=== PATIENT | female | born 1955 | race Caucasian/White ===

== ENCOUNTER 2020-03-10 13:11 | Outpatient (CLI) | payer MEDICARE, MEDICAID, SELFPAY ==
--- NOTE | ~2020-03-10 | XR_ITS ---
EXAMINATION: XR lg joint inject/asp w image DATE: 03/10/2020 14:10 INDICATION: Left hip arthritis with pain TECHNIQUE: A time-out was performed to verify the patient's name, date of , and procedure to b e performed. The procedure including the risks, benefits, and alternatives was discussed with the pat ient. Risks discussed included bleeding and infection. The patient understood the risks and agreed to proceed. The skin overlying the left hip joint was prepped and draped in usual sterile fashion. An esthetic was administered with 1% lidocaine subcutaneously. A 22 G needle was advanced under fluoros copic guidance into the joint. Injection of 0.8 mL of Omnipaque 240 confirmed intra-articular positi on of the needle. Subsequently, injectate consisting of 3 mm of a 2:1 mixture of 0.5% bupivacaine: 8 0 mg/mL Depo-Medrol for a total dose of 80 mg Depo-Medrol was instilled. Washout of contrast was seen confirming intra-articular administration. The needle was removed and the entry site was cleaned and dressed. There were no immediate complications. Fluoroscopy exposure time was 0.1 minutes. The tota l number of images was 2. FINDINGS: Real-time fluoroscopy demonstrates the needle in the left hip joint. Patient's pain prior t o procedure:05/10. Patient's pain following the procedure: 08/10. IMPRESSION: 1. Left hip joint injection of local anesthetic and steroid with decrease in the patient's presenting pain. Reviewed, dictated and finalized at location A. IMPRESSION: 1. Left hip joint injection of local anesthetic and steroid with decrease in th e patient's presenting pain.
== END 2020-03-10 13:12 | disposition home or self-care (01) ==
LOC: ANHIMG 13:20
PROVIDERS: PCP Physician Assistant; Visit Provider Orthopaedic Surgery
DX: M16.12 Unilateral primary osteoarthritis, left hip (principal)
CPT/HCPCS: 20610; 77002; J1040; Q9966

== ENCOUNTER 2020-12-02 20:31 | Emergency (ER) | payer MEDICARE, MEDICAID, SELFPAY ==
--- NOTE | ~2020-12-02 | XR_ITS ---
EXAMINATION: XR chest 1V portable DATE: 12/02/2020 21:17 INDICATION: Pneumonia. TECHNIQUE: A single frontal view of the chest was obtained. COMPARISON: None. FINDINGS: There are airspace opacities in left lower lung zone. No pleural effusion or pneumothorax. The heart size is normal. There is a large hiatal hernia. There is internal fixation of left humerus. IMPRESSION: 1. Airspace opacities in left lower lung zone, consistent with atelectasis versus pneumonia. 2. Large hiatal hernia. Reviewed, dictated and finalized at location A. IMPRESSION: 1. Airspace opacities in left lower lung zone, consistent with atelectasis vers us pneumonia. 2. Large hiatal hernia.
[2020-12-02 20:34] VITALS: BP 146/76; PULSE 78; RESP 18; TEMP 35.8; O2SAT 95
--- NOTE | 2020-12-02 20:53 | PC.NURSE ---
patients daughter reports that patient fell and hit her head bout a week ago and then had an accidental overdose on her rx medications. was admitted to [facility] and treated on both the medical floor and the geropsych graves. patient was discharged this am. daughter reports being unhappy with the care patient recieved at [facility] and therefore brought her here for a second opinion . daughter is vague about what her actual medical concerns are at this time. daughter keeps repeating how the nurses at [facility] refused to give patient applesauce when it was requested and the fact that she(daughter) was not provided with enough details as to test results etc. patient offers no complaints
--- NOTE | 2020-12-02 21:40 | ED.GENADULT ---
HPI - General Adult General Chief complaint: Unspecified Stated complaint: wants 2nd opinion Time Seen by Provider: 12/02/20 21:18 History of Present Illness HPI narrative: Patient is a 65-year-old female who presents the emergency department with chief complaint of wants second opinion. Patient was just discharged from [facility] [place] after she had had a accidental overdose on methamphetamine and [place]. The patient was admitted initially to the medical floor and then to their psychiatric unit and then back to the medical floor for a observation overnight. The patient was discharged today with a diagnosis of pneumonia is currently on a Levaquin dosing of 750 mg every 48 hours. The patient's daughter states that she is still somewhat confused but has been that way since she overdosed. She uses a walker at home. The patient's daughter wished to have a second opinion of the pneumonia and brought the patient to the emergency department for evaluation. Currently the patient has no complaints Related Data Home Medications Medication Instructions Recorded Confirmed baclofen 20 mg tablet 20 mg PO DAILY 02/28/20 05/23/20 acetaminophen 500 mg tablet 500 mg PO Q6H PRN 05/23/20 albuterol sulfate 90 mcg/actuation 1 inh INHALATION Q4H 05/23/20 aerosol inhaler amlodipine 10 mg tablet 10 mg PO DAILY 05/23/20 ammonium lactate 12 % topical cream 1 applic TOPICAL DAILY 05/23/20 apixaban 5 mg tablet 5 mg PO BID 05/23/20 aripiprazole 30 mg tablet 30 mg PO DAILY 05/23/20 aspirin 81 mg tablet,delayed 81 mg PO DAILY 05/23/20 release budesonide-formoterol HFA 160 2 puff INHALATION Q12H 05/23/20 mcg-4.5 mcg/actuation aerosol inhaler bupropion HCl 200 mg tablet,12 hr 200 mg PO BID 05/23/20 sustained-release carvedilol 6.25 mg tablet 6.25 mg PO Q12H 05/23/20 cholestyramine-aspartame 4 gram PO 05/23/20 oral powder for susp in a packet cyclobenzaprine 10 mg tablet 10 mg PO TID PRN 05/23/20 dicyclomine 10 mg capsule 10 mg PO QID 05/23/20 duloxetine 30 mg capsule,delayed 30 mg PO DAILY 05/23/20 release famotidine 40 mg tablet 40 mg PO DAILY 10/23/20 fenofibrate micronized 134 mg 134 mg PO DAILY 05/23/20 capsule ferrous sulfate 325 mg (65 mg 325 mg PO DAILY 05/23/20 iron) tablet,delayed release gabapentin 600 mg tablet 600 mg PO TID 05/23/20 hydrocodone 5 mg-acetaminophen 325 1 tablet PO Q6H PRN 05/23/20 mg tablet metformin 500 mg tablet 500 mg PO BID 05/23/20 metronidazole 500 mg tablet 500 mg PO Q8H 05/23/20 nicotine 21 mg/24 hr daily 1 patch TRANSDERMAL DAILY 05/23/20 transdermal patch pantoprazole 40 mg tablet,delayed 40 mg PO QAM 05/23/20 release prednisone 20 mg tablet 20 mg PO BID 05/23/20 sertraline 100 mg tablet 150 mg PO DAILY tablet 05/23/20 sitagliptin 100 mg tablet 100 mg PO DAILY 05/23/20 Allergies Allergy/AdvReac Type Severity Reaction Status Date / Time morphine Allergy Unknown Hives Verified 05/23/20 10:03 Review of Systems Review of Systems: Narrative: A 10 system review of systems was completed on the patient and is negative except for what is stated in the HPI. Nursing and ancillary documentation was reviewed. [facility] Past Medical History Medical History Afib [place] Anxiety COPD (chronic obstructive pulmonary disease) Depression Diabetes Diarrhea Dizziness Emphysema of lung Headache History of pneumonia HTN (hypertension) Hx of drug dependence Osteoporosis Pneumonia Seizures Shortness of breath Vision abnormalities Weight gain Family History Family History Father Depression Sibling Depression Hypertension Family history of elevated blood lipids Other Arthritis Diabetes mellitus Heart disease Malignant neoplasm Social History Social History Smoking status
[2020-12-02 21:55] VITALS: BP 140/70; PULSE 78; RESP 18; O2SAT 99
== END 2020-12-02 21:56 | disposition home or self-care (01) ==
PROVIDERS: Emergency Provider Emergency Medicine; PCP Physician Assistant
DX: J18.9 Pneumonia, unspecified organism (principal); F17.210 Nicotine dependence, cigarettes, uncomplicated; I48.91 Unspecified atrial fibrillation; D64.9 Anemia, unspecified; F41.9 Anxiety disorder, unspecified; J44.9 Chronic obstructive pulmonary disease, unspecified; F32.9 Major depressive disorder, single episode, unspecified; E11.9 Type 2 diabetes mellitus without complications; I10 Essential (primary) hypertension; G40.909 Epilepsy, unspecified, not intractable, without status epilepticus; Z79.84 Long term (current) use of oral hypoglycemic drugs
CPT/HCPCS: 71045; 99283

== ENCOUNTER 2020-12-08 16:11 | Emergency (ER) | payer MEDICARE, MEDICAID, SELFPAY ==
[2020-12-08] VITALS (10 sets, daily range): BP systolic 149–170; BP diastolic 82–106; PULSE 95–111; RESP 15–25; TEMP 35.9; O2SAT 93–97
--- NOTE | ~2020-12-08 | XR_ITS ---
EXAMINATION: XR chest 2V EXAM DATE: 12/08/2020 18:15 INDICATION: Weakness, history COPD and hypertension. TECHNIQUE: Frontal and lateral projections of the chest obtained and reviewed. Comparison is made to prior examination from 12/02/2020. FINDINGS: There is moderate sliding gastroesophageal hiatal hernia. The lungs are clear. There are n o pleural effusions. The cardiomediastinal silhouette is within normal limits. There is no pneumoth orax suspected. Hardware within the left humerus. Cholecystectomy clips. IMPRESSION: 1. No acute cardiopulmonary findings. 2. Moderate hiatal hernia. Reviewed, dictated and finalized at location A.
--- NOTE | 2020-12-08 16:37 | ECG_ITS ---
Measurements Intervals [place] Rate: 105 P: 85 NC: 201 QRS: 45 QRSD: 84 T: 64 QT: 324 QTc: 428 Interpretive Statements SINUS TACHYCARDIA ATRIAL AND VENTRICULAR PREMATURE COMPLEXES BASELINE ARTIFACT- I, II, III, AVR, AVL, AVF, V1-V6 ABNORMAL ECG Electronically Signed On 12-08-2020 18:24:51 CDT by Jase Bailey D.O.
[2020-12-08 16:50] LABS: Basophils Percent Auto 0.4 % (0.2-1.2); Eosinophils Absolute Auto 0.2 K/mm3 (0-0.3); Eosinophils Percent Auto 1.7 % (0-4.4); Hematocrit 41.5 % (37.0-47.0); Hemoglobin 13.2 g/dL (12.0-15.0); Immature Granulocyte Absolute 0.04 K/mm3 (0.00-0.031); Immature Granulocyte Percent A 0.4 % (0-0.5); Lymphocytes Absolute Auto 1.98 K/mm3 (0.9-3.2); Lymphocytes Percent Auto 21.9 % (18.3-44.2); Mean Corpuscular HGB Conc 31.8 g/dl (32-36); Mean Corpuscular Hemoglobin 30.9 pg (26-34); Mean Corpuscular Volume 97.2 fl (80-100); Mean Platelet Volume 10.8 fl (7.4-10.4); Monocytes Absolute Auto 0.6 K/mm3 (0.1-0.6); Monocytes Percent Auto 6.3 % (2.6-8.5); Neutrophils Absolute Auto 6.3 K/mm3 (1.3-6.7); Neutrophils Percent Auto 69.3 % (45.5-73.1); Platelet Count Result 353 k/mm3 (150-375); Red Blood Count 4.27 M/mm3 (4.2-5.4); Red Cell Distribution Width 13.8 % (11.5-14.5); White Blood Count 9.1 K/mm3 (4.5-10.0)
[2020-12-08 16:58] LABS: Alanine Aminotransferase 15 U/L (4-35); Albumin Level 3.9 g/dL (3.5-5.1); Alkaline Phosphatase 60 U/L (38-126); Anion Gap 7 mmol/L (8-16); Aspartate Amino Transferase 25 U/L (14-36); Bilirubin,Total 0.2 mg/dL (0.2-1.3); Blood Urea Nitrogen 13 mg/dL (7-17); Calcium 9.6 mg/dL (8.4-10.2); Carbon Dioxide 28 mmol/L (22-30); Chloride 107 mmol/L (98-107); Estimated CRCL calculation 46 ml/min; Estimated Glomerular Filt Rate 38; Glucose 137 mg/dL (65-105); Potassium 3.7 mmol/L (3.4-5.0); Sodium 142 mmol/L (137-145)
[2020-12-08 17:59] LABS: Glucose Point of Care 141 (65-105)
--- NOTE | 2020-12-08 19:57 | PC.NURSE ---
pt reports she lives at [facility] and overdosed on fentanyl 2 weeks ago. states I thought it was meth . she reports she lives there d/t mental illness. c/o nausea and Seeing spots x 2 days. denies vomiting/diarrhea.
[2020-12-08 21:55] LABS: Add Urine Microscopic? YES; Appearance Urine Cloudy (Clear); Bacteria Urine Trace /hpf; Bilirubin Urine Negative (Negative); Blood Urine 1+ (Negative); Color Urine Yellow (Yellow); Glucose Urine UA Negative (Negative); Ketones Urine Negative (Negative); Leukocyte Esterase Ur Negative LEU/UL (Negative); Mucus Urine Rare /lpf; Nitrate Urine Negative (Negative); Protein Urine 1+ mg/dL (Negative); RBC Urine 0-2 /hpf (0-2); Specific Grav Ur 1.019 (1.001-1.035); Squamous Epithelial Cell Urine Occasional /hpf (Few); Urobilinogen Urine Negative mg/dL (<2.0); WBC Urine 0-3 /hpf
--- NOTE | 2020-12-08 22:03 | ED.GENADULT ---
HPI - General Adult General Chief complaint: Recheck/Abnormal Lab/Rx Stated complaint: nausea, shakiness Time Seen by Provider: 12/08/20 20:06 Source: patient Mode of arrival: ambulatory Limitations: no limitations History of Present Illness HPI narrative: 65-year-old with a history of hypertension diabetes here with complaints of nausea, feeling weak associated with jitteriness on and off for past 1 day. Patient states that her blood sugar could be elevated. She states that her glucometer is not working so she thinks her blood sugars are elevated. She also states that she overdosed on fentanyl 2 weeks ago. She presently denies any shortness of breath, cough or fever or chills. No history of vomiting or diarrhea. Onset (ago): day(s) (1) Exacerbating factors: none Associated symptoms: denies other symptoms Related Data Home Medications Medication Instructions Recorded Confirmed baclofen 20 mg tablet 20 mg PO DAILY 02/28/20 05/23/20 acetaminophen 500 mg tablet 500 mg PO Q6H PRN 05/23/20 albuterol sulfate 90 mcg/actuation 1 inh INHALATION Q4H 05/23/20 aerosol inhaler amlodipine 10 mg tablet 10 mg PO DAILY 05/23/20 ammonium lactate 12 % topical cream 1 applic TOPICAL DAILY 05/23/20 apixaban 5 mg tablet 5 mg PO BID 05/23/20 aripiprazole 30 mg tablet 30 mg PO DAILY 05/23/20 aspirin 81 mg tablet,delayed 81 mg PO DAILY 05/23/20 release budesonide-formoterol HFA 160 2 puff INHALATION Q12H 05/23/20 mcg-4.5 mcg/actuation aerosol inhaler bupropion HCl 200 mg tablet,12 hr 200 mg PO BID 05/23/20 sustained-release carvedilol 6.25 mg tablet 6.25 mg PO Q12H 05/23/20 cholestyramine-aspartame 4 gram PO 05/23/20 oral powder for susp in a packet cyclobenzaprine 10 mg tablet 10 mg PO TID PRN 05/23/20 dicyclomine 10 mg capsule 10 mg PO QID 05/23/20 duloxetine 30 mg capsule,delayed 30 mg PO DAILY 05/23/20 release famotidine 40 mg tablet 40 mg PO DAILY 05/23/20 fenofibrate micronized 134 mg 134 mg PO DAILY 05/23/20 capsule ferrous sulfate 325 mg (65 mg 325 mg PO DAILY 05/23/20 iron) tablet,delayed release gabapentin 600 mg tablet 600 mg PO TID 05/23/20 hydrocodone 5 mg-acetaminophen 325 1 tablet PO Q6H PRN 05/23/20 mg tablet metformin 500 mg tablet 500 mg PO BID 05/23/20 metronidazole 500 mg tablet 500 mg PO Q8H 05/23/20 nicotine 21 mg/24 hr daily 1 patch TRANSDERMAL DAILY 05/23/20 transdermal patch pantoprazole 40 mg tablet,delayed 40 mg PO QAM 05/23/20 release prednisone 20 mg tablet 20 mg PO BID 05/23/20 sertraline 100 mg tablet 150 mg PO DAILY tablet 05/23/20 sitagliptin 100 mg tablet 100 mg PO DAILY 05/23/20 Allergies Allergy/AdvReac Type Severity Reaction Status Date / Time morphine Allergy Unknown Hives Verified 05/23/20 10:03 Review of Systems Review of Systems: All systems reviewed & are unremarkable except as noted in HPI and below Constitutional: Constitutional: Reports no additional constitutional complaints Eyes: Eyes: Reports no additional eye complaints ENT: Reports system reviewed and no additional complaints, except as documented Cardiovascular: Cardiovascular: Reports no additional cardiovascular complaints Respiratory: Respiratory: Reports no additional respiratory complaints Gastrointestinal: Gastrointestinal: Reports as per HPI Musculoskeletal: Musculoskeletal: Reports no additional musculoskeletal complaints PMFSH Past Medical History Medical History Afib [place] Anxiety COPD (chronic obstructive pulmonary disease) Depression Diabetes Diarrhea Dizziness Emphysema of lung Headache History of pneumonia HTN (hypertension) Hx of drug dependence Osteoporosis Pneumonia Seizures Shortness of breath Vision abnormalities Weight gain Family History Family History Father Depression Sibling Depression Hypertension Family history of sandra
[2020-12-08 22:08] LABS: Amphetamine Screen Urine Positive (Negative); Barbiturate Screen Urine Negative (Negative); Benzodiazepines Screen Urine Positive (Negative); Cannabinoid Screen Urine Negative (Negative); Cocaine Screen Urine Negative (Negative); Methadone Screen Urine Negative (Negative); Opiate Screen Urine Negative (Negative); Phencyclidine Screen Urine Negative (Negative)
== END 2020-12-08 22:33 | disposition home or self-care (01) ==
PROVIDERS: Emergency Provider Family Medicine; PCP Physician Assistant
DX: R11.0 Nausea (principal); F41.9 Anxiety disorder, unspecified; I10 Essential (primary) hypertension; E11.9 Type 2 diabetes mellitus without complications; I48.91 Unspecified atrial fibrillation; J43.9 Emphysema, unspecified; F32.9 Major depressive disorder, single episode, unspecified; Z87.01 Personal history of pneumonia (recurrent); M81.0 Age-related osteoporosis without current pathological fracture; F17.210 Nicotine dependence, cigarettes, uncomplicated; Z79.01 Long term (current) use of anticoagulants; R00.0 Tachycardia, unspecified; I49.3 Ventricular premature depolarization; I49.1 Atrial premature depolarization; K44.9 Diaphragmatic hernia without obstruction or gangrene; Z79.84 Long term (current) use of oral hypoglycemic drugs; Z79.899 Other long term (current) drug therapy
CPT/HCPCS: 36415; 71046; 80053; 80307; 81001; 82948; 85025; 93005; 99283

== ENCOUNTER 2021-07-20 22:50 | Inpatient (IN) | payer MEDICARE, MEDICAID, SELFPAY ==
--- NOTE | ~2021-07-20 | XR_ITS ---
EXAMINATION: XR chest 1V portable DATE: 07/27/2021 09:01 INDICATION: Acute respiratory failure. COVID-19 pneumonia. TECHNIQUE: A single frontal view of the chest was obtained on 2 radiographs. COMPARISON: Chest single view 07/26/2021 FINDINGS: The lung bases are excluded. There are airspace opacities in all lung zones bilaterally. No pleural effusion or pneumothorax. The heart size is normal. The endotracheal tube tip is 5.3 cm abov e the doretha. The nasogastric tube tip is beyond the inferior margin of the radiograph, but at least to the stomach. A right internal jugular central venous catheter is seen with tip in the superior ene a cava. IMPRESSION: 1. Diffuse lung disease with worsening in the lower lung zones, consistent with COVID-19 pneumonia. Reviewed, dictated and finalized at location A. RNAL GRINDER TENDER
--- NOTE | ~2021-07-20 | XR_ITS ---
XR chest 1V portable DATE: 07/26/2021 10:37 INDICATION: Acute respiratory failure. Covid pneumonia. TECHNIQUE: Portable AP chest on 07/26/2021 at 0949 hours COMPARISON: 07/25/2021 portable AP chest at 1259 hours FINDINGS: ET tube 5.5 cm above doretha. NG tube noted passing toward the stomach. Right internal jugul ar central venous catheter tip in superior vena cava near superior cavoatrial junction. There are persistent extensive patchy bilateral pulmonary infiltrates, mildly increased since 021 IMPRESSION: Extensive patchy bilateral pulmonary infiltrates, mildly increased since 07/25/2021 Reviewed, dictated and finalized at location A. HOME NANNY
--- NOTE | ~2021-07-20 | XR_ITS ---
EXAMINATION: XR chest 1V portable DATE: 08/04/2021 14:48 INDICATION: Decreased oxygenation. TECHNIQUE: A single frontal view of the chest was obtained on 2 radiographs. COMPARISON: Chest single view at 9:27 AM FINDINGS: The patient is rotated to her left. There are airspace opacities in all lung zones bilatera lly. There is a small right pleural effusion. No pneumothorax. The heart size is obscured. The endotr acheal tube tip is 7.4 cm as above the doretha. The nasogastric tube tip is beyond the inferior margin of the radiograph, but at least to the stomach. A right internal jugular central venous catheter is seen with tip in the superior vena cava. There is internal fixation of left humerus. IMPRESSION: 1. Worsened diffuse lung disease, consistent with pneumonia without or with superimposed pulmonary ed lucinda. 2. Small right pleural effusion. Reviewed, dictated and finalized at location A. GRINDER SET UP OPERATOR GEAR IMPRESSION: 1. Worsened diffuse lung disease, consistent with pneumonia without or with sup erimposed pulmonary edema. 2. Small right pleural effusion.
--- NOTE | ~2021-07-20 | XR_ITS ---
EXAMINATION: XR chest 1V portable EXAM DATE: 07/28/2021 08:45 INDICATION: Acute respiratory failure, COVID pneumonia. TECHNIQUE: Portable AP frontal chest x-ray was obtained. Comparison is made to prior examination from 07/27/2021. FINDINGS: Endotracheal tube tip is 6 centimeters above the doretha. There is a nasogastric tube seen with tip collimated off the study, but below the left hemidiaphragm. There is a right IJ venous line. Diffuse airspace disease consistent with COVID pneumonia unchanged. There are no sizable pleural eff usions. There is no pneumothorax suspected. Cardiomegaly. The bones and soft tissues are unremar kable. There is no significant interval change compared to prior exam. IMPRESSION: 1. Line and tube(s) in position. 2. Diffuse COVID pneumonia. Reviewed, dictated and finalized at location A. ETIC COMPUTATOR
--- NOTE | ~2021-07-20 | XR_ITS ---
EXAMINATION: XR chest 1V portable DATE: 07/31/2021 07:55 INDICATION: Acute respiratory failure. COVID-19 pneumonia. TECHNIQUE: A single frontal view of the chest was obtained. COMPARISON: Chest single view 07/30/2021 FINDINGS: There are airspace opacities in all lung zones bilaterally. No pleural effusion or pneumoth orax. There is elevation of right hemidiaphragm. The heart size is normal. The endotracheal tube tip is 5.1 cm above the doretha. A right internal jugular central venous catheter is seen with tip at the superior cavoatrial junction. The nasogastric tube tip is beyond the inferior margin of the radiograp h, but at least to the stomach. IMPRESSION: 1. Worsened diffuse lung disease, consistent with COVID-19 pneumonia. Reviewed, dictated and finalized at location A. E PAINTER
--- NOTE | ~2021-07-20 | XR_ITS ---
EXAMINATION: XR chest 1V portable EXAM DATE: 08/12/2021 12:02 INDICATION: Respiratory failure. TECHNIQUE: Portable AP frontal chest x-ray was obtained. Comparison is made to prior examination from 08/11/2021. FINDINGS: There is a right-sided chest tube in position. Trace right-sided pneumothorax. There is a right IJ venous line. Endotracheal tube tip is 4 centimeters above the doretha. There is a nasogastri c tube seen with tip collimated off the study, but below the left hemidiaphragm. Moderate to large amount of right-sided, moderate amount of left-sided, airspace disease, with some i nterval improvement. Possible small right pleural effusion. Some right axillary gas Cardiomediast inal silhouette is normal. The bones and soft tissues are unremarkable. IMPRESSION: 1. Line and tube(s) in position. 2. Bilateral airspace disease with mild interval improvement. 3. Trace right pneumothorax. Reviewed, dictated and finalized at location A. BONDING AGENT
--- NOTE | ~2021-07-20 | XR_ITS ---
EXAMINATION: XR chest 1V portable EXAM DATE: 07/30/2021 07:57 INDICATION: Acute respiratory failure, COVID pneumonia. TECHNIQUE: Portable AP frontal chest x-ray was obtained. Comparison is made to prior examination from 07/29/2021. FINDINGS: Endotracheal tube tip is 6-7 centimeters above the doretha, could be safely advanced 2 cm. Feeding tube tip projects below the diaphragm, but the side port is above. This could be safely advan nikky 5-10 cm. There is a right IJ venous line in position. Diffuse airspace disease consistent with COVID pneumonia unchanged. There are no sizable pleural eff usions. There is no pneumothorax suspected. Cardiomegaly. The bones and soft tissues are unremar kable. Compared to prior study, both of the tubes appear to have retracted. Airspace disease not appreciably changed. IMPRESSION: 1. Tubes could be safely advanced as above. 2. Diffuse COVID pneumonia. I discussed tube recommendations with ICU nurse at 07/30/2021 08:04 STAGE BUILDER. Reviewed, dictated and finalized at location A. E BUILDER
--- NOTE | ~2021-07-20 | XR_ITS ---
EXAMINATION: XR chest 1V portable DATE: 08/05/2021 10:16 INDICATION: Respiratory failure. COVID pneumonia. TECHNIQUE: frontal view of the chest was obtained. COMPARISON: Chest radiograph dated 08/04/2021 FINDINGS: Endotracheal tube tip 1.8 cm above the doretha. Nasogastric tube with proximal side-port in the body o f the stomach and distal tip collimated off the study. Right internal jugular central venous catheter with distal tip at the caudal superior vena cava. Again seen are patchy airspace opacities in the bilateral mid and lower lung zones. More dense opacit y at the right lower lung zone with blunting at costophrenic angle suggesting superimposed small to m oderate right pleural effusion. Heart size is normal. IMPRESSION: 1. Unchanged diffuse bilateral lung disease consistent with pneumonia. 2. No significant change in a small to moderate right pleural effusion. Reviewed, dictated and finalized at location B. ANESTHETIST
--- NOTE | ~2021-07-20 | XR_ITS ---
EXAMINATION: XR chest 1V portable INDICATION: Respiratory failure TECHNIQUE: Portable AP chest at 1203 hours COMPARISON: 08/06/2021 FINDINGS: The endotracheal tube ends approximately 4.2 cm above the doretha. The nasogastric tube is f ollowed as far as the stomach. Its tip is beyond the inferior margin of the radiograph. A right inter nal jugular central venous catheter ends with its tip in the distal superior vena cava. The cardiomed iastinal silhouette is normal. Diffuse opacities persist in all lung zones with interval improvement in the mid and upper lung zones. No definite pleural effusion or pneumothorax is identified. IMPRESSION: 1. Diffuse lung disease with interval improvement in the mid and upper lung zones, consistent with pn eumonia and/or pulmonary edema. Reviewed, dictated and finalized at location A. INE BUNCH MAKER IMPRESSION: 1. Diffuse lung disease with interval improvement in the mid and upper lung zon es, consistent with pneumonia and/or pulmonary edema.
--- NOTE | ~2021-07-20 | XR_ITS ---
EXAMINATION: XR chest 1V portable DATE: 08/11/2021 05:43 INDICATION: Respiratory failure TECHNIQUE: frontal view of the chest was obtained. COMPARISON: Chest radiograph dated 08/09/2021 and 08/10/2021 FINDINGS: Endotracheal tube tip 5.4 cm above the doretha. Nasogastric tube extends below the left hemidiaphragm with distal tip collimated off the study. Right internal jugular central venous catheter with distal tip at the caudal superior vena cava. Unchanged position of a right-sided chest tube with significan t increase in the amount of subcutaneous gas along the right chest wall now extending into the right neck and axilla. Residual small right pneumothorax. Persistent airspace opacities relatively dense throughout the righ t lung. There is persistent relative sparing of the left upper lung zone. No left-sided pneumothorax. Cardiac silhouette is obscured. Continuous internal fixation lionel at the visualized proximal right hu merus. Bilateral old rib fractures. IMPRESSION: 1. Unchanged right chest tube with residual small right pneumothorax but significant increase in subc utaneous gas at the right chest wall, neck and axilla. 2. Persistent airspace opacities in the left mid and lower lung zone and more densely throughout the right lung which could represent pneumonia, pulmonary edema, atelectasis or some combination thereof. Superimposed pleural effusions could also not be excluded. Reviewed, dictated and finalized at location A. EOPTIC PROJECTION TOPOGRAPHER IMPRESSION: 1. Unchanged right chest tube with residual small right pneumothorax but signif icant increase in subcutaneous gas at the right chest wall, neck and axilla. 2. Persistent airspace opacities in the left mid and lower lung zone and more d ensely throughout the right lung which could represent pneumonia, pulmonary paz ma, atelectasis or some combination thereof. Superimposed pleural effusions cou ld also not be excluded.
--- NOTE | ~2021-07-20 | XR_ITS ---
XR chest port-a-cath/central 07/22/2021 08:30 Indication: Central line placement Procedure: AP portable chest Comparison: Comparison to multiple prior studies sequentially, with oldest reviewed study dated 12/08. Findings: Endotracheal tube tip 3 cm above the doretha. NG tube in the stomach. Persistent patchy bila teral airspace disease, consistent with pneumonia. No effusion or pneumothorax. Central line tip near the caval atrial junction. Impression: 1: Persistent patchy bilateral airspace disease, consistent with pneumonia. Reviewed, dictated and finalized at location A. AL WORK MANAGER Impression: 1: Persistent patchy bilateral airspace disease, consistent with pneumonia.
--- NOTE | ~2021-07-20 | XR_ITS ---
EXAMINATION: XR chest 1V portable DATE: 08/10/2021 09:50 INDICATION: Respiratory failure. TECHNIQUE: A single frontal view of the chest was obtained. COMPARISON: Chest single view 08/09/2021 FINDINGS: There are airspace opacities in all right lung zones and left mid and lower lung zones. No pneumothorax. Right-sided chest tube is unchanged. The heart size is normal. A right internal jugular central venous catheter is seen with tip in the superior vena cava. The nasogastric tube tip is beyo nd the inferior margin of the radiograph, but at least to the stomach. The endotracheal tube tip is 6 .9 cm above the doretha. There is internal fixation of left humerus. Again seen are fracture deformiti es of bilateral ribs. IMPRESSION: 1. Worsened diffuse right lung disease, consistent with pulmonary edema and/or atelectasis and/or pne umonia and some component of pleural effusion. Right-sided chest tube unchanged. 2. Worsened airspace opacities in left mid and lower lung zones, consistent with pneumonia. Reviewed, dictated and finalized at location B. L ARCHITECT IMPRESSION: 1. Worsened diffuse right lung disease, consistent with pulmonary edema and/or atelectasis and/or pneumonia and some component of pleural effusion. Right-side d chest tube unchanged. 2. Worsened airspace opacities in left mid and lower lung zones, consistent wit h pneumonia.
--- NOTE | ~2021-07-20 | XR_ITS ---
EXAMINATION: XR chest 1V portable DATE: 08/14/2021 10:02 INDICATION: Respiratory failure. TECHNIQUE: A single frontal view of the chest was obtained. COMPARISON: Chest single view 08/13/2021 FINDINGS: There are airspace opacities in the mid and lower lung zones, worst at right lung base. The re is a small right hydropneumothorax. A right-sided chest tube is noted. The heart size is normal. T he endotracheal tube tip is 2.2 cm above the doretha. The nasogastric tube tip is beyond the inferior margin of the radiograph, but at least to the stomach. A right internal jugular central venous cathet er is seen with tip in the superior vena cava. There is internal fixation of left humerus. IMPRESSION: 1. Airspace opacities in the mid and lower lung zones, worst at right lung base with bilateral interv al worsening, consistent with pneumonia. 2. Stable small right hydropneumothorax. Right-sided chest tube again noted. Reviewed, dictated and finalized at location B. NT CARE CONSULTANT IMPRESSION: 1. Airspace opacities in the mid and lower lung zones, worst at right lung base with bilateral interval worsening, consistent with pneumonia. 2. Stable small right hydropneumothorax. Right-sided chest tube again noted.
--- NOTE | ~2021-07-20 | XR_ITS ---
EXAMINATION: XR chest-chest tube insert/pos INDICATION: Chest tube insertion TECHNIQUE: Portable AP chest at 1626 hours COMPARISON: 1512 hours FINDINGS: A right-sided chest tube has been inserted. The right-sided pneumothorax is nearly complete ly resolved. There are focal airspace opacities of the right lung base. Diffuse patchy airspace opaci ties are seen throughout all lung zones. No definite pleural effusion is identified. The endotracheal tube ends approximately 2.5 cm above the doretha. The nasogastric tube is followed as far as the stom ach. Its tip is beyond the inferior margin of the radiograph. A right internal jugular catheter ends with its tip in the superior vena cava. IMPRESSION: 1. Right chest tube insertion with near complete resolution of the previously described right pneumot horax. 2. Diffuse lung disease, consistent with pneumonia/or pulmonary edema. Reviewed, dictated and finalized at location F. H SOCIAL WORKER IMPRESSION: 1. Right chest tube insertion with near complete resolution of the previously d escribed right pneumothorax. 2. Diffuse lung disease, consistent with pneumonia/or pulmonary edema.
--- NOTE | ~2021-07-20 | XR_ITS ---
EXAMINATION: XR chest 1V portable EXAM DATE: 07/29/2021 07:41 INDICATION: Acute respiratory failure, COVID pneumonia. TECHNIQUE: Portable AP frontal chest x-ray was obtained. Comparison is made to prior examination from 07/28/2021. FINDINGS: Endotracheal tube tip is 6 centimeters above the doretha. There is a nasogastric tube seen with tip collimated off the study, but below the left hemidiaphragm. There is a right IJ venous line . Diffuse airspace disease consistent with COVID pneumonia unchanged. There are no sizable pleural eff usions. There is no pneumothorax suspected. Cardiomegaly. The bones and soft tissues are unremar kable. There is no significant interval change compared to prior exam. IMPRESSION: 1. Line and tube(s) in position. 2. Diffuse COVID pneumonia. Reviewed, dictated and finalized at location A. ERS ADVISER
--- NOTE | ~2021-07-20 | XR_ITS ---
EXAMINATION: XR chest ET placement DATE: 08/02/2021 20:29 INDICATION: Endotracheal tube exchange. TECHNIQUE: A single frontal view of the chest was obtained. COMPARISON: Chest single view at 4:52 AM FINDINGS: There are airspace opacities in right mid and lower lung zones and all left lung zones. No pleural effusion or pneumothorax. The heart size is normal. The nasogastric tube tip is beyond the in ferior margin of the radiograph, but at least to the stomach. The endotracheal tube tip is 4.6 cm abo ve the doretha. A right internal jugular central venous catheter is seen with tip at the superior cavo atrial junction. There is a large hiatal hernia. There is internal fixation of left humerus. IMPRESSION: 1. Diffuse lung disease with some areas of worsening and some areas of improvement, consistent with p neumonia. 2. Large hiatal hernia. Reviewed, dictated and finalized at location A. K REPAIRER HELPER IMPRESSION: 1. Diffuse lung disease with some areas of worsening and some areas of improvem ent, consistent with pneumonia. 2. Large hiatal hernia.
--- NOTE | ~2021-07-20 | XR_ITS ---
EXAMINATION: XR chest ET placement DATE: 07/22/2021 06:46 INDICATION: Intubation. TECHNIQUE: A single frontal view of the chest was obtained. COMPARISON: Chest single view 07/21/2021 FINDINGS: The patient is rotated to her left. There are airspace and interstitial opacities throughou t the lungs bilaterally. No pleural effusion or pneumothorax. The heart size is normal. There is a mo derate-sized hiatal hernia. The endotracheal tube tip is 11 mm above the doretha. IMPRESSION: 1. Worsened diffuse lung disease, consistent with COVID-19 pneumonia. 2. Moderate-sized hiatal hernia. Reviewed, dictated and finalized at location A. COMPLIANCE MANAGER
--- NOTE | ~2021-07-20 | XR_ITS ---
XR chest 1V portable DATE: 07/24/2021 06:33 INDICATION: Acute respiratory failure. Covid pneumonia. TECHNIQUE: Portable AP chest on 07/24/2021 at 0507 hours COMPARISON: 07/23/2021 portable AP chest FINDINGS: The patient is very rotated, limiting the examination. ET tube is 4.8 cm above doretha, in satisfactory position. A nasogastric tube is noted in the stomach. Right internal jugular central venous catheter tip overlies the superior vena cava near the right atr ium. No pneumothorax is evident. Patchy bilateral pulmonary infiltrates persist. No pleural effusion or pneumothorax is evident. IMPRESSION: No significant change since 07/23/2021 Reviewed, dictated and finalized at location A. SUCKER
--- NOTE | ~2021-07-20 | US_ITS ---
EXAMINATION: US renal BI DATE: 07/22/2021 10:37 INDICATION: Acute kidney injury. TECHNIQUE: Multiple ultrasound grayscale images of the kidneys were obtained. COMPARISON: None. FINDINGS: Sensitivity and specificity are decreased by obesity. The right kidney measures 11.0 x 3.9 x 4.8 cm. The left kidney measures 9.9 x 5.5 x 6.0 cm. The kidneys demonstrate normal parenchymal echogenicity. There is a 3.9 cm mass in left kidney. There is no hydronephrosis. The bladder is not visualized. IMPRESSION: 1. Normal kidney sizes. No hydronephrosis. 2. 3.9 cm left kidney mass suspicious for renal cell carcinoma. Abdomen CT without and with contrast is recommended after improvement in kidney function. Reviewed, dictated and finalized at location A. RMAN & CEO IMPRESSION: 1. Normal kidney sizes. No hydronephrosis. 2. 3.9 cm left kidney mass suspicious for renal cell carcinoma. Abdomen CT with out and with contrast is recommended after improvement in kidney function.
--- NOTE | ~2021-07-20 | XR_ITS ---
EXAMINATION: XR chest 1V portable DATE: 07/25/2021 13:05 INDICATION: Acute respiratory failure. COVID pneumonia. TECHNIQUE: frontal view of the chest was obtained. COMPARISON: Chest radiograph dated 07/24/2021, 07/23/2021 and 07/22/2021 FINDINGS: Endotracheal tube tip 5.4 cm above the doretha. Nasogastric tube extends below the left hemidiaphragm with distal tip collimated off the study. Right internal jugular central venous catheter with distal tip at the caudal superior vena cava. Persistent opacities throughout both lungs consistent with pneumonia and/or pulmonary edema. No pneum othorax or definitive pleural effusion. Moderate-sized hiatal hernia. Are size is normal. IMPRESSION: 1. No significant change in diffuse bilateral lung disease consistent with COVID pneumonia with diffe rential including pulmonary edema. 2. Moderate-sized hiatal hernia. Reviewed, dictated and finalized at [facility]. GER EMPLOYEE RELATIONS IMPRESSION: 1. No significant change in diffuse bilateral lung disease consistent with COVI D pneumonia with differential including pulmonary edema. 2. Moderate-sized hiatal hernia.
--- NOTE | ~2021-07-20 | XR_ITS ---
EXAMINATION: XR chest 1V portable DATE: 08/04/2021 09:43 INDICATION: Respiratory failure. COVID-19 pneumonia. TECHNIQUE: A single frontal view of the chest was obtained. COMPARISON: Chest single view 08/03/2021 FINDINGS: There are airspace opacities in all lung zones bilaterally with a peripheral predominance p redominantly involving the mid and lower lung zones. There is a small right pleural effusion. No pneu mothorax. The heart size is normal. The endotracheal tube tip is 5.5 cm above the doretha. A right int ernal jugular central venous catheter is seen with tip at the superior cavoatrial junction. The nasog astric tube tip is beyond the inferior margin of the radiograph, but at least to the stomach. IMPRESSION: 1. Diffuse lung disease with interval improvement, consistent with pneumonia. 2. Small right pleural effusion. Reviewed, dictated and finalized at location A. RUCTOR KNITTING
--- NOTE | ~2021-07-20 | XR_ITS ---
EXAMINATION: XR chest 1V portable EXAM DATE: 08/02/2021 06:15 INDICATION: Respiratory failure, COVID pneumonia, mechanical ventilation. TECHNIQUE: Portable AP frontal chest x-ray was obtained. Comparison is made to prior examination from 07/31/2021. FINDINGS: Endotracheal tube tip is 4-5 centimeters above the doretha. There is a right IJ venous line in position. There is a nasogastric tube seen with tip collimated off the study, but below the left hemidiaphragm. Diffuse bilateral COVID pneumonia unchanged. There are no sizable pleural effusions. There is no p neumothorax suspected. The cardiomediastinal silhouette is prominent but magnified on this AP techn ique. The bones and soft tissues are unremarkable. IMPRESSION: 1. Line and tube(s) in position. 2. Stable airspace disease. Reviewed, dictated and finalized at location A. RAL LIMOUSINE DRIVER
--- NOTE | ~2021-07-20 | XR_ITS ---
EXAMINATION: XR chest 1V portable DATE: 08/13/2021 12:36 INDICATION: Respiratory failure. TECHNIQUE: A single frontal view of the chest was obtained. COMPARISON: Chest single view 08/12/2021 FINDINGS: There are airspace opacities in the mid and lower lung zones, worse at right lung base. The re is a small right hydropneumothorax. A right-sided chest tube is noted. The heart size is normal. T he endotracheal tube tip is 3.1 cm above the doretha. A right internal jugular central venous catheter is seen with tip in the superior vena cava. There is internal fixation of left humerus. There are fr acture deformities of multiple left-sided ribs. IMPRESSION: 1. Airspace opacities in the mid and lower lung zones, worst at right lung base with bilateral interv al improvement, consistent with pneumonia. 2. Small right hydropneumothorax. Right-sided chest tube unchanged. Reviewed, dictated and finalized at location B. ICAL RESEARCH ADMINISTRATOR IMPRESSION: 1. Airspace opacities in the mid and lower lung zones, worst at right lung base with bilateral interval improvement, consistent with pneumonia. 2. Small right hydropneumothorax. Right-sided chest tube unchanged.
--- NOTE | ~2021-07-20 | XR_ITS ---
EXAMINATION: XR chest 1V portable DATE: 07/21/2021 00:09 INDICATION: Shortness of breath. COVID-19 pneumonia. TECHNIQUE: A single frontal view of the chest was obtained. COMPARISON: Chest 2 views 12/08/2020 FINDINGS: There are airspace opacities in the mid and lower lung zones. No pleural effusion or pneumo thorax. The heart size is normal. There is a large hiatal hernia. There is internal fixation of left humerus. IMPRESSION: 1. Airspace opacities in the mid and lower lung zones, consistent with COVID-19 pneumonia. 2. Large hiatal hernia. Reviewed, dictated and finalized at location A. RVISOR AUDIT CLERKS
--- NOTE | ~2021-07-20 | XR_ITS ---
EXAMINATION: XR chest port-a-cath/central DATE: 07/21/2021 03:08 INDICATION: Central line placement. TECHNIQUE: A single frontal view of the chest was obtained. COMPARISON: Chest single view at 12 00 a.m. FINDINGS: There are airspace opacities in all lung zones bilaterally with a peripheral predominance w ith relative sparing of left lung apex. No pleural effusion or pneumothorax. The heart size is normal . There is a large hiatal hernia. A right internal jugular central venous catheter is seen with tip i n the superior vena cava. There is internal fixation of left humerus. IMPRESSION: 1. Central line tip in superior vena cava. 2. Diffuse lung disease, consistent with COVID-19 pneumonia. 3. Large hiatal hernia. Reviewed, dictated and finalized at location A. T PROFESSIONAL SPORTS
--- NOTE | ~2021-07-20 | XR_ITS ---
XR chest 1V portable 08/16/2021 11:29 Indication: Respiratory failure Procedure: AP portable chest Comparison: Comparison to multiple prior studies sequentially, with oldest reviewed study dated 08/12. Findings: Endotracheal tube tip 6.4 cm above the doretha. NG tube in the stomach. Right IJ central toyin e tip in the SVC. There is a right-sided chest tube. There is diffuse bilateral airspace disease. Sma ll pleural effusions. No pneumothorax. Cardiomegaly. Impression: 1: Diffuse bilateral airspace disease which may represent edema or pneumonia. 2: Small pleural effusions. Reviewed, dictated and finalized at location A. ENTRY ANALYST Impression: 1: Diffuse bilateral airspace disease which may represent edema or pneumonia. 2: Small pleural effusions.
--- NOTE | ~2021-07-20 | XR_ITS ---
EXAMINATION: XR chest 1V portable DATE: 08/03/2021 09:10 INDICATION: Respiratory failure. COVID pneumonia. TECHNIQUE: frontal view of the chest was obtained. COMPARISON: Chest radiograph dated 08/02/2021 FINDINGS: Endotracheal tube tip 6.0 cm above the doretha. Nasogastric tube extends below the left hemidiaphragm with distal tip collimated off the study. Patchy airspace opacities throughout both lungs relatively sparing the left upper lung zone. Increasi ng superimposed bilateral hazy airspace opacities and more dense opacity tracking along the lateral m argin of the right lung consistent with likely small to moderate-sized right pleural effusion and pos sible small left pleural effusion. No pneumothorax. The cardiomediastinal silhouette is now largely o bscured. IMPRESSION: 1. Worsening bilateral lung disease consistent with pneumonia and likely new or increasing small to m oderate-sized right pleural effusion and possible small left pleural effusion. 2. Endotracheal tube tip 6 cm above the doretha. Could consider advancement by 3-4 cm . Reviewed, dictated and finalized at location B. DEVELOPER IMPRESSION: 1. Worsening bilateral lung disease consistent with pneumonia and likely new or increasing small to moderate-sized right pleural effusion and possible small l eft pleural effusion. 2. Endotracheal tube tip 6 cm above the doretha. Could consider advancement by 3 -4 cm .
--- NOTE | ~2021-07-20 | XR_ITS ---
EXAMINATION: XR chest 1V portable EXAM DATE: 08/15/2021 14:20 INDICATION: Respiratory failure TECHNIQUE: Portable AP frontal chest x-ray was obtained. Comparison is made to prior examination from 08/14/2021. FINDINGS: Patient is rotated to the left. There is a right-sided chest tube, and endotracheal tube, nasogastric tube and right IJ venous line. Probably moderate amount of right pleural fluid. No defini te pleural gas identified. Diffuse pneumonia and/or edema. The cardiac silhouette is enlarged. There are no osseous abnormalities identified. There is no significant interval change. IMPRESSION: 1. Line and tube(s) in position. 2. Diffuse pneumonia and/or edema. 3. Right pleural effusion. Reviewed, dictated and finalized at location G. TOP SPECIALIST
--- NOTE | ~2021-07-20 | XR_ITS ---
XR chest 1V portable DATE: 08/06/2021 09:32 INDICATION: Respiratory failure, Covid pneumonia TECHNIQUE: Portable AP chest on 08/06/2021 at 0906 hours COMPARISON: 08/05/2021 portable AP chest at 0958 hours FINDINGS: ET tube in satisfactory position 4.9 cm above doretha. NG tube in stomach. Right internal ju gular central venous catheter in superior vena cava. There is severe patchy consolidating infiltrates bilaterally, relatively sparing only the left apex. Infiltrates are increased since 08/05/2021. No pneumothorax. IMPRESSION: Severe patchy consolidating bilateral pulmonary infiltrates, substantially increased sinc e 08/05/2021 Reviewed, dictated and finalized at location A. E CLINICAL IMPRESSION: Severe patchy consolidating bilateral pulmonary infiltrates, substa ntially increased since 08/05/2021
--- NOTE | ~2021-07-20 | XR_ITS ---
XR chest 1V portable 08/09/2021 10:54 Indication: Respiratory failure Procedure: AP portable chest Comparison: Comparison to multiple prior studies sequentially, with oldest reviewed study dated 11/2021. Findings: Borderline heart size. Diffuse bilateral airspace disease. Moderate right pleural effusion. No pneumothorax. Endotracheal tube tip approximately 4.4 cm above the doretha. NG tube in the stomach . Central line tip in the SVC. No pneumothorax. Impression: 1: Diffuse bilateral airspace disease which may represent pneumonia or edema. 2: Moderate right pleural effusion. Reviewed, dictated and finalized at location A. CHECKER Impression: 1: Diffuse bilateral airspace disease which may represent pneumonia or edema. 2: Moderate right pleural effusion.
--- NOTE | ~2021-07-20 | XR_ITS ---
XR chest 1V portable 07/23/2021 10:06 Indication: Acute respiratory failure. Covid pneumonia. Procedure: AP portable chest Comparison: Comparison to multiple prior studies sequentially, with oldest reviewed study dated 07/02. Findings: Progression of diffuse bilateral airspace disease compared with prior examination. Right IJ central line tip in the SVC. Endotracheal tube tip 4.2 cm above the doretha. NG tube in the stomach. No significant effusion or pneumothorax. No acute osseous abnormality. Impression: 1: Interval progression of diffuse bilateral airspace disease, compatible with pneumonia. Reviewed, dictated and finalized at location A. ON CANDY MAKER Impression: 1: Interval progression of diffuse bilateral airspace disease, compatible with pneumonia.
--- NOTE | ~2021-07-20 | XR_ITS ---
EXAMINATION: XR chest ET placement INDICATION: Endotracheal tube placement TECHNIQUE: Portable AP chest at 1512 hours COMPARISON: 1047 hours FINDINGS: The endotracheal tube ends approximately 2.5 cm above the doretha. The nasogastric tube is f ollowed as far as the stomach. Its tip is beyond the inferior margin of the radiograph. A right inter nal jugular catheter ends with its tip at the distal superior vena cava. There are diffuse opacities throughout all lung zones. A lzgsv-az-broumnbo size right pneumothorax has developed. There is no ple ural effusion. The cardiomediastinal silhouette is stable. IMPRESSION: 1. Ikiaa-ca-cyikcwbn size right pneumothorax. These findings and recommendations were discussed with Dr. Johnson at 1535 hours on 08/09/2021. 2. Stable diffuse lung disease, consistent with pneumonia and/or pulmonary edema. Reviewed, dictated and finalized at location F. EAR LOGGING ENGINEER IMPRESSION: 1. Jcpow-dt-hugrwinb size right pneumothorax. These findings and recommendation s were discussed with Dr. Johnson at 1535 hours on 08/09/2021. 2. Stable diffuse lung disease, consistent with pneumonia and/or pulmonary chelsea julián
--- NOTE | ~2021-07-20 | XR_ITS ---
EXAMINATION: XR chest 1V portable DATE: 08/08/2021 05:38 INDICATION: Respiratory failure. COVID-19 pneumonia. TECHNIQUE: A single frontal view of the chest was obtained. COMPARISON: Chest single view 08/07/2021 FINDINGS: There are airspace opacities in all lung zones, worst in the mid and lower lung zones. Ther e is a small right pleural effusion. No pneumothorax. The heart size is obscured. The endotracheal tu be tip is 2.5 cm above the doretha. The nasogastric tube tip is beyond the inferior margin of the radi ograph, but at least to the stomach. A right internal jugular central venous catheter is seen with ti p at the superior cavoatrial junction. IMPRESSION: 1. Worsened diffuse lung disease, consistent with pneumonia. 2. Stable small right pleural effusion. Reviewed, dictated and finalized at location A. R SORTER
[2021-07-20 22:54] VITALS: BP 85/46; PULSE 89; RESP 20; O2SAT 97
[2021-07-20 23:00] VITALS: PULSE 95; RESP 27; O2SAT 93
--- NOTE | 2021-07-20 23:13 | ED.GENADULT ---
HPI - General Adult General Chief complaint: Shortness of Breath/Dyspnea <Violet Figueroa MD - Last Filed: 07/21/21 16:30> Stated complaint: sob, covid + 1 week ago ( on cpap by ems) <Violet Figueroa MD - Last Filed: 07/21/21 16:30> Time Seen by Provider: 07/20/21 22:57 <Violet Figueroa MD - Last Filed: 07/21/21 16:30> Source: patient and RN notes reviewed <Violet Figueroa MD - Last Filed: 07/21/21 16:30> History of Present Illness HPI narrative: Patient is a 66 y/o female complaining of severe SOB since yesterday. There is no alleviating or exacerbating factor. She also has some chest pain and cough. She has no fever. She states that she tested positive for COVID 4 days ago. She has history of COPD. She is not on O2 at baseline. EMS reports pulse in 80s on RA. She was placed on CPAP. <Violet Figueroa MD - Last Filed: 07/21/21 16:30> Related Data Home medications: Home Medications Medication Instructions Recorded Confirmed acetaminophen 500 mg tablet 500 mg PO Q6H PRN 05/23/20 07/21/21 albuterol sulfate 90 mcg/actuation 1 inh INHALATION BID 05/23/20 07/21/21 aerosol inhaler amlodipine 10 mg tablet 10 mg PO DAILY 05/23/20 07/21/21 ammonium lactate 12 % topical cream 1 applic TOPICAL DAILY 05/23/20 apixaban 5 mg tablet 5 mg PO BID 05/23/20 07/21/21 aripiprazole 30 mg tablet 30 mg PO DAILY 05/23/20 07/21/21 aspirin 81 mg tablet,delayed 81 mg PO DAILY 05/23/20 release budesonide-formoterol HFA 160 2 puff INHALATION Q12H 05/23/20 07/21/21 mcg-4.5 mcg/actuation aerosol inhaler bupropion HCl 200 mg tablet,12 hr 200 mg PO BID 05/23/20 07/21/21 sustained-release carvedilol 6.25 mg tablet 6.25 mg PO Q12H 05/23/20 07/21/21 cholestyramine-aspartame 4 gram PO 05/23/20 oral powder for susp in a packet cyclobenzaprine 10 mg tablet 10 mg PO HS PRN 05/23/20 07/21/21 dicyclomine 10 mg capsule 10 mg PO QID 05/23/20 07/21/21 duloxetine 30 mg capsule,delayed 60 mg PO DAILY 05/23/20 07/21/21 release famotidine 40 mg tablet 40 mg PO DAILY 05/23/20 07/21/21 fenofibrate micronized 134 mg 134 mg PO DAILY 05/23/20 07/21/21 capsule ferrous sulfate 325 mg (65 mg 325 mg PO DAILY 05/23/20 07/21/21 iron) tablet,delayed release gabapentin 600 mg tablet 600 mg PO BID 05/23/20 07/21/21 metformin 500 mg tablet 1,000 mg PO BID 05/23/20 07/21/21 pantoprazole 40 mg tablet,delayed 40 mg PO QAM 05/23/20 07/21/21 release sertraline 100 mg tablet 100 mg PO DAILY tablet 05/23/20 07/21/21 sitagliptin 100 mg tablet 100 mg PO DAILY 05/23/20 07/21/21 dapagliflozin [Farxiga] 10 mg PO DAILY 07/21/21 07/21/21 pravastatin 40 mg PO HS 07/21/21 07/21/21 trazodone 25 mg PO HS 07/21/21 07/21/21 <Violet Figueroa MD - Last Filed: 07/21/21 16:30> Allergies/adverse reactions: Allergies Allergy/AdvReac Type Severity Reaction Status Date / Time morphine Allergy Unknown Hives Verified 07/21/21 12:26 <Violet Figueroa MD - Last Filed: 07/21/21 16:30> Review of Systems Constitutional: Constitutional: Denies chills, Denies fever(s), Denies headache(s) and Denies weakness <Violet Figueroa MD - Last Filed: 07/21/21 16:30> Eyes: Eyes: Denies blurry vision <Violet Figueroa MD - Last Filed: 07/21/21 16:30> ENT: Denies headache(s) and Denies neck pain <Violet Figueroa MD - Last Filed: 07/21/21 16:30> Cardiovascular: Cardiovascular: Reports chest pain and Reports dyspnea <Violet Figueroa MD - Last Filed: 07/21/21 16:30> Respiratory: Respiratory: Reports cough and Reports dyspnea <Violet Figueroa MD - Last Filed: 07/21/21 16:30> Gastrointestinal: Gastrointestinal: Denies abdominal pain, Denies diarrhea, Denies nausea and Denies vomiting <Violet Figueroa MD - Last Filed: 07/21/21 16:30> Genitourinary: Genitourinary: Denies hematuria and Denies dysuria <Violet Figueroa MD - Last Filed: 07/21/21 16:30> Musculoskeletal: Musculoskeletal: Denies back pain and Denies neck pain <Violet Figueroa MD - Last Filed: 07/21/21 16:3
[2021-07-20 23:47] LABS: Alveolar/Arterial O2 Gradient 378.9 mmHg; Base Excess ABG -5.1 mEq/l (+/-2.0); Carboxyhemoglobin 0.3 % THb (0-2.0); Fractional Inspired Oxygen 70 %; HCO3 ABG 19.8 mEq/l (22.0-26.0); Methemoglobin ABG 0.3 %THb (0-1.5); Oxygen Saturation ABG 95.7 % (95.0-100.0); Oxyhemoglobin 93.5 % THb (90.0-100.0); PCO2 ABG 36.1 mmHg (35.0-45.0); PO2 ABG 81.4 mmHg (80.0-100.0); PO2 FiO2 Ratio Arterial Blood 1.16 %; Reduced Hemoglobin 5.9 %THb (0-5.0); Total Hemoglobin 12.1 g/dL (12.0-18.0); pH ABG 7.356 (7.350-7.450)
[2021-07-20 23:49] LABS: Device NON-INVASIVE VENT; Modified Allen's Test Pass; Site Drawn RIGHT RADIAL
[2021-07-20 23:50] LABS: Non-Invasive Expiratory Pressure 5 CMH2O; Non-Invasive Inspiratory Pressure 12 CMH2O; Non-Invasive Vent Rate 20 /MIN
[2021-07-21] VITALS (19 sets, daily range): BP systolic 96–129; BP diastolic 53–82; PULSE 75–96; RESP 18–29; TEMP 36.6–36.8; O2SAT 90–100
--- NOTE | 2021-07-21 | ECG_ITS ---
Measurements Intervals [place] Rate: 87 P: MS: 0 QRS: 47 QRSD: 82 T: 198 QT: 393 QTc: 474 Interpretive Statements SINUS RHYTHM FREQUENT ATRIAL PREMATURE COMPLEXES NONSPECIFIC ST & T-WAVE ABNORMALITY- DIFFUSE LEADS BASELINE ARTIFACT- I, II, III, AVR, AVL, AVF, V2-V6 ABNORMAL ECG Electronically Signed On 07-21-2021 7:30:03 SUPPLY SPECIALIST by Jase Bailey D.O.
--- NOTE | 2021-07-21 02:29 | PC.NURSE ---
multi attempts by multi nurses to obtain iv without success
[2021-07-21 03:11] LABS: Basophils Percent Auto 0.2 % (0.2-1.2); Eosinophils Absolute Auto 0.1 K/mm3 (0-0.3); Hematocrit 33.6 % (37.0-47.0); Hemoglobin 10.5 g/dL (12.0-15.0); Immature Granulocyte Absolute 0.06 K/mm3 (0.00-0.031); Immature Granulocyte Percent A 0.5 % (0-0.5); Lymphocytes Absolute Auto 0.92 K/mm3 (0.9-3.2); Lymphocytes Percent Auto 7.9 % (18.3-44.2); Mean Corpuscular HGB Conc 31.3 g/dl (32-36); Mean Corpuscular Hemoglobin 30.1 pg (26-34); Mean Corpuscular Volume 96.3 fl (80-100); Monocytes Absolute Auto 0.4 K/mm3 (0.1-0.6); Monocytes Percent Auto 3.3 % (2.6-8.5); Neutrophils Absolute Auto 10.2 K/mm3 (1.3-6.7); Neutrophils Percent Auto 87.1 % (45.5-73.1); Platelet Count Result 247 k/mm3 (150-375); Red Blood Count 3.49 M/mm3 (4.2-5.4); Red Cell Distribution Width 15.4 % (11.5-14.5); White Blood Count 11.7 K/mm3 (4.5-10.0)
[2021-07-21 03:36] LABS: D Dimer 0.75 ug/mL (<0.48)
[2021-07-21 03:39] LABS: Alanine Aminotransferase 12 U/L (4-35); Albumin Level 3.2 g/dL (3.5-5.1); Alkaline Phosphatase 66 U/L (38-126); Anion Gap 11 mmol/L (8-16); Aspartate Amino Transferase 24 U/L (14-36); Bilirubin,Total 0.4 mg/dL (0.2-1.3); Blood Urea Nitrogen 46 mg/dL (7-17); Calcium 8.7 mg/dL (8.4-10.2); Carbon Dioxide 21 mmol/L (22-30); Chloride 105 mmol/L (98-107); Estimated CRCL calculation 18 ml/min; Estimated Glomerular Filt Rate 12; Glucose 215 mg/dL (65-110); Potassium 4.4 mmol/L (3.4-5.0); Sodium 137 mmol/L (137-145)
[2021-07-21 03:50] LABS: Troponin I 0.023 ng/mL (0.000-0.034)
[2021-07-21] MEDS: DEXAMETHASONE SOD PHOS INJ 4 MG/ML VIAL 6 MG IV PUSH (04:52)
--- NOTE | 2021-07-21 04:59 | PC.NURSE ---
right IJ central line ok to use per Dr zelaya proximal medial and distal ports flushed with 10cc ns and clamped
[2021-07-21] MEDS: LACTATED RINGERS 1,000 ML 999 ML IV CONT ×2 (05:10→06:58)
[2021-07-21 05:56] LABS: Glucose Point of Care 211 mg/dl (65-105)
[2021-07-21 05:57] LABS: Troponin I 0.023 ng/mL (0.000-0.034)
--- NOTE | 2021-07-21 06:16 | PM.IMHP ---
H&P: HPI History of Present Illness Date/Time: 07/21/21 06:40 Chief Complaint: Shortness of breath, COVID positive Narrative: 66-year-old female with a past medical history of hypertension, COPD, chronic atrial fibrillation, diabetes and chronic pain who presented to the ER with increasing shortness of breath after being diagnosed with COVID 4 days ago. The patient reports that she really has not been coughing much but has been more short of breath. She has associated loss of sense of taste but denies loss of sense of smell. She reports generally just feeling bad. She has not noticed any orthopnea or paroxysmal nocturnal dyspnea. She has not had any measured fevers. She does not use oxygen at home. On EMS arrival to the patient's home the patient was noted to have oxygen saturations in the 80s on room air and was placed on CPAP in the field. When she arrived to the ER she was transition to BiPAP 12/5 with 70% FiO2 with a rate of 20. The patient's ABG was within normal limits. The patient reports that she has chronic leg pain that is been worse since she got COVID. History process was somewhat limited due to BiPAP causing difficulty with communication. The patient has not had any urine output since arrival to the ER despite 1 L fluid bolus and initiation of maintenance IV fluids. The patient had been hypotensive on arrival to the ER. Review of Systems Review of Systems: 12 systems were reviewed with pertinent positives and negatives per HPI. Except as documented in the HPI, all other systems were reviewed and are negative. [facility] Past Medical History Medical History (Updated 07/21/21 @ 06:36 by Dee Dee Hathaway DO) Afib [place] Anxiety Bipolar disorder COPD (chronic obstructive pulmonary disease) Depression Diabetes Dizziness Emphysema of lung History of pneumonia HTN (hypertension) Hx of drug dependence Kidney stones Osteoporosis Pneumonia Seizures Vision abnormalities Surgical History Surgical History (Updated 07/21/21 @ 06:27 by Dee Dee Hathaway DO) History of laparoscopic cholecystectomy (03/2017) History of tubal ligation Status post open reduction with internal fixation of fracture Left shoulder Family History Family History Father Depression Sibling Depression Hypertension Family history of elevated blood lipids Other Arthritis Diabetes mellitus Heart disease Malignant neoplasm Social History Social History (Updated 07/21/21 @ 06:29 by Dee Dee Hathaway DO) Social History: Patient has smoked between 2-3 packs of cigarettes a day for 35 years. She has cut down her tobacco use in recent years. Smoking status: Current every day smoker Alcohol intake: current Alcohol use details: Occasional Gender identity (if verbalized by the patient): Female Meds Home Medications and Allergies Home Medications Medication Instructions Recorded Confirmed Type baclofen 20 mg tablet 20 mg PO DAILY 02/28/20 05/23/20 History acetaminophen 500 mg tablet 500 mg PO Q6H PRN 05/23/20 History albuterol sulfate 90 mcg/actuation 1 inh INHALATION Q4H 05/23/20 History aerosol inhaler amlodipine 10 mg tablet 10 mg PO DAILY 05/23/20 History ammonium lactate 12 % topical cream 1 applic TOPICAL DAILY 05/23/20 History apixaban 5 mg tablet 5 mg PO BID 05/23/20 History aripiprazole 30 mg tablet 30 mg PO DAILY 05/23/20 History aspirin 81 mg tablet,delayed 81 mg PO DAILY 05/23/20 History release budesonide-formoterol HFA 160 2 puff INHALATION Q12H 05/23/20 History mcg-4.5 mcg/actuation aerosol inhaler bupropion HCl 200 mg tablet,12 hr 200 mg PO BID 05/23/20 History sustained-release carvedilol 6.25 mg tablet 6.25 mg PO Q12H 05/23/20 History cholestyramine-aspartame 4 gram PO 05/23/20 History oral powder for susp in a packet cyclobenzaprine 10 mg tablet 10 mg PO TID PRN 05/23/20 History dicyclomine 10 mg capsule 1
[2021-07-21] MEDS: LACTATED RINGERS 1,000 ML 125 ML IV CONT ×2 (06:23→16:12)
[2021-07-21 07:06] LABS: Glucose Point of Care 221 mg/dl (65-105)
[2021-07-21] MEDS: INSULIN ASPART (*BKC) 100 UNITS/ML SUB-Q ×3 (07:20→18:33)
--- NOTE | 2021-07-21 09:00 | PC.NURSE ---
Patient dislodged central access. Patient reports she sat up and tried to get out of bed, call light was within reach. patient states she had to go bathroom. Bleeding well controlled. hospitalists updated on patient status.
--- NOTE | 2021-07-21 09:02 | PC.NURSE ---
patient placed on bed clifford. patient unable to void. bedpan removed.
[2021-07-21 09:28] LABS: Troponin I 0.019 ng/mL (0.000-0.034)
[2021-07-21 09:37] LABS: Alveolar/Arterial O2 Gradient 320.8 mmHg; Base Excess ABG -6.2 mEq/l (+/-2.0); Carboxyhemoglobin 0.1 % THb (0-2.0); Fractional Inspired Oxygen 60 %; Methemoglobin ABG 0.1 %THb (0-1.5); Oxygen Content ABG 13.2 %vol (16.0-22.0); Oxygen Saturation ABG 92.3 % (95.0-100.0); Oxyhemoglobin 90.7 % THb (90.0-100.0); PCO2 ABG 36.4 mmHg (35.0-45.0); PO2 FiO2 Ratio Arterial Blood 1.12 %; Reduced Hemoglobin 9.1 %THb (0-5.0); Total Hemoglobin 10.3 g/dL (12.0-18.0); pH ABG 7.336 (7.350-7.450)
[2021-07-21 09:38] LABS: CPAP 10 cmH2O; Device CPAP; Modified Allen's Test Pass; Site Drawn LEFT RADIAL
--- NOTE | 2021-07-21 10:36 | PCRCNOTE ---
Window of time for administration has passed. See next scheduled administration.
--- NOTE | 2021-07-21 11:53 | PC.NURSE ---
16fr downing catheter inserted for accurate I and O's under sterile technique. well tolerated.
[2021-07-21 12:35] LABS: Glucose Point of Care 267 mg/dl (65-105)
[2021-07-21] MEDS: IPRATROPIUM BR 0.02% INH SOLN 0.5 MG/2.5 ML VIAL INHALATION (16:08)
[2021-07-21] MEDS: ALBUTEROL SULFATE NEB 2.5 MG/0.5 ML INH 5 MG INHALATION (16:08)
--- NOTE | 2021-07-21 17:21 | PC.NURSE ---
meal ordered for patient.
[2021-07-21 18:26] LABS: Glucose Point of Care 222 mg/dl (65-105)
--- NOTE | 2021-07-21 19:01 | PC.NURSE ---
pat ate 40% of provided meal. well tolerated.
--- NOTE | 2021-07-21 21:28 | PC.NURSE ---
spoke with pt. daughter shade for update.
--- NOTE | 2021-07-21 22:09 | ADMGEN ---
This patient, Divya Mooney, was admitted to IMU Room 210-01. Patient/family oriented to hospital policies and general routines including ID bracelet, bed and alarms, visiting hours, pain management, procedures, bathroom and other care routines, personal items, smoking policy, room service/diet, and visiting hours. Information on how to activate the Rapid Response Team has been discussed. Patient/Family are encouraged to report perceived risks to care and to ask questions if they do not understand what they are told or what they should do.
--- NOTE | 2021-07-21 23:48 | PCRCNOTE ---
20:00 nebulizer treatment not administered. RT not available during administration window.
[2021-07-21 23:50] LABS: Glucose Point of Care 168 mg/dl (65-105)
[2021-07-22] VITALS (34 sets, daily range): BP systolic 82–180; BP diastolic 41–63; PULSE 67–118; RESP 26–41; TEMP 35.8–37.7; O2SAT 77–100; BMI 36.6
[2021-07-22] MEDS: HALOPERIDOL LACTATE 5 MG/ML VIAL IM ×2 (01:38→07:28)
[2021-07-22] MEDS: ALBUTEROL SULFATE NEB 2.5 MG/0.5 ML INH 5 MG INHALATION ×3 (02:27→20:00)
[2021-07-22] MEDS: IPRATROPIUM BR 0.02% INH SOLN 0.5 MG/2.5 ML VIAL INHALATION ×3 (02:27→20:00)
[2021-07-22] MEDS: LORazepam INJ (*CRX) 2 MG/ML VIAL 1 MG IV PUSH ×2 (02:45→07:28)
[2021-07-22] MEDS: FUROSEMIDE INJ 40 MG/4 ML VIAL IV PUSH (02:45)
--- NOTE | 2021-07-22 06:52 | WPDPROCEDUR ---
Procedures Intubation Intubation Date: 07/22/21 Intubation Time: 06:34 A pre-procedural Time-Out was completed immediately before starting the procedure and confirmed: Patient Identification, Site, Procedure, Patient Position and the Availability of Requisite Equipment: Yes Sedative: etomidate Mg given: 15 Paralytic: rocuronium Mg given: 80 Laryngoscope: fiber optic video scope ET tube size: 7.5 Tube secured depth (cm): 23 Tube secured location: lips Tube placement confirmation: visualized tube passing through cords, equal breath sounds bilaterally, no breath sounds over epigastrium and confirmation by capnometry Patient tolerated procedure: other Intubation complications: difficult intubation and hypoxia Additional comments: Thick secretions present in the airway.
--- NOTE | 2021-07-22 06:55 | PM.EVENT ---
Event Note Event Note Event Note: Patient was desaturating on 100% FiO2 on while on BiPAP family was called on and decision was made to place the patient on ventilator support. 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 and placed on ventilator support. Discussed with dry cleaning machine operator helper.
[2021-07-22] MEDS: diphenhydrAMINE HCl INJ 50 MG/ML VIAL 25 MG IV PUSH (07:28)
[2021-07-22] MEDS: FENTANYL 2,500MCG/NS250ML(*CRX 2,500 MCG/250 ML BAG 17.5 MCG IV CONT (08:32)
[2021-07-22] MEDS: ROCURONIUM BROMIDE 50 MG/5 ML VIAL IV PUSH (08:33)
[2021-07-22] MEDS: MIDAZOLAM 100MG/NS 100ML(*CRX) 100 MG/100 ML BAG 7 MG IV CONT (08:33)
[2021-07-22] MEDS: CISATRACURIUM BESYLATE 200 MG in DEXTROSE 5% 80 ML 9.54 ML IV CONT ×2 (09:06→18:34)
[2021-07-22 10:13] LABS: Alveolar/Arterial O2 Gradient 531.3 mmHg; Base Excess ABG -8.6 mEq/l (+/-2.0); Fractional Inspired Oxygen 100 %; HCO3 ABG 21.6 mEq/l (22.0-26.0); Oxygen Content ABG 15.7 %vol (16.0-22.0); Oxygen Saturation ABG 96.2 % (95.0-100.0); Oxyhemoglobin 95.2 % THb (90.0-100.0); PO2 ABG 111.9 mmHg (80.0-100.0); PO2 FiO2 Ratio Arterial Blood 1.12 %; Total Hemoglobin 11.6 g/dL (12.0-18.0)
[2021-07-22 10:14] LABS: Arterial Blood Gas PEEP 16 cmH2O; Arterial Blood Gas Vent Mode CMV; Arterial Blood Gas Ventilator rate 26 /MIN; Device VENTILATOR; Modified Allen's Test Pass; PCO2 ABG 69.8 mmHg (35.0-45.0); Site Drawn RIGHT RADIAL; pH ABG 7.108 (7.350-7.450)
[2021-07-22 10:15] LABS: Arterial Blood Gas Tidal Volume 370 ml
[2021-07-22] MEDS: LACTATED RINGERS 1,000 ML 999 ML IV CONT ×2 (11:00→19:52)
[2021-07-22 11:10] LABS: Hemoglobin 10.2 g/dL (12.0-15.0); Mean Corpuscular Hemoglobin 29.3 pg (26-34); Mean Corpuscular Volume 97.7 fl (80-100); Mean Platelet Volume 11.3 fl (7.4-10.4); Platelet Count Result 297 k/mm3 (150-375); Red Blood Count 3.48 M/mm3 (4.2-5.4); Red Cell Distribution Width 15.6 % (11.5-14.5); White Blood Count 21.1 K/mm3 (4.5-10.0)
[2021-07-22 11:21] LABS: Lactate Dehydrogenase 1493 U/L (313-618); Magnesium 1.9 mg/dL (1.6-2.3); Phosphorus 6.1 mg/dL (2.5-4.5)
[2021-07-22 11:22] LABS: Hemoglobin A1C 8.8 % (<5.7)
[2021-07-22 11:26] LABS: INR 1.3; Partial Thromboplastin Time 38.5 SECONDS (22.3-36.8)
[2021-07-22 11:29] LABS: D Dimer 1.28 ug/mL (<0.48)
[2021-07-22] MEDS: DEXAMETHASONE SOD PHOS INJ 4 MG/ML VIAL 6 MG IV PUSH (11:51)
[2021-07-22] MEDS: MINERAL OIL/WHITE PETROLATUM OINTMENT 1 APPLIC EACH EYE ×2 (11:56→19:53)
[2021-07-22 12:02] LABS: Band Neutrophils Percent 11 % (0-6); Large Platelets Present; Lymphocytes Absolute Manual 1.05 K/mm3 (1.1-4.5); Lymphocytes Percent Manual 5 % (18-44); Neutrophils Absolute Manual 20.04 K/mm3 (1.7-7.2); Neutrophils Percent Manual 84 % (46-73); Platelet Estimate Adequate (Adequate); Total Cells Counted 100
[2021-07-22 12:03] LABS: Anisocytosis 1+ (NORMAL)
[2021-07-22] MEDS: INSULIN ASPART (*BKC) 100 UNITS/ML SUB-Q ×2 (12:04→18:52)
[2021-07-22 12:07] LABS: Glucose Point of Care 290 mg/dl (65-105)
--- NOTE | 2021-07-22 12:13 | WPDCNINT ---
Assessment and Plan Assessment and plan (1) Acute respiratory failure with hypoxia: Code(s): J96.01 - Acute respiratory failure with hypoxia Status: Acute Assessment and Plan: Patient presented the ED on 07/20/2021 late evening, was hypoxic and was placed on BiPAP. She was on 100% FiO2 antibiotic, and failed as she was hypoxic with low O2 sats. 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 on 07/22/2020 I outside physical damage appraiser -patient was placed on CMV mode of ventilation, peep of 16 and 100% FiO2, ABGs and chest x-ray were reviewed, ventilator adjusted will wean FiO2 to maintain O2 sats greater than 92% -continue bronchodilators -will add Pulmicort -sedated with fentanyl and Versed infusion, Nimbex for neuromuscular blockade (2) Pneumonia due to COVID-19 virus: Code(s): U07.1 - COVID-19; J12.82 - Pneumonia due to coronavirus disease 2019 Status: Acute Assessment and Plan: Patient was tested COVID positive on 07/16/2021 this was 4 days prior to admission according the patient's medical records -currently on dexamethasone -not a candidate for remdesivir due to acute kidney injury and elevated creatinine -elevated D-dimer, ferritin and LDH -CRP 29.2, discussed with daughter regarding tocilizumab, she was agreeable. Tocilizumab has been ordered (3) Diabetes mellitus with hyperglycemia: Qualifiers: Diabetes mellitus type: type 2 Diabetes mellitus assisted insulin use: without terminal carman use Qualified Code(s): E11.65 - Type 2 diabetes mellitus with hyperglycemia Code(s): E11.65 - Type 2 diabetes mellitus with hyperglycemia Status: Acute Assessment and Plan: Patient hyperglycemic which could be related to stress response and or steroids -continue sliding scale insulin, Accu-Cheks -will add Lantus (4) Acute renal failure: Qualifiers: Acute renal failure type: unspecified Qualified Code(s): N17.9 - Acute kidney failure, unspecified Code(s): N17.9 - Acute kidney failure, unspecified Status: Acute Assessment and Plan: Acute kidney injury, could be related to hypoxia, also has a history of diabetes and hypertension which could be contributing to that also. (last creatinine was on 12/08/2020 was 1.4). Patient was admitted with a creatinine of 3.7, -I gave her 1 L bolus of IV fluids, creatinine down to 2.8 this morning -will continue to monitor urine output, obtain urine lytes -renal ultrasound showed normal kidney size, no hydronephrosis. 3.9 cm left kidney mass suspicious for renal cell carcinoma, abdominal CT without and with contrast is recommended after improvement in kidney function -will consult nephrology -continue to monitor renal function, electrolytes and urine output (5) HTN (hypertension): Code(s): I10 - Essential (primary) hypertension Status: Acute Assessment and Plan: Blood pressures currently are stable likely secondary to sedation, will continue to monitor (6) Afib: Code(s): I48.91 - Unspecified atrial fibrillation Status: Acute Assessment and Plan: Currently in sinus rhythm, rate control, continue to monitor (7) DVT prophylaxis: Code(s): Z29.9 - Encounter for prophylactic measures, unspecified Status: Acute Assessment and Plan: Will start heparin SQ Additional Plan Stress ulcer prophylaxis: Start Protonix Nutrition: Will start tube feeds D/w Carlos A Mora the daughter, and updated her with patient's condition and plan of care. I did discuss with her regarding tocilizumab to which she is agreeable I did give her the pros and cons. Code status: Full code Critical care time spent: 44 minutes This dictation may have been done utilizing a voice recognition system. Attempts have been made to correct errors. However, there may be uncorrected grammatical, spelling, and recognition errors present. Due to a high probability of clinically significant, life threatening deterioration, the patient required my
[2021-07-22 12:28] LABS: Alanine Aminotransferase 17 U/L (4-35); Albumin Level 3.2 g/dL (3.5-5.1); Alkaline Phosphatase 82 U/L (38-126); Anion Gap 8 mmol/L (8-16); Aspartate Amino Transferase 54 U/L (14-36); Bilirubin,Total 0.2 mg/dL (0.2-1.3); Blood Urea Nitrogen 49 mg/dL (7-17); Calcium 8.1 mg/dL (8.4-10.2); Carbon Dioxide 25 mmol/L (22-30); Chloride 103 mmol/L (98-107); Creatine Kinase 304 U/L (30-135); Estimated CRCL calculation 23 ml/min; Estimated Glomerular Filt Rate 17; Glucose 333 mg/dL (65-110); Potassium 5.9 mmol/L (3.4-5.0); Sodium 136 mmol/L (137-145)
[2021-07-22 12:40] LABS: CRP 29.2 mg/dL (<1.0)
--- NOTE | 2021-07-22 13:02 | WPDPROCEDUR ---
Procedures Central Line Placement Right IJ: Central Line Date: 07/22/21 Central Line Time: 07:15 Discussed w/ the patient/family/POA,the placement of a central venous catheter, including its clinical necessity/indication & associated potential risks, benifits and alternatives.: Yes The patient/family/POA understand(s) and acknowledge(s) the need to proceed with central venous catheter insertion as an important element of the patient's clinical management.: Yes Time Out Performed: Yes Patient Position: supine Patient placed on monitor/pulse ox: Yes Provider Prep: mask, sterile gown, sterile gloves, Max. sterile barrier precautions, cap and hand hygiene with conventional soap/water or alcohol based hand rub Central line prep: 2% Chlorhexidine scrub Local anesthesia used: lidocaine 1% Amount of anesthesia used (ml): 3 Sterile US Technique with sterile gel/sterile probe covers: Yes Central line lumen inserted: triple Arabic: 12 Length (cm): 16 Depth of Insertion (cm): 16 Post Procedure: sutured in place, good blood return, all ports aspirated, flushed, capped, transparent dressing, hemostatic product, antimicrobial product, securement product and aseptic technique maintained throughout procedure Post procedure x-ray: tip of catheter in good position and no pneumothorax seen Patient tolerated procedure: well Complications: none
[2021-07-22] MEDS: TOCILIZUMAB 800 MG in SODIUM CHLORIDE 0.9% IV 60 ML 100 MG IVPB (14:12)
[2021-07-22 14:37] LABS: Potassium Urine Random 13.5 meq/L; Sodium Urine Random 100 meq/L
[2021-07-22 14:39] LABS: Creatinine Urine 59.9 mg/dL
[2021-07-22 14:46] LABS: Add Urine Microscopic? YES; Appearance Urine Cloudy (Clear); Bacteria Urine Trace /hpf; Bilirubin Urine Negative (Negative); Blood Urine 2+ (Negative); Calcium Oxalate Crystals Urine Present /hpf; Color Urine Yellow (Yellow); Glucose Urine UA 3+ mg/dL (Negative); Ketones Urine Negative (Negative); Leukocyte Esterase Ur Negative LEU/UL (Negative); Mucus Urine Rare /lpf; Nitrate Urine Negative (Negative); Protein Urine Negative (Negative); Specific Grav Ur 1.008 (1.001-1.035); Squamous Epithelial Cell Urine Rare /hpf (Few); Urobilinogen Urine Negative mg/dL (<2.0); WBC Urine 0-3 /hpf
[2021-07-22 15:17] LABS: Eosinophil Urine None Seen % (None Seen)
[2021-07-22] MEDS: PANTOPRAZOLE SODIUM IV 40 MG VIAL IV PUSH (15:25)
[2021-07-22] MEDS: HEPARIN SODIUM 5,000 UNITS/ML VIAL 5000 UNITS SUB-Q ×2 (15:28→22:03)
[2021-07-22 18:52] LABS: Glucose Point of Care 302 mg/dl (65-105)
[2021-07-22] MEDS: BUDESONIDE RESPULE NEB 0.5 MG/2 ML AMP INHALATION (20:00)
[2021-07-22] MEDS: NOREPINEPHRINE 8 MG/D5W 250 ML 8 MG/250 ML BAG 9.38 MG IV CONT (20:35)
[2021-07-22] MEDS: INSULIN GLARGINE (*BKC) 100 UNITS/ML 15 UNITS SUB-Q (20:40)
[2021-07-22 20:47] LABS: Glucose Point of Care 281 mg/dl (65-105)
[2021-07-22] MEDS: FENTANYL 2,500MCG/NS250ML(*CRX 2,500 MCG/250 ML BAG 15 MCG IV CONT (22:04)
[2021-07-22] MEDS: MIDAZOLAM 100MG/NS 100ML(*CRX) 100 MG/100 ML BAG 6 MG IV CONT (22:07)
[2021-07-23] VITALS (57 sets, daily range): BP systolic 81–155; BP diastolic 45–64; PULSE 69–112; RESP 28–30; TEMP 34.3–37.6; O2SAT 82–98
[2021-07-23] MEDS: INSULIN ASPART (*BKC) 100 UNITS/ML SUB-Q ×6 (00:16→23:26)
[2021-07-23 00:29] LABS: Glucose Point of Care 314 mg/dl (65-105)
[2021-07-23] MEDS: ALBUTEROL SULFATE NEB 2.5 MG/0.5 ML INH 5 MG INHALATION ×4 (02:00→20:32)
[2021-07-23] MEDS: IPRATROPIUM BR 0.02% INH SOLN 0.5 MG/2.5 ML VIAL INHALATION ×4 (02:00→20:32)
[2021-07-23 05:03] LABS: Basophils Percent Auto 0.1 % (0.2-1.2); Hematocrit 30.3 % (37.0-47.0); Hemoglobin 9.1 g/dL (12.0-15.0); Immature Granulocyte Absolute 0.08 K/mm3 (0.00-0.031); Immature Granulocyte Percent A 0.6 % (0-0.5); Lymphocytes Absolute Auto 0.47 K/mm3 (0.9-3.2); Lymphocytes Percent Auto 3.6 % (18.3-44.2); Mean Corpuscular Hemoglobin 28.7 pg (26-34); Mean Corpuscular Volume 95.6 fl (80-100); Mean Platelet Volume 11.6 fl (7.4-10.4); Monocytes Absolute Auto 0.1 K/mm3 (0.1-0.6); Monocytes Percent Auto 1.1 % (2.6-8.5); Neutrophils Absolute Auto 12.3 K/mm3 (1.3-6.7); Neutrophils Percent Auto 94.6 % (45.5-73.1); Platelet Count Result 279 k/mm3 (150-375); Red Blood Count 3.17 M/mm3 (4.2-5.4); Red Cell Distribution Width 15.5 % (11.5-14.5)
[2021-07-23 05:24] LABS: Alanine Aminotransferase 17 U/L (4-35); Alkaline Phosphatase 79 U/L (38-126); Anion Gap 10 mmol/L (8-16); Aspartate Amino Transferase 46 U/L (14-36); Bilirubin,Total 0.2 mg/dL (0.2-1.3); Blood Urea Nitrogen 60 mg/dL (7-17); Calcium 7.9 mg/dL (8.4-10.2); Carbon Dioxide 21 mmol/L (22-30); Chloride 102 mmol/L (98-107); Estimated CRCL calculation 21 ml/min; Estimated Glomerular Filt Rate 17; Glucose 411 mg/dL (65-110); Magnesium 2.1 mg/dL (1.6-2.3); Potassium 5.8 mmol/L (3.4-5.0); Sodium 133 mmol/L (137-145)
[2021-07-23 05:29] LABS: Base Excess ABG -7.2 mEq/l (+/-2.0); HCO3 ABG 20.9 mEq/l (22.0-26.0); Oxygen Saturation ABG 93.6 % (95.0-100.0); PCO2 ABG 53.7 mmHg (35.0-45.0); PO2 ABG 82.2 mmHg (80.0-100.0); Total Hemoglobin 11.6 g/dL (12.0-18.0); pH ABG 7.208 (7.350-7.450)
[2021-07-23 05:30] LABS: Alveolar/Arterial O2 Gradient 359.2 mmHg; Carboxyhemoglobin 0.2 % THb (0-2.0); Device VENTILATOR; Fractional Inspired Oxygen 70 %; Methemoglobin ABG 0.3 %THb (0-1.5); Modified Allen's Test Unable to perform; Oxygen Content ABG 15.4 %vol (16.0-22.0); Oxyhemoglobin 93.6 % THb (90.0-100.0); PO2 FiO2 Ratio Arterial Blood 1.17 %; Reduced Hemoglobin 5.9 %THb (0-5.0); Site Drawn RIGHT RADIAL
[2021-07-23 05:31] LABS: Arterial Blood Gas PEEP 16 cmH2O; Arterial Blood Gas Tidal Volume 420 ml; Arterial Blood Gas Vent Mode CMV; Arterial Blood Gas Ventilator rate 28 /MIN
[2021-07-23] MEDS: HEPARIN SODIUM 5,000 UNITS/ML VIAL 5000 UNITS SUB-Q ×3 (05:49→21:25)
[2021-07-23 07:51] LABS: Glucose Point of Care 414 mg/dl (65-105)
[2021-07-23] MEDS: ALBUTEROL SULFATE NEB 2.5 MG/0.5 ML INH 10 MG INHALATION (07:53)
[2021-07-23] MEDS: BUDESONIDE RESPULE NEB 0.5 MG/2 ML AMP INHALATION ×2 (07:54→20:31)
[2021-07-23] MEDS: INSULIN HUMAN REGULAR (*BKC) 100 UNITS/ML 10 UNITS IV PUSH (07:55)
[2021-07-23] MEDS: SODIUM BICARBONATE 8.4% 50 MEQ/50 ML SYRINGE IV PUSH (07:55)
[2021-07-23] MEDS: SODIUM POLYSTYRENE SULFONONATE 15 GM/60 ML BTL 30 GM PO (07:56)
[2021-07-23] MEDS: INSULIN GLARGINE (*BKC) 100 UNITS/ML 35 UNITS SUB-Q (07:56)
[2021-07-23] MEDS: MINERAL OIL/WHITE PETROLATUM OINTMENT 1 APPLIC EACH EYE ×2 (07:57→21:25)
[2021-07-23] MEDS: PANTOPRAZOLE SODIUM IV 40 MG VIAL IV PUSH (07:57)
[2021-07-23] MEDS: DEXAMETHASONE SOD PHOS INJ 4 MG/ML VIAL 6 MG IV PUSH (08:13)
[2021-07-23 10:19] LABS: Anion Gap 11 mmol/L (8-16); Blood Urea Nitrogen 64 mg/dL (7-17); Carbon Dioxide 25 mmol/L (22-30); Chloride 104 mmol/L (98-107); Estimated CRCL calculation 21 ml/min; Estimated Glomerular Filt Rate 16; Glucose 411 mg/dL (65-110); Sodium 140 mmol/L (137-145)
[2021-07-23] MEDS: CISATRACURIUM BESYLATE 200 MG in DEXTROSE 5% 80 ML IV CONT (10:54)
--- NOTE | 2021-07-23 11:08 | WPDINTPN ---
Progress Note: A&P Assessment and Plan (1) Acute respiratory failure with hypoxia: Code(s): J96.01 - Acute respiratory failure with hypoxia Status: Acute Assessment and Plan: Patient presented the ED on 07/20/2021 late evening, was hypoxic and was placed on BiPAP. She was on 100% FiO2 antibiotic, and failed as she was hypoxic with low O2 sats. 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 on 07/22/2020 I knife machine operator -patient was placed on CMV mode of ventilation, peep of 16 and 70% FiO2, ABGs and chest x-ray were reviewed, ventilator adjusted will wean FiO2 to maintain O2 sats greater than 92% -continue bronchodilators -continue Pulmicort -sedated with fentanyl and Versed infusion, Nimbex for neuromuscular blockade (2) Pneumonia due to COVID-19 virus: Code(s): U07.1 - COVID-19; J12.82 - Pneumonia due to coronavirus disease 2019 Status: Acute Assessment and Plan: Patient was tested COVID positive on 07/16/2021 this was 4 days prior to admission according the patient's medical records. Patient is unvaccinated -currently on dexamethasone -not a candidate for remdesivir due to acute kidney injury and elevated creatinine -elevated D-dimer, ferritin and LDH -CRP 29.2, Received tocilizumab on 07/22/2021 -continue airborne, droplet, contact isolation/precautions (3) Diabetes mellitus with hyperglycemia: Qualifiers: Diabetes mellitus type: type 2 Diabetes mellitus rodent exterminator insulin use: without rodent exterminator use Qualified Code(s): E11.65 - Type 2 diabetes mellitus with hyperglycemia Code(s): E11.65 - Type 2 diabetes mellitus with hyperglycemia Status: Acute Assessment and Plan: Patient hyperglycemic which could be related to stress response and or steroids -continue sliding scale insulin, Accu-Cheks -increased to Lantus daily and added Lantus q.h.s. (4) Acute renal failure: Qualifiers: Acute renal failure type: unspecified Qualified Code(s): N17.9 - Acute kidney failure, unspecified Code(s): N17.9 - Acute kidney failure, unspecified Status: Acute Assessment and Plan: Acute kidney injury, could be related to hypoxia, also has a history of diabetes and hypertension which could be contributing to that also. (last creatinine was on 12/08/2020 was 1.4). Patient was admitted with a creatinine of 3.7, -Patient did receive 2 L of IV fluid bolus on07/22 for hypotension. -will continue to monitor urine output, obtain urine lytes -renal ultrasound showed normal kidney size, no hydronephrosis. 3.9 cm left kidney mass suspicious for renal cell carcinoma, abdominal CT without and with contrast is recommended after improvement in kidney function -continue to monitor renal function, electrolytes and urine output (5) HTN (hypertension): Code(s): I10 - Essential (primary) hypertension Status: Acute Assessment and Plan: Patient hypotensive and now on vasopressors., (6) Afib: Code(s): I48.91 - Unspecified atrial fibrillation Status: Acute Assessment and Plan: Currently in sinus rhythm, rate control, continue to monitor (7) DVT prophylaxis: Code(s): Z29.9 - Encounter for prophylactic measures, unspecified Status: Acute Assessment and Plan: Continue heparin SQ (8) Shock: Code(s): R57.9 - Shock, unspecified Status: Acute Assessment and Plan: Patient hypotensive requiring Levophed, was given 2 L IV fluid bolus on 07/22 -hypotension could be related to positive pressure ventilation, sedation medication, possible infection -leukocytosis trending down, patient is hypothermic -will check lactic acid and check urine, sputum and blood cultures Additional Plan Stress ulcer prophylaxis: Protonix Nutrition: Tolerating tube feeds D/w Carlos A Mora the daughter, and updated her with patient's condition and plan of care. Code status: Full code Critical care time spent: 33 minutes This dictation may have been done
--- NOTE | 2021-07-23 11:27 | PCFNICU ---
ICU Rounding Note: Pt current nutrition is Nepro at 45 ml/hr over 22 hours. Last recorded weight is 90.9 kg, down from 106 kg on admit. Bowel Motility:No BM reported. Active bowel sounds reported. Labs Reviewed:Glu 411, PO4 6.0,BUN 64, Cr 2.9,Alb 3.0 Meds Noted:Fentanyl, Versed, Nimbex, Levophed, Lantus, Decadron, Protonix Skin: buttock-maceration Additional Notes: Patient remain on mechanical vent and tube feedings of Nepro at 45 ml/hr and tolerating. Free water flush 30 ml q 4 hours. Agree with diet orders. Following daily in ICU rounds and reassessing every Tuesday and Tuesday.
[2021-07-23 12:08] LABS: Glucose Point of Care 319 mg/dl (65-105)
[2021-07-23 13:38] LABS: Lactic Acid Reflex 1.6 mmol/L (0.7-2.1)
[2021-07-23] MEDS: MIDAZOLAM 100MG/NS 100ML(*CRX) 100 MG/100 ML BAG 6 MG IV CONT (14:15)
[2021-07-23] MEDS: FENTANYL 2,500MCG/NS250ML(*CRX 2,500 MCG/250 ML BAG 15 MCG IV CONT (14:18)
[2021-07-23 16:11] LABS: Glucose Point of Care 382 mg/dl (65-105)
--- NOTE | 2021-07-23 17:43 | PM.IMPN ---
Progress Note: A&P Assessment and Plan (1) Acute respiratory failure with hypoxia: Code(s): J96.01 - Acute respiratory failure with hypoxia Status: Acute Assessment and Plan: Patient presented the ED in the late evening hours of 07/20 and noted to be hypoxic. She was placed on BiPAP but her condition worsened requiring intubation on the morning of 07/22. She remains paralyzed for vent synchrony. Continue mechanical ventlation and wean as tolerated. Continue sedation. Appreciate relations coordinator input. (2) Sepsis: Code(s): A41.9 - Sepsis, unspecified organism Status: Acute Assessment and Plan: No fevers but hypothermic this morning. WBC was 21K but better today. UCx 07/21 negative. Urine Cx repeated and pending. BCx pending. Possibly related to COVID. Remains off abx. Follow (3) Pneumonia due to COVID-19 virus: Code(s): U07.1 - COVID-19; J12.82 - Pneumonia due to coronavirus disease 2019 Status: Acute Assessment and Plan: Patient was tested COVID positive on 07/16. Patient is unvaccinated. She remains intubated and sedated. Continue dexamethasone. She received tocilizumab on 07/22. She is not a candidate for remdesivir due to the DERRELL. CRP 29, LDH 1493 and Ferritin 466 yesterday. Continue airborne, droplet, contact isolation/precautions. (4) Shock: Code(s): R57.9 - Shock, unspecified Status: Acute Assessment and Plan: Patient noted to be hypotensive requiring 2 L IV fluid bolus on 07/22 and pressor support. Etiology unclear but suspect related to positive pressure ventilation, sedation medication and/or possible infection. Wean pressors as BP tolerates. (5) Acute renal failure: Qualifiers: Acute renal failure type: unspecified Qualified Code(s): N17.9 - Acute kidney failure, unspecified Code(s): N17.9 - Acute kidney failure, unspecified Status: Acute Assessment and Plan: Patient with a creatinine 1.4 back in November. Unclear exactly her baseline but she presented with a creatinine 3 7. She received IV fluids in the ED hypotension. DERRELL could be related to ATN from hypoperfusion from hypotension. Renal US showing normal kidney sizes without hydronephrosis.and a 3.9 cm left kidney mass suspicious for renal cell carcinoma. Will need follow up after discharge for this. Continue to monitor. (6) Hyperkalemia: Code(s): E87.5 - Hyperkalemia Status: Acute Assessment and Plan: Potassium elevated this morning but better on repeat after appropriate treatment. Not on medications that could contribute to this. Suspect related to the DERRELL. Follow for now. (7) Diabetes mellitus with hyperglycemia: Qualifiers: Diabetes mellitus custodial insulin use: without predatory animal exterminator use Diabetes mellitus type: type 2 Qualified Code(s): E11.65 - Type 2 diabetes mellitus with hyperglycemia Code(s): E11.65 - Type 2 diabetes mellitus with hyperglycemia Status: Acute Assessment and Plan: A1c 8.8. The patient's blood glucose was reviewed on 07/23 Glucose remains poorly controlled related to the fact she was uncontrolled on admission with the addition of the steroids. Continue AccuCheks covering with sliding scale. Hypoglycemia protocol available as needed. Continue current medications. (8) Afib: Code(s): I48.91 - Unspecified atrial fibrillation Status: Acute Assessment and Plan: EKG on admission showing NSR. Tele also reviewed. Continue Lopressor. Resume Eliquis when able. (9) Anemia: Code(s): D64.9 - Anemia, unspecified Status: Acute Assessment and Plan: Hgb normal in November. Hgb on admission here was 10.5 and has dropped to 9.1. Follow and samantha. (10) COPD (chronic obstructive pulmonary disease): Code(s): J44.9 - Chronic obstructive pulmonary disease, unspecified Status: Acute Assessment and Plan: Stable. No wheezing appreciated. Nicolette
[2021-07-23 21:36] LABS: Glucose Point of Care 371 mg/dl (65-105)
[2021-07-23] MEDS: METOPROLOL TARTRATE 12.5 MG TABLET PO (22:29)
[2021-07-23 22:35] LABS: Glucose Point of Care 367 mg/dl (65-105)
[2021-07-24] VITALS (40 sets, daily range): BP systolic 100–158; BP diastolic 50–67; PULSE 100–150; RESP 30; TEMP 36.4–37.7; O2SAT 93–100
[2021-07-24] MEDS: ALBUTEROL SULFATE NEB 2.5 MG/0.5 ML INH 5 MG INHALATION ×4 (02:32→20:05)
[2021-07-24] MEDS: IPRATROPIUM BR 0.02% INH SOLN 0.5 MG/2.5 ML VIAL INHALATION ×4 (02:32→20:05)
[2021-07-24] MEDS: INSULIN ASPART (*BKC) 100 UNITS/ML SUB-Q ×3 (03:53→12:23)
[2021-07-24] MEDS: FENTANYL 2,500MCG/NS250ML(*CRX 2,500 MCG/250 ML BAG 15 MCG IV CONT ×2 (04:43→19:59)
[2021-07-24] MEDS: MIDAZOLAM 100MG/NS 100ML(*CRX) 100 MG/100 ML BAG 6 MG IV CONT ×2 (04:44→19:57)
[2021-07-24] MEDS: CISATRACURIUM BESYLATE 200 MG in DEXTROSE 5% 80 ML IV CONT ×2 (04:44→22:00)
[2021-07-24] MEDS: HEPARIN SODIUM 5,000 UNITS/ML VIAL 5000 UNITS SUB-Q ×3 (05:00→20:07)
[2021-07-24 05:33] LABS: Glucose Point of Care 379 mg/dl (65-105)
[2021-07-24 05:43] LABS: Basophils Percent Auto 0.1 % (0.2-1.2); Hematocrit 29.4 % (37.0-47.0); Hemoglobin 8.6 g/dL (12.0-15.0); Immature Granulocyte Absolute 0.05 K/mm3 (0.00-0.031); Immature Granulocyte Percent A 0.6 % (0-0.5); Lymphocytes Absolute Auto 0.25 K/mm3 (0.9-3.2); Lymphocytes Percent Auto 3.2 % (18.3-44.2); Mean Corpuscular HGB Conc 29.3 g/dl (32-36); Mean Corpuscular Hemoglobin 28.1 pg (26-34); Mean Corpuscular Volume 96.1 fl (80-100); Mean Platelet Volume 11.9 fl (7.4-10.4); Monocytes Absolute Auto 0.3 K/mm3 (0.1-0.6); Monocytes Percent Auto 3.6 % (2.6-8.5); Neutrophils Absolute Auto 7.2 K/mm3 (1.3-6.7); Neutrophils Percent Auto 92.5 % (45.5-73.1); Platelet Count Result 282 k/mm3 (150-375); Red Blood Count 3.06 M/mm3 (4.2-5.4); Red Cell Distribution Width 15.8 % (11.5-14.5); White Blood Count 7.8 K/mm3 (4.5-10.0)
[2021-07-24 05:52] LABS: Alanine Aminotransferase 20 U/L (4-35); Albumin Level 2.9 g/dL (3.5-5.1); Alkaline Phosphatase 112 U/L (38-126); Anion Gap 12 mmol/L (8-16); Aspartate Amino Transferase 61 U/L (14-36); Bilirubin,Total 0.1 mg/dL (0.2-1.3); Blood Urea Nitrogen 81 mg/dL (7-17); Calcium 7.9 mg/dL (8.4-10.2); Carbon Dioxide 24 mmol/L (22-30); Chloride 100 mmol/L (98-107); Estimated CRCL calculation 20 ml/min; Estimated Glomerular Filt Rate 15; Glucose 414 mg/dL (65-110); Magnesium 2.4 mg/dL (1.6-2.3); Phosphorus 5.7 mg/dL (2.5-4.5); Potassium 4.7 mmol/L (3.4-5.0); Sodium 136 mmol/L (137-145)
[2021-07-24 05:57] LABS: Alveolar/Arterial O2 Gradient 280.6 mmHg; Base Excess ABG -2.9 mEq/l (+/-2.0); Carboxyhemoglobin 0.3 % THb (0-2.0); Methemoglobin ABG 0.2 %THb (0-1.5); Oxygen Content ABG 15.1 %vol (16.0-22.0); Oxygen Saturation ABG 95.9 % (95.0-100.0); Oxyhemoglobin 95.2 % THb (90.0-100.0); PCO2 ABG 51.4 mmHg (35.0-45.0); PO2 ABG 90.7 mmHg (80.0-100.0); Total Hemoglobin 11.2 g/dL (12.0-18.0); pH ABG 7.288 (7.350-7.450)
[2021-07-24 05:58] LABS: Fractional Inspired Oxygen 60 %; PO2 FiO2 Ratio Arterial Blood 1.51 %; Reduced Hemoglobin 4.3 %THb (0-5.0)
[2021-07-24 05:59] LABS: Device VENTILATOR; Modified Allen's Test Pass; Site Drawn RIGHT RADIAL
[2021-07-24 06:00] LABS: Arterial Blood Gas PEEP 16 cmH2O; Arterial Blood Gas Tidal Volume 420 ml; Arterial Blood Gas Vent Mode CMV; Arterial Blood Gas Ventilator rate 30 /MIN
[2021-07-24] MEDS: BUDESONIDE RESPULE NEB 0.5 MG/2 ML AMP INHALATION ×2 (07:51→20:05)
[2021-07-24] MEDS: INSULIN GLARGINE (*BKC) 100 UNITS/ML 50 UNITS SUB-Q ×2 (08:45→20:22)
[2021-07-24] MEDS: DEXAMETHASONE SOD PHOS INJ 4 MG/ML VIAL 6 MG IV PUSH (08:46)
[2021-07-24] MEDS: MINERAL OIL/WHITE PETROLATUM OINTMENT 1 APPLIC EACH EYE ×2 (08:46→20:07)
[2021-07-24] MEDS: METOPROLOL TARTRATE 12.5 MG TABLET PO ×2 (08:46→20:08)
[2021-07-24] MEDS: PANTOPRAZOLE SODIUM IV 40 MG VIAL IV PUSH (08:46)
[2021-07-24 10:33] LABS: Glucose Point of Care 399 mg/dl (65-105)
--- NOTE | 2021-07-24 11:43 | PCNFU ---
Nutrition Follow-Up Complete: Inadequate Oral Intake as related to mechanical ventilation as evidenced by NPO. Goal: Meet estimated nutritional needs Patient is progressing towards goal. We will continue current goal. Pt current nutrition is Nepro at 45 ml/hr over 22 hours. Last recorded weight is 97.6 kg-stable Bowel Motility:No BM reported. Labs Reviewed: Na 136, BUN 81, Cr 3.1,PO4 5.7, Alb 2.9 Meds Noted:Versed, Fentanyl, Lantus, Novolog, Protonix, Decadron, Nimbex Skin: Buttock-maceration Additional Notes: Patient remains on mechanical vent and tube feedings of Nepro at 45 ml/hr over 22 hours, providing 1782 kcals/80 gms protein/720 ml water. Free water flush 30 ml q 4 hours. Agree with diet orders. Monitoring: Will monitor in ICU rounds and reassessing every Tuesday and Tuesday.
--- NOTE | 2021-07-24 12:16 | PM.CNNEP ---
Assessment and Plan Assessment and plan (1) Acute renal failure: Qualifiers: Acute renal failure type: unspecified Qualified Code(s): N17.9 - Acute kidney failure, unspecified Code(s): N17.9 - Acute kidney failure, unspecified Status: Acute Assessment and Plan: likely due to a combination of COVID-19 and hemodynamic instability/hypotension evaluation to date reveals: renal ultrasound with normal kidney sizes but a 3.9ccm left kidney mass suspicious for renal cell carcinoma urine electrolytes that are non-prerenal mildly elevated CPK but not high enough to affect kidney function creatinine relatively stable but decline in urine output is concerning better hemodynamics at this time so this should help rate of rise appears to have slowed down/decreased as well follow trend of repeat labs and UOP (2) Acute respiratory failure with hypoxia: Code(s): J96.01 - Acute respiratory failure with hypoxia Status: Acute Assessment and Plan: due to #3 known history of COPD and ongoing smoking history also likely contributing continue inhalers continue ventilator support (3) Pneumonia due to COVID-19 virus: Code(s): U07.1 - COVID-19; J12.82 - Pneumonia due to coronavirus disease 2018 Status: Acute Assessment and Plan: known positivity 4 days prior to admssion currently on dexamethasone deemed not a candidate for remdesivir due to DERRELL s/p tocilizumab on 07/22/2021 follow inflammatory makers ventilator support and prone positioning as tolerated (4) Shock: Code(s): R57.9 - Shock, unspecified Status: Acute Assessment and Plan: resolved off vasopressor support blood cultures negative urine culture positive for GNB on antibiotics (5) Diabetes: Code(s): E11.9 - Type 2 diabetes mellitus without complications Status: Acute Assessment and Plan: follow accuchecks glycemic control Will continue to follow. History of Present Illness Reason for Consult Consult date: 07/24/21 Reason for consult: acute renal failure (on chronic kidney disease[?]) Chief Complaint Chief complaint: Acute Respiratory Failure,Acute Renal Failure,COVI History of Present Illness Narrative: Most of the information I have obtained is from review of the electronic medical record and discussion with the physician/ nurses involved in the patient's care as she is unable to provide me with any history as she is currently intubated and on mechanical ventilation. The patient is a 66-year-old female with a past medical history as outlined below who presented to [facility] Emergency room several days ago for shortness of breath. Apparently, the patient was recently diagnosed with COVID-19 4 days prior to her presentation to the emergency room. she states her shortness of breath has been progressively getting worse in the last 4-5 days in association with loss of sense of taste and reported that her sense of smell was intact. Overall, she states that she has just been feeling bad in general. As her symptoms of shortness of breaths have been getting worse, she called EMS and on their arrival to her home, the patient had oxygen saturations of 80% on room air. She was placed on CPAP in the field and by the time of her arrival to the emergency room, she was transitioned to BiPAP due to her ongoing hypoxia. On arrival to the emergency room, the patient was somewhat hypotensive and was given 1 L fluid boluses as well as initiation of maintenance IV fluids but apparently she has not had much urine output despite this. Furthermore, her hypotension had been somewhat persistent since her evaluation in the emergency room. routine blood tests were significant for an elevated BUN and creatinine above her baseline. A central line was placed as there was some concern she may require vasopressor support but with ongoing IV fluid boluses, her
[2021-07-24 13:19] LABS: Glucose Point of Care 402 mg/dl (65-105)
[2021-07-24 13:19] LABS: Glucose Point of Care 404 mg/dl (65-105)
--- NOTE | 2021-07-24 13:19 | WPDINTPN ---
Progress Note: A&P Assessment and Plan (1) Acute respiratory failure with hypoxia: Code(s): J96.01 - Acute respiratory failure with hypoxia Status: Acute Assessment and Plan: Patient presented the ED on 07/20/2021 late evening, was hypoxic and was placed on BiPAP. She was on 100% FiO2 antibiotic, and failed as she was hypoxic with low O2 sats. 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 Patient is unvaccinated -currently on dexamethasone -not a candidate for remdesivir due to acute kidney injury and elevated creatinine -elevated D-dimer, ferritin and LDH -CRP 29.2, Received tocilizumab on 07/22/2021 -continue airborne, droplet, contact isolation/precautions (3) Diabetes mellitus with hyperglycemia: Qualifiers: Diabetes mellitus type: type 2 Diabetes mellitus cottrell operator insulin use: without cottrell operator use Qualified Code(s): E11.65 - Type 2 diabetes mellitus with hyperglycemia Code(s): E11.65 - Type 2 diabetes mellitus with hyperglycemia Status: Acute Assessment and Plan: Patient hyperglycemic which could be related to stress response and or steroids -continue sliding scale insulin, Accu-Cheks -Will start Insulin infusion (4) Acute renal failure: Qualifiers: Acute renal failure type: unspecified Qualified Code(s): N17.9 - Acute kidney failure, unspecified Code(s): N17.9 - Acute kidney failure, unspecified Status: Acute Assessment and Plan: Acute kidney injury, could be related to hypoxia, also has a history of diabetes and hypertension which could be contributing to that also. (last creatinine was on 12/08/2020 was 1.4). Patient was admitted with a creatinine of 3.7, -Patient did receive 2 L of IV fluid bolus on07/22 for hypotension. -will continue to monitor urine output, obtain urine lytes -renal ultrasound showed normal kidney size, no hydronephrosis. 3.9 cm left kidney mass suspicious for renal cell carcinoma, abdominal CT without and with contrast is recommended after improvement in kidney function -continue to monitor renal function, electrolytes and urine output - Nephrology has been consulted (5) HTN (hypertension): Code(s): I10 - Essential (primary) hypertension Status: Acute Assessment and Plan: Patient hypotensive and now on vasopressors., (6) Afib: Code(s): I48.91 - Unspecified atrial fibrillation Status: Acute Assessment and Plan: Currently in sinus rhythm, rate control, continue to monitor (7) DVT prophylaxis: Code(s): Z29.9 - Encounter for prophylactic measures, unspecified Status: Acute Assessment and Plan: Continue heparin SQ (8) Shock: Code(s): R57.9 - Shock, unspecified Status: Acute Assessment and Plan: Patient hypotensive requiring Levophed, was given 2 L IV fluid bolus on 07/22 -hypotension could be related to positive pressure ventilation, sedation medication, possible infection -leukocytosis trending down, patient is hypothermic - lactic acid normal -07/23/2021: Blood cx neg x2 so far -07/23/2021: urine and sputum cx pending Additional Plan Stress ulcer prophylaxis: Protonix Nutrition: Tolerating tube feeds D/w Carlos A Abby the daughter, and updated her with patient's condition and plan of care. Code status: Full code Critical care time spent: 3
[2021-07-24] MEDS: INSULIN HUMAN REGULAR (*BKC) 100 UNITS in SODIUM CHLORIDE 0.9% IV 99 ML 6.9 UNITS IV CONT (13:20)
[2021-07-24 14:26] LABS: Glucose Point of Care 361 mg/dl (65-105)
[2021-07-24 14:44] LABS: Anion Gap 10 mmol/L (8-16); Blood Urea Nitrogen 94 mg/dL (7-17); Calcium 8.1 mg/dL (8.4-10.2); Carbon Dioxide 24 mmol/L (22-30); Chloride 100 mmol/L (98-107); Estimated CRCL calculation 20 ml/min; Estimated Glomerular Filt Rate 15; Glucose 387 mg/dL (65-110); Magnesium 2.4 mg/dL (1.6-2.3); Phosphorus 3.9 mg/dL (2.5-4.5); Potassium 4.4 mmol/L (3.4-5.0); Sodium 134 mmol/L (137-145)
[2021-07-24 14:47] LABS: Hemoglobin A1C 9.6 % (<5.7)
[2021-07-24 15:37] LABS: Glucose Point of Care 301 mg/dl (65-105)
[2021-07-24 17:10] LABS: Glucose Point of Care 271 mg/dl (65-105)
[2021-07-24 17:18] LABS: Glucose Point of Care 253 mg/dl (65-105)
[2021-07-24 18:31] LABS: Glucose Point of Care 168 mg/dl (65-105)
[2021-07-24 20:17] LABS: Glucose Point of Care 151 mg/dl (65-105)
[2021-07-24] MEDS: AMIODARONE 360 MG/D5W 200 ML 360 MG/200 ML BAG 33.33 MG IV CONT (21:51)
[2021-07-24] MEDS: AMIODARONE 150 MG/D5W 100 ML 150 MG/100 ML BAG 600 MG IV CONT (21:51)
[2021-07-24 22:09] LABS: Glucose Point of Care 142 mg/dl (65-105)
[2021-07-25] VITALS (41 sets, daily range): BP systolic 100–125; BP diastolic 49–107; PULSE 102–140; RESP 26–30; TEMP 36.9–37.4; O2SAT 93–98
[2021-07-25 00:50] LABS: Glucose Point of Care 107 mg/dl (65-105)
[2021-07-25] MEDS: INSULIN HUMAN REGULAR (*BKC) 100 UNITS in SODIUM CHLORIDE 0.9% IV 99 ML IV CONT ×2 (01:15→21:25)
[2021-07-25 01:19] LABS: Glucose Point of Care 136 mg/dl (65-105)
[2021-07-25 01:30] LABS: Anion Gap 8 mmol/L (8-16); Blood Urea Nitrogen 105 mg/dL (7-17); Calcium 8.4 mg/dL (8.4-10.2); Carbon Dioxide 27 mmol/L (22-30); Chloride 100 mmol/L (98-107); Estimated CRCL calculation 21 ml/min; Estimated Glomerular Filt Rate 16; Glucose 130 mg/dL (65-110); Potassium 4.4 mmol/L (3.4-5.0); Sodium 135 mmol/L (137-145)
[2021-07-25] MEDS: IPRATROPIUM BR 0.02% INH SOLN 0.5 MG/2.5 ML VIAL INHALATION ×4 (02:14→20:32)
[2021-07-25] MEDS: ALBUTEROL SULFATE NEB 2.5 MG/0.5 ML INH 5 MG INHALATION ×4 (02:14→20:31)
[2021-07-25] MEDS: AMIODARONE 360 MG/D5W 200 ML 360 MG/200 ML BAG 33.33 MG IV CONT ×4 (02:54→22:39)
[2021-07-25 04:48] LABS: Glucose Point of Care 116 mg/dl (65-105)
[2021-07-25 04:48] LABS: Glucose Point of Care 123 mg/dl (65-105)
[2021-07-25 04:51] LABS: Alveolar/Arterial O2 Gradient 188.3 mmHg; Base Excess ABG 1.2 mEq/l (+/-2.0); HCO3 ABG 27.1 mEq/l (22.0-26.0); Oxygen Saturation ABG 94.7 % (95.0-100.0); PCO2 ABG 49.3 mmHg (35.0-45.0); PO2 ABG 76.5 mmHg (80.0-100.0); Total Hemoglobin 9.7 g/dL (12.0-18.0); pH ABG 7.358 (7.350-7.450)
[2021-07-25 04:51] LABS: Basophils Percent Auto 0.1 % (0.2-1.2); Hematocrit 27.7 % (37.0-47.0); Hemoglobin 8.5 g/dL (12.0-15.0); Immature Granulocyte Absolute 0.06 K/mm3 (0.00-0.031); Immature Granulocyte Percent A 0.7 % (0-0.5); Lymphocytes Absolute Auto 0.69 K/mm3 (0.9-3.2); Lymphocytes Percent Auto 7.6 % (18.3-44.2); Mean Corpuscular HGB Conc 30.7 g/dl (32-36); Mean Corpuscular Hemoglobin 29.3 pg (26-34); Mean Corpuscular Volume 95.5 fl (80-100); Mean Platelet Volume 11.6 fl (7.4-10.4); Monocytes Absolute Auto 0.3 K/mm3 (0.1-0.6); Neutrophils Percent Auto 88.6 % (45.5-73.1); Platelet Count Result 286 k/mm3 (150-375); Red Cell Distribution Width 15.7 % (11.5-14.5); White Blood Count 9.1 K/mm3 (4.5-10.0)
[2021-07-25 04:52] LABS: Carboxyhemoglobin 0.2 % THb (0-2.0); Device VENTILATOR; Fractional Inspired Oxygen 45 %; Methemoglobin ABG 0.1 %THb (0-1.5); Modified Allen's Test Pass; Oxygen Content ABG 12.8 %vol (16.0-22.0); Oxyhemoglobin 93.5 % THb (90.0-100.0); Reduced Hemoglobin 6.2 %THb (0-5.0); Site Drawn RIGHT RADIAL
[2021-07-25 04:53] LABS: Arterial Blood Gas Vent Mode CMV; Arterial Blood Gas Ventilator rate 30 /MIN
[2021-07-25 04:54] LABS: Arterial Blood Gas PEEP 16 cmH2O; Arterial Blood Gas Tidal Volume 420 ml
[2021-07-25 05:02] LABS: Alanine Aminotransferase 18 U/L (4-35); Albumin Level 2.7 g/dL (3.5-5.1); Alkaline Phosphatase 86 U/L (38-126); Anion Gap 9 mmol/L (8-16); Aspartate Amino Transferase 45 U/L (14-36); Bilirubin,Total 0.2 mg/dL (0.2-1.3); Blood Urea Nitrogen 102 mg/dL (7-17); Calcium 8.5 mg/dL (8.4-10.2); Carbon Dioxide 28 mmol/L (22-30); Chloride 101 mmol/L (98-107); Estimated CRCL calculation 19 ml/min; Estimated Glomerular Filt Rate 15; Glucose 131 mg/dL (65-110); Magnesium 2.5 mg/dL (1.6-2.3); Phosphorus 3.5 mg/dL (2.5-4.5); Potassium 4.3 mmol/L (3.4-5.0); Sodium 138 mmol/L (137-145)
[2021-07-25] MEDS: HEPARIN SODIUM 5,000 UNITS/ML VIAL 5000 UNITS SUB-Q (06:29)
[2021-07-25 06:35] LABS: Glucose Point of Care 124 mg/dl (65-105)
--- NOTE | 2021-07-25 07:25 | PM.IMPN ---
Progress Note: A&P Assessment and Plan (1) Acute respiratory failure with hypoxia: Code(s): J96.01 - Acute respiratory failure with hypoxia Status: Acute Assessment and Plan: Patient presented the ED on 07/20/2021 late evening, was hypoxic and was placed on BiPAP. She was on 100% FiO2 antibiotic, and failed as she was hypoxic with low O2 sats. 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 long goods insulin use: without watcher automat long goods use Qualified Code(s): E11.65 - Type 2 diabetes mellitus with hyperglycemia Code(s): E11.65 - Type 2 diabetes mellitus with hyperglycemia Status: Acute Assessment and Plan: Patient hyperglycemic which could be related to stress response and or steroids -continue sliding scale insulin, Accu-Cheks -Will start Insulin infusion (4) Acute renal failure: Qualifiers: Acute renal failure type: unspecified Qualified Code(s): N17.9 - Acute kidney failure, unspecified Code(s): N17.9 - Acute kidney failure, unspecified Status: Acute Assessment and Plan: Acute kidney injury, could be related to hypoxia, also has a history of diabetes and hypertension which could be contributing to that also. (last creatinine was on 12/08/2020 was 1.4). Patient was admitted with a creatinine of 3.7, -Patient did receive 2 L of IV fluid bolus on07/22 for hypotension. -will continue to monitor urine output, obtain urine lytes -renal ultrasound showed normal kidney size, no hydronephrosis. 3.9 cm left kidney mass suspicious for renal cell carcinoma, abdominal CT without and with contrast is recommended after improvement in kidney function -continue to monitor renal function, electrolytes and urine output - Nephrology has been consulted (5) HTN (hypertension): Code(s): I10 - Essential (primary) hypertension Status: Acute Assessment and Plan: Patient hypotensive and now on vasopressors., (6) Afib: Code(s): I48.91 - Unspecified atrial fibrillation Status: Acute Assessment and Plan: Currently in sinus rhythm, rate control, continue to monitor (7) DVT prophylaxis: Code(s): Z29.9 - Encounter for prophylactic measures, unspecified Status: Acute Assessment and Plan: Continue heparin SQ (8) Shock: Code(s): R57.9 - Shock, unspecified Status: Acute Assessment and Plan: Patient hypotensive requiring Levophed, was given 2 L IV fluid bolus on 07/22 -hypotension could be related to positive pressure ventilation, sedation medication, possible infection -leukocytosis trending down, patient is hypothermic - lactic acid normal -07/23/2021: Blood cx neg x2 so far -07/23/2021: urine and sputum cx pending Additional Plan 07/25/2021 Case was discussed in detail with ICU attending. Will continue with current plan of care and treatment. Will continue to provide vent support and oxygen. Monitor labs and culture. Subjective Date/time s
[2021-07-25] MEDS: PANTOPRAZOLE SODIUM IV 40 MG VIAL IV PUSH (08:00)
[2021-07-25] MEDS: INSULIN GLARGINE (*BKC) 100 UNITS/ML 50 UNITS SUB-Q ×2 (08:01→22:37)
[2021-07-25] MEDS: METOPROLOL TARTRATE 12.5 MG TABLET PO (08:01)
[2021-07-25] MEDS: DEXAMETHASONE SOD PHOS INJ 4 MG/ML VIAL 6 MG IV PUSH (08:01)
[2021-07-25] MEDS: MINERAL OIL/WHITE PETROLATUM OINTMENT 1 APPLIC EACH EYE ×2 (08:02→22:38)
[2021-07-25] MEDS: BUDESONIDE RESPULE NEB 0.5 MG/2 ML AMP INHALATION ×2 (08:09→20:31)
[2021-07-25 09:28] LABS: Glucose Point of Care 109 mg/dl (65-105)
--- NOTE | 2021-07-25 11:11 | WPDINTPN ---
Progress Note: A&P Assessment and Plan (1) Acute respiratory failure with hypoxia: Code(s): J96.01 - Acute respiratory failure with hypoxia Status: Acute Assessment and Plan: Patient presented the ED on 07/20/2021 late evening, was hypoxic and was placed on BiPAP. She was on 100% FiO2 antibiotic, and failed as she was hypoxic with low O2 sats. 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 Will wean PEEP gradually -continue bronchodilators -continue Pulmicort -sedated with fentanyl and Versed infusion, Nimbex for neuromuscular blockade (2) Pneumonia due to COVID-19 virus: Code(s): U07.1 - COVID-19; J12.82 - Pneumonia due to coronavirus disease 2019 Status: Acute Assessment and Plan: Patient was tested COVID positive on 07/16/2021 this was 4 days prior to admission according the patient's medical records. Patient is unvaccinated -currently on dexamethasone -not a candidate for remdesivir due to acute kidney injury and elevated creatinine -elevated D-dimer, ferritin and LDH -CRP 29.2, Received tocilizumab on 07/22/2021 -continue airborne, droplet, contact isolation/precautions (3) Diabetes mellitus with hyperglycemia: Qualifiers: Diabetes mellitus intermediate accountant insulin use: without intermediate accountant use Diabetes mellitus type: type 2 Qualified Code(s): E11.65 - Type 2 diabetes mellitus with hyperglycemia Code(s): E11.65 - Type 2 diabetes mellitus with hyperglycemia Status: Acute Assessment and Plan: Patient hyperglycemic which could be related to stress response and or steroids -continue sliding scale insulin, Accu-Cheks -continue insulin infusion and Lantus (4) Acute renal failure: Qualifiers: Acute renal failure type: unspecified Qualified Code(s): N17.9 - Acute kidney failure, unspecified Code(s): N17.9 - Acute kidney failure, unspecified Status: Acute Assessment and Plan: Acute kidney injury, could be related to hypoxia, COVID-19, hypotension, AFib, also has a history of diabetes and hypertension which could be contributing to that also. (last creatinine was on 12/08/2020 was 1.4). Patient was admitted with a creatinine of 3.7, -Patient did receive 2 L of IV fluid bolus on07/22 for hypotension. -will continue to monitor urine output, obtain urine lytes -renal ultrasound showed normal kidney size, no hydronephrosis. 3.9 cm left kidney mass suspicious for renal cell carcinoma, abdominal CT without and with contrast is recommended after improvement in kidney function -continue to monitor renal function, electrolytes and urine output -creatinine trending up, urine output has been low - Nephrology has been consulted (5) HTN (hypertension): Code(s): I10 - Essential (primary) hypertension Status: Acute Assessment and Plan: Blood pressure are borderline, patient was on Levophed briefly on admission to the ICU -currently off Levophed (6) Afib: Code(s): I48.91 - Unspecified atrial fibrillation Status: Acute Assessment and Plan: Currently in sinus rhythm, rate control, continue to monitor -AFib RVR, will start amiodarone bolus and infusion -continue metoprolol per tube -start heparin infusion (7) DVT prophylaxis: Code(s): Z29.9 - Encounter for prophylactic measures, unspecified Status: Acute Assessment and Plan: Stop heparin SQ and start heparin infusion (8) Shock: Code(s): R57.9 - Shock, unspecified Status: Acute Assessment and Plan: Patient hypotensive requiring Levophed, was given 2 L IV fluid bolus on 07/22 -hypotension could be related to positive pressure ventilation, sedation medication, possible infection -leukocytosis trending down, patient is hypothermic - lactic acid normal -off Levophed since 07/23 -07/23/2021: Blood cx neg
[2021-07-25 11:28] LABS: Glucose Point of Care 184 mg/dl (65-105)
[2021-07-25] MEDS: FENTANYL 2,500MCG/NS250ML(*CRX 2,500 MCG/250 ML BAG 15 MCG IV CONT (11:31)
[2021-07-25 11:57] LABS: Anion Gap 5 mmol/L (8-16); Blood Urea Nitrogen 108 mg/dL (7-17); Calcium 8.6 mg/dL (8.4-10.2); Carbon Dioxide 28 mmol/L (22-30); Chloride 101 mmol/L (98-107); Estimated CRCL calculation 21 ml/min; Estimated Glomerular Filt Rate 16; Glucose 184 mg/dL (65-110); Potassium 4.6 mmol/L (3.4-5.0); Sodium 134 mmol/L (137-145)
[2021-07-25] MEDS: MIDAZOLAM 100MG/NS 100ML(*CRX) 100 MG/100 ML BAG 6 MG IV CONT (12:03)
[2021-07-25 12:29] LABS: Basophils Percent Auto 0.1 % (0.2-1.2); Eosinophils Percent Auto 0.1 % (0-4.4); Hematocrit 27.6 % (37.0-47.0); Hemoglobin 8.5 g/dL (12.0-15.0); Immature Granulocyte Percent A 0.9 % (0-0.5); Lymphocytes Absolute Auto 0.36 K/mm3 (0.9-3.2); Lymphocytes Percent Auto 3.3 % (18.3-44.2); Mean Corpuscular HGB Conc 30.8 g/dl (32-36); Mean Corpuscular Hemoglobin 29.1 pg (26-34); Mean Corpuscular Volume 94.5 fl (80-100); Mean Platelet Volume 11.5 fl (7.4-10.4); Monocytes Absolute Auto 0.1 K/mm3 (0.1-0.6); Neutrophils Absolute Auto 10.4 K/mm3 (1.3-6.7); Neutrophils Percent Auto 94.6 % (45.5-73.1); Platelet Count Result 287 k/mm3 (150-375); Red Blood Count 2.92 M/mm3 (4.2-5.4); Red Cell Distribution Width 15.8 % (11.5-14.5)
--- NOTE | 2021-07-25 12:33 | PM.PNNEP ---
Progress Note: A&P Assessment and Plan (1) Acute renal failure: Qualifiers: Acute renal failure type: unspecified Qualified Code(s): N17.9 - Acute kidney failure, unspecified Code(s): N17.9 - Acute kidney failure, unspecified Status: Acute Assessment and Plan: likely due to a combination of COVID-19 and previous hemodynamic instability/hypotension evaluation to date reveals: renal ultrasound with normal kidney sizes but a 3.9ccm left kidney mass suspicious for renal cell carcinoma urine electrolytes that are non-prerenal mildly elevated CPK but not high enough to affect kidney function creatinine relatively stable but decline in urine output is concerning better hemodynamics at this time so this should help rate of rise in creatinine appears to have slowed down/decreased as well follow trend of repeat labs and UOP (2) Acute respiratory failure with hypoxia: Code(s): J96.01 - Acute respiratory failure with hypoxia Status: Acute Assessment and Plan: due to #3 known history of COPD and ongoing smoking history also likely contributing continue inhalers continue ventilator support (3) Pneumonia due to COVID-19 virus: Code(s): U07.1 - COVID-19; J12.82 - Pneumonia due to coronavirus disease 2019 Status: Acute Assessment and Plan: known positivity 4 days prior to admssion currently on dexamethasone deemed not a candidate for remdesivir due to DERRELL s/p tocilizumab on 07/22/2021 follow inflammatory makers ventilator support and prone positioning as tolerated (4) Shock: Code(s): R57.9 - Shock, unspecified Status: Acute Assessment and Plan: resolved off vasopressor support blood cultures negative urine culture positive for GNB on antibiotics (5) Diabetes: Code(s): E11.9 - Type 2 diabetes mellitus without complications Status: Acute Assessment and Plan: follow accuchecks glycemic control Will continue to follow. Subjective Date/time seen: 07/25/21 12:33 No real change noted since I last saw her - remains intubated/sedated/paralyzed and on mechanical ventilation support; urine output continues to decline but creatinine/renal function appears relatively stable; no other issues/events overnight or earlier this AM. Exam Narrative: General: Elderly female intubated/sedated/paralyzed Heart: normal S1 and S2; no rub Lungs: coarse breath sound throughout Abdomen: soft, nontender, nondistended, positive bowel sounds Extremities: no cyanosis or clubbing; no edema Skin: warm and dry Objective Data Vital Signs Vital Signs: Vital Signs Temp Pulse Resp BP Pulse Ox 07/25/21 12:03 126 H 30 H 07/25/21 12:00 37.1 C 127 H 30 H 102/62 97 07/25/21 11:31 126 H 30 H 07/25/21 11:30 126 H 30 H 07/25/21 10:59 131 H 95 07/25/21 10:00 37.1 C 110 H 30 H 111/66 95 07/25/21 08:19 128 H 93 07/25/21 08:09 136 H 30 H 07/25/21 08:01 133 H 07/25/21 08:00 37.3 C 129 H 30 H 123/107 H 94 07/25/21 06:13 127 H 30 H 100/49 L 07/25/21 06:12 125 H 30 H 07/25/21 06:00 37.3 C 124 H 30 H 100/49 L 95 07/25/21 04:05 125 H 95 07/25/21 04:00 37.3 C 127 H 30 H 105/66 95 07/25/21 03:19 135 H 30 H 95 07/25/21 02:54 124 H 113/62 07/25/21 02:46 131 H 94 07/25/21 02:43 140 H 30 H 07/25/21 02:42 134 H 30 H 113/62 07/25/21 02:41 136 H 30 H 07/25/21 02:40 134 H 30 H 07/25/21 02:22 118 H 30 H 07/25/21 02:15 133 H 30 H 93 07/25/21 02:00 37.4 C 138 H 30 H 113/62 94 07/25/21 00:00 37.4 C 124 H 30 H 112/59 L 98 07/24/21 23:49 130 H 30 H 116/56 L 07/24/21 23:34 139 H 30 H 97 07/24/21 22:52 124 H 97 07/24/21 22:21 133 H 100 07/24/21 22:00 37.3 C 127 H 30 H 111/50 L 99 07/24/21 21:51 145 H 100/60 07/24/21 20:15 130 H 30 H
--- NOTE | 2021-07-25 12:33 | P.PNNP_ITS ---
Progress Note: A&P Assessment and Plan (1) Acute renal failure: Qualifiers: Acute renal failure type: unspecified Qualified Code(s): N17.9 - Acute kidney failure, unspecified Code(s): N17.9 - Acute kidney failure, unspecified Status: Acute Assessment and Plan: * likely due to a combination of COVID-19 and previous hemodynamic instability/hypotension * evaluation to date reveals: * renal ultrasound with normal kidney sizes but a 3.9ccm left kidney mass suspicious for renal cell carcinoma * urine electrolytes that are non-prerenal * mildly elevated CPK but not high enough to affect kidney function * creatinine relatively stable but decline in urine output is concerning * better hemodynamics at this time so this should help * rate of rise in creatinine appears to have slowed down/decreased as well * follow trend of repeat labs and UOP (2) Acute respiratory failure with hypoxia: Code(s): J96.01 - Acute respiratory failure with hypoxia Status: Acute Assessment and Plan: * due to #3 * known history of COPD and ongoing smoking history also likely contributing * continue inhalers * continue ventilator support (3) Pneumonia due to COVID-19 virus: Code(s): U07.1 - COVID-19; J12.82 - Pneumonia due to coronavirus disease 2018 Status: Acute Assessment and Plan: * known positivity 4 days prior to admssion * currently on dexamethasone * deemed not a candidate for remdesivir due to DERRELL * s/p tocilizumab on 07/22/2021 * follow inflammatory makers * ventilator support and prone positioning as tolerated (4) Shock: Code(s): R57.9 - Shock, unspecified Status: Acute Assessment and Plan: * resolved * off vasopressor support * blood cultures negative * urine culture positive for GNB * on antibiotics (5) Diabetes: Code(s): E11.9 - Type 2 diabetes mellitus without complications Status: Acute Assessment and Plan: * follow accuchecks * glycemic control Will continue to follow. Subjective Date/time seen: 07/25/21 12:33 No real change noted since I last saw her - remains intubated/sedated/paralyzed and on mechanical ventilation support; urine output continues to decline but creatinine/renal function appears relatively stable; no other issues/events overnight or earlier this AM. Exam Narrative: General: Elderly female intubated/sedated/paralyzed Heart: normal S1 and S2; no rub Lungs: coarse breath sound throughout Abdomen: soft, nontender, nondistended, positive bowel sounds Extremities: no cyanosis or clubbing; no edema Skin: warm and dry Objective Data Vital Signs Vital Signs: Vital Signs Temp Pulse Resp BP Pulse Ox 07/25/21 12:03 126 H 30 H 07/25/21 12:00 37.1 C 127 H 30 H 102/62 97 07/25/21 11:31 126 H 30 H 07/25/21 11:30 126 H 30 H 07/25/21 10:59 131 H 95 07/25/21 10:00 37.1 C 110 H 30 H 111/66 95 07/25/21 08:19 128 H 93 07/25/21 08:09 136 H 30 H 07/25/21 08:01 133 H 07/25/21 08:00 37.3 C 129 H 30 H 123/107 H 94 07/25/21 06:13 127 H 30 H 100/49 L 07/25/21 06:12 125 H 30 H 07/25/21 06:00 37.3 C 124 H 30 H 100/49 L 95 07/25/21 04:05 125 H 95 07/25/21 04:00 37.3 C 127 H 30 H 105/66 95 07/25
[2021-07-25 12:35] LABS: Glucose Point of Care 161 mg/dl (65-105)
[2021-07-25 12:46] LABS: Prothrombin Time 13.4 Seconds (11.1-14.7)
[2021-07-25 12:47] LABS: Partial Thromboplastin Time 27.2 SECONDS (22.3-36.8)
[2021-07-25] MEDS: AMIODARONE 150 MG/D5W 100 ML 150 MG/100 ML BAG 600 MG IV CONT (12:55)
[2021-07-25] MEDS: HEPARIN SOD/D5W 100 UNITS/ML 25,000 UNITS/250 ML BAG 14 UNITS IV CONT (12:58)
[2021-07-25 15:46] LABS: Glucose Point of Care 173 mg/dl (65-105)
[2021-07-25] MEDS: AMIODARONE 360 MG/D5W 200 ML 360 MG/200 ML BAG 16.67 MG IV CONT (16:29)
[2021-07-25 16:38] LABS: Glucose Point of Care 138 mg/dl (65-105)
[2021-07-25] MEDS: CISATRACURIUM BESYLATE 200 MG in DEXTROSE 5% 80 ML IV CONT (18:08)
[2021-07-25 19:18] LABS: Partial Thromboplastin Time 58.2 SECONDS (22.3-36.8)
[2021-07-25 21:29] LABS: Glucose Point of Care 119 mg/dl (65-105)
[2021-07-25] MEDS: METOPROLOL TARTRATE 25 MG TABLET PO (22:38)
[2021-07-25 22:47] LABS: Glucose Point of Care 137 mg/dl (65-105)
[2021-07-25 23:07] LABS: Glucose Point of Care 138 mg/dl (65-105)
[2021-07-26] VITALS (38 sets, daily range): BP systolic 94–138; BP diastolic 48–81; PULSE 51–128; RESP 30; TEMP 36.8–37.6; O2SAT 90–100
[2021-07-26 00:37] LABS: Glucose Point of Care 129 mg/dl (65-105)
[2021-07-26 01:41] LABS: Partial Thromboplastin Time 77.3 SECONDS (22.3-36.8)
[2021-07-26] MEDS: IPRATROPIUM BR 0.02% INH SOLN 0.5 MG/2.5 ML VIAL INHALATION ×4 (02:22→19:08)
[2021-07-26] MEDS: ALBUTEROL SULFATE NEB 2.5 MG/0.5 ML INH 5 MG INHALATION ×4 (02:22→19:08)
[2021-07-26 02:57] LABS: Glucose Point of Care 121 mg/dl (65-105)
[2021-07-26] MEDS: MIDAZOLAM 100MG/NS 100ML(*CRX) 100 MG/100 ML BAG 6 MG IV CONT ×2 (04:19→20:37)
[2021-07-26] MEDS: FENTANYL 2,500MCG/NS250ML(*CRX 2,500 MCG/250 ML BAG 15 MCG IV CONT ×2 (04:21→20:35)
[2021-07-26 04:36] LABS: Alveolar/Arterial O2 Gradient 196.9 mmHg; Base Excess ABG 3.4 mEq/l (+/-2.0); Carboxyhemoglobin 0.2 % THb (0-2.0); Fractional Inspired Oxygen 45 %; HCO3 ABG 29.1 mEq/l (22.0-26.0); Methemoglobin ABG 0.1 %THb (0-1.5); Oxygen Saturation ABG 92.9 % (95.0-100.0); Oxyhemoglobin 91.7 % THb (90.0-100.0); PCO2 ABG 49.8 mmHg (35.0-45.0); PO2 ABG 67.3 mmHg (80.0-100.0); pH ABG 7.384 (7.350-7.450)
[2021-07-26 04:37] LABS: Device VENTILATOR; Modified Allen's Test Pass; Site Drawn RIGHT RADIAL
[2021-07-26 04:37] LABS: Basophils Percent Auto 0.2 % (0.2-1.2); Eosinophils Absolute Auto 0.1 K/mm3 (0-0.3); Eosinophils Percent Auto 0.6 % (0-4.4); Hematocrit 27.3 % (37.0-47.0); Hemoglobin 8.5 g/dL (12.0-15.0); Immature Granulocyte Absolute 0.33 K/mm3 (0.00-0.031); Immature Granulocyte Percent A 2.3 % (0-0.5); Lymphocytes Absolute Auto 0.95 K/mm3 (0.9-3.2); Lymphocytes Percent Auto 6.5 % (18.3-44.2); Mean Corpuscular HGB Conc 31.1 g/dl (32-36); Mean Corpuscular Volume 93.2 fl (80-100); Mean Platelet Volume 11.7 fl (7.4-10.4); Monocytes Absolute Auto 0.3 K/mm3 (0.1-0.6); Monocytes Percent Auto 1.8 % (2.6-8.5); Neutrophils Percent Auto 88.6 % (45.5-73.1); Nucleated Red Blood Cells Perc 0.3 % (0.0-0.2); Platelet Count Result 314 k/mm3 (150-375); Red Blood Count 2.93 M/mm3 (4.2-5.4); Red Cell Distribution Width 15.6 % (11.5-14.5); White Blood Count 14.6 K/mm3 (4.5-10.0)
[2021-07-26 04:38] LABS: Arterial Blood Gas PEEP 16 cmH2O; Arterial Blood Gas Vent Mode CMV; Arterial Blood Gas Ventilator rate 30 /MIN
[2021-07-26 04:39] LABS: Arterial Blood Gas Tidal Volume 420 ml
[2021-07-26 04:52] LABS: Alanine Aminotransferase 19 U/L (4-35); Albumin Level 2.8 g/dL (3.5-5.1); Alkaline Phosphatase 87 U/L (38-126); Anion Gap 7 mmol/L (8-16); Aspartate Amino Transferase 42 U/L (14-36); Bilirubin,Total 0.2 mg/dL (0.2-1.3); Blood Urea Nitrogen 107 mg/dL (7-17); Calcium 8.8 mg/dL (8.4-10.2); Carbon Dioxide 28 mmol/L (22-30); Chloride 100 mmol/L (98-107); Estimated CRCL calculation 25 ml/min; Estimated Glomerular Filt Rate 19; Glucose 117 mg/dL (65-110); Magnesium 2.3 mg/dL (1.6-2.3); Phosphorus 3.8 mg/dL (2.5-4.5); Potassium 4.7 mmol/L (3.4-5.0); Sodium 135 mmol/L (137-145)
[2021-07-26] MEDS: AMIODARONE 360 MG/D5W 200 ML 360 MG/200 ML BAG 33.33 MG IV CONT ×4 (05:22→23:21)
[2021-07-26] MEDS: HEPARIN SOD/D5W 100 UNITS/ML 25,000 UNITS/250 ML BAG 14 UNITS IV CONT (05:22)
[2021-07-26 05:55] LABS: Glucose Point of Care 103 mg/dl (65-105)
[2021-07-26 07:05] LABS: Glucose Point of Care 113 mg/dl (65-105)
[2021-07-26 07:21] LABS: Partial Thromboplastin Time 92.6 SECONDS (22.3-36.8)
[2021-07-26] MEDS: DEXAMETHASONE SOD PHOS INJ 4 MG/ML VIAL 6 MG IV PUSH (08:36)
[2021-07-26] MEDS: BUDESONIDE RESPULE NEB 0.5 MG/2 ML AMP INHALATION ×2 (08:37→19:08)
[2021-07-26] MEDS: MINERAL OIL/WHITE PETROLATUM OINTMENT 1 APPLIC EACH EYE ×2 (08:37→20:28)
[2021-07-26] MEDS: PANTOPRAZOLE SODIUM IV 40 MG VIAL IV PUSH (08:37)
[2021-07-26] MEDS: polyethylene glycoL 3350 17 GM POWD.PACK PO (08:38)
[2021-07-26] MEDS: INSULIN GLARGINE (*BKC) 100 UNITS/ML 50 UNITS SUB-Q ×2 (10:05→20:28)
[2021-07-26] MEDS: METOPROLOL TARTRATE 25 MG TABLET PO ×2 (10:14→20:29)
[2021-07-26 10:31] LABS: Glucose Point of Care 96 mg/dl (65-105)
--- NOTE | 2021-07-26 10:42 | WPDINTPN ---
Progress Note: A&P Assessment and Plan (1) Acute respiratory failure with hypoxia: Code(s): J96.01 - Acute respiratory failure with hypoxia Status: Acute Assessment and Plan: Patient presented the ED on 07/20/2021 late evening, was hypoxic and was placed on BiPAP. She was on 100% FiO2 antibiotic, and failed as she was hypoxic with low O2 sats. 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 on 07/22/2021 granite polisher machine - continue CMV mode of ventilation, peep of 16 and 45% FiO2, ABGs and chest x-ray were reviewed, ventilator adjusted. Will wean PEEP to 14 -continue bronchodilators -continue Pulmicort -sedated with fentanyl and Versed infusion, Nimbex for neuromuscular blockade, will start weaning Nimbex to off, will add propofol if necessary for ventilator synchrony (2) Pneumonia due to COVID-19 virus: Code(s): U07.1 - COVID-19; J12.82 - Pneumonia due to coronavirus disease 2019 Status: Acute Assessment and Plan: Patient was tested COVID positive on 07/16/2021 this was 4 days prior to admission according the patient's medical records. Patient is unvaccinated -currently on dexamethasone -not a candidate for remdesivir due to acute kidney injury and elevated creatinine -elevated D-dimer, ferritin and LDH -CRP 29.2, Received tocilizumab on 07/22/2021 -continue airborne, droplet, contact isolation/precautions (3) Diabetes mellitus with hyperglycemia: Qualifiers: Diabetes mellitus custodial insulin use: without custodial use Diabetes mellitus type: type 2 Qualified Code(s): E11.65 - Type 2 diabetes mellitus with hyperglycemia Code(s): E11.65 - Type 2 diabetes mellitus with hyperglycemia Status: Acute Assessment and Plan: Patient hyperglycemic which could be related to stress response and or steroids -continue sliding scale insulin, Accu-Cheks -continue insulin infusion and Lantus (4) Acute renal failure: Qualifiers: Acute renal failure type: unspecified Qualified Code(s): N17.9 - Acute kidney failure, unspecified Code(s): N17.9 - Acute kidney failure, unspecified Status: Acute Assessment and Plan: Acute kidney injury, could be related to hypoxia, COVID-19, hypotension, AFib, also has a history of diabetes and hypertension which could be contributing to that also. (last creatinine was on 12/08/2020 was 1.4). Patient was admitted with a creatinine of 3.7, -Patient did receive 2 L of IV fluid bolus on07/22 for hypotension. -will continue to monitor urine output, obtain urine lytes -renal ultrasound showed normal kidney size, no hydronephrosis. 3.9 cm left kidney mass suspicious for renal cell carcinoma, abdominal CT without and with contrast is recommended after improvement in kidney function -continue to monitor renal function, electrolytes and urine output - creatinine trending down - appreciate Nephrology evaluation recommendation (5) HTN (hypertension): Code(s): I10 - Essential (primary) hypertension Status: Acute Assessment and Plan: Blood pressure are borderline, patient was on Levophed briefly on admission to the ICU -currently off Levophed - continue to maintain adequate mean arterial pressures for end-organ perfusion (6) Afib: Code(s): I48.91 - Unspecified atrial fibrillation Status: Acute Assessment and Plan: Currently in sinus rhythm, rate control, continue to monitor -AFib RVR, will start amiodarone bolus and infusion -continue metoprolol per tube - continue heparin infusion (7) DVT prophylaxis: Code(s): Z29.9 - Encounter for prophylactic measures, unspecified Status: Acute Assessment and Plan: on heparin infusion (8) Shock: Code(s): R57.9 - Shock, unspecified Status: Acute Assessment and Plan: Patient hypotensive requiring Levophed, was given 2 L IV fluid bolus on 07/22 -hypotension could be related to positive pressure ventilation, sedation medication, possible infect
[2021-07-26 11:34] LABS: Glucose Point of Care 174 mg/dl (65-105)
--- NOTE | 2021-07-26 11:40 | P.PNNP_ITS ---
Progress Note: A&P Assessment and Plan (1) Acute renal failure: Qualifiers: Acute renal failure type: unspecified Qualified Code(s): N17.9 - Acute kidney failure, unspecified Code(s): N17.9 - Acute kidney failure, unspecified Status: Acute Assessment and Plan: * likely due to a combination of COVID-19 and previous hemodynamic instability/hypotension * evaluation to date reveals: * renal ultrasound with normal kidney sizes but a 3.9ccm left kidney mass suspicious for renal cell carcinoma * urine electrolytes that are non-prerenal * mildly elevated CPK but not high enough to affect kidney function * possible peak/plateau of creatinine at 3.2mg/dl(?) * creatinine improving with increase in urine output noted * follow trend of repeat labs and UOP (2) Acute respiratory failure with hypoxia: Code(s): J96.01 - Acute respiratory failure with hypoxia Status: Acute Assessment and Plan: * due to #3 * known history of COPD and ongoing smoking history also likely contributing * continue inhalers * continue ventilator support (3) Pneumonia due to COVID-19 virus: Code(s): U07.1 - COVID-19; J12.82 - Pneumonia due to coronavirus disease 2018 Status: Acute Assessment and Plan: * known positivity 4 days prior to admssion * currently on dexamethasone * deemed not a candidate for remdesivir due to DERRELL * s/p tocilizumab on 07/22/2021 * follow inflammatory makers * ventilator support and prone positioning as tolerated (4) Shock: Code(s): R57.9 - Shock, unspecified Status: Acute Assessment and Plan: * resolved * off vasopressor support * blood cultures negative * urine culture positive for GNB * on antibiotics (5) Diabetes: Code(s): E11.9 - Type 2 diabetes mellitus without complications Status: Acute Assessment and Plan: * follow accuchecks * glycemic control Will continue to follow. Subjective Date/time seen: 07/26/21 11:40 No significant change noted -- intubated/sedated/paralyzed and requiring full mechanical ventilatory support; remains hemodynamically stable without the need for pressor support at this time; reasonable urine output noted with improvement in creatinine/renal function noted; no issues/events overnight or earlier this morning. Exam Narrative: General: Elderly female intubated/sedated/paralyzed Heart: normal S1 and S2; no rub Lungs: coarse breath sound throughout Abdomen: soft, nontender, nondistended, positive bowel sounds Extremities: no cyanosis or clubbing; no edema Skin: warm and intact Objective Data Vital Signs Vital Signs: Vital Signs Temp Pulse Resp BP Pulse Ox 07/26/21 11:28 118 H 110/63 07/26/21 11:23 118 H 110/63 07/26/21 10:39 113 H 93 07/26/21 10:00 128 H 30 H 108/60 92 07/26/21 08:37 105 H 30 H 91 07/26/21 08:00 37.6 C 112 H 30 H 107/56 L 90 07/26/21 06:00 37.5 C 109 H 30 H 102/66 93 07/26/21 05:25 98 95 07/26/21 05:22 115 H 113/48 L 07/26/21 04:21 114 H 30 H 07/26/21 04:19 127 H 30 H 07/26/21 04:12 114 H 30 H 07/26/21 03:48 37.4 C 112 H 30 H 106/60 92 07/26/21 03:47 111 H 30 H 94 07/26/21 03:45 111 H 07/26/21 02:20 114 H 94 07/26/21 02:
--- NOTE | 2021-07-26 11:40 | PM.PNNEP ---
Progress Note: A&P Assessment and Plan (1) Acute renal failure: Qualifiers: Acute renal failure type: unspecified Qualified Code(s): N17.9 - Acute kidney failure, unspecified Code(s): N17.9 - Acute kidney failure, unspecified Status: Acute Assessment and Plan: likely due to a combination of COVID-19 and previous hemodynamic instability/hypotension evaluation to date reveals: renal ultrasound with normal kidney sizes but a 3.9ccm left kidney mass suspicious for renal cell carcinoma urine electrolytes that are non-prerenal mildly elevated CPK but not high enough to affect kidney function possible peak/plateau of creatinine at 3.2mg/dl(?) creatinine improving with increase in urine output noted follow trend of repeat labs and UOP (2) Acute respiratory failure with hypoxia: Code(s): J96.01 - Acute respiratory failure with hypoxia Status: Acute Assessment and Plan: due to #3 known history of COPD and ongoing smoking history also likely contributing continue inhalers continue ventilator support (3) Pneumonia due to COVID-19 virus: Code(s): U07.1 - COVID-19; J12.82 - Pneumonia due to coronavirus disease 2019 Status: Acute Assessment and Plan: known positivity 4 days prior to admssion currently on dexamethasone deemed not a candidate for remdesivir due to DERRELL s/p tocilizumab on 07/22/2021 follow inflammatory makers ventilator support and prone positioning as tolerated (4) Shock: Code(s): R57.9 - Shock, unspecified Status: Acute Assessment and Plan: resolved off vasopressor support blood cultures negative urine culture positive for GNB on antibiotics (5) Diabetes: Code(s): E11.9 - Type 2 diabetes mellitus without complications Status: Acute Assessment and Plan: follow accuchecks glycemic control Will continue to follow. Subjective Date/time seen: 07/26/21 11:40 No significant change noted -- intubated/sedated/paralyzed and requiring full mechanical ventilatory support; remains hemodynamically stable without the need for pressor support at this time; reasonable urine output noted with improvement in creatinine/renal function noted; no issues/events overnight or earlier this morning. Exam Narrative: General: Elderly female intubated/sedated/paralyzed Heart: normal S1 and S2; no rub Lungs: coarse breath sound throughout Abdomen: soft, nontender, nondistended, positive bowel sounds Extremities: no cyanosis or clubbing; no edema Skin: warm and intact Objective Data Vital Signs Vital Signs: Vital Signs Temp Pulse Resp BP Pulse Ox 07/26/21 11:28 118 H 110/63 07/26/21 11:23 118 H 110/63 07/26/21 10:39 113 H 93 07/26/21 10:00 128 H 30 H 108/60 92 07/26/21 08:37 105 H 30 H 91 07/26/21 08:00 37.6 C 112 H 30 H 107/56 L 90 07/26/21 06:00 37.5 C 109 H 30 H 102/66 93 07/26/21 05:25 98 95 07/26/21 05:22 115 H 113/48 L 07/26/21 04:21 114 H 30 H 07/26/21 04:19 127 H 30 H 07/26/21 04:12 114 H 30 H 07/26/21 03:48 37.4 C 112 H 30 H 106/60 92 07/26/21 03:47 111 H 30 H 94 07/26/21 03:45 111 H 07/26/21 02:20 114 H 94 07/26/21 02:00 37.4 C 110 H 30 H 106/60 92 07/26/21 00:00 37.1 C 106 H 30 H 110/57 L 95 07/25/21 23:13 102 H 95 07/25/21 22:39 126 H 125/65 07/25/21 22:38 126 H 07/25/21 22:00 36.9 C 128 H 30 H 125/65 96 07/25/21 20:30 118 H 26 H 07/25/21 20:00 37.1 C 121 H 26 H 110/66 93 07/25/21 19:48 111 H 95 07/25/21 18:08 133 H 30 H 110/60 07/25/21 18:00 124 H 30 H 106/50 L 96 07/25/21 16:29 128 H 120/65 07/25/21 16:00 36.9 C 137 H 30 H 120/65 96 Intake/Output Intake/Output: Intake & Output 07/23/21 07/24/21 07/25/21 07/26/21 23:59 23:59 23:59 23:59 Intake Total 7474 0183 2996 1629 Outp
[2021-07-26] MEDS: CISATRACURIUM BESYLATE 200 MG in DEXTROSE 5% 80 ML 12.72 ML IV CONT ×2 (15:45→20:32)
[2021-07-26 20:51] LABS: Glucose Point of Care 224 mg/dl (65-105)
[2021-07-26 20:55] LABS: Glucose Point of Care 196 mg/dl (65-105)
[2021-07-27] VITALS (42 sets, daily range): BP systolic 103–161; BP diastolic 56–97; PULSE 99–124; RESP 30; TEMP 36.8–37.3; O2SAT 92–98
--- NOTE | 2021-07-27 | ECHO_ITS ---
Patient Info Name: Divya Mooney Age: 66 years : 1955 Gender: Female Ht: 67 in Wt: 223 lbs BSA: 2.23 m2 HR: 113 bpm BP: 144 / 70 mmHg Heart Rhythm: Atrial Fibrillation Exam Date: 07/27/2021 2:20 PM Exam Location: [facility] Patient Status: Inpatient Admit Date: 07/21/2021 Staff Ordering Physician: Roman Kimble MD Java Web Application Developer: Kodak Leal RDCS, RT Attending Provider: Dee Dee Hathaway DO Referring Physician: Shyanne RAMOS; Exam Type: CA echo doppler color flow Study Info Indications I48.1 - Persistent atrial fibrillation Complete two-dimensional, color flow and Doppler transthoracic echocardiogram is performed. Summary 1. Complete two-dimensional, color flow and Doppler transthoracic echocardiogram is performed. 2. Left ventricular chamber dimension is normal. 3. Left ventricular systolic function is normal, estimated at 60-65%. 4. Right ventricular systolic function is normal. 5. Technically somewhat challenging exam. 6. No significant valvular abnormality. Left Ventricle Left ventricular chamber dimension is normal. Left ventricular systolic function is normal, estimated at 60-65%. The left ventricular diastolic function is indeterminate. Right Ventricle Right ventricular chamber dimension is normal. Right ventricular systolic function is normal. Left Atria Left atrial chamber dimension is normal. Right Atria Right atrial chamber dimension is normal. Aortic Valve The aortic valve is trileaflet. There is no aortic valve sclerosis. Pulmonic Valve The pulmonic valve is not well visualized. Mitral Valve The mitral valve has normal leaflets. Tricuspid Valve The tricuspid valve leaflets are not well visualized. Pericardium/Pleural The pericardium appears normal. Aorta The aortic root size at the sinus of Valsalva is normal. Left Ventricular Outflow Tract Name Value Normal LVOT 2D LVOT Diameter 2.0 cm LVOT Doppler LVOT Peak Gradient 4 mmHg LVOT Mean Gradient 2 mmHg LVOT VTI 15 cm LVOT VTI/AV VTI Ratio 0.7 LVOT Stroke Volume 49 ml LVOT CO 6.3 l/min LVOT CI 2.8 l/min/m2 Mitral Valve Name Value Normal MV Doppler MV Decel [place] 464 cm/s2 MV PHT 60 ms MV Area (PHT) 3.7 cm2 4.0-5.0 MV Diastolic Function MV E Peak Velocity 96 cm/s MV A Peak Velocity 0 cm/s MV E/A 262.1 MV Decel Time 206 ms
[2021-07-27 00:11] LABS: Glucose Point of Care 181 mg/dl (65-105)
[2021-07-27] MEDS: IPRATROPIUM BR 0.02% INH SOLN 0.5 MG/2.5 ML VIAL INHALATION ×4 (01:59→19:39)
[2021-07-27] MEDS: ALBUTEROL SULFATE NEB 2.5 MG/0.5 ML INH 5 MG INHALATION ×4 (02:00→19:39)
[2021-07-27 03:58] LABS: Base Excess ABG 3.2 mEq/l (+/-2.0)
[2021-07-27 03:59] LABS: Carboxyhemoglobin 0.2 % THb (0-2.0); Oxygen Content ABG 15.7 %vol (16.0-22.0)
[2021-07-27 04:00] LABS: Fractional Inspired Oxygen 65 %; Methemoglobin ABG 0.3 %THb (0-1.5); PO2 FiO2 Ratio Arterial Blood 3.44 %; Reduced Hemoglobin 1.3 %THb (0-5.0)
[2021-07-27 04:01] LABS: Modified Allen's Test Pass; Site Drawn RIGHT RADIAL
[2021-07-27 04:02] LABS: Device VENTILATOR
[2021-07-27 04:10] LABS: Arterial Blood Gas Vent Mode CMV; Arterial Blood Gas Ventilator rate 30 /MIN
[2021-07-27 04:11] LABS: Arterial Blood Gas PEEP 16 cmH2O; Arterial Blood Gas Tidal Volume 420 ml
[2021-07-27 04:30] LABS: Glucose Point of Care 170 mg/dl (65-105)
[2021-07-27 04:59] LABS: Hematocrit 30.4 % (37.0-47.0); Hemoglobin 9.2 g/dL (12.0-15.0); Mean Corpuscular HGB Conc 30.3 g/dl (32-36); Mean Corpuscular Hemoglobin 28.4 pg (26-34); Mean Corpuscular Volume 93.8 fl (80-100); Mean Platelet Volume 11.8 fl (7.4-10.4); Platelet Count Result 348 k/mm3 (150-375); Red Blood Count 3.24 M/mm3 (4.2-5.4); Red Cell Distribution Width 15.6 % (11.5-14.5); White Blood Count 14.6 K/mm3 (4.5-10.0)
[2021-07-27 05:10] LABS: Partial Thromboplastin Time 25.8 SECONDS (22.3-36.8)
[2021-07-27] MEDS: CISATRACURIUM BESYLATE 200 MG in DEXTROSE 5% 80 ML 12.72 ML IV CONT ×3 (05:10→21:12)
[2021-07-27] MEDS: AMIODARONE 360 MG/D5W 200 ML 360 MG/200 ML BAG 33.33 MG IV CONT ×4 (05:11→22:33)
[2021-07-27 05:14] LABS: Alanine Aminotransferase 23 U/L (4-35); Albumin Level 3.1 g/dL (3.5-5.1); Alkaline Phosphatase 104 U/L (38-126); Anion Gap 3 mmol/L (8-16); Aspartate Amino Transferase 46 U/L (14-36); Bilirubin,Total 0.1 mg/dL (0.2-1.3); Blood Urea Nitrogen 104 mg/dL (7-17); Calcium 9.3 mg/dL (8.4-10.2); Carbon Dioxide 28 mmol/L (22-30); Chloride 98 mmol/L (98-107); Estimated CRCL calculation 31 ml/min; Estimated Glomerular Filt Rate 25; Glucose 150 mg/dL (65-110); Magnesium 2.4 mg/dL (1.6-2.3); Phosphorus 5.4 mg/dL (2.5-4.5); Potassium 5.2 mmol/L (3.4-5.0); Sodium 129 mmol/L (137-145)
[2021-07-27] MEDS: HEPARIN SODIUM 5,000 UNITS/ML VIAL 6000 UNITS IV PUSH (05:30)
[2021-07-27 05:54] LABS: Band Neutrophils Percent 5 % (0-6); Metamyelocytes Percent 1 %; Monocytes Absolute Manual 0.14 K/mm3 (0.1-0.90); Monocytes Percent Manual 1 % (3-9); Neutrophils Percent Manual 82 % (46-73); Platelet Estimate Adequate (Adequate); Total Cells Counted 100
[2021-07-27 05:55] LABS: Anisocytosis 2+ (NORMAL); Hypochromasia 2+ (NORMAL)
[2021-07-27] MEDS: INSULIN GLARGINE (*BKC) 100 UNITS/ML 50 UNITS SUB-Q ×2 (09:05→20:41)
[2021-07-27] MEDS: polyethylene glycoL 3350 17 GM POWD.PACK PO (09:07)
[2021-07-27] MEDS: PANTOPRAZOLE SODIUM IV 40 MG VIAL IV PUSH (09:07)
[2021-07-27] MEDS: METOPROLOL TARTRATE 25 MG TABLET PO ×2 (09:07→19:56)
[2021-07-27] MEDS: DEXAMETHASONE SOD PHOS INJ 4 MG/ML VIAL 6 MG IV PUSH (09:08)
[2021-07-27] MEDS: MINERAL OIL/WHITE PETROLATUM OINTMENT 1 APPLIC EACH EYE ×2 (09:08→19:56)
[2021-07-27] MEDS: BUDESONIDE RESPULE NEB 0.5 MG/2 ML AMP INHALATION (09:13)
[2021-07-27 09:55] LABS: Glucose Point of Care 170 mg/dl (65-105)
--- NOTE | 2021-07-27 11:03 | P.PNNP_ITS ---
Progress Note: A&P Assessment and Plan (1) Acute renal failure: Qualifiers: Acute renal failure type: unspecified Qualified Code(s): N17.9 - Acute kidney failure, unspecified Code(s): N17.9 - Acute kidney failure, unspecified Status: Acute Assessment and Plan: * likely due to a combination of COVID-19 and previous hemodynamic instability/hypotension * evaluation to date reveals: * renal ultrasound with normal kidney sizes but a 3.9ccm left kidney mass suspicious for renal cell carcinoma * urine electrolytes that are non-prerenal * mildly elevated CPK but not high enough to affect kidney function * possible peak/plateau of creatinine at 3.2mg/dl(?) * creatinine improving with increase in urine output noted * follow trend of repeat labs and UOP (2) Acute respiratory failure with hypoxia: Code(s): J96.01 - Acute respiratory failure with hypoxia Status: Acute Assessment and Plan: * due to #3 * known history of COPD and ongoing smoking history also likely contributing * continue inhalers * continue ventilator support (3) Pneumonia due to COVID-19 virus: Code(s): U07.1 - COVID-19; J12.82 - Pneumonia due to coronavirus disease 2018 Status: Acute Assessment and Plan: * known positivity 4 days prior to admssion * currently on dexamethasone * deemed not a candidate for remdesivir due to DERRELL * s/p tocilizumab on 07/22/2021 * follow inflammatory makers * ventilator support and prone positioning as tolerated (4) Shock: Code(s): R57.9 - Shock, unspecified Status: Acute Assessment and Plan: * resolved * off vasopressor support * blood cultures negative (5) Urinary tract infection: Code(s): N39.0 - Urinary tract infection, site not specified Status: Acute Assessment and Plan: * urine culture with E.coli * on antibiotics (6) Diabetes: Code(s): E11.9 - Type 2 diabetes mellitus without complications Status: Acute Assessment and Plan: * follow accuchecks * glycemic control Will continue to follow. Subjective Date/time seen: 07/27/21 11:03 Remains intubated/sedated/paralyzed and on full ventilatory support; increased oxygen requirements noted due to desaturation overnight; still making reasonably urine output and renal function/creatinine is better by AM labs; continues to be hemodynamically stable without the need for vasopressor support. Exam Narrative: General: Elderly female intubated/sedated/paralyzed Heart: normal S1 and S2; no rub Lungs: coarse breath sound throughout Abdomen: soft, nontender, nondistended, positive bowel sounds Extremities: no cyanosis or clubbing; no edema Skin: no rash or nodules Objective Data Vital Signs Vital Signs: Vital Signs Temp Pulse Resp BP Pulse Ox 07/27/21 10:00 105 H 30 H 117/79 92 07/27/21 09:52 116 H 30 H 07/27/21 09:19 107 H 94 07/27/21 09:13 108 H 30 H 07/27/21 08:00 36.9 C 105 H 30 H 118/69 96 07/27/21 06:00 105 H 30 H 144/70 H 96 07/27/21 05:11 114 H 155/76 H 07/27/21 05:10 114 H 30 H 155/76 H 07/27/21 04:24 114 H 30 H 155/76 H 07/27/21 04:00 37.3 C 106 H 30 H 114/71 97 07/27/21 03:56 110 H 30 H 98 07/27/21 03:55 110 H 30 H 07/27/21 02:00 110 H 30 H
--- NOTE | 2021-07-27 11:03 | PM.PNNEP ---
Progress Note: A&P Assessment and Plan (1) Acute renal failure: Qualifiers: Acute renal failure type: unspecified Qualified Code(s): N17.9 - Acute kidney failure, unspecified Code(s): N17.9 - Acute kidney failure, unspecified Status: Acute Assessment and Plan: likely due to a combination of COVID-19 and previous hemodynamic instability/hypotension evaluation to date reveals: renal ultrasound with normal kidney sizes but a 3.9ccm left kidney mass suspicious for renal cell carcinoma urine electrolytes that are non-prerenal mildly elevated CPK but not high enough to affect kidney function possible peak/plateau of creatinine at 3.2mg/dl(?) creatinine improving with increase in urine output noted follow trend of repeat labs and UOP (2) Acute respiratory failure with hypoxia: Code(s): J96.01 - Acute respiratory failure with hypoxia Status: Acute Assessment and Plan: due to #3 known history of COPD and ongoing smoking history also likely contributing continue inhalers continue ventilator support (3) Pneumonia due to COVID-19 virus: Code(s): U07.1 - COVID-19; J12.82 - Pneumonia due to coronavirus disease 2018 Status: Acute Assessment and Plan: known positivity 4 days prior to admssion currently on dexamethasone deemed not a candidate for remdesivir due to DERRELL s/p tocilizumab on 07/22/2021 follow inflammatory makers ventilator support and prone positioning as tolerated (4) Shock: Code(s): R57.9 - Shock, unspecified Status: Acute Assessment and Plan: resolved off vasopressor support blood cultures negative (5) Urinary tract infection: Code(s): N39.0 - Urinary tract infection, site not specified Status: Acute Assessment and Plan: urine culture with E.coli on antibiotics (6) Diabetes: Code(s): E11.9 - Type 2 diabetes mellitus without complications Status: Acute Assessment and Plan: follow accuchecks glycemic control Will continue to follow. Subjective Date/time seen: 07/27/21 11:03 Remains intubated/sedated/paralyzed and on full ventilatory support; increased oxygen requirements noted due to desaturation overnight; still making reasonably urine output and renal function/creatinine is better by AM labs; continues to be hemodynamically stable without the need for vasopressor support. Exam Narrative: General: Elderly female intubated/sedated/paralyzed Heart: normal S1 and S2; no rub Lungs: coarse breath sound throughout Abdomen: soft, nontender, nondistended, positive bowel sounds Extremities: no cyanosis or clubbing; no edema Skin: no rash or nodules Objective Data Vital Signs Vital Signs: Vital Signs Temp Pulse Resp BP Pulse Ox 07/27/21 10:00 105 H 30 H 117/79 92 07/27/21 09:52 116 H 30 H 07/27/21 09:19 107 H 94 07/27/21 09:13 108 H 30 H 07/27/21 08:00 36.9 C 105 H 30 H 118/69 96 07/27/21 06:00 105 H 30 H 144/70 H 96 07/27/21 05:11 114 H 155/76 H 07/27/21 05:10 114 H 30 H 155/76 H 07/27/21 04:24 114 H 30 H 155/76 H 07/27/21 04:00 37.3 C 106 H 30 H 114/71 97 07/27/21 03:56 110 H 30 H 98 07/27/21 03:55 110 H 30 H 07/27/21 02:00 110 H 30 H 127/72 97 07/27/21 01:57 99 96 07/27/21 01:49 110 H 30 H 07/27/21 00:00 37.3 C 110 H 30 H 123/66 98 07/26/21 23:21 101 H 122/79 07/26/21 23:18 101 H 122/79 07/26/21 23:15 113 H 98 07/26/21 22:00 106 H 30 H 132/81 98 07/26/21 20:37 112 H 30 H 07/26/21 20:35 108 H 30 H 07/26/21 20:32 110 H 30 H 138/75 07/26/21 20:29 112 H 07/26/21 20:00 37.2 C 110 H 30 H 138/75 98 07/26/21 19:04 94 98 07/26/21 18:00 36.9 C 110 H 30 H 134/78 99 07/26/21 17:37 111 H 98 07/26/21 17:17 108 H 125/71 07/26/21 17:00 51 L 99 07/26/21 16:00 37
--- NOTE | 2021-07-27 11:11 | PCFNICU ---
ICU Rounding Note: Pt current nutrition is Nepro running at 45mL/hr over 22 hours. Last recorded weight is 101.3 kg, up from 90.9kg reported 07/23. Bowel Motility: No BM reported. Active bowel sounds reported. Miralax started 07/26 Labs Reviewed:Hgb 9.2, Hct 30.4, Alb 3.1, Na 129, K 5.2, GFR 25, BUN 104, Cr 2.0, Glu 170, PO4 5.4 Meds Noted: amiodarone Hcl, nimbex, decadron, fentanyl, heparin, lantus, lopressor, protonix, miralax Skin: buttock-maceration Additional Notes: Pt remains on mechanical vent and tube feeding of Nepro running at 45mL/hr over 22 hours providing 1782kcal/80g protein/720mL water. Free water flushe 30mL Q4. Agree with diet orders at this time. Will continue to follow. Following daily in ICU rounds. Will monitor every Tuesday and Tuesday.
[2021-07-27 11:39] LABS: Glucose Point of Care 129 mg/dl (65-105)
[2021-07-27 11:46] LABS: Partial Thromboplastin Time 133.6 SECONDS (22.3-36.8)
--- NOTE | 2021-07-27 12:56 | WPDINTPN ---
Progress Note: A&P Assessment and Plan (1) Acute respiratory failure with hypoxia: Code(s): J96.01 - Acute respiratory failure with hypoxia Status: Acute Assessment and Plan: Patient presented the ED on 07/20/2021 late evening, was hypoxic and was placed on BiPAP. She was on 100% FiO2 antibiotic, and failed as she was hypoxic with low O2 sats. 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 on 07/22/2021 cheese wrapper - continue CMV mode of ventilation, peep of 16 and 65% FiO2, ABGs and chest x-ray were reviewed, wean PEEP to 14 and continue titrate FiO2 to maintain O2 sats greater than 92% -continue bronchodilators -continue Pulmicort -sedated with fentanyl and Versed infusion, Nimbex for neuromuscular blockade, will start weaning Nimbex to off, will add propofol if necessary for ventilator synchrony (2) Pneumonia due to COVID-19 virus: Code(s): U07.1 - COVID-19; J12.82 - Pneumonia due to coronavirus disease 2019 Status: Acute Assessment and Plan: Patient was COVID positive on 07/16/2021 this was 4 days prior to admission according the patient's medical records. 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 (4) Acute renal failure: Qualifiers: Acute renal failure type: unspecified Qualified Code(s): N17.9 - Acute kidney failure, unspecified Code(s): N17.9 - Acute kidney failure, unspecified Status: Acute Assessment and Plan: Acute kidney injury, could be related to hypoxia, COVID-19, hypotension, AFib, also has a history of diabetes and hypertension which could be contributing to that also. (last creatinine was on 12/08/2020 was 1.4). Patient was admitted with a creatinine of 3.7, -Patient did receive 2 L of IV fluid bolus on07/22 for hypotension. -will continue to monitor urine output, obtain urine lytes -renal ultrasound showed normal kidney size, no hydronephrosis. 3.9 cm left kidney mass suspicious for renal cell carcinoma, abdominal CT without and with contrast is recommended after improvement in kidney function -continue to monitor renal function, electrolytes and urine output - creatinine trending down - appreciate Nephrology evaluation recommendation (5) HTN (hypertension): Code(s): I10 - Essential (primary) hypertension Status: Acute Assessment and Plan: Blood pressure are borderline, patient was on Levophed briefly on admission to the ICU -currently off Levophed - continue to maintain adequate mean arterial pressures for end-organ perfusion (6) Afib: Code(s): I48.91 - Unspecified atrial fibrillation Status: Acute Assessment and Plan: Currently in sinus rhythm, rate control, continue to monitor -AFib RVR, will start amiodarone bolus and infusion -continue metoprolol 25 mg per tube q.12 hours - continue heparin infusion (7) DVT prophylaxis: Code(s): Z29.9 - Encounter for prophylactic measures, unspecified Status: Acute Assessment and Plan: on heparin infusion (8) Shock: Code(s): R57.9 - Shock, unspecified Status: Acute Assessment and Plan: Patient hypotensive requiring Levophed, was given 2 L IV fluid bolus on 07/22 -hypotension could be rela
[2021-07-27] MEDS: FENTANYL 2,500MCG/NS250ML(*CRX 2,500 MCG/250 ML BAG 15 MCG IV CONT (13:27)
[2021-07-27] MEDS: MIDAZOLAM 100MG/NS 100ML(*CRX) 100 MG/100 ML BAG 6 MG IV CONT (15:03)
[2021-07-27 19:38] LABS: Glucose Point of Care 116 mg/dl (65-105)
[2021-07-27 19:41] LABS: Partial Thromboplastin Time 61.9 SECONDS (22.3-36.8)
[2021-07-27 20:04] LABS: Glucose Point of Care 142 mg/dl (65-105)
[2021-07-27] MEDS: HEPARIN SODIUM 5,000 UNITS/ML VIAL 3000 UNITS IV PUSH (20:40)
[2021-07-28] VITALS (46 sets, daily range): BP systolic 104–142; BP diastolic 54–89; PULSE 85–125; RESP 28–30; TEMP 36.8–37.4; O2SAT 85–98
[2021-07-28 00:19] LABS: Glucose Point of Care 149 mg/dl (65-105)
[2021-07-28] MEDS: ALBUTEROL SULFATE NEB 2.5 MG/0.5 ML INH 5 MG INHALATION ×4 (01:38→22:49)
[2021-07-28] MEDS: IPRATROPIUM BR 0.02% INH SOLN 0.5 MG/2.5 ML VIAL INHALATION ×4 (01:38→22:49)
[2021-07-28 02:23] LABS: Hematocrit 29.8 % (37.0-47.0); Hemoglobin 9.3 g/dL (12.0-15.0); Mean Corpuscular HGB Conc 31.2 g/dl (32-36); Mean Corpuscular Hemoglobin 29.2 pg (26-34); Mean Corpuscular Volume 93.7 fl (80-100); Mean Platelet Volume 11.7 fl (7.4-10.4); Platelet Count Result 354 k/mm3 (150-375); Red Blood Count 3.18 M/mm3 (4.2-5.4); Red Cell Distribution Width 15.4 % (11.5-14.5); White Blood Count 15.8 K/mm3 (4.5-10.0)
[2021-07-28 02:42] LABS: Alanine Aminotransferase 36 U/L (4-35); Albumin Level 2.9 g/dL (3.5-5.1); Alkaline Phosphatase 120 U/L (38-126); Anion Gap -2 mmol/L (8-16); Aspartate Amino Transferase 65 U/L (14-36); Bilirubin,Total 0.2 mg/dL (0.2-1.3); Blood Urea Nitrogen 88 mg/dL (7-17); Calcium 9.5 mg/dL (8.4-10.2); Carbon Dioxide 32 mmol/L (22-30); Chloride 99 mmol/L (98-107); Estimated CRCL calculation 41 ml/min; Estimated Glomerular Filt Rate 35; Glucose 124 mg/dL (65-110); Magnesium 2.2 mg/dL (1.6-2.3); Phosphorus 4.3 mg/dL (2.5-4.5); Potassium 5.1 mmol/L (3.4-5.0); Sodium 129 mmol/L (137-145)
[2021-07-28 03:04] LABS: Anisocytosis 1+ (NORMAL); Band Neutrophils Percent 3 % (0-6); Hypochromasia 2+ (NORMAL); Lymphocytes Absolute Manual 0.63 K/mm3 (1.1-4.5); Neutrophils Absolute Manual 15.16 K/mm3 (1.7-7.2); Neutrophils Percent Manual 93 % (46-73); Nucleated Red Blood Cells 1 %; Platelet Estimate Adequate (Adequate); Total Cells Counted 100
[2021-07-28 03:46] LABS: Glucose Point of Care 127 mg/dl (65-105)
[2021-07-28] MEDS: AMIODARONE 360 MG/D5W 200 ML 360 MG/200 ML BAG 33.33 MG IV CONT ×2 (03:50→10:02)
[2021-07-28 04:56] LABS: Alveolar/Arterial O2 Gradient 181.6 mmHg; Base Excess ABG 4.5 mEq/l (+/-2.0); Carboxyhemoglobin 0.3 % THb (0-2.0); Fractional Inspired Oxygen 45 %; HCO3 ABG 31.7 mEq/l (22.0-26.0); Methemoglobin ABG 0.3 %THb (0-1.5); Oxygen Saturation ABG 93.2 % (95.0-100.0); Oxyhemoglobin 91.9 % THb (90.0-100.0); PCO2 ABG 59.5 mmHg (35.0-45.0); PO2 ABG 71.6 mmHg (80.0-100.0); PO2 FiO2 Ratio Arterial Blood 1.59 %; Reduced Hemoglobin 7.5 %THb (0-5.0); Total Hemoglobin 13.1 g/dL (12.0-18.0); pH ABG 7.345 (7.350-7.450)
[2021-07-28 04:57] LABS: Device VENTILATOR; Modified Allen's Test Pass; Site Drawn LEFT RADIAL
[2021-07-28 04:58] LABS: Arterial Blood Gas PEEP 14 cmH2O; Arterial Blood Gas Tidal Volume 420 ml; Arterial Blood Gas Vent Mode CMV; Arterial Blood Gas Ventilator rate 30 /MIN
[2021-07-28] MEDS: CISATRACURIUM BESYLATE 200 MG in DEXTROSE 5% 80 ML 12.72 ML IV CONT ×3 (05:16→20:06)
[2021-07-28] MEDS: FENTANYL 2,500MCG/NS250ML(*CRX 2,500 MCG/250 ML BAG 15 MCG IV CONT ×2 (07:56→23:01)
[2021-07-28] MEDS: MIDAZOLAM 100MG/NS 100ML(*CRX) 100 MG/100 ML BAG 6 MG IV CONT ×2 (07:57→23:03)
[2021-07-28] MEDS: BUDESONIDE RESPULE NEB 0.5 MG/2 ML AMP INHALATION ×2 (08:07→22:49)
[2021-07-28] MEDS: polyethylene glycoL 3350 17 GM POWD.PACK PO (08:12)
[2021-07-28] MEDS: PANTOPRAZOLE SODIUM IV 40 MG VIAL IV PUSH (08:12)
[2021-07-28] MEDS: DEXAMETHASONE SOD PHOS INJ 4 MG/ML VIAL 6 MG IV PUSH (08:12)
[2021-07-28] MEDS: METOPROLOL TARTRATE 25 MG TABLET PO ×2 (08:12→20:08)
[2021-07-28] MEDS: MINERAL OIL/WHITE PETROLATUM OINTMENT 1 APPLIC EACH EYE ×2 (08:13→20:08)
[2021-07-28] MEDS: INSULIN GLARGINE (*BKC) 100 UNITS/ML 50 UNITS SUB-Q ×2 (08:21→21:03)
[2021-07-28] MEDS: FUROSEMIDE INJ 40 MG/4 ML VIAL IV PUSH (08:21)
[2021-07-28 08:33] LABS: Partial Thromboplastin Time 67.5 SECONDS (22.3-36.8)
--- NOTE | 2021-07-28 09:41 | WPDINTPN ---
Progress Note: A&P Assessment and Plan (1) Acute respiratory failure with hypoxia: Code(s): J96.01 - Acute respiratory failure with hypoxia Status: Acute Assessment and Plan: Patient presented the ED on 07/20/2021 late evening, was hypoxic and was placed on BiPAP. She was on 100% FiO2 antibiotic, and failed as she was hypoxic with low O2 sats. 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 -continue bronchodilators -continue Pulmicort -sedated with fentanyl and Versed infusion, Nimbex for neuromuscular blockade, will start weaning Nimbex to off, will add propofol if necessary for ventilator synchrony -will diurese patient today (07/28) (2) Pneumonia due to COVID-19 virus: Code(s): U07.1 - COVID-19; J12.82 - Pneumonia due to coronavirus disease 2019 Status: Acute Assessment and Plan: Patient was COVID positive on 07/16/2021 this was 4 days prior to admission according the patient's medical records. 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 (4) Acute renal failure: Qualifiers: Acute renal failure type: unspecified Qualified Code(s): N17.9 - Acute kidney failure, unspecified Code(s): N17.9 - Acute kidney failure, unspecified Status: Acute Assessment and Plan: Acute kidney injury, could be related to hypoxia, COVID-19, hypotension, AFib, also has a history of diabetes and hypertension which could be contributing to that also. (last creatinine was on 12/08/2020 was 1.4). Patient was admitted with a creatinine of 3.7, -Patient did receive 2 L of IV fluid bolus on07/22 for hypotension. -will continue to monitor urine output, obtain urine lytes -renal ultrasound showed normal kidney size, no hydronephrosis. 3.9 cm left kidney mass suspicious for renal cell carcinoma, abdominal CT without and with contrast is recommended after improvement in kidney function -continue to monitor renal function, electrolytes and urine output - creatinine trending down - appreciate Nephrology evaluation recommendation (5) HTN (hypertension): Code(s): I10 - Essential (primary) hypertension Status: Acute Assessment and Plan: Blood pressure are borderline, patient was on Levophed briefly on admission to the ICU -currently off Levophed - continue to maintain adequate mean arterial pressures for end-organ perfusion (6) Afib: Code(s): I48.91 - Unspecified atrial fibrillation Status: Acute Assessment and Plan: Currently in sinus rhythm, rate control, continue to monitor -AFib RVR, will start amiodarone bolus and infusion -continue metoprolol 25 mg per tube q.12 hours - continue heparin infusion (7) DVT prophylaxis: Code(s): Z29.9 - Encounter for prophylactic measures, unspecified Status: Acute Assessment and Plan: on heparin infusion (8) Shock: Code(s): R57.9 - Shock, unspecified Status: Acute Assessment and Plan: Patient hypotensive requiring Levophed, was given 2 L IV fluid bolus on 07/22 -hypotension could be related to positive pressur
[2021-07-28 09:53] LABS: Glucose Point of Care 150 mg/dl (65-105)
--- NOTE | 2021-07-28 10:55 | PM.CNCAR ---
Assessment and Plan Assessment and plan (1) Afib: Code(s): I48.91 - Unspecified atrial fibrillation Status: Acute Assessment and Plan: At this point, I would recommend continuing current treatment including metoprolol which can be increased if blood pressure allows and if needed to control heart rate. Would continue her amiodarone drip at this point. Continue anticoagulation (2) Acute renal failure: Qualifiers: Acute renal failure type: unspecified Qualified Code(s): N17.9 - Acute kidney failure, unspecified Code(s): N17.9 - Acute kidney failure, unspecified Status: Acute Assessment and Plan: Improving (3) Pneumonia due to COVID-19 virus: Code(s): U07.1 - COVID-19; J12.82 - Pneumonia due to coronavirus disease 2019 Status: Acute Assessment and Plan: Per ICU (4) HTN (hypertension): Code(s): I10 - Essential (primary) hypertension Status: Acute Assessment and Plan: stable History of Present Illness History of Present Illness Consult date/time: 07/28/21 10:55 Requesting physician: Roman Kimble MD Consult reason: atrial fibrillation Reason For Visit: Acute Respiratory Failure,Acute Renal Failure,COVI Narrative: Date of service 07/28/2021: Reason for consultation: Atrial fibrillation Requesting provider: Dr. Kimble History: Patient is a 66-year-old female has a history of hypertension, COPD, atrial fibrillation, diabetes and chronic pain. She was diagnosed with coronavirus and because of increasing shortness of breath came to the hospital. She unfortunately decompensated and required intubation. She has had atrial fibrillation with rapid ventricular response and Cardiology consultation was requested. She is currently intubated and sedated. History is predominantly obtained by reviewing chart record. No documented chest pain but increasing shortness of breath which led her to hospitalization. No documented syncope, paroxysmal nocturnal dyspnea, orthopnea. No edema Review of Systems Review of Systems: ROS unobtainable: Yes unobtainable due to medical condition Constitutional: Constitutional: Reports chills Eyes: Eyes: Denies blurry vision ENT: Denies epistaxis Cardiovascular: Cardiovascular: Denies chest pain Respiratory: Respiratory: Reports dyspnea Gastrointestinal: Gastrointestinal: Denies diarrhea Genitourinary: Genitourinary: Denies hematuria Musculoskeletal: Musculoskeletal: Reports myalgias Integumentary/Breasts: Skin/Breast: Denies erythema Neurologic: Denies headache(s) Psychiatric: Psychiatric: Denies confusion Endocrine: Endocrine: Denies excessive sweating Hematologic/Lymphatic: Hematologic/Lymphatic: Denies easy bleeding Allergic/Immunologic: Allergic/Immunologic: Denies lip swelling PMFSH Past Medical History Medical History Afib [place] Anxiety Bipolar disorder COPD (chronic obstructive pulmonary disease) Depression Diabetes Dizziness Emphysema of lung History of pneumonia HTN (hypertension) Hx of drug dependence Kidney stones Osteoporosis Pneumonia Seizures Vision abnormalities Surgical History Surgical History History of laparoscopic cholecystectomy (03/2017) History of tubal ligation Status post open reduction with internal fixation of fracture Left shoulder Family History Family History Father Depression Sibling Depression Hypertension Family history of elevated blood lipids Other Arthritis Diabetes mellitus Heart disease Malignant neoplasm Social History Social History Social History: Patient has smoked between 2-3 packs of cigarettes a day for 35 years. She has cut down her tobacco use in recent years. Years smoked: 3
[2021-07-28] MEDS: HEPARIN SODIUM 5,000 UNITS/ML VIAL 3000 UNITS IV PUSH (12:15)
[2021-07-28 12:39] LABS: Glucose Point of Care 196 mg/dl (65-105)
--- NOTE | 2021-07-28 12:46 | PM.PNNEP ---
Progress Note: A&P Assessment and Plan (1) Acute renal failure: Qualifiers: Acute renal failure type: unspecified Qualified Code(s): N17.9 - Acute kidney failure, unspecified Code(s): N17.9 - Acute kidney failure, unspecified Status: Acute Assessment and Plan: slow improvement noted likely due to a combination of COVID-19 and previous hemodynamic instability/hypotension evaluation to date reveals: renal ultrasound with normal kidney sizes but a 3.9ccm left kidney mass suspicious for renal cell carcinoma urine electrolytes that are non-prerenal mildly elevated CPK but not high enough to affect kidney function peak/plateau of creatinine at 3.2mg/dl not opposed to PRN diuretics if needed follow trend of repeat labs and UOP (2) Acute respiratory failure with hypoxia: Code(s): J96.01 - Acute respiratory failure with hypoxia Status: Acute Assessment and Plan: due to #3 known history of COPD and ongoing smoking history also likely contributing continue inhalers continue ventilator support (3) Pneumonia due to COVID-19 virus: Code(s): U07.1 - COVID-19; J12.82 - Pneumonia due to coronavirus disease 2018 Status: Acute Assessment and Plan: known positivity 4 days prior to admssion currently on dexamethasone deemed not a candidate for remdesivir due to DERRELL s/p tocilizumab on 07/22/2021 follow inflammatory makers ventilator support and prone positioning as tolerated (4) Shock: Code(s): R57.9 - Shock, unspecified Status: Acute Assessment and Plan: resolved off vasopressor support blood cultures negative (5) Urinary tract infection: Code(s): N39.0 - Urinary tract infection, site not specified Status: Acute Assessment and Plan: urine culture with E.coli on antibiotics (6) Diabetes: Code(s): E11.9 - Type 2 diabetes mellitus without complications Status: Acute Assessment and Plan: follow accuchecks glycemic control Will continue to follow. Subjective Date/time seen: 07/28/21 12:46 Remain intubated/sedated/paralyzed at this time with ongoing need for mechanical ventilation; remains hemodynamically stable off pressors; reasonable urine output noted and renal function/creatinine appears to be improving; prone positioning as tolerated; no other issues/events overnight or earlier this AM. Exam Narrative: General: Elderly female intubated/sedated/paralyzed Heart: normal S1 and S2; no rub Lungs: coarse breath sound throughout Abdomen: soft, nontender, nondistended, positive bowel sounds Extremities: no cyanosis or clubbing; no edema Skin: warm and intact Objective Data Vital Signs Vital Signs: Vital Signs Temp Pulse Resp BP Pulse Ox 07/28/21 12:00 37.3 C 104 H 30 H 115/70 95 07/28/21 11:32 105 H 94 07/28/21 10:10 110 H 30 H 90 07/28/21 10:02 123 H 112/66 07/28/21 10:00 37.2 C 114 H 30 H 112/66 91 07/28/21 09:51 123 H 112/66 07/28/21 08:22 112 H 30 H 07/28/21 08:16 114 H 93 07/28/21 08:07 116 H 30 H 07/28/21 08:00 37.3 C 125 H 30 H 142/89 H 95 07/28/21 07:57 117 H 30 H 07/28/21 07:56 113 H 30 H 07/28/21 07:44 117 H 30 H 07/28/21 06:08 113 H 30 H 07/28/21 06:00 37.1 C 98 30 H 135/67 92 07/28/21 05:16 105 H 30 H 140/79 07/28/21 05:04 105 H 30 H 140/79 07/28/21 04:34 107 H 92 07/28/21 04:00 36.8 C 103 H 30 H 141/70 H 92 07/28/21 03:50 111 H 120/74 07/28/21 03:31 113 H 30 H 94 07/28/21 03:30 99 07/28/21 02:00 94 30 H 135/76 94 07/28/21 01:44 105 H 30 H 07/28/21 01:39 108 H 30 H 98 07/28/21 00:00 36.9 C 107 H 30 H 120/64 97 07/27/21 23:43 105 H 95 07/27/21 23:06 102 H 97 07/27/21 22:33 107 H 125/81 07/27/21 22:00 113 H 30 H 123/71 94 07/27/21 21:12 107 H 30 H 1
--- NOTE | 2021-07-28 12:46 | P.PNNP_ITS ---
Progress Note: A&P Assessment and Plan (1) Acute renal failure: Qualifiers: Acute renal failure type: unspecified Qualified Code(s): N17.9 - Acute kidney failure, unspecified Code(s): N17.9 - Acute kidney failure, unspecified Status: Acute Assessment and Plan: * slow improvement noted * likely due to a combination of COVID-19 and previous hemodynamic instability/hypotension * evaluation to date reveals: * renal ultrasound with normal kidney sizes but a 3.9ccm left kidney mass suspicious for renal cell carcinoma * urine electrolytes that are non-prerenal * mildly elevated CPK but not high enough to affect kidney function * peak/plateau of creatinine at 3.2mg/dl * not opposed to PRN diuretics if needed * follow trend of repeat labs and UOP (2) Acute respiratory failure with hypoxia: Code(s): J96.01 - Acute respiratory failure with hypoxia Status: Acute Assessment and Plan: * due to #3 * known history of COPD and ongoing smoking history also likely contributing * continue inhalers * continue ventilator support (3) Pneumonia due to COVID-19 virus: Code(s): U07.1 - COVID-19; J12.82 - Pneumonia due to coronavirus disease 2018 Status: Acute Assessment and Plan: * known positivity 4 days prior to admssion * currently on dexamethasone * deemed not a candidate for remdesivir due to DERRELL * s/p tocilizumab on 07/22/2021 * follow inflammatory makers * ventilator support and prone positioning as tolerated (4) Shock: Code(s): R57.9 - Shock, unspecified Status: Acute Assessment and Plan: * resolved * off vasopressor support * blood cultures negative (5) Urinary tract infection: Code(s): N39.0 - Urinary tract infection, site not specified Status: Acute Assessment and Plan: * urine culture with E.coli * on antibiotics (6) Diabetes: Code(s): E11.9 - Type 2 diabetes mellitus without complications Status: Acute Assessment and Plan: * follow accuchecks * glycemic control Will continue to follow. Subjective Date/time seen: 07/28/21 12:46 Remain intubated/sedated/paralyzed at this time with ongoing need for mechanical ventilation; remains hemodynamically stable off pressors; reasonable urine output noted and renal function/creatinine appears to be improving; prone positioning as tolerated; no other issues/events overnight or earlier this AM. Exam Narrative: General: Elderly female intubated/sedated/paralyzed Heart: normal S1 and S2; no rub Lungs: coarse breath sound throughout Abdomen: soft, nontender, nondistended, positive bowel sounds Extremities: no cyanosis or clubbing; no edema Skin: warm and intact Objective Data Vital Signs Vital Signs: Vital Signs Temp Pulse Resp BP Pulse Ox 07/28/21 12:00 37.3 C 104 H 30 H 115/70 95 07/28/21 11:32 105 H 94 07/28/21 10:10 110 H 30 H 90 07/28/21 10:02 123 H 112/66 07/28/21 10:00 37.2 C 114 H 30 H 112/66 91 07/28/21 09:51 123 H 112/66 07/28/21 08:22 112 H 30 H 07/28/21 08:16 114 H 93 07/28/21 08:07 116 H 30 H 07/28/21 08:00 37.3 C 125 H 30 H 142/89 H 95 07/28/21 07:57 117 H 30 H 07/28/21 07:56 113 H 30 H 07/28/21 07:44 117 H 30 H 07/28/21
[2021-07-28] MEDS: HEPARIN SOD/D5W 100 UNITS/ML 25,000 UNITS/250 ML BAG 16 UNITS IV CONT (13:15)
--- NOTE | 2021-07-28 14:34 | PCNFU ---
Nutrition Follow-Up Complete: Inadequate Oral Intake as related to mechanical ventilation as evidenced by NPO. Goal:Meet estimanted nutritional needs Pt is progressing towards goal Pt current nutrition is Nepro running at 45mL/hr over 22 hours. Last recorded weight is 96.8 kg. Bowel Motility: No new BM reported. Miralax started 07/26 Labs Reviewed: hgb 9.3, hct 29.8, Alb 2.9, Na 129, K 5.1, GFR 35, BUN 88, Cr 1.50, Glu 124, AST 65, ALT 36 Meds Noted: nexterone, budesonide, maxipime, nimbex, decadron, fentanyl, heaprin sodium, lantus, atrovent, lopressor, versed, protonix, miralax Skin: buttock maceration Additional Notes: ICU nutrition follow up. Pt was intubated on 07/22/21 and remains on mechanical ventilation and tube feeding of Nepro running at goal rate of 45mL/hr over 22 hours providing 1782kcal, 80g protein, and 720mL of water. Nursing staff reports that pt is tolerating current tube feeding and rate. Current tube feeding rate is meeting 97% of kcal needs and 100% of protein needs. Agree with diet order at this time. Will continue to follow. Will monitor every Tuesday and Tuesday.
[2021-07-28] MEDS: INSULIN ASPART (*BKC) 100 UNITS/ML SUB-Q (16:34)
[2021-07-28] MEDS: AMIODARONE 360 MG/D5W 200 ML 360 MG/200 ML BAG 16.67 MG IV CONT (16:37)
[2021-07-28 19:34] LABS: Glucose Point of Care 243 mg/dl (65-105)
[2021-07-28 20:34] LABS: Partial Thromboplastin Time 103.6 SECONDS (22.3-36.8)
[2021-07-28 20:44] LABS: Glucose Point of Care 118 mg/dl (65-105)
[2021-07-28 20:44] LABS: Glucose Point of Care 337 mg/dl (65-105)
[2021-07-28 23:12] LABS: Glucose Point of Care 82 mg/dl (65-105)
[2021-07-29] VITALS (35 sets, daily range): BP systolic 105–157; BP diastolic 55–81; PULSE 85–118; RESP 28–30; TEMP 36.4–37.2; O2SAT 95–99
[2021-07-29 03:28] LABS: Glucose Point of Care 107 mg/dl (65-105)
[2021-07-29 03:38] LABS: Hematocrit 27.6 % (37.0-47.0); Hemoglobin 8.5 g/dL (12.0-15.0); Mean Corpuscular HGB Conc 30.8 g/dl (32-36); Mean Corpuscular Hemoglobin 28.8 pg (26-34); Mean Corpuscular Volume 93.6 fl (80-100); Mean Platelet Volume 11.8 fl (7.4-10.4); Platelet Count Result 350 k/mm3 (150-375); Red Blood Count 2.95 M/mm3 (4.2-5.4); Red Cell Distribution Width 15.5 % (11.5-14.5); White Blood Count 16.3 K/mm3 (4.5-10.0)
[2021-07-29 03:49] LABS: Partial Thromboplastin Time 95.5 SECONDS (22.3-36.8)
[2021-07-29 03:50] LABS: Alanine Aminotransferase 29 U/L (4-35); Albumin Level 2.6 g/dL (3.5-5.1); Alkaline Phosphatase 109 U/L (38-126); Anion Gap 5 mmol/L (8-16); Aspartate Amino Transferase 43 U/L (14-36); Bilirubin,Total 0.1 mg/dL (0.2-1.3); Blood Urea Nitrogen 86 mg/dL (7-17); Calcium 9.2 mg/dL (8.4-10.2); Carbon Dioxide 31 mmol/L (22-30); Chloride 96 mmol/L (98-107); Estimated CRCL calculation 40 ml/min; Estimated Glomerular Filt Rate 35; Glucose 113 mg/dL (65-110); Magnesium 2.1 mg/dL (1.6-2.3); Phosphorus 4.6 mg/dL (2.5-4.5); Potassium 4.6 mmol/L (3.4-5.0); Sodium 132 mmol/L (137-145)
[2021-07-29] MEDS: AMIODARONE 360 MG/D5W 200 ML 360 MG/200 ML BAG 16.67 MG IV CONT ×2 (04:21→16:10)
[2021-07-29] MEDS: CISATRACURIUM BESYLATE 200 MG in DEXTROSE 5% 80 ML 12.72 ML IV CONT ×3 (04:22→21:32)
[2021-07-29 04:46] LABS: Anisocytosis 1+ (NORMAL); Band Neutrophils Percent 4 % (0-6); Basophils Absolute Manual 0.16 K/mm3 (0.0-0.1); Basophils Percent Manual 1 % (0-1); Lymphocytes Absolute Manual 0.97 K/mm3 (1.1-4.5); Monocytes Absolute Manual 0.32 K/mm3 (0.1-0.90); Monocytes Percent Manual 2 % (3-9); Neutrophils Absolute Manual 14.83 K/mm3 (1.7-7.2); Neutrophils Percent Manual 87 % (46-73); Platelet Estimate Adequate (Adequate); Total Cells Counted 100
[2021-07-29] MEDS: HEPARIN SOD/D5W 100 UNITS/ML 25,000 UNITS/250 ML BAG 16 UNITS IV CONT ×2 (05:11→21:56)
[2021-07-29] MEDS: IPRATROPIUM BR 0.02% INH SOLN 0.5 MG/2.5 ML VIAL INHALATION ×3 (07:05→20:10)
[2021-07-29] MEDS: ALBUTEROL SULFATE NEB 2.5 MG/0.5 ML INH 5 MG INHALATION ×3 (07:05→20:09)
[2021-07-29] MEDS: BUDESONIDE RESPULE NEB 0.5 MG/2 ML AMP INHALATION ×2 (07:05→20:10)
[2021-07-29 07:27] LABS: Alveolar/Arterial O2 Gradient 291.9 mmHg; Base Excess ABG 4.1 mEq/l (+/-2.0); Carboxyhemoglobin 0.2 % THb (0-2.0); Fractional Inspired Oxygen 60 %; HCO3 ABG 29.4 mEq/l (22.0-26.0); Methemoglobin ABG 0.1 %THb (0-1.5); Oxygen Content ABG 13.5 %vol (16.0-22.0); Oxygen Saturation ABG 96.3 % (95.0-100.0); Oxyhemoglobin 94.9 % THb (90.0-100.0); PCO2 ABG 47.4 mmHg (35.0-45.0); PO2 ABG 83.8 mmHg (80.0-100.0); Reduced Hemoglobin 4.8 %THb (0-5.0)
[2021-07-29 07:28] LABS: Site Drawn LEFT RADIAL
[2021-07-29 07:29] LABS: Arterial Blood Gas PEEP 14 cmH2O; Arterial Blood Gas Tidal Volume 420 ml; Arterial Blood Gas Vent Mode CMV; Arterial Blood Gas Ventilator rate 30 /MIN; Device VENTILATOR; Modified Allen's Test Unable to perform
[2021-07-29] MEDS: DEXAMETHASONE SOD PHOS INJ 4 MG/ML VIAL 6 MG IV PUSH (08:18)
[2021-07-29] MEDS: METOPROLOL TARTRATE 25 MG TABLET PO ×2 (08:18→20:59)
[2021-07-29] MEDS: MINERAL OIL/WHITE PETROLATUM OINTMENT 1 APPLIC EACH EYE ×2 (08:18→20:59)
[2021-07-29] MEDS: PANTOPRAZOLE SODIUM IV 40 MG VIAL IV PUSH (08:19)
[2021-07-29] MEDS: polyethylene glycoL 3350 17 GM POWD.PACK PO (08:19)
[2021-07-29 09:02] LABS: Glucose Point of Care 122 mg/dl (65-105)
--- NOTE | 2021-07-29 09:36 | PM.PNCARD ---
Progress Note: A&P Assessment and Plan (1) Afib: Code(s): I48.91 - Unspecified atrial fibrillation Status: Acute Assessment and Plan: Continue amiodarone, metoprolol, anticoagulation. (2) Acute renal failure: Qualifiers: Acute renal failure type: unspecified Qualified Code(s): N17.9 - Acute kidney failure, unspecified Code(s): N17.9 - Acute kidney failure, unspecified Status: Acute Assessment and Plan: Improving (3) Pneumonia due to COVID-19 virus: Code(s): U07.1 - COVID-19; J12.82 - Pneumonia due to coronavirus disease 2019 Status: Acute Assessment and Plan: Per ICU (4) HTN (hypertension): Code(s): I10 - Essential (primary) hypertension Status: Acute Assessment and Plan: stable Subjective Date/time seen: 07/29/21 09:36 Interval history: 66-year-old with COVID Date of service 07/29/2021: She remains in atrial fibrillation. Heart rate is generally controlled. Review of Systems Review of Systems: ROS unobtainable: Yes unobtainable due to medical condition Constitutional: Constitutional: Reports chills, Denies excessive sweating and Denies headache(s) Eyes: Eyes: Denies blurry vision ENT: Denies headache(s), Denies lip swelling and Denies epistaxis Cardiovascular: Cardiovascular: Denies chest pain and Reports dyspnea Respiratory: Respiratory: Reports dyspnea Gastrointestinal: Gastrointestinal: Denies diarrhea Genitourinary: Genitourinary: Denies hematuria Musculoskeletal: Musculoskeletal: Reports myalgias Integumentary/Breasts: Skin/Breast: Denies erythema Neurologic: Denies confusion and Denies headache(s) Psychiatric: Psychiatric: Denies confusion Endocrine: Endocrine: Denies excessive sweating Hematologic/Lymphatic: Hematologic/Lymphatic: Denies easy bleeding Allergic/Immunologic: Allergic/Immunologic: Denies lip swelling Exam Narrative: Intubated sedated. Appears stated age Const: General: comfortable HENMT: General nose exam: Normal nares present Chest: Other: No chest deformity Cardio: Rate: tachycardic Rhythm: abnormal rhythm irregularly irregular Skin: General skin exam: normal color Neuro: Cognition (Neuro): abnormal cognition Objective Data Vital Signs Vital Signs: Vital Signs - 24 hr 07/28/21 09:51 07/28/21 10:00 07/28/21 10:02 Temperature 37.2 C Pulse Rate 123 H 114 H 123 H Respiratory Rate 30 H Blood Pressure 112/66 112/66 112/66 Pulse Oximetry 91 07/28/21 10:10 07/28/21 11:32 07/28/21 12:00 Temperature 37.3 C Pulse Rate 110 H 105 H 104 H Respiratory Rate 30 H 30 H Blood Pressure 115/70 Pulse Oximetry 90 94 95 07/28/21 13:08 07/28/21 13:13 07/28/21 14:00 Temperature 37.4 C Pulse Rate 115 H 115 H 111 H Respiratory Rate 30 H 30 H 30 H Blood Pressure 117/55 L 117/55 L 122/59 L Pulse Oximetry 85 L 07/28/21 15:24 07/28/21 15:27 07/28/21 16:00 Temperature Pulse Rate 104 H 112 H 115 H Respiratory Rate 30 H Blood Pressure Pulse Oximetry 96 07/28/21 16:03 07/28/21 17:53 07/28/21 18:00 Temperature Pulse Rate 104 H 120 H 85 Respiratory Rate 28 H Blood Pressure 114/57 L 104/64 Pulse Oximetry 96 95 07/28/21 20:00 07/28/21 20:06 07/28/21 20:08 Temperature 37.3 C Pulse Rate 85 112 H 115 H Respiratory Rate 28 H 30 H Blood Pressure 122/62 114/56 L Pulse Oximetry 95 07/28/21 21:56 07/28/21 22:00 07/28/21 22:40 Temperature 37.2 C Pulse Rate 85 101 H 97 Respiratory Rate 28 H 30 H 30 H Blood Pressure 106/54 L Pulse Oximetry 95 96 07/28/21 22:50 07/28/21 23:01 07/28/21 23:03 Temperature Pulse Rate 106 H 106 H 101 H Respiratory Rate 30 H 30 H Blood Pressure Pulse Oximetry 96 07/28/21 23:29 07/28/21 23:30 07/29/21 00:00 Temperature 37.2 C Pulse Rate 105 H 85 96 Respiratory Rate 28 H 30 H Blood Pressure 105/62 Pulse Oximetry 95 96 07/29/21 01:40 12
[2021-07-29 11:25] LABS: Glucose Point of Care 179 mg/dl (65-105)
[2021-07-29] MEDS: INSULIN GLARGINE (*BKC) 100 UNITS/ML 20 UNITS SUB-Q ×2 (12:08→20:57)
--- NOTE | 2021-07-29 12:44 | P.CDI_ITS ---
CDI Query Clarification Request Patient admitted 07/21/21 with COVID pneumonia, acute respiratory failure with hypoxia and exacerbation of COPD. Indwelling downing catheter placed on admission (07/21). Patient intubated morning of 07/22/21. 07/22 - 07/24 pt on Levophed 07/23/21 Shock was documented, 07/23/21 Urine culture grew e. coli 07/24/21 Sepsis documented Please clarify the following if able: 1) Was sepsis present or ruled out? 2) Type of Shock? * hypovolemic * septic * other * unspecified 3) Is there any clinical significance of positive e coli urine cultures? THANK YOU! <Palma Chow, FINISHED [employer]ARN EXAMINER - Last Filed: 07/29/21 12:56>
--- NOTE | 2021-07-29 12:50 | P.PNNP_ITS ---
Progress Note: A&P Assessment and Plan (1) Acute renal failure: Qualifiers: Acute renal failure type: unspecified Qualified Code(s): N17.9 - Acute kidney failure, unspecified Code(s): N17.9 - Acute kidney failure, unspecified Status: Acute Assessment and Plan: * Acute kidney injury * evaluation to date reveals: * renal ultrasound with normal kidney sizes but a 3.9ccm left kidney mass suspicious for renal cell carcinoma * urine electrolytes that are non-prerenal * mildly elevated CPK but not high enough to affect kidney function * Most likely due to COVID-19 and prior hypotension. * peak/plateau of creatinine at 3.2mg/dl * Now creatinine is down to 1.5. * Intake/output is positive. She has lots of obligate IV fluids due to medications and tube feedings with flushes. * Chest x-ray is still wet. This may be mostly COVID but since her creatinine is better and her blood pressure is okay I think we could try a couple of doses of diuretics to see if oxygenation improves. (2) Acute respiratory failure with hypoxia: Code(s): J96.01 - Acute respiratory failure with hypoxia Status: Acute Assessment and Plan: * due to #3 * known history of COPD and ongoing smoking history also likely contributing * continue inhalers * continue ventilator support (3) Pneumonia due to COVID-19 virus: Code(s): U07.1 - COVID-19; J12.82 - Pneumonia due to coronavirus disease 2018 Status: Acute Assessment and Plan: * known positivity 4 days prior to admssion * currently on dexamethasone * s/p tocilizumab on 07/22/2021 (4) Shock: Code(s): R57.9 - Shock, unspecified Status: Acute Assessment and Plan: * resolved (5) Urinary tract infection: Code(s): N39.0 - Urinary tract infection, site not specified Status: Acute Assessment and Plan: * urine culture with E.coli * on cefepime (6) Diabetes: Code(s): E11.9 - Type 2 diabetes mellitus without complications Status: Acute Assessment and Plan: * On Accu-Cheks and sliding-scale insulin Subjective Date/time seen: 07/29/21 12:50 Interval history: Surely is in the ICU on the ventilator. On no pressors. Exam Narrative: General: Elderly female intubated/sedated/paralyzed Heart: Irregular rhythm no rub or gallop Lungs: coarse breath sound throughout Abdomen: soft, nontender, nondistended, positive bowel sounds Extremities: no cyanosis or clubbing; no edema Skin: No rash Objective Data Vital Signs Vital Signs: Vital Signs - 24 hr 07/28/21 13:08 07/28/21 13:13 07/28/21 14:00 Temperature 37.4 C Pulse Rate 115 H 115 H 111 H Respiratory Rate 30 H 30 H 30 H Blood Pressure 117/55 L 117/55 L 122/59 L Pulse Oximetry 85 L 07/28/21 15:24 07/28/21 15:27 07/28/21 16:00 Temperature Pulse Rate 104 H 112 H 115 H Respiratory Rate 30 H Blood Pressure Pulse Oximetry 96 07/28/21 16:03 07/28/21 17:53 07/28/21 18:00 Temperature Pulse Rate 104 H 120 H 85 Respiratory Rate 28 H Blood Pressure 114/57 L 104/64 Pulse Oximetry 96 95 07/28/21 20:00 07/28/21 20:06 07/28/21 20:08 Temperature 37.3 C Pulse Rate 85 112 H 115 H
--- NOTE | 2021-07-29 12:50 | PM.PNNEP ---
Progress Note: A&P Assessment and Plan (1) Acute renal failure: Qualifiers: Acute renal failure type: unspecified Qualified Code(s): N17.9 - Acute kidney failure, unspecified Code(s): N17.9 - Acute kidney failure, unspecified Status: Acute Assessment and Plan: Acute kidney injury evaluation to date reveals: renal ultrasound with normal kidney sizes but a 3.9ccm left kidney mass suspicious for renal cell carcinoma urine electrolytes that are non-prerenal mildly elevated CPK but not high enough to affect kidney function Most likely due to COVID-19 and prior hypotension. peak/plateau of creatinine at 3.2mg/dl Now creatinine is down to 1.5. Intake/output is positive. She has lots of obligate IV fluids due to medications and tube feedings with flushes. Chest x-ray is still wet. This may be mostly COVID but since her creatinine is better and her blood pressure is okay I think we could try a couple of doses of diuretics to see if oxygenation improves. (2) Acute respiratory failure with hypoxia: Code(s): J96.01 - Acute respiratory failure with hypoxia Status: Acute Assessment and Plan: due to #3 known history of COPD and ongoing smoking history also likely contributing continue inhalers continue ventilator support (3) Pneumonia due to COVID-19 virus: Code(s): U07.1 - COVID-19; J12.82 - Pneumonia due to coronavirus disease 2018 Status: Acute Assessment and Plan: known positivity 4 days prior to admssion currently on dexamethasone s/p tocilizumab on 07/22/2021 (4) Shock: Code(s): R57.9 - Shock, unspecified Status: Acute Assessment and Plan: resolved (5) Urinary tract infection: Code(s): N39.0 - Urinary tract infection, site not specified Status: Acute Assessment and Plan: urine culture with E.coli on cefepime (6) Diabetes: Code(s): E11.9 - Type 2 diabetes mellitus without complications Status: Acute Assessment and Plan: On Accu-Cheks and sliding-scale insulin Subjective Date/time seen: 07/29/21 12:50 Interval history: Surely is in the ICU on the ventilator. On no pressors. Exam Narrative: General: Elderly female intubated/sedated/paralyzed Heart: Irregular rhythm no rub or gallop Lungs: coarse breath sound throughout Abdomen: soft, nontender, nondistended, positive bowel sounds Extremities: no cyanosis or clubbing; no edema Skin: No rash Objective Data Vital Signs Vital Signs: Vital Signs - 24 hr 07/28/21 13:08 07/28/21 13:13 07/28/21 14:00 Temperature 37.4 C Pulse Rate 115 H 115 H 111 H Respiratory Rate 30 H 30 H 30 H Blood Pressure 117/55 L 117/55 L 122/59 L Pulse Oximetry 85 L 07/28/21 15:24 07/28/21 15:27 07/28/21 16:00 Temperature Pulse Rate 104 H 112 H 115 H Respiratory Rate 30 H Blood Pressure Pulse Oximetry 96 07/28/21 16:03 07/28/21 17:53 07/28/21 18:00 Temperature Pulse Rate 104 H 120 H 85 Respiratory Rate 28 H Blood Pressure 114/57 L 104/64 Pulse Oximetry 96 95 07/28/21 20:00 07/28/21 20:06 07/28/21 20:08 Temperature 37.3 C Pulse Rate 85 112 H 115 H Respiratory Rate 28 H 30 H Blood Pressure 122/62 114/56 L Pulse Oximetry 95 07/28/21 21:56 07/28/21 22:00 07/28/21 22:40 Temperature 37.2 C Pulse Rate 85 101 H 97 Respiratory Rate 28 H 30 H 30 H Blood Pressure 106/54 L Pulse Oximetry 95 96 07/28/21 22:50 07/28/21 23:01 07/28/21 23:03 Temperature Pulse Rate 106 H 106 H 101 H Respiratory Rate 30 H 30 H Blood Pressure Pulse Oximetry 96 07/28/21 23:29 07/28/21 23:30 07/29/21 00:00 Temperature 37.2 C Pulse Rate 105 H 85 96 Respiratory Rate 28 H 30 H Blood Pressure 105/62 Pulse Oximetry 95 96 07/29/21 01:40 07/29/21 02:00 07/29/21 03:58 Temperature 37.1 C Pulse Rate 96 106 H 99 Respiratory Rate 30 H 30 H Blood Pressure 141/
--- NOTE | 2021-07-29 14:32 | WPDINTPN ---
Progress Note: A&P Assessment and Plan (1) Acute respiratory failure with hypoxia: Code(s): J96.01 - Acute respiratory failure with hypoxia Status: Acute Assessment and Plan: Patient presented the ED on 07/20/2021 late evening, was hypoxic and was placed on BiPAP. She was on 100% FiO2 antibiotic, and failed as she was hypoxic with low O2 sats. 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 - continue CMV mode of ventilation, peep of 14 and 45% FiO2 -chest x-ray stable disease with no change -continue bronchodilators -continue Pulmicort -sedated with fentanyl and Versed infusion, Nimbex for neuromuscular blockade, will start weaning Nimbex to off, will add propofol if necessary for ventilator synchrony -will diurese patient today (07/29) (2) Pneumonia due to COVID-19 virus: Code(s): U07.1 - COVID-19; J12.82 - Pneumonia due to coronavirus disease 2019 Status: Acute Assessment and Plan: Patient was COVID positive on 07/16/2021 this was 4 days prior to admission according the patient's medical records. 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 (4) Acute renal failure: Qualifiers: Acute renal failure type: unspecified Qualified Code(s): N17.9 - Acute kidney failure, unspecified Code(s): N17.9 - Acute kidney failure, unspecified Status: Acute Assessment and Plan: Acute kidney injury, could be related to hypoxia, COVID-19, hypotension, AFib, also has a history of diabetes and hypertension which could be contributing to that also. (last creatinine was on 12/08/2020 was 1.4). Patient was admitted with a creatinine of 3.7, -Patient did receive 2 L of IV fluid bolus on07/22 for hypotension. -will continue to monitor urine output, obtain urine lytes -renal ultrasound showed normal kidney size, no hydronephrosis. 3.9 cm left kidney mass suspicious for renal cell carcinoma, abdominal CT without and with contrast is recommended after improvement in kidney function -continue to monitor renal function, electrolytes and urine output - creatinine trending down and stable - appreciate Nephrology evaluation recommendation (5) HTN (hypertension): Code(s): I10 - Essential (primary) hypertension Status: Acute Assessment and Plan: Blood pressure are borderline, patient was on Levophed briefly on admission to the ICU -currently off Levophed - continue to maintain adequate mean arterial pressures for end-organ perfusion (6) Afib: Code(s): I48.91 - Unspecified atrial fibrillation Status: Acute Assessment and Plan: Currently in sinus rhythm, rate control, continue to monitor -AFib RVR, will start amiodarone bolus and infusion -continue metoprolol 25 mg per tube q.12 hours - continue heparin infusion -appreciate cardiology following the patient (7) DVT prophylaxis: Code(s): Z29.9 - Encounter for prophylactic measures, unspecified Status: Acute Assessment and Plan: on heparin infusion (8) Shock: Code(s): R57.9 - Shock, unspecified Status: Acute Assessment and Plan: Patient hypotensive requiring Levophed, was given 2 L IV fluid bolus on 07/22 -shock likely re
[2021-07-29] MEDS: INSULIN ASPART (*BKC) 100 UNITS/ML SUB-Q (16:09)
[2021-07-29] MEDS: BUMETANIDE INJ 1 MG/4 ML VIAL IV PUSH (16:12)
[2021-07-29] MEDS: MIDAZOLAM 100MG/NS 100ML(*CRX) 100 MG/100 ML BAG 6 MG IV CONT (16:14)
[2021-07-29] MEDS: FENTANYL 2,500MCG/NS250ML(*CRX 2,500 MCG/250 ML BAG 15 MCG IV CONT (16:15)
--- NOTE | 2021-07-29 16:53 | PCFNICU ---
ICU Rounding Note: Pt current nutrition is Nepro running at 45mL/hr over 22 hours. Last recorded weight is 97.5 kg. Bowel Motility: No new BM reported. Active bowel sounds. Miralax started 07/26/21 Labs Reviewed: hgb 8.5, hct 27.6, alb 2.6, Na 132, GFR 35, BUN 86, Cr 1.50, Glu 113, PO4 4.6 Meds Noted: albuterol, nexterone, budesonide, bumex, maxipime, nimbex, decadron, fentanyl, novolog, atrovent, lopressor, versed, protonix, miralax Skin: buttock maceration Additional Notes: Pt remains on mechanical ventilation and tube feeding of Nepro running at 45mL/hr over 22 hours providing 1782kcal, 80g of protein, and 720mL of water. Per EMR, pt is tolerating tube feeding and rate. Agree with diet order at this time. Will continue to follow. Following daily in ICU rounds. Will monitor every Tuesday and Tuesday..
[2021-07-29 18:15] LABS: Glucose Point of Care 203 mg/dl (65-105)
[2021-07-29 21:09] LABS: Glucose Point of Care 182 mg/dl (65-105)
[2021-07-30] VITALS (49 sets, daily range): BP systolic 112–161; BP diastolic 55–107; PULSE 84–160; RESP 27–32; TEMP 36.6–37.2; O2SAT 61–99
[2021-07-30 00:02] LABS: Glucose Point of Care 142 mg/dl (65-105)
[2021-07-30] MEDS: IPRATROPIUM BR 0.02% INH SOLN 0.5 MG/2.5 ML VIAL INHALATION ×4 (01:35→20:17)
[2021-07-30] MEDS: ALBUTEROL SULFATE NEB 2.5 MG/0.5 ML INH 5 MG INHALATION ×4 (01:36→20:17)
[2021-07-30] MEDS: AMIODARONE 360 MG/D5W 200 ML 360 MG/200 ML BAG 16.67 MG IV CONT ×3 (03:00→23:49)
[2021-07-30] MEDS: CISATRACURIUM BESYLATE 200 MG in DEXTROSE 5% 80 ML 12.72 ML IV CONT (03:57)
[2021-07-30 04:19] LABS: Alveolar/Arterial O2 Gradient 217.3 mmHg; Carboxyhemoglobin 0.2 % THb (0-2.0); Fractional Inspired Oxygen 50 %; HCO3 ABG 33.4 mEq/l (22.0-26.0); Methemoglobin ABG 0.2 %THb (0-1.5); Oxygen Content ABG 13.7 %vol (16.0-22.0); Oxygen Saturation ABG 96.1 % (95.0-100.0); Oxyhemoglobin 94.6 % THb (90.0-100.0); PCO2 ABG 51.2 mmHg (35.0-45.0); PO2 ABG 81.6 mmHg (80.0-100.0); PO2 FiO2 Ratio Arterial Blood 1.63 %; Total Hemoglobin 10.2 g/dL (12.0-18.0); pH ABG 7.432 (7.350-7.450)
[2021-07-30 04:21] LABS: Device VENTILATOR; Modified Allen's Test Pass; Site Drawn RIGHT RADIAL
[2021-07-30 04:22] LABS: Arterial Blood Gas PEEP 14 cmH2O; Arterial Blood Gas Tidal Volume 420 ml; Arterial Blood Gas Vent Mode CMV; Arterial Blood Gas Ventilator rate 30 /MIN
[2021-07-30 05:19] LABS: Hematocrit 29.7 % (37.0-47.0); Hemoglobin 9.1 g/dL (12.0-15.0); Mean Corpuscular HGB Conc 30.6 g/dl (32-36); Mean Corpuscular Hemoglobin 28.7 pg (26-34); Mean Corpuscular Volume 93.7 fl (80-100); Mean Platelet Volume 11.5 fl (7.4-10.4); Platelet Count Result 407 k/mm3 (150-375); Red Blood Count 3.17 M/mm3 (4.2-5.4); Red Cell Distribution Width 15.6 % (11.5-14.5); White Blood Count 19.9 K/mm3 (4.5-10.0)
[2021-07-30 05:30] LABS: Partial Thromboplastin Time 58.7 SECONDS (22.3-36.8)
[2021-07-30 05:34] LABS: Alanine Aminotransferase 31 U/L (4-35); Albumin Level 2.9 g/dL (3.5-5.1); Alkaline Phosphatase 106 U/L (38-126); Anion Gap 7 mmol/L (8-16); Aspartate Amino Transferase 42 U/L (14-36); Bilirubin,Total 0.2 mg/dL (0.2-1.3); Blood Urea Nitrogen 80 mg/dL (7-17); Calcium 9.4 mg/dL (8.4-10.2); Carbon Dioxide 32 mmol/L (22-30); Chloride 93 mmol/L (98-107); Estimated CRCL calculation 43 ml/min; Estimated Glomerular Filt Rate 38; Glucose 123 mg/dL (65-110); Phosphorus 4.1 mg/dL (2.5-4.5); Potassium 4.6 mmol/L (3.4-5.0); Sodium 132 mmol/L (137-145)
[2021-07-30 05:47] LABS: Anisocytosis 2+ (NORMAL); Atypical Lymphocytes Present; Band Neutrophils Percent 5 % (0-6); Eosinophils Absolute Manual 0.39 K/mm3 (0.02-0.5); Eosinophils Percent Manual 2 % (0-4); Lymphocytes Absolute Manual 1.79 K/mm3 (1.1-4.5); Metamyelocytes Percent 4 %; Monocytes Absolute Manual 0.19 K/mm3 (0.1-0.90); Monocytes Percent Manual 1 % (3-9); Myelocytes Percent 2 %; Neutrophils Absolute Manual 16.31 K/mm3 (1.7-7.2); Neutrophils Percent Manual 77 % (46-73); Total Cells Counted 100
[2021-07-30] MEDS: HEPARIN SODIUM 5,000 UNITS/ML VIAL 3000 UNITS IV PUSH (06:00)
[2021-07-30 08:05] LABS: Glucose Point of Care 124 mg/dl (65-105)
[2021-07-30] MEDS: BUDESONIDE RESPULE NEB 0.5 MG/2 ML AMP INHALATION ×2 (08:08→20:16)
[2021-07-30] MEDS: BUMETANIDE INJ 1 MG/4 ML VIAL IV PUSH ×2 (08:34→17:08)
[2021-07-30] MEDS: PANTOPRAZOLE SODIUM IV 40 MG VIAL IV PUSH (08:34)
[2021-07-30] MEDS: MINERAL OIL/WHITE PETROLATUM OINTMENT 1 APPLIC EACH EYE ×2 (08:34→20:07)
[2021-07-30] MEDS: METOPROLOL TARTRATE 25 MG TABLET PO ×2 (08:34→12:35)
[2021-07-30] MEDS: INSULIN GLARGINE (*BKC) 100 UNITS/ML 20 UNITS SUB-Q ×2 (08:35→20:30)
[2021-07-30] MEDS: polyethylene glycoL 3350 17 GM POWD.PACK PO (08:35)
[2021-07-30] MEDS: DEXAMETHASONE SOD PHOS INJ 4 MG/ML VIAL 6 MG IV PUSH (08:35)
[2021-07-30] MEDS: FENTANYL 2,500MCG/NS250ML(*CRX 2,500 MCG/250 ML BAG 15 MCG IV CONT (08:45)
[2021-07-30] MEDS: MIDAZOLAM 100MG/NS 100ML(*CRX) 100 MG/100 ML BAG 6 MG IV CONT ×2 (08:46→23:52)
[2021-07-30] MEDS: METOPROLOL TARTRATE INJ 5 MG/5 ML VIAL IV PUSH (09:24)
[2021-07-30] MEDS: PROPOFOL IV EMULSION 100 ML 11.77 MG IV CONT (10:27)
[2021-07-30] MEDS: CISATRACURIUM BESYLATE 200 MG in DEXTROSE 5% 80 ML 9.54 ML IV CONT (10:28)
--- NOTE | 2021-07-30 11:22 | PM.PNCARD ---
Progress Note: A&P Assessment and Plan (1) Afib: Code(s): I48.91 - Unspecified atrial fibrillation Status: Acute Assessment and Plan: Continue amiodarone, metoprolol, anticoagulation. Heart rate slightly elevated with blood pressure is soft with underlying chronic kidney disease and therefore will accept some tachycardia given underlying infection and COVID. (2) Acute renal failure: Qualifiers: Acute renal failure type: unspecified Qualified Code(s): N17.9 - Acute kidney failure, unspecified Code(s): N17.9 - Acute kidney failure, unspecified Status: Acute Assessment and Plan: Improving (3) Pneumonia due to COVID-19 virus: Code(s): U07.1 - COVID-19; J12.82 - Pneumonia due to coronavirus disease 2019 Status: Acute Assessment and Plan: Per ICU (4) HTN (hypertension): Code(s): I10 - Essential (primary) hypertension Status: Acute Assessment and Plan: stable Subjective Date/time seen: 07/30/21 11:22 Interval history: 66-year-old with COVID Date of service 07/29/2021: She remains in atrial fibrillation. Heart rate is generally controlled. Date of service 07/30/2021-remains in AFib with RVR. Review of Systems Review of Systems: ROS unobtainable: Yes unobtainable due to medical condition Constitutional: Constitutional: Reports chills, Denies excessive sweating and Denies headache(s) Eyes: Eyes: Denies blurry vision ENT: Denies headache(s), Denies lip swelling and Denies epistaxis Cardiovascular: Cardiovascular: Denies chest pain and Reports dyspnea Respiratory: Respiratory: Reports dyspnea Gastrointestinal: Gastrointestinal: Denies diarrhea Genitourinary: Genitourinary: Denies hematuria Musculoskeletal: Musculoskeletal: Reports myalgias Integumentary/Breasts: Skin/Breast: Denies erythema Neurologic: Denies confusion and Denies headache(s) Psychiatric: Psychiatric: Denies confusion Endocrine: Endocrine: Denies excessive sweating Hematologic/Lymphatic: Hematologic/Lymphatic: Denies easy bleeding Allergic/Immunologic: Allergic/Immunologic: Denies lip swelling Exam Narrative: Intubated sedated. Appears stated age Const: General: comfortable; No in distress HENMT: General nose exam: Normal nares present Eyes: Sclera: sclerae normal Neck: Neck: supple and no JVD Chest: Other: No chest deformity Resp: Auscultation: diminished lung sounds Cardio: Rate: tachycardic Rhythm: abnormal rhythm irregularly irregular GI: Auscultation: normal bowel sounds Skin: General skin exam: normal color Neuro: General: other (Intubated sedated on ventilator) Extrem: General: no edema Psych: Mental Status: other (Cannot be assessed) Objective Data Vital Signs Vital Signs: Vital Signs - 24 hr 07/29/21 12:00 07/29/21 12:14 07/29/21 13:00 Temperature 36.4 C Pulse Rate 107 H 106 H 103 H Respiratory Rate 30 H 30 H Blood Pressure 144/77 H Pulse Oximetry 96 96 07/29/21 13:08 07/29/21 13:48 07/29/21 15:42 Temperature 36.6 C Pulse Rate 101 H 106 H 111 H Respiratory Rate 30 H 30 H 30 H Blood Pressure 118/55 L Pulse Oximetry 98 07/29/21 16:00 07/29/21 16:10 07/29/21 16:15 Temperature 36.9 C Pulse Rate 114 H 106 H 111 H Respiratory Rate 30 H 30 H Blood Pressure 149/81 H 149/81 H Pulse Oximetry 97 07/29/21 17:10 07/29/21 18:00 07/29/21 20:00 Temperature 37.0 C Pulse Rate 118 H 110 H 101 H Respiratory Rate 30 H 30 H Blood Pressure 113/69 129/75 Pulse Oximetry 99 99 98 07/29/21 20:10 07/29/21 20:17 07/29/21 20:59 Temperature Pulse Rate 115 H 113 H 109 H Respiratory Rate 30 H 30 H Blood Pressure Pulse Oximetry 97 07/29/21 21:32 07/29/21 22:00 07/29/21 22:51 Temperature Pulse Rate 105 H 103 H 103 H Respiratory Rate 30 H 30 H Blood Pressure 129/75 109/64 Pulse Oximetry 98 98 07/30/21 00:00 07/30/21 01:36 07/30/21 01:41 [place]
[2021-07-30 11:44] LABS: Glucose Point of Care 174 mg/dl (65-105)
[2021-07-30] MEDS: HEPARIN SOD/D5W 100 UNITS/ML 25,000 UNITS/250 ML BAG 18 UNITS IV CONT (11:57)
--- NOTE | 2021-07-30 11:57 | WPDINTPN ---
Progress Note: A&P Assessment and Plan (1) Acute respiratory failure with hypoxia: Code(s): J96.01 - Acute respiratory failure with hypoxia Status: Acute Assessment and Plan: Patient presented the ED on 07/20/2021 late evening, was hypoxic and was placed on BiPAP. She was on 100% FiO2 antibiotic, and failed as she was hypoxic with low O2 sats. 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 - continue CMV mode of ventilation, peep of 14 and 50% FiO2, will wean PEEP to 12 -chest x-ray stable disease with no change -continue bronchodilators -continue Pulmicort -sedated with fentanyl and Versed infusion, Nimbex for neuromuscular blockade, will start weaning Nimbex to off, will add propofol if necessary for ventilator synchrony -will diurese patient today (07/30) (2) Pneumonia due to COVID-19 virus: Code(s): U07.1 - COVID-19; J12.82 - Pneumonia due to coronavirus disease 2019 Status: Acute Assessment and Plan: Patient was COVID positive on 07/16/2021 this was 4 days prior to admission according the patient's medical records. 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 Now that she is off steroids (4) Acute renal failure: Qualifiers: Acute renal failure type: unspecified Qualified Code(s): N17.9 - Acute kidney failure, unspecified Code(s): N17.9 - Acute kidney failure, unspecified Status: Acute Assessment and Plan: Acute kidney injury, could be related to hypoxia, COVID-19, hypotension, AFib, also has a history of diabetes and hypertension which could be contributing to that also. (last creatinine was on 12/08/2020 was 1.4). Patient was admitted with a creatinine of 3.7, -Patient did receive 2 L of IV fluid bolus on07/22 for hypotension. -will continue to monitor urine output, obtain urine lytes -renal ultrasound showed normal kidney size, no hydronephrosis. 3.9 cm left kidney mass suspicious for renal cell carcinoma, abdominal CT without and with contrast is recommended after improvement in kidney function -continue to monitor renal function, electrolytes and urine output - creatinine trending down and stable - appreciate Nephrology evaluation recommendation (5) HTN (hypertension): Code(s): I10 - Essential (primary) hypertension Status: Acute Assessment and Plan: Blood pressure are borderline, patient was on Levophed briefly on admission to the ICU -currently off Levophed - continue to maintain adequate mean arterial pressures for end-organ perfusion (6) Afib: Code(s): I48.91 - Unspecified atrial fibrillation Status: Acute Assessment and Plan: Currently in sinus rhythm, rate control, continue to monitor -AFib RVR, will start amiodarone bolus and infusion -patient into AFib RVR this morning with heart rates in 130s to 150s, remains on amiodarone infusion -increase metoprolol to 50 mg per tube q.12 hours - continue heparin infusion -appreciate cardiology following the patient (7) DVT prophylaxis: Code(s): Z29.9 - Encounter for prophylactic measures, unspecified Status: Acute Assessment and Plan: on heparin infusion (8) Shock: Code(s): R57.9 - Shock, unsp
[2021-07-30] MEDS: BISACODYL 10 MG SUPPOSITORY RECTAL (12:02)
--- NOTE | 2021-07-30 12:14 | P.PNNP_ITS ---
Progress Note: A&P Assessment and Plan (1) Acute renal failure: Qualifiers: Acute renal failure type: unspecified Qualified Code(s): N17.9 - Acute kidney failure, unspecified Code(s): N17.9 - Acute kidney failure, unspecified Status: Acute Assessment and Plan: * Acute kidney injury * evaluation to date reveals: * renal ultrasound with normal kidney sizes but a 3.9ccm left kidney mass suspicious for renal cell carcinoma * urine electrolytes that are non-prerenal * mildly elevated CPK but not high enough to affect kidney function * Most likely due to COVID-19 and prior hypotension. * peak/plateau of creatinine at 3.2mg/dl * creatinine continues to improve and is at 1.4. * Intake/output is positive. She has lots of obligate IV fluids due to medications and tube feedings with flushes. * Chest x-ray is still wet. This may be mostly COVID. her oxygenation improved a little bit with the diuretics. She gets her 3rd dose this afternoon. Reassess tomorrow (2) Acute respiratory failure with hypoxia: Code(s): J96.01 - Acute respiratory failure with hypoxia Status: Acute Assessment and Plan: * due to #3 * known history of COPD and ongoing smoking history also likely contributing * continue inhalers * continue ventilator support (3) Pneumonia due to COVID-19 virus: Code(s): U07.1 - COVID-19; J12.82 - Pneumonia due to coronavirus disease 2019 Status: Acute Assessment and Plan: * known positivity 4 days prior to admssion * currently on dexamethasone * s/p tocilizumab on 07/22/2021 (4) Shock: Code(s): R57.9 - Shock, unspecified Status: Acute Assessment and Plan: * resolved (5) Urinary tract infection: Code(s): N39.0 - Urinary tract infection, site not specified Status: Acute Assessment and Plan: * urine culture with E.coli * on cefepime (6) Diabetes: Code(s): E11.9 - Type 2 diabetes mellitus without complications Status: Acute Assessment and Plan: * On Accu-Cheks and sliding-scale insulin Subjective Date/time seen: 07/30/21 12:14 Interval history: Surely is in the ICU on the ventilator. On no pressors. Unable to give a history Exam Narrative: General: Elderly female intubated/sedated/paralyzed Heart: Irregular rhythm no rub Lungs: coarse breath sound throughout Abdomen: soft, nontender, nondistended, positive bowel sounds Extremities: no edema Skin: No rash or subcu nodules Objective Data Vital Signs Vital Signs: Vital Signs - 24 hr 07/29/21 13:00 07/29/21 13:08 07/29/21 13:48 Temperature 36.6 C Pulse Rate 103 H 101 H 106 H Respiratory Rate 30 H 30 H 30 H Blood Pressure 118/55 L Pulse Oximetry 96 98 07/29/21 15:42 07/29/21 16:00 07/29/21 16:10 Temperature 36.9 C Pulse Rate 111 H 114 H 106 H Respiratory Rate 30 H 30 H Blood Pressure 149/81 H 149/81 H Pulse Oximetry 97 07/29/21 16:15 07/29/21 17:10 07/29/21 18:00 Temperature Pulse Rate 111 H 118 H 110 H Respiratory Rate 30 H 30 H Blood Pressure 113/69 Pulse Oximetry 99 99 07/29/21 20:00 07/29/21 20:10 07/29/21 20:17 Temperature 37.0 C Pulse Rate 101
--- NOTE | 2021-07-30 12:14 | PM.PNNEP ---
Progress Note: A&P Assessment and Plan (1) Acute renal failure: Qualifiers: Acute renal failure type: unspecified Qualified Code(s): N17.9 - Acute kidney failure, unspecified Code(s): N17.9 - Acute kidney failure, unspecified Status: Acute Assessment and Plan: Acute kidney injury evaluation to date reveals: renal ultrasound with normal kidney sizes but a 3.9ccm left kidney mass suspicious for renal cell carcinoma urine electrolytes that are non-prerenal mildly elevated CPK but not high enough to affect kidney function Most likely due to COVID-19 and prior hypotension. peak/plateau of creatinine at 3.2mg/dl creatinine continues to improve and is at 1.4. Intake/output is positive. She has lots of obligate IV fluids due to medications and tube feedings with flushes. Chest x-ray is still wet. This may be mostly COVID. her oxygenation improved a little bit with the diuretics. She gets her 3rd dose this afternoon. Reassess tomorrow (2) Acute respiratory failure with hypoxia: Code(s): J96.01 - Acute respiratory failure with hypoxia Status: Acute Assessment and Plan: due to #3 known history of COPD and ongoing smoking history also likely contributing continue inhalers continue ventilator support (3) Pneumonia due to COVID-19 virus: Code(s): U07.1 - COVID-19; J12.82 - Pneumonia due to coronavirus disease 2018 Status: Acute Assessment and Plan: known positivity 4 days prior to admssion currently on dexamethasone s/p tocilizumab on 07/22/2021 (4) Shock: Code(s): R57.9 - Shock, unspecified Status: Acute Assessment and Plan: resolved (5) Urinary tract infection: Code(s): N39.0 - Urinary tract infection, site not specified Status: Acute Assessment and Plan: urine culture with E.coli on cefepime (6) Diabetes: Code(s): E11.9 - Type 2 diabetes mellitus without complications Status: Acute Assessment and Plan: On Accu-Cheks and sliding-scale insulin Subjective Date/time seen: 07/30/21 12:14 Interval history: Surely is in the ICU on the ventilator. On no pressors. Unable to give a history Exam Narrative: General: Elderly female intubated/sedated/paralyzed Heart: Irregular rhythm no rub Lungs: coarse breath sound throughout Abdomen: soft, nontender, nondistended, positive bowel sounds Extremities: no edema Skin: No rash or subcu nodules Objective Data Vital Signs Vital Signs: Vital Signs - 24 hr 07/29/21 13:00 07/29/21 13:08 07/29/21 13:48 Temperature 36.6 C Pulse Rate 103 H 101 H 106 H Respiratory Rate 30 H 30 H 30 H Blood Pressure 118/55 L Pulse Oximetry 96 98 07/29/21 15:42 07/29/21 16:00 07/29/21 16:10 Temperature 36.9 C Pulse Rate 111 H 114 H 106 H Respiratory Rate 30 H 30 H Blood Pressure 149/81 H 149/81 H Pulse Oximetry 97 07/29/21 16:15 07/29/21 17:10 07/29/21 18:00 Temperature Pulse Rate 111 H 118 H 110 H Respiratory Rate 30 H 30 H Blood Pressure 113/69 Pulse Oximetry 99 99 07/29/21 20:00 07/29/21 20:10 07/29/21 20:17 Temperature 37.0 C Pulse Rate 101 H 115 H 113 H Respiratory Rate 30 H 30 H 30 H Blood Pressure 129/75 Pulse Oximetry 98 97 07/29/21 20:59 07/29/21 21:32 07/29/21 22:00 Temperature Pulse Rate 109 H 105 H 103 H Respiratory Rate 30 H 30 H Blood Pressure 129/75 109/64 Pulse Oximetry 98 07/29/21 22:51 07/30/21 00:00 07/30/21 01:36 Temperature 37.1 C Pulse Rate 103 H 108 H 114 H Respiratory Rate 30 H 30 H Blood Pressure 124/73 Pulse Oximetry 98 99 98 07/30/21 01:41 07/30/21 02:00 07/30/21 03:00 Temperature 37.1 C Pulse Rate 119 H 84 104 H Respiratory Rate 30 H 30 H Blood Pressure 118/66 118/66 Pulse Oximetry 98 07/30/21 03:57 07/30/21 04:00 07/30/21 04:04 Temperature 37.1 C Pulse Rate 118 H 101 H 103 H Respiratory R
[2021-07-30 12:22] LABS: Partial Thromboplastin Time 78.8 SECONDS (22.3-36.8)
--- NOTE | 2021-07-30 12:30 | PCFNICU ---
ICU Rounding Note: Pt current nutrition is Nepro running at 45mL/hr over 22 hours. Last recorded weight is 98.1 kg. Bowel Motility: No new BM reported, active bowel sounds, Miralax started 07/26/21 Labs Reviewed: hgb 9.1, hct 29.7, alb 2.9, Na 132, Cl 93, GFR 38, BUN 80, Cr 1.40, Glu 124, CO2 32, AST 42 Meds Noted: albuterol, nexterone, budesonide, bumex, maxipime, fentanyl, heparin, lantus, atrovent, versed, protonix, miralax, propofol Skin: buttock maceration Additional Notes: Pt remains on mechanical ventilation and tube feeding of Nepro running at 45mL/hr over 22 hours providing 1782kcal, 80g of protein, and 720mL of water, meeting 100% of protein needs. Per EMR, pt is tolerating tube feeding and rate. Propofol running at 20mcg, providing an additional 311kcal of lipids. Total kcal provided is 2093kcal, meeting 114% of kcal needs. If propofol remains running at 20mcg, recommend decreasing feeding rate to 40mL/hr to provide 1584kcal without propofol, 71g protein, and 640mL of water, meeting 97% of protein needs. Total kcal provided with propofol running at 20mcg would be 1895kcal, meeting 100% of kcal needs. Agree with diet order at this time. Will continue to follow. Following daily in ICU rounds. Will monitor every Tuesday and Tuesday..
[2021-07-30 16:05] LABS: Glucose Point of Care 174 mg/dl (65-105)
[2021-07-30 18:44] LABS: Partial Thromboplastin Time 72.5 SECONDS (22.3-36.8)
[2021-07-30] MEDS: PROPOFOL IV EMULSION 100 ML 8.83 MG IV CONT (20:05)
[2021-07-30] MEDS: METOPROLOL TARTRATE 50 MG TAB PO (20:08)
[2021-07-30 21:13] LABS: Glucose Point of Care 124 mg/dl (65-105)
[2021-07-31] VITALS (34 sets, daily range): BP systolic 94–144; BP diastolic 52–82; PULSE 92–125; RESP 27–30; TEMP 36.7–37.5; O2SAT 93–98
[2021-07-31 00:03] LABS: Glucose Point of Care 107 mg/dl (65-105)
[2021-07-31] MEDS: FENTANYL 2,500MCG/NS250ML(*CRX 2,500 MCG/250 ML BAG 15 MCG IV CONT (02:02)
[2021-07-31] MEDS: HEPARIN SOD/D5W 100 UNITS/ML 25,000 UNITS/250 ML BAG 18 UNITS IV CONT ×2 (02:05→16:05)
[2021-07-31] MEDS: ALBUTEROL SULFATE NEB 2.5 MG/0.5 ML INH 5 MG INHALATION ×4 (02:07→20:00)
[2021-07-31] MEDS: IPRATROPIUM BR 0.02% INH SOLN 0.5 MG/2.5 ML VIAL INHALATION ×4 (02:07→20:00)
[2021-07-31 04:20] LABS: Basophils Absolute Auto 0.1 K/mm3 (0.0-0.1); Basophils Percent Auto 0.3 % (0.2-1.2); Eosinophils Absolute Auto 0.1 K/mm3 (0-0.3); Eosinophils Percent Auto 0.5 % (0-4.4); Hematocrit 28.8 % (37.0-47.0); Hemoglobin 8.9 g/dL (12.0-15.0); Immature Granulocyte Absolute 1.26 K/mm3 (0.00-0.031); Immature Granulocyte Percent A 5.9 % (0-0.5); Lymphocytes Absolute Auto 1.44 K/mm3 (0.9-3.2); Lymphocytes Percent Auto 6.8 % (18.3-44.2); Mean Corpuscular HGB Conc 30.9 g/dl (32-36); Mean Corpuscular Hemoglobin 29.3 pg (26-34); Mean Corpuscular Volume 94.7 fl (80-100); Mean Platelet Volume 11.8 fl (7.4-10.4); Monocytes Absolute Auto 0.8 K/mm3 (0.1-0.6); Monocytes Percent Auto 3.7 % (2.6-8.5); Neutrophils Absolute Auto 17.5 K/mm3 (1.3-6.7); Neutrophils Percent Auto 82.8 % (45.5-73.1); Nucleated Red Blood Cells Absolute Auto 0.1 K/mm3 (0.0-0.012); Nucleated Red Blood Cells Perc 0.6 % (0.0-0.2); Platelet Count Result 403 k/mm3 (150-375); Red Blood Count 3.04 M/mm3 (4.2-5.4); Red Cell Distribution Width 15.6 % (11.5-14.5); White Blood Count 21.2 K/mm3 (4.5-10.0)
[2021-07-31 04:33] LABS: Partial Thromboplastin Time 65.5 SECONDS (22.3-36.8)
[2021-07-31 04:39] LABS: Alanine Aminotransferase 31 U/L (4-35); Albumin Level 2.9 g/dL (3.5-5.1); Alkaline Phosphatase 119 U/L (38-126); Anion Gap 4 mmol/L (8-16); Aspartate Amino Transferase 53 U/L (14-36); Bilirubin,Total 0.3 mg/dL (0.2-1.3); Blood Urea Nitrogen 85 mg/dL (7-17); Calcium 9.8 mg/dL (8.4-10.2); Carbon Dioxide 34 mmol/L (22-30); Chloride 92 mmol/L (98-107); Estimated CRCL calculation 43 ml/min; Estimated Glomerular Filt Rate 38; Glucose 106 mg/dL (65-110); Phosphorus 4.2 mg/dL (2.5-4.5); Potassium 4.1 mmol/L (3.4-5.0); Sodium 130 mmol/L (137-145)
[2021-07-31 04:46] LABS: Alveolar/Arterial O2 Gradient 223.9 mmHg; Base Excess ABG 8.8 mEq/l (+/-2.0); Carboxyhemoglobin 0.3 % THb (0-2.0); Fractional Inspired Oxygen 50 %; HCO3 ABG 32.4 mEq/l (22.0-26.0); Methemoglobin ABG 0.2 %THb (0-1.5); Oxygen Content ABG 13.7 %vol (16.0-22.0); Oxygen Saturation ABG 97.3 % (95.0-100.0); Oxyhemoglobin 95.8 % THb (90.0-100.0); PCO2 ABG 40.8 mmHg (35.0-45.0); PO2 ABG 86.7 mmHg (80.0-100.0); PO2 FiO2 Ratio Arterial Blood 1.73 %; Reduced Hemoglobin 3.7 %THb (0-5.0); Total Hemoglobin 10.1 g/dL (12.0-18.0)
[2021-07-31 04:50] LABS: Device VENTILATOR; Modified Allen's Test Unable to perform; Site Drawn LEFT RADIAL; pH ABG 7.518 (7.350-7.450)
[2021-07-31 04:51] LABS: Arterial Blood Gas PEEP 12 cmH2O; Arterial Blood Gas Tidal Volume 420 ml; Arterial Blood Gas Vent Mode CMV; Arterial Blood Gas Ventilator rate 30 /MIN
[2021-07-31] MEDS: PROPOFOL IV EMULSION 100 ML 8.83 MG IV CONT (06:59)
[2021-07-31] MEDS: HEPARIN SODIUM 5,000 UNITS/ML VIAL 3000 UNITS IV PUSH (07:02)
[2021-07-31] MEDS: BUDESONIDE RESPULE NEB 0.5 MG/2 ML AMP INHALATION ×2 (07:46→20:00)
[2021-07-31 08:56] LABS: Glucose Point of Care 113 mg/dl (65-105)
[2021-07-31] MEDS: INSULIN GLARGINE (*BKC) 100 UNITS/ML 20 UNITS SUB-Q ×2 (09:26→21:11)
[2021-07-31] MEDS: polyethylene glycoL 3350 17 GM POWD.PACK PO (09:27)
[2021-07-31] MEDS: PANTOPRAZOLE SODIUM IV 40 MG VIAL IV PUSH (09:27)
[2021-07-31] MEDS: MINERAL OIL/WHITE PETROLATUM OINTMENT 1 APPLIC EACH EYE ×2 (09:27→21:12)
--- NOTE | 2021-07-31 10:07 | PM.PNCARD ---
Progress Note: A&P Additional Plan 66-year-old lady with atrial fibrillation in the setting of COVID pneumonia and respiratory failure. I am going to try today shifting her regimen to sotalol to try to restore sinus rhythm given the fact that she was in sinus rhythm at the time of presentation. Because of her ongoing respiratory failure this may or may not work. This also however has the advantage of not exposing her to amiodarone any longer. The amiodarone has not restored sinus rhythm and there is probably not great benefit in continuing it. Continue anticoagulation with heparin for now Huber Sarabia MD [facility] Subjective Date/time seen: Date of service: 07/31/21 10:07 Interval history: Follow-up visit in this 66-year-old woman with: Onset of atrial fibrillation with RVR during this hospitalization caused by the respiratory distress of COVID pneumonia. She has persisting in atrial fibrillation despite intravenous amiodarone that was started several days ago and metoprolol being given down the gastric tube. Patient remains in the ICU on ventilator support in prone position. Chest x-ray continues to show severe COVID pneumonia Exam Const: Other: Intubated sedated white female in the prone position Eyes: Sclera: sclerae normal Resp: Other: Coarse rhonchi throughout both lung vidal Cardio: Rhythm: abnormal rhythm irregularly irregular Skin: General skin exam: normal color Extrem: Other: No significant edema adequate distal perfusion Objective Data Vital Signs Vital Signs: Vital Signs - 24 hr 07/30/21 10:27 07/30/21 10:28 07/30/21 11:17 Temperature Pulse Rate 133 H 130 H 131 H Respiratory Rate 30 H 30 H 30 H Blood Pressure 134/107 H 113/55 L Pulse Oximetry 07/30/21 11:20 07/30/21 11:42 07/30/21 11:44 Temperature Pulse Rate 123 H 119 H 137 H Respiratory Rate 28 H 30 H 28 H Blood Pressure 113/55 L 113/55 L Pulse Oximetry 96 07/30/21 11:57 07/30/21 11:58 07/30/21 12:00 Temperature 36.8 C Pulse Rate 122 H 122 H 133 H Respiratory Rate 27 H 30 H Blood Pressure 113/55 L 113/55 L 116/59 L Pulse Oximetry 95 07/30/21 12:05 07/30/21 12:35 07/30/21 12:46 Temperature Pulse Rate 133 H 119 H 120 H Respiratory Rate 30 H Blood Pressure Pulse Oximetry 94 07/30/21 13:56 07/30/21 13:57 07/30/21 13:58 Temperature Pulse Rate 125 H 134 H 123 H Respiratory Rate 30 H Blood Pressure Pulse Oximetry 92 07/30/21 14:00 07/30/21 14:05 07/30/21 15:39 Temperature Pulse Rate 115 H 116 H 121 H Respiratory Rate 32 H 30 H 30 H Blood Pressure 125/70 Pulse Oximetry 93 93 07/30/21 16:00 07/30/21 16:10 07/30/21 18:00 Temperature 37.2 C Pulse Rate 116 H 118 H 108 H Respiratory Rate 30 H 30 H Blood Pressure 112/65 161/75 H Pulse Oximetry 98 95 99 07/30/21 19:55 07/30/21 20:00 07/30/21 20:05 Temperature 36.6 C Pulse Rate 118 H 109 H 118 H Respiratory Rate 30 H 30 H 30 H Blood Pressure 134/65 Pulse Oximetry 95 95 07/30/21 20:08 07/30/21 22:00 07/30/21 23:10 Temperature Pulse Rate 118 H 107 H 105 H Respiratory Rate 30 H Blood Pressure 136/66 Pulse Oximetry 96 95 07/30/21 23:20 07/30/21 23:49 07/30/21 23:52 Temperature Pulse Rate 110 H 110 H 125 H Respiratory Rate 30 H Blood Pressure 140/63 Pulse Oximetry 95 07/31/21 00:00 07/31/21 02:00 07/31/21 02:02 Temperature 36.7 C Pulse Rate 115 H 104 H 106 H Respiratory Rate 30 H 30 H 30 H Blood Pressure 135/60 127/69 Pulse Oximetry 95 96 07/31/21 02:10 07/31/21 03:30 07/31/21 03:39 Temperature 37.0 C Pulse Rate 103 H 103 H 95 Respiratory Rate 30 H 30 H Blood Pressure 132/68 Pulse Oximetry 97 96 07/31/21 06:00 07/31/21 06:59 07/31/21 07:48 Temperature 37.3 C Pulse Rate 112 H 114 H 111 H Respiratory Rate 28 H 28 H 30 H Blood Pressure 132/73 Pulse Oximetry 97 07/31/21 07:49 07/31/21 07:55 07/31/21 08:00 Temperature 37.5 C Pu
[2021-07-31] MEDS: SOTALOL HCL 80 MG TABLET PO ×2 (11:45→21:10)
--- NOTE | 2021-07-31 11:56 | WPDINTPN ---
Progress Note: A&P Assessment and Plan (1) Acute respiratory failure with hypoxia: Code(s): J96.01 - Acute respiratory failure with hypoxia Status: Acute Assessment and Plan: Patient presented the ED on 07/20/2021 late evening, was hypoxic and was placed on BiPAP. She was on 100% FiO2 antibiotic, and failed as she was hypoxic with low O2 sats. 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 on 07/22/2021 electrode cleaner - continue CMV mode of ventilation, peep of 12 and 50% FiO2, will decrease PEEP to 10 and rate to 28 -chest x-ray stable disease with no change -continue bronchodilators -continue Pulmicort -sedated with fentanyl and Versed infusion, Nimbex for neuromuscular blockade, will start weaning Nimbex to off, will add propofol if necessary for ventilator synchrony -will diurese patient today (07/31) (2) Pneumonia due to COVID-19 virus: Code(s): U07.1 - COVID-19; J12.82 - Pneumonia due to coronavirus disease 2019 Status: Acute Assessment and Plan: Patient was COVID positive on 07/16/2021 this was 4 days prior to admission according the patient's medical records. -completed dexamethasone -not a candidate for remdesivir due to acute kidney injury and elevated creatinine -CRP 29.2, Received tocilizumab on 07/22/2021 -continue airborne, droplet, contact isolation/precautions (3) Diabetes mellitus with hyperglycemia: Qualifiers: Diabetes mellitus type: type 2 Diabetes mellitus keno terminal operator insulin use: without keno terminal operator use Qualified Code(s): E11.65 - Type 2 diabetes mellitus with hyperglycemia Code(s): E11.65 - Type 2 diabetes mellitus with hyperglycemia Status: Acute Assessment and Plan: Patient hyperglycemic which could be related to stress response and or steroids -continue sliding scale insulin, Accu-Cheks - off insulin infusion since 07/26, continue Lantus to 20 mg SQ q.12 hours. Now that she is off steroids (4) Acute renal failure: Qualifiers: Acute renal failure type: unspecified Qualified Code(s): N17.9 - Acute kidney failure, unspecified Code(s): N17.9 - Acute kidney failure, unspecified Status: Acute Assessment and Plan: Acute kidney injury, could be related to hypoxia, COVID-19, hypotension, AFib, also has a history of diabetes and hypertension which could be contributing to that also. (last creatinine was on 12/08/2020 was 1.4). Patient was admitted with a creatinine of 3.7, -Patient did receive 2 L of IV fluid bolus on07/22 for hypotension. -will continue to monitor urine output, obtain urine lytes -renal ultrasound showed normal kidney size, no hydronephrosis. 3.9 cm left kidney mass suspicious for renal cell carcinoma, abdominal CT without and with contrast is recommended after improvement in kidney function -continue to monitor renal function, electrolytes and urine output - creatinine trending down and stable - appreciate Nephrology evaluation recommendation (5) HTN (hypertension): Code(s): I10 - Essential (primary) hypertension Status: Acute Assessment and Plan: Blood pressure are borderline, patient was on Levophed briefly on admission to the ICU -currently off Levophed - continue to maintain adequate mean arterial pressures for end-organ perfusion (6) Afib: Code(s): I48.91 - Unspecified atrial fibrillation Status: Acute Assessment and Plan: Currently in sinus rhythm, rate control, continue to monitor -patient into AFib RVR this morning with heart rates in 130s to 150s, remains on amiodarone infusion -continue metoprolol to 50 mg per tube q.12 hours - continue heparin infusion -appreciate cardiology evaluation, amiodarone has been discontinued and patient is being given a trial of sotalol - (7) DVT prophylaxis: Code(s): Z29.9 - Encounter for prophylactic measures, unspecified Status: Acute Assessment and Plan: on heparin infusion (8) Shock: Code(s): R57.9 - Shock, uns
--- NOTE | 2021-07-31 11:57 | P.PNNP_ITS ---
Progress Note: A&P Assessment and Plan (1) Acute renal failure: Qualifiers: Acute renal failure type: unspecified Qualified Code(s): N17.9 - Acute kidney failure, unspecified Code(s): N17.9 - Acute kidney failure, unspecified Status: Acute Assessment and Plan: * Acute kidney injury * evaluation to date reveals: * renal ultrasound with normal kidney sizes but a 3.9ccm left kidney mass suspicious for renal cell carcinoma * urine electrolytes that are non-prerenal * mildly elevated CPK but not high enough to affect kidney function * Most likely due to COVID-19 and prior hypotension. * peak/plateau of creatinine at 3.2mg/dl * creatinine is stable at 1.4. * Will continue Bumetanide mg a day As long as her creatinine tolerates it.. (2) Acute respiratory failure with hypoxia: Code(s): J96.01 - Acute respiratory failure with hypoxia Status: Acute Assessment and Plan: * due to #3 * known history of COPD and ongoing smoking history also likely contributing * continue inhalers * continue ventilator support (3) Pneumonia due to COVID-19 virus: Code(s): U07.1 - COVID-19; J12.82 - Pneumonia due to coronavirus disease 2018 Status: Acute Assessment and Plan: * known positivity 4 days prior to admssion * currently on dexamethasone * s/p tocilizumab on 07/22/2021 (4) Shock: Code(s): R57.9 - Shock, unspecified Status: Acute Assessment and Plan: * resolved (5) Urinary tract infection: Code(s): N39.0 - Urinary tract infection, site not specified Status: Acute Assessment and Plan: * urine culture with E.coli * on cefepime (6) Diabetes: Code(s): E11.9 - Type 2 diabetes mellitus without complications Status: Acute Assessment and Plan: * On Accu-Cheks and sliding-scale insulin Subjective Date/time seen: 07/31/21 11:57 Interval history: Divya is in the ICU on the ventilator, on paralytics and sedatives.. On no pressors. Unable to give a history Exam Narrative: General: Elderly female intubated/sedated/paralyzed Heart: Irregular rhythm no rub or gallop Lungs: coarse bilateral Abdomen: soft, nontender, nondistended, positive bowel sounds Extremities: no edema Or cyanosis Skin: No rash or subcu nodules Objective Data Vital Signs Vital Signs: Vital Signs - 24 hr 07/30/21 11:58 07/30/21 12:00 07/30/21 12:05 Temperature 36.8 C Pulse Rate 122 H 133 H 133 H Respiratory Rate 27 H 30 H Blood Pressure 113/55 L 116/59 L Pulse Oximetry 95 94 07/30/21 12:35 07/30/21 12:46 07/30/21 13:56 Temperature Pulse Rate 119 H 120 H 125 H Respiratory Rate 30 H 30 H Blood Pressure Pulse Oximetry 07/30/21 13:57 07/30/21 13:58 07/30/21 14:00 Temperature Pulse Rate 134 H 123 H 115 H Respiratory Rate 32 H Blood Pressure 125/70 Pulse Oximetry 92 93 07/30/21 14:05 07/30/21 15:39 07/30/21 16:00 Temperature 37.2 C Pulse Rate 116 H 121 H 116 H Respiratory Rate 30 H 30 H 30 H Blood Pressure 112/65 Pulse Oximetry 93 98 07/30/21 16:10 07/30/21 18:00 07/30/21 19:55
--- NOTE | 2021-07-31 11:57 | PM.PNNEP ---
Progress Note: A&P Assessment and Plan (1) Acute renal failure: Qualifiers: Acute renal failure type: unspecified Qualified Code(s): N17.9 - Acute kidney failure, unspecified Code(s): N17.9 - Acute kidney failure, unspecified Status: Acute Assessment and Plan: Acute kidney injury evaluation to date reveals: renal ultrasound with normal kidney sizes but a 3.9ccm left kidney mass suspicious for renal cell carcinoma urine electrolytes that are non-prerenal mildly elevated CPK but not high enough to affect kidney function Most likely due to COVID-19 and prior hypotension. peak/plateau of creatinine at 3.2mg/dl creatinine is stable at 1.4. Will continue Bumetanide mg a day As long as her creatinine tolerates it.. (2) Acute respiratory failure with hypoxia: Code(s): J96.01 - Acute respiratory failure with hypoxia Status: Acute Assessment and Plan: due to #3 known history of COPD and ongoing smoking history also likely contributing continue inhalers continue ventilator support (3) Pneumonia due to COVID-19 virus: Code(s): U07.1 - COVID-19; J12.82 - Pneumonia due to coronavirus disease 2018 Status: Acute Assessment and Plan: known positivity 4 days prior to admssion currently on dexamethasone s/p tocilizumab on 07/22/2021 (4) Shock: Code(s): R57.9 - Shock, unspecified Status: Acute Assessment and Plan: resolved (5) Urinary tract infection: Code(s): N39.0 - Urinary tract infection, site not specified Status: Acute Assessment and Plan: urine culture with E.coli on cefepime (6) Diabetes: Code(s): E11.9 - Type 2 diabetes mellitus without complications Status: Acute Assessment and Plan: On Accu-Cheks and sliding-scale insulin Subjective Date/time seen: 07/31/21 11:57 Interval history: Divya is in the ICU on the ventilator, on paralytics and sedatives.. On no pressors. Unable to give a history Exam Narrative: General: Elderly female intubated/sedated/paralyzed Heart: Irregular rhythm no rub or gallop Lungs: coarse bilateral Abdomen: soft, nontender, nondistended, positive bowel sounds Extremities: no edema Or cyanosis Skin: No rash or subcu nodules Objective Data Vital Signs Vital Signs: Vital Signs - 24 hr 07/30/21 11:58 07/30/21 12:00 07/30/21 12:05 Temperature 36.8 C Pulse Rate 122 H 133 H 133 H Respiratory Rate 27 H 30 H Blood Pressure 113/55 L 116/59 L Pulse Oximetry 95 94 07/30/21 12:35 07/30/21 12:46 07/30/21 13:56 Temperature Pulse Rate 119 H 120 H 125 H Respiratory Rate 30 H 30 H Blood Pressure Pulse Oximetry 07/30/21 13:57 07/30/21 13:58 07/30/21 14:00 Temperature Pulse Rate 134 H 123 H 115 H Respiratory Rate 32 H Blood Pressure 125/70 Pulse Oximetry 92 93 07/30/21 14:05 07/30/21 15:39 07/30/21 16:00 Temperature 37.2 C Pulse Rate 116 H 121 H 116 H Respiratory Rate 30 H 30 H 30 H Blood Pressure 112/65 Pulse Oximetry 93 98 07/30/21 16:10 07/30/21 18:00 07/30/21 19:55 Temperature Pulse Rate 118 H 108 H 118 H Respiratory Rate 30 H 30 H Blood Pressure 161/75 H Pulse Oximetry 95 99 95 07/30/21 20:00 07/30/21 20:05 07/30/21 20:08 Temperature 36.6 C Pulse Rate 109 H 118 H 118 H Respiratory Rate 30 H 30 H Blood Pressure 134/65 Pulse Oximetry 95 07/30/21 22:00 07/30/21 23:10 07/30/21 23:20 Temperature Pulse Rate 107 H 105 H 110 H Respiratory Rate 30 H Blood Pressure 136/66 Pulse Oximetry 96 95 95 07/30/21 23:49 07/30/21 23:52 07/31/21 00:00 Temperature 36.7 C Pulse Rate 110 H 125 H 115 H Respiratory Rate 30 H 30 H Blood Pressure 140/63 135/60 Pulse Oximetry 95 07/31/21 02:00 07/31/21 02:02 07/31/21 02:10 Temperature Pulse Rate 104 H 106 H 103 H Respiratory Rate 30 H 30 H 30 H Blood Pressure 127/69
[2021-07-31 12:10] LABS: Glucose Point of Care 159 mg/dl (65-105)
[2021-07-31] MEDS: FUROSEMIDE INJ 40 MG/4 ML VIAL IV PUSH (14:38)
--- NOTE | 2021-07-31 14:59 | PCNFU ---
Nutrition Follow-Up Complete: Inadequate Oral Intake as related to mechanical ventilation as evidenced by NPO. Goal: Meet estimanted nutritional needs Pt is progressing towards goal Pt current nutrition is nepro running at 45mL/hr over 22 hours Last recorded weight is 100.7 kg, up from 98.1kg reported 07/30/21 Bowel Motility: +BM 07/31 Labs Reviewed: hgb 8.9, hct 28.8, alb 2.9, Na 130, Cl 92, GFR 38, BUN 85, Cr 1.40, AST 53 Meds Noted: albuterol, budesonide, maxipime, fentanyl, heparin, lantus, atrovent, versed, protonix, miralax, propofol, betapace Skin: buttock maceration Additional Notes: Pt remains on mechanical ventilation and tube feeding of Nepro running at goal rate of 45mL/hr over 22 hours providing 1782kcal, 80g of protein, and 720mL of water, meeting 96% of protein needs. Propofol currently running at 5.89mL/hr over 24 hours will provide an additional 155kcal of lipids. Total kcal provided is 1937kcal, meeting 105% of kcal needs. Nursing reports that pt is tolerating tube feeding and rate. Agree with diet order at this time. Will continue to follow. Follow daily in ICU rounds. Will monitor every Tuesday and Tuesday.
[2021-07-31 15:36] LABS: Partial Thromboplastin Time 113.8 SECONDS (22.3-36.8)
[2021-07-31 16:41] LABS: Glucose Point of Care 194 mg/dl (65-105)
[2021-07-31] MEDS: MIDAZOLAM 100MG/NS 100ML(*CRX) 100 MG/100 ML BAG IV CONT (17:59)
[2021-07-31] MEDS: FENTANYL 2,500MCG/NS250ML(*CRX 2,500 MCG/250 ML BAG 10 MCG IV CONT (19:35)
[2021-07-31 19:55] LABS: Glucose Point of Care 179 mg/dl (65-105)
--- NOTE | 2021-07-31 22:46 | ECG_ITS ---
Measurements Intervals [place] Rate: 90 P: MI: 0 QRS: 64 QRSD: 89 T: 55 QT: 368 QTc: 451 Interpretive Statements ATRIAL FIBRILLATION BASELINE ARTIFACT- V5 ABNORMAL ECG Electronically Signed On 08-01-2021 8:30:51 [employer] by Jase Bailey D.O.
[2021-07-31 23:03] LABS: Partial Thromboplastin Time 65.3 SECONDS (22.3-36.8)
[2021-08-01] VITALS (34 sets, daily range): BP systolic 78–152; BP diastolic 42–78; PULSE 58–111; RESP 26–28; TEMP 36.1–37.1; O2SAT 91–100
[2021-08-01] MEDS: HEPARIN SODIUM 5,000 UNITS/ML VIAL 3000 UNITS IV PUSH ×2 (01:01→08:07)
[2021-08-01 01:13] LABS: Glucose Point of Care 140 mg/dl (65-105)
[2021-08-01] MEDS: PROPOFOL IV EMULSION 100 ML 2.94 MG IV CONT (02:17)
[2021-08-01] MEDS: ALBUTEROL SULFATE NEB 2.5 MG/0.5 ML INH 5 MG INHALATION ×4 (03:00→20:33)
[2021-08-01] MEDS: IPRATROPIUM BR 0.02% INH SOLN 0.5 MG/2.5 ML VIAL INHALATION ×4 (03:00→20:33)
[2021-08-01 04:53] LABS: Partial Thromboplastin Time 67.4 SECONDS (22.3-36.8)
[2021-08-01 05:28] LABS: Glucose Point of Care 127 mg/dl (65-105)
[2021-08-01 05:43] LABS: Alveolar/Arterial O2 Gradient 599.3 mmHg; Base Excess ABG 7.3 mEq/l (+/-2.0); Carboxyhemoglobin 0.2 % THb (0-2.0); Fractional Inspired Oxygen 100 %; HCO3 ABG 32.1 mEq/l (22.0-26.0); Methemoglobin ABG 0.5 %THb (0-1.5); Oxygen Content ABG 14.3 %vol (16.0-22.0); Oxygen Saturation ABG 94.3 % (95.0-100.0); Oxyhemoglobin 91.5 % THb (90.0-100.0); PO2 ABG 67.7 mmHg (80.0-100.0); PO2 FiO2 Ratio Arterial Blood 0.68 %; Reduced Hemoglobin 7.8 %THb (0-5.0); Total Hemoglobin 11.1 g/dL (12.0-18.0); pH ABG 7.461 (7.350-7.450)
[2021-08-01 05:50] LABS: Device VENTILATOR; Modified Allen's Test Pass; Site Drawn RIGHT RADIAL
[2021-08-01 05:51] LABS: Arterial Blood Gas PEEP 10 cmH2O; Arterial Blood Gas Tidal Volume 420 ml; Arterial Blood Gas Vent Mode CMV; Arterial Blood Gas Ventilator rate 28 /MIN
[2021-08-01] MEDS: HEPARIN SOD/D5W 100 UNITS/ML 25,000 UNITS/250 ML BAG 22 UNITS IV CONT (08:08)
[2021-08-01] MEDS: PANTOPRAZOLE SODIUM IV 40 MG VIAL IV PUSH (08:11)
[2021-08-01] MEDS: BUMETANIDE INJ 1 MG/4 ML VIAL IV PUSH ×2 (08:11→20:07)
[2021-08-01] MEDS: MINERAL OIL/WHITE PETROLATUM OINTMENT 1 APPLIC EACH EYE ×2 (08:11→20:03)
[2021-08-01] MEDS: polyethylene glycoL 3350 17 GM POWD.PACK PO (08:11)
[2021-08-01 08:37] LABS: Glucose Point of Care 116 mg/dl (65-105)
[2021-08-01] MEDS: BUDESONIDE RESPULE NEB 0.5 MG/2 ML AMP INHALATION ×2 (08:38→20:33)
[2021-08-01] MEDS: INSULIN GLARGINE (*BKC) 100 UNITS/ML 20 UNITS SUB-Q (08:55)
[2021-08-01 09:06] LABS: Hematocrit 28.9 % (37.0-47.0); Mean Corpuscular HGB Conc 31.1 g/dl (32-36); Mean Corpuscular Hemoglobin 29.3 pg (26-34); Mean Corpuscular Volume 94.1 fl (80-100); Mean Platelet Volume 11.2 fl (7.4-10.4); Platelet Count Result 432 k/mm3 (150-375); Red Blood Count 3.07 M/mm3 (4.2-5.4); Red Cell Distribution Width 15.9 % (11.5-14.5); White Blood Count 19.8 K/mm3 (4.5-10.0)
[2021-08-01 09:17] LABS: Anion Gap 6 mmol/L (8-16); Blood Urea Nitrogen 77 mg/dL (7-17); Carbon Dioxide 32 mmol/L (22-30); Chloride 94 mmol/L (98-107); Estimated CRCL calculation 55 ml/min; Estimated Glomerular Filt Rate 50; Glucose 127 mg/dL (65-110); Phosphorus 3.7 mg/dL (2.5-4.5); Potassium 3.7 mmol/L (3.4-5.0); Sodium 132 mmol/L (137-145)
[2021-08-01 09:55] LABS: Atypical Lymphocytes Present; Band Neutrophils Percent 14 % (0-6); Basophils Absolute Manual 0.19 K/mm3 (0.0-0.1); Basophils Percent Manual 1 % (0-1); Eosinophils Absolute Manual 0.19 K/mm3 (0.02-0.5); Eosinophils Percent Manual 1 % (0-4); Hypochromasia 1+ (NORMAL); Lymphocytes Absolute Manual 1.98 K/mm3 (1.1-4.5); Metamyelocytes Percent 1 %; Monocytes Absolute Manual 0.79 K/mm3 (0.1-0.90); Monocytes Percent Manual 4 % (3-9); Neutrophils Absolute Manual 16.43 K/mm3 (1.7-7.2); Neutrophils Percent Manual 69 % (46-73); Platelet Estimate Increased (Adequate); Total Cells Counted 100
--- NOTE | 2021-08-01 11:07 | P.PNNP_ITS ---
Progress Note: A&P Assessment and Plan (1) Acute renal failure: Qualifiers: Acute renal failure type: unspecified Qualified Code(s): N17.9 - Acute kidney failure, unspecified Code(s): N17.9 - Acute kidney failure, unspecified Status: Acute Assessment and Plan: * Acute kidney injury * evaluation to date reveals: * renal ultrasound with normal kidney sizes but a 3.9ccm left kidney mass suspicious for renal cell carcinoma * urine electrolytes that are non-prerenal * mildly elevated CPK but not high enough to affect kidney function * Most likely due to COVID-19 and prior hypotension. * peak/plateau of creatinine at 3.2mg/dl * creatinine down to 1.1. * Discussed with Dr. Kimble. * Will increase Bumex to 1mg b.i.d. * I agree with albumin since her blood pressure is a bit soft. Will check a cortisol level (2) Acute respiratory failure with hypoxia: Code(s): J96.01 - Acute respiratory failure with hypoxia Status: Acute Assessment and Plan: * due to #3 * known history of COPD and ongoing smoking history also likely contributing * continue inhalers * continue ventilator support (3) Pneumonia due to COVID-19 virus: Code(s): U07.1 - COVID-19; J12.82 - Pneumonia due to coronavirus disease 2018 Status: Acute Assessment and Plan: * known positivity 4 days prior to admssion * currently on dexamethasone * s/p tocilizumab on 07/22/2021 (4) Urinary tract infection: Code(s): N39.0 - Urinary tract infection, site not specified Status: Acute Assessment and Plan: * urine culture with E.coli * on cefepime (5) Diabetes: Code(s): E11.9 - Type 2 diabetes mellitus without complications Status: Acute Assessment and Plan: * On Accu-Cheks and sliding-scale insulin Subjective Date/time seen: 08/01/21 11:07 Interval history: Divya is in the ICU on the ventilator, on paralytics and sedatives.. On no pressors. FiO2 is up to 100% now. Exam Narrative: General: Elderly female intubated/sedated/paralyzed Heart: Irregular rhythm no rub or gallop Lungs: coarse bilateral Abdomen: soft, nontender, nondistended, positive bowel sounds Extremities: no edema Skin: No rash Objective Data Vital Signs Vital Signs: Vital Signs - 24 hr 07/31/21 11:45 07/31/21 12:00 07/31/21 12:08 Temperature 37.3 C Pulse Rate 124 H 123 H 120 H Respiratory Rate 28 H Blood Pressure 115/52 L Pulse Oximetry 94 97 07/31/21 13:57 07/31/21 14:00 07/31/21 14:08 Temperature 37.0 C Pulse Rate 97 99 102 H Respiratory Rate 30 H 28 H 30 H Blood Pressure 94/54 L Pulse Oximetry 95 07/31/21 14:21 07/31/21 14:41 07/31/21 14:42 Temperature Pulse Rate 97 92 92 Respiratory Rate 28 H 28 H Blood Pressure Pulse Oximetry 95 07/31/21 16:00 07/31/21 17:18 07/31/21 17:59 Temperature 37.0 C Pulse Rate 100 118 H 101 H Respiratory Rate 28 H 28 H Blood Pressure 113/74 Pulse Oximetry 95 97 07/31/21 18:00 07/31/21 18:40 07/31/21 18:43 Temperature 37.1 C Pulse Rate 102 H 96 116 H Respiratory Rate 28 H 28 H 27 H
--- NOTE | 2021-08-01 11:07 | PM.PNNEP ---
Progress Note: A&P Assessment and Plan (1) Acute renal failure: Qualifiers: Acute renal failure type: unspecified Qualified Code(s): N17.9 - Acute kidney failure, unspecified Code(s): N17.9 - Acute kidney failure, unspecified Status: Acute Assessment and Plan: Acute kidney injury evaluation to date reveals: renal ultrasound with normal kidney sizes but a 3.9ccm left kidney mass suspicious for renal cell carcinoma urine electrolytes that are non-prerenal mildly elevated CPK but not high enough to affect kidney function Most likely due to COVID-19 and prior hypotension. peak/plateau of creatinine at 3.2mg/dl creatinine down to 1.1. Discussed with Dr. Kimble. Will increase Bumex to 1mg b.i.d. I agree with albumin since her blood pressure is a bit soft. Will check a cortisol level (2) Acute respiratory failure with hypoxia: Code(s): J96.01 - Acute respiratory failure with hypoxia Status: Acute Assessment and Plan: due to #3 known history of COPD and ongoing smoking history also likely contributing continue inhalers continue ventilator support (3) Pneumonia due to COVID-19 virus: Code(s): U07.1 - COVID-19; J12.82 - Pneumonia due to coronavirus disease 2018 Status: Acute Assessment and Plan: known positivity 4 days prior to admssion currently on dexamethasone s/p tocilizumab on 07/22/2021 (4) Urinary tract infection: Code(s): N39.0 - Urinary tract infection, site not specified Status: Acute Assessment and Plan: urine culture with E.coli on cefepime (5) Diabetes: Code(s): E11.9 - Type 2 diabetes mellitus without complications Status: Acute Assessment and Plan: On Accu-Cheks and sliding-scale insulin Subjective Date/time seen: 08/01/21 11:07 Interval history: Divya is in the ICU on the ventilator, on paralytics and sedatives.. On no pressors. FiO2 is up to 100% now. Exam Narrative: General: Elderly female intubated/sedated/paralyzed Heart: Irregular rhythm no rub or gallop Lungs: coarse bilateral Abdomen: soft, nontender, nondistended, positive bowel sounds Extremities: no edema Skin: No rash Objective Data Vital Signs Vital Signs: Vital Signs - 24 hr 07/31/21 11:45 07/31/21 12:00 07/31/21 12:08 Temperature 37.3 C Pulse Rate 124 H 123 H 120 H Respiratory Rate 28 H Blood Pressure 115/52 L Pulse Oximetry 94 97 07/31/21 13:57 07/31/21 14:00 07/31/21 14:08 Temperature 37.0 C Pulse Rate 97 99 102 H Respiratory Rate 30 H 28 H 30 H Blood Pressure 94/54 L Pulse Oximetry 95 07/31/21 14:21 07/31/21 14:41 07/31/21 14:42 Temperature Pulse Rate 97 92 92 Respiratory Rate 28 H 28 H Blood Pressure Pulse Oximetry 95 07/31/21 16:00 07/31/21 17:18 07/31/21 17:59 Temperature 37.0 C Pulse Rate 100 118 H 101 H Respiratory Rate 28 H 28 H Blood Pressure 113/74 Pulse Oximetry 95 97 07/31/21 18:00 07/31/21 18:40 07/31/21 18:43 Temperature 37.1 C Pulse Rate 102 H 96 116 H Respiratory Rate 28 H 28 H 27 H Blood Pressure 96/60 L Pulse Oximetry 94 07/31/21 19:35 07/31/21 20:00 07/31/21 20:15 Temperature 36.9 C Pulse Rate 116 H 112 H 96 Respiratory Rate 27 H 28 H 28 H Blood Pressure 126/82 Pulse Oximetry 93 07/31/21 21:35 07/31/21 22:00 07/31/21 23:15 Temperature 36.9 C Pulse Rate 97 101 H 101 H Respiratory Rate 28 H 28 H Blood Pressure 95/57 L Pulse Oximetry 94 93 08/01/21 00:00 08/01/21 02:00 08/01/21 02:17 Temperature 37.1 C 36.9 C Pulse Rate 111 H 97 97 Respiratory Rate 26 H 28 H 28 H Blood Pressure 152/75 H 89/51 L Pulse Oximetry 91 94 08/01/21 02:50 08/01/21 03:00 08/01/21 03:34 Temperature Pulse Rate 94 91 103 H Respiratory Rate 28 H 28 H Blood Pressure Pulse Oximetry 94 08/01/21 04:00 08/01/21 05:39 08/01/21 06:00 Temperature 37.1 C
[2021-08-01] MEDS: CEFEPIME 2 GM in DEXTROSE 5% IN WATER 50 ML IVPB ×2 (11:14→20:01)
[2021-08-01] MEDS: ALBUMIN HUMAN 25% 25 GM/100 ML 100 ML IVPB ×3 (11:20→23:17)
[2021-08-01 11:35] LABS: Glucose Point of Care 95 mg/dl (65-105)
--- NOTE | 2021-08-01 11:40 | PM.PNCARD ---
Progress Note: A&P Additional Plan 66-year-old lady with atrial fibrillation in the setting of coronavirus pneumonia. Sotalol has converted her to sinus rhythm. Will continue this and change her anticoagulation to apixaban. Huber Sarabia MD [facility] Subjective Date/time seen: Date of service: 08/01/21 11:40 Interval history: Follow-up visit in this 66-year-old woman with: Onset of atrial fibrillation with RVR during this hospitalization caused by the respiratory distress of COVID pneumonia. She has persisting in atrial fibrillation despite intravenous amiodarone that was started several days ago and metoprolol being given down the gastric tube. Patient remains in the ICU on ventilator support in prone position. Chest x-ray continues to show severe COVID pneumonia Date of service 08/01/2021: Patient remains intubated sedated in the ICU. Following initiation of treatment with sotalol yesterday she has converted to sinus rhythm. Exam Narrative: Intubated sedated. Appears stated age Const: General: comfortable; No in distress Other: Intubated sedated white female in the prone position HENMT: General nose exam: Normal nares present Eyes: Sclera: sclerae normal Neck: Neck: supple and no JVD Chest: Other: No chest deformity Resp: Auscultation: diminished lung sounds Other: Coarse rhonchi throughout both lung vidal Cardio: Rate: regular rate Rhythm: regular rhythm GI: Auscultation: normal bowel sounds Skin: General skin exam: normal color Neuro: General: other (Intubated sedated on ventilator) Cognition (Neuro): abnormal cognition Extrem: General: no edema Other: No significant edema adequate distal perfusion Psych: Mental Status: other (Cannot be assessed) Objective Data Vital Signs Vital Signs: Vital Signs - 24 hr 07/31/21 11:45 07/31/21 12:00 07/31/21 12:08 Temperature 37.3 C Pulse Rate 124 H 123 H 120 H Respiratory Rate 28 H Blood Pressure 115/52 L Pulse Oximetry 94 97 07/31/21 13:57 07/31/21 14:00 07/31/21 14:08 Temperature 37.0 C Pulse Rate 97 99 102 H Respiratory Rate 30 H 28 H 30 H Blood Pressure 94/54 L Pulse Oximetry 95 07/31/21 14:21 07/31/21 14:41 07/31/21 14:42 Temperature Pulse Rate 97 92 92 Respiratory Rate 28 H 28 H Blood Pressure Pulse Oximetry 95 07/31/21 16:00 07/31/21 17:18 07/31/21 17:59 Temperature 37.0 C Pulse Rate 100 118 H 101 H Respiratory Rate 28 H 28 H Blood Pressure 113/74 Pulse Oximetry 95 97 07/31/21 18:00 07/31/21 18:40 07/31/21 18:43 Temperature 37.1 C Pulse Rate 102 H 96 116 H Respiratory Rate 28 H 28 H 27 H Blood Pressure 96/60 L Pulse Oximetry 94 07/31/21 19:35 07/31/21 20:00 07/31/21 20:15 Temperature 36.9 C Pulse Rate 116 H 112 H 96 Respiratory Rate 27 H 28 H 28 H Blood Pressure 126/82 Pulse Oximetry 93 07/31/21 21:35 07/31/21 22:00 07/31/21 23:15 Temperature 36.9 C Pulse Rate 97 101 H 101 H Respiratory Rate 28 H 28 H Blood Pressure 95/57 L Pulse Oximetry 94 93 08/01/21 00:00 08/01/21 02:00 08/01/21 02:17 Temperature 37.1 C 36.9 C Pulse Rate 111 H 97 97 Respiratory Rate 26 H 28 H 28 H Blood Pressure 152/75 H 89/51 L Pulse Oximetry 91 94 08/01/21 02:50 08/01/21 03:00 08/01/21 03:34 Temperature Pulse Rate 94 91 103 H Respiratory Rate 28 H 28 H Blood Pressure Pulse Oximetry 94 08/01/21 04:00 08/01/21 05:39 08/01/21 06:00 Temperature 37.1 C Pulse Rate 95 92 90 Respiratory Rate 28 H 28 H Blood Pressure 87/49 L 90/59 L Pulse Oximetry 92 95 92 08/01/21 08:00 08/01/21 08:38 08/01/21 08:43 Temperature 36.8 C Pulse Rate 88 92 108 H Respiratory Rate 28 H 28 H Blood Pressure 83/50 L Pulse Oximetry 95 91 08/01/21 10:00 08/01/21 11:32 Temperature 36.1 C L Pulse Rate 88 64 Respiratory Rate 28 H Blood Pressure 80/51 L Pulse Oximetry 92 94 Intake/Output Intake/Output: Intake & Output 07/29/21 07/30/2107/03
--- NOTE | 2021-08-01 11:50 | WPDINTPN ---
Progress Note: A&P Assessment and Plan (1) Acute respiratory failure with hypoxia: Code(s): J96.01 - Acute respiratory failure with hypoxia Status: Acute Assessment and Plan: Patient presented the ED on 07/20/2021 late evening, was hypoxic and was placed on BiPAP. She was on 100% FiO2 antibiotic, and failed as she was hypoxic with low O2 sats. 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 Patient is probably a PEEP responsive, will continue type of 12 for now and wean FiO2 to maintain O2 sats greater than 90% -chest x-ray this morning shows worsened diffuse lung disease consistent with COVID 19 pneumonia -continue bronchodilators -continue Pulmicort -sedated with fentanyl and Versed infusion, Nimbex for neuromuscular blockade, will start weaning Nimbex to off, will add propofol if necessary for ventilator synchrony -discussed with Nephrology, will increase diuresis, Bumex 1 mg IV q.12 hours starting 08/01/2020 (2) Pneumonia due to COVID-19 virus: Code(s): U07.1 - COVID-19; J12.82 - Pneumonia due to coronavirus disease 2019 Status: Acute Assessment and Plan: Patient was COVID positive on 07/16/2021 this was 4 days prior to admission according the patient's medical records. -completed dexamethasone -not a candidate for remdesivir due to acute kidney injury and elevated creatinine -CRP 29.2, Received tocilizumab on 07/22/2021 -continue airborne, droplet, contact isolation/precautions (3) Diabetes mellitus with hyperglycemia: Qualifiers: Diabetes mellitus type: type 2 Diabetes mellitus shelter insulin use: without long term care administrator use Qualified Code(s): E11.65 - Type 2 diabetes mellitus with hyperglycemia Code(s): E11.65 - Type 2 diabetes mellitus with hyperglycemia Status: Acute Assessment and Plan: Patient hyperglycemic which could be related to stress response and or steroids -continue sliding scale insulin, Accu-Cheks - off insulin infusion since 07/26, continue Lantus to 20 mg SQ q.12 hours. Now that she is off steroids (4) Acute renal failure: Qualifiers: Acute renal failure type: unspecified Qualified Code(s): N17.9 - Acute kidney failure, unspecified Code(s): N17.9 - Acute kidney failure, unspecified Status: Acute Assessment and Plan: Acute kidney injury, could be related to hypoxia, COVID-19, hypotension, AFib, also has a history of diabetes and hypertension which could be contributing to that also. (last creatinine was on 12/08/2020 was 1.4). Patient was admitted with a creatinine of 3.7, -Patient did receive 2 L of IV fluid bolus on07/22 for hypotension. -will continue to monitor urine output, obtain urine lytes -renal ultrasound showed normal kidney size, no hydronephrosis. 3.9 cm left kidney mass suspicious for renal cell carcinoma, abdominal CT without and with contrast is recommended after improvement in kidney function -continue to monitor renal function, electrolytes and urine output -creatinine stable - appreciate Nephrology evaluation recommendation (5) HTN (hypertension): Code(s): I10 - Essential (primary) hypertension Status: Acute Assessment and Plan: Blood pressure are borderline, patient was on Levophed briefly on admission to the ICU -currently off Levophed - continue to maintain adequate mean arterial pressures for end-organ perfusion (6) Afib: Code(s): I48.91 - Unspecified atrial fibrillation Status: Acute Assessment and Plan: Patient was in AFib RVR, requiring amiodarone infusion, heparin infusion. -cardiology switched to sotalol on 07/31/2021: -patient in sinus rhythm this morning -discuss with cardiology regarding heparin infusion, cardiology will switch to apixaban 5 mg p.o. q.12 hours, will discontinue heparin drip - (7) DVT prophylaxis: Code(s): Z2
[2021-08-01] MEDS: NOREPINEPHRINE 8 MG/D5W 250 ML 8 MG/250 ML BAG 9.38 MG IV CONT (12:20)
[2021-08-01 18:39] LABS: Glucose Point of Care 107 mg/dl (65-105)
[2021-08-01] MEDS: APIXABAN 5 MG TABLET PO (20:04)
[2021-08-01] MEDS: SOTALOL HCL 80 MG TABLET PO (20:04)
[2021-08-01] MEDS: FENTANYL 2,500MCG/NS250ML(*CRX 2,500 MCG/250 ML BAG 10 MCG IV CONT (21:45)
[2021-08-01] MEDS: MIDAZOLAM 100MG/NS 100ML(*CRX) 100 MG/100 ML BAG IV CONT (21:45)
[2021-08-01 22:06] LABS: Glucose Point of Care 79 mg/dl (65-105)
[2021-08-01 22:11] LABS: Cortisol Random 3.12 ug/dL
[2021-08-01] MEDS: PROPOFOL IV EMULSION 100 ML 5.89 MG IV CONT (22:16)
[2021-08-01 23:29] LABS: Glucose Point of Care 93 mg/dl (65-105)
[2021-08-02] VITALS (44 sets, daily range): BP systolic 85–156; BP diastolic 40–68; PULSE 57–82; RESP 24–28; TEMP 36.6–37.7; O2SAT 76–97
[2021-08-02 05:37] LABS: Total Hemoglobin 13.6 g/dL (12.0-18.0)
[2021-08-02 05:38] LABS: Oxygen Content ABG 1.8 %vol (16.0-22.0)
[2021-08-02 05:39] LABS: Carboxyhemoglobin 0.3 % THb (0-2.0); Fractional Inspired Oxygen 90 %; Methemoglobin ABG 0.1 %THb (0-1.5); Reduced Hemoglobin 2.7 %THb (0-5.0)
[2021-08-02 05:40] LABS: Arterial Blood Gas Vent Mode CMV; Arterial Blood Gas Ventilator rate 28 /MIN; Device VENTILATOR; Modified Allen's Test Pass; Site Drawn RIGHT RADIAL
[2021-08-02 05:41] LABS: Arterial Blood Gas PEEP 12 cmH2O; Arterial Blood Gas Tidal Volume 420 ml
[2021-08-02] MEDS: ALBUMIN HUMAN 25% 25 GM/100 ML 100 ML IVPB (05:52)
[2021-08-02 06:13] LABS: Alanine Aminotransferase 60 U/L (4-35); Albumin Level 3.5 g/dL (3.5-5.1); Alkaline Phosphatase 121 U/L (38-126); Anion Gap 6 mmol/L (8-16); Aspartate Amino Transferase 95 U/L (14-36); Bilirubin,Total 0.5 mg/dL (0.2-1.3); Blood Urea Nitrogen 75 mg/dL (7-17); Calcium 10.3 mg/dL (8.4-10.2); Carbon Dioxide 33 mmol/L (22-30); Chloride 95 mmol/L (98-107); Estimated CRCL calculation 55 ml/min; Estimated Glomerular Filt Rate 50; Glucose 104 mg/dL (65-110); Magnesium 1.9 mg/dL (1.6-2.3); Phosphorus 4.1 mg/dL (2.5-4.5); Potassium 3.5 mmol/L (3.4-5.0); Sodium 134 mmol/L (137-145)
[2021-08-02] MEDS: BUDESONIDE RESPULE NEB 0.5 MG/2 ML AMP INHALATION ×2 (08:12→20:18)
[2021-08-02] MEDS: IPRATROPIUM BR 0.02% INH SOLN 0.5 MG/2.5 ML VIAL INHALATION ×4 (08:12→20:18)
[2021-08-02] MEDS: ALBUTEROL SULFATE NEB 2.5 MG/0.5 ML INH 5 MG INHALATION ×4 (08:13→20:18)
[2021-08-02] MEDS: CEFEPIME 2 GM in DEXTROSE 5% IN WATER 50 ML IVPB ×2 (08:50→21:18)
[2021-08-02] MEDS: BUMETANIDE INJ 1 MG/4 ML VIAL IV PUSH (08:59)
[2021-08-02] MEDS: PANTOPRAZOLE SODIUM IV 40 MG VIAL IV PUSH (08:59)
[2021-08-02] MEDS: polyethylene glycoL 3350 17 GM POWD.PACK PO (08:59)
[2021-08-02] MEDS: MINERAL OIL/WHITE PETROLATUM OINTMENT 1 APPLIC EACH EYE ×2 (09:00→21:23)
[2021-08-02] MEDS: APIXABAN 5 MG TABLET PO ×2 (09:00→21:22)
[2021-08-02 09:12] LABS: Glucose Point of Care 125 mg/dl (65-105)
--- NOTE | 2021-08-02 09:27 | WPDINTPN ---
Progress Note: A&P Assessment and Plan (1) Acute respiratory failure with hypoxia: Code(s): J96.01 - Acute respiratory failure with hypoxia Status: Acute Assessment and Plan: Patient presented the ED on 07/20/2021 late evening, was hypoxic and was placed on BiPAP. She was on 100% FiO2 antibiotic, and failed as she was hypoxic with low O2 sats. 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 ABG showed respiratory alkalosis and a PO2 of 160, will decrease respiratory rate to 24 and wean FiO2 to maintain O2 sats greater than 90% -chest x-ray this morning shows stable airspace disease -continue bronchodilators -continue Pulmicort -sedated with fentanyl, Versed and propofol infusion. Patient is OFF Nimbex -discussed with Nephrology, continue diuresis with Bumex 1 mg IV q.12 hours (2) Pneumonia due to COVID-19 virus: Code(s): U07.1 - COVID-19; J12.82 - Pneumonia due to coronavirus disease 2019 Status: Acute Assessment and Plan: Patient was COVID positive on 07/16/2021 this was 4 days prior to admission according the patient's medical records. -completed dexamethasone -not a candidate for remdesivir due to acute kidney injury and elevated creatinine -CRP 29.2, Received tocilizumab on 07/22/2021 -continue airborne, droplet, contact isolation/precautions (3) Diabetes mellitus with hyperglycemia: Qualifiers: Diabetes mellitus type: type 2 Diabetes mellitus detention insulin use: without assistant community manager use Qualified Code(s): E11.65 - Type 2 diabetes mellitus with hyperglycemia Code(s): E11.65 - Type 2 diabetes mellitus with hyperglycemia Status: Acute Assessment and Plan: Patient hyperglycemic which could be related to stress response and or steroids -continue sliding scale insulin, Accu-Cheks - off insulin infusion since 07/26, continue Lantus to 20 mg SQ q.12 hours. Now that she is off steroids (4) Acute renal failure: Qualifiers: Acute renal failure type: unspecified Qualified Code(s): N17.9 - Acute kidney failure, unspecified Code(s): N17.9 - Acute kidney failure, unspecified Status: Acute Assessment and Plan: Acute kidney injury, could be related to hypoxia, COVID-19, hypotension, AFib, also has a history of diabetes and hypertension which could be contributing to that also. (last creatinine was on 12/08/2020 was 1.4). Patient was admitted with a creatinine of 3.7, -Patient did receive 2 L of IV fluid bolus on07/22 for hypotension. -will continue to monitor urine output, obtain urine lytes -renal ultrasound showed normal kidney size, no hydronephrosis. 3.9 cm left kidney mass suspicious for renal cell carcinoma, abdominal CT without and with contrast is recommended after improvement in kidney function -continue to monitor renal function, electrolytes and urine output -creatinine stable - appreciate Nephrology evaluation recommendation (5) HTN (hypertension): Code(s): I10 - Essential (primary) hypertension Status: Acute Assessment and Plan: Blood pressure are borderline, patient was on Levophed briefly on admission to the ICU -currently off Levophed - continue to maintain adequate mean arterial pressures for end-organ perfusion (6) Afib: Code(s): I48.91 - Unspecified atrial fibrillation Status: Acute Assessment and Plan: Patient was in AFib RVR, requiring amiodarone infusion, heparin infusion. -cardiology switched to sotalol on 07/31/2021: -patient in sinus rhythm this morning -discuss with cardiology regarding heparin infusion, cardiology will switch to apixaban 5 mg p.o. q.12 hours, will discontinue heparin drip - (7) DVT prophylaxis: Code(s): Z29.9 - Encounter for prophylactic measures, unspecified Status: Acute Assessment and Plan: Apixaban (8) Shock: Code(s): R57.9 - Shock, unspecified Status: Acute Assessment and Plan: Sophy
[2021-08-02] MEDS: INSULIN GLARGINE (*BKC) 100 UNITS/ML 20 UNITS SUB-Q ×2 (09:49→21:20)
--- NOTE | 2021-08-02 10:54 | P.PNNP_ITS ---
Progress Note: A&P Assessment and Plan (1) Acute renal failure: Qualifiers: Acute renal failure type: unspecified Qualified Code(s): N17.9 - Acute kidney failure, unspecified Code(s): N17.9 - Acute kidney failure, unspecified Status: Acute Assessment and Plan: * Acute kidney injury * evaluation to date reveals: * renal ultrasound with normal kidney sizes but a 3.9ccm left kidney mass suspicious for renal cell carcinoma * urine electrolytes that are non-prerenal * mildly elevated CPK but not high enough to affect kidney function * Most likely due to COVID-19 and prior hypotension. * peak/plateau of creatinine at 3.2mg/dl * creatinine is stable at 1.1. * Discussed with Dr. Kimble. * Will continue diuretics. * Cortisol level only 3.12. Will check Cortrosyn stim test. (2) Acute respiratory failure with hypoxia: Code(s): J96.01 - Acute respiratory failure with hypoxia Status: Acute Assessment and Plan: * due to #3 * known history of COPD and ongoing smoking history also likely contributing * continue inhalers * continue ventilator support (3) Pneumonia due to COVID-19 virus: Code(s): U07.1 - COVID-19; J12.82 - Pneumonia due to coronavirus disease 2018 Status: Acute Assessment and Plan: * known positivity 4 days prior to admission * currently off dexamethasone * s/p tocilizumab on 07/22/2021 (4) Urinary tract infection: Code(s): N39.0 - Urinary tract infection, site not specified Status: Acute Assessment and Plan: * urine culture with E.coli * on cefepime (5) Diabetes: Code(s): E11.9 - Type 2 diabetes mellitus without complications Status: Acute Assessment and Plan: * On Accu-Cheks and sliding-scale insulin Subjective Date/time seen: 08/02/21 10:55 Interval history: Divya is in the ICU on the ventilator, on sedatives.. On no pressors. FiO2 is down a little bit to 90%. Exam Narrative: General: Elderly female intubated/sedated/paralyzed Heart: Irregular rhythm no rub or gallop Lungs: coarse to auscultation Abdomen: soft, nontender, nondistended, positive bowel sounds Extremities: no edema Skin: No rash Objective Data Vital Signs Vital Signs: Vital Signs - 24 hr 08/01/21 11:32 08/01/21 12:00 08/01/21 12:20 Temperature 36.8 C Pulse Rate 64 58 L 58 L Respiratory Rate 28 H Blood Pressure 78/42 L 78/42 L Pulse Oximetry 94 95 08/01/21 14:00 08/01/21 14:10 08/01/21 14:15 Temperature 36.7 C Pulse Rate 60 59 L 60 Respiratory Rate 28 H 28 H Blood Pressure 99/48 L Pulse Oximetry 93 93 08/01/21 16:00 08/01/21 18:00 08/01/21 20:00 Temperature 36.3 C L 36.3 C L 36.7 C Pulse Rate 71 60 68 Respiratory Rate 28 H 28 H 28 H Blood Pressure 108/53 L 110/54 L 150/78 H Pulse Oximetry 94 97 98 08/01/21 20:04 08/01/21 20:08 08/01/21 20:09 Temperature Pulse Rate 67 73 74 Respiratory Rate 28 H 28 H Blood Pressure Pulse Oximetry 08/01/21 20:10 08/01/21 20:25 08/01/21 20:33 Temperature Pulse Rate 74 66 64 Respiratory Rate 28 H Blood Pressure 150/78 H 127/5
--- NOTE | 2021-08-02 10:54 | PM.PNNEP ---
Progress Note: A&P Assessment and Plan (1) Acute renal failure: Qualifiers: Acute renal failure type: unspecified Qualified Code(s): N17.9 - Acute kidney failure, unspecified Code(s): N17.9 - Acute kidney failure, unspecified Status: Acute Assessment and Plan: Acute kidney injury evaluation to date reveals: renal ultrasound with normal kidney sizes but a 3.9ccm left kidney mass suspicious for renal cell carcinoma urine electrolytes that are non-prerenal mildly elevated CPK but not high enough to affect kidney function Most likely due to COVID-19 and prior hypotension. peak/plateau of creatinine at 3.2mg/dl creatinine is stable at 1.1. Discussed with Dr. Kimble. Will continue diuretics. Cortisol level only 3.12. Will check Cortrosyn stim test. (2) Acute respiratory failure with hypoxia: Code(s): J96.01 - Acute respiratory failure with hypoxia Status: Acute Assessment and Plan: due to #3 known history of COPD and ongoing smoking history also likely contributing continue inhalers continue ventilator support (3) Pneumonia due to COVID-19 virus: Code(s): U07.1 - COVID-19; J12.82 - Pneumonia due to coronavirus disease 2018 Status: Acute Assessment and Plan: known positivity 4 days prior to admission currently off dexamethasone s/p tocilizumab on 07/22/2021 (4) Urinary tract infection: Code(s): N39.0 - Urinary tract infection, site not specified Status: Acute Assessment and Plan: urine culture with E.coli on cefepime (5) Diabetes: Code(s): E11.9 - Type 2 diabetes mellitus without complications Status: Acute Assessment and Plan: On Accu-Cheks and sliding-scale insulin Subjective Date/time seen: 08/02/21 10:55 Interval history: Divya is in the ICU on the ventilator, on sedatives.. On no pressors. FiO2 is down a little bit to 90%. Exam Narrative: General: Elderly female intubated/sedated/paralyzed Heart: Irregular rhythm no rub or gallop Lungs: coarse to auscultation Abdomen: soft, nontender, nondistended, positive bowel sounds Extremities: no edema Skin: No rash Objective Data Vital Signs Vital Signs: Vital Signs - 24 hr 08/01/21 11:32 08/01/21 12:00 08/01/21 12:20 Temperature 36.8 C Pulse Rate 64 58 L 58 L Respiratory Rate 28 H Blood Pressure 78/42 L 78/42 L Pulse Oximetry 94 95 08/01/21 14:00 08/01/21 14:10 08/01/21 14:15 Temperature 36.7 C Pulse Rate 60 59 L 60 Respiratory Rate 28 H 28 H Blood Pressure 99/48 L Pulse Oximetry 93 93 08/01/21 16:00 08/01/21 18:00 08/01/21 20:00 Temperature 36.3 C L 36.3 C L 36.7 C Pulse Rate 71 60 68 Respiratory Rate 28 H 28 H 28 H Blood Pressure 108/53 L 110/54 L 150/78 H Pulse Oximetry 94 97 98 08/01/21 20:04 08/01/21 20:08 08/01/21 20:09 Temperature Pulse Rate 67 73 74 Respiratory Rate 28 H 28 H Blood Pressure Pulse Oximetry 08/01/21 20:10 08/01/21 20:25 08/01/21 20:33 Temperature Pulse Rate 74 66 64 Respiratory Rate 28 H Blood Pressure 150/78 H 127/54 L Pulse Oximetry 94 08/01/21 20:35 08/01/21 21:10 08/01/21 21:45 Temperature Pulse Rate 64 68 63 Respiratory Rate 28 H 28 H 28 H Blood Pressure Pulse Oximetry 08/01/21 22:00 08/01/21 22:16 08/01/21 23:20 Temperature Pulse Rate 60 70 66 Respiratory Rate 28 H 28 H Blood Pressure 102/49 L 101/58 L Pulse Oximetry 97 08/02/21 00:00 08/02/21 00:10 08/02/21 00:11 Temperature 37.6 C H Pulse Rate 68 72 72 Respiratory Rate 28 H 28 H Blood Pressure 101/59 L 101/59 L Pulse Oximetry 94 08/02/21 02:00 08/02/21 02:10 08/02/21 02:11 Temperature Pulse Rate 64 64 64 Respiratory Rate 28 H 28 H 28 H Blood Pressure 97/47 L 97/47 L Pulse Oximetry 97 08/02/21 03:12 08/02/21 03:15 08/02/21 03:39 Temperature Pulse Rate 63 64 64 Respiratory Rate 28
[2021-08-02 12:04] LABS: Basophils Absolute Auto 0.1 K/mm3 (0.0-0.1); Basophils Percent Auto 0.3 % (0.2-1.2); Eosinophils Absolute Auto 0.3 K/mm3 (0-0.3); Hemoglobin 7.6 g/dL (12.0-15.0); Immature Granulocyte Absolute 0.44 K/mm3 (0.00-0.031); Immature Granulocyte Percent A 3.1 % (0-0.5); Lymphocytes Absolute Auto 1.34 K/mm3 (0.9-3.2); Lymphocytes Percent Auto 9.3 % (18.3-44.2); Mean Corpuscular HGB Conc 30.4 g/dl (32-36); Mean Corpuscular Hemoglobin 29.7 pg (26-34); Mean Corpuscular Volume 97.7 fl (80-100); Mean Platelet Volume 11.4 fl (7.4-10.4); Monocytes Absolute Auto 0.8 K/mm3 (0.1-0.6); Monocytes Percent Auto 5.6 % (2.6-8.5); Neutrophils Absolute Auto 11.4 K/mm3 (1.3-6.7); Neutrophils Percent Auto 79.7 % (45.5-73.1); Nucleated Red Blood Cells Absolute Auto 0.1 K/mm3 (0.0-0.012); Nucleated Red Blood Cells Perc 0.3 % (0.0-0.2); Platelet Count Result 385 k/mm3 (150-375); Red Blood Count 2.56 M/mm3 (4.2-5.4); Red Cell Distribution Width 16.1 % (11.5-14.5); White Blood Count 14.4 K/mm3 (4.5-10.0)
[2021-08-02] MEDS: PROPOFOL IV EMULSION 100 ML 5.89 MG IV CONT (12:31)
[2021-08-02] MEDS: COSYNTROPIN 0.25 MG/ML VIAL IV PUSH (12:36)
[2021-08-02 12:47] LABS: Glucose Point of Care 124 mg/dl (65-105)
--- NOTE | 2021-08-02 13:03 | PM.PNCARD ---
Progress Note: A&P Additional Plan 66-year-old lady with: Atrial fibrillation the setting of coronavirus pneumonia with respiratory failure/distress. Sotalol seems to have worked well for her to restore sinus rhythm. This will be continued and systemic anticoagulation with apixaban as well. Prognosis is obviously very limited given her ventilator dependency with COVID. Huber Sarabia MD [facility] Subjective Date/time seen: Date of service: 08/02/21 13:03 Interval history: Follow-up visit in this 66-year-old woman with: Onset of atrial fibrillation with RVR during this hospitalization caused by the respiratory distress of COVID pneumonia. She has persisting in atrial fibrillation despite intravenous amiodarone that was started several days ago and metoprolol being given down the gastric tube. Patient remains in the ICU on ventilator support in prone position. Chest x-ray continues to show severe COVID pneumonia Date of service 08/01/2021: Patient remains intubated sedated in the ICU. Following initiation of treatment with sotalol yesterday she has converted to sinus rhythm. Date of service 08/02/2021: Remains intubated sedated in the ICU. Has been in sinus rhythm since sotalol was initiated. Anticoagulated with apixaban. Exam Narrative: Intubated sedated. Appears stated age Const: General: comfortable; No in distress Other: Intubated sedated white female in the prone position HENMT: General nose exam: Normal nares present Eyes: Sclera: sclerae normal Neck: Neck: supple and no JVD Chest: Other: No chest deformity Resp: Auscultation: diminished lung sounds Other: Coarse rhonchi throughout both lung vidal Cardio: Rate: regular rate Rhythm: regular rhythm GI: Auscultation: normal bowel sounds Skin: General skin exam: normal color Neuro: General: other (Intubated sedated on ventilator) Cognition (Neuro): abnormal cognition Extrem: General: no edema Other: No significant edema adequate distal perfusion Psych: Mental Status: other (Cannot be assessed) Objective Data Vital Signs Vital Signs: Vital Signs - 24 hr 08/01/21 14:00 08/01/21 14:10 08/01/21 14:15 Temperature 36.7 C Pulse Rate 60 59 L 60 Respiratory Rate 28 H 28 H Blood Pressure 99/48 L Pulse Oximetry 93 93 08/01/21 16:00 08/01/21 18:00 08/01/21 20:00 Temperature 36.3 C L 36.3 C L 36.7 C Pulse Rate 71 60 68 Respiratory Rate 28 H 28 H 28 H Blood Pressure 108/53 L 110/54 L 150/78 H Pulse Oximetry 94 97 98 08/01/21 20:04 08/01/21 20:08 08/01/21 20:09 Temperature Pulse Rate 67 73 74 Respiratory Rate 28 H 28 H Blood Pressure Pulse Oximetry 08/01/21 20:10 08/01/21 20:25 08/01/21 20:33 Temperature Pulse Rate 74 66 64 Respiratory Rate 28 H Blood Pressure 150/78 H 127/54 L Pulse Oximetry 94 08/01/21 20:35 08/01/21 21:10 08/01/21 21:45 Temperature Pulse Rate 64 68 63 Respiratory Rate 28 H 28 H 28 H Blood Pressure Pulse Oximetry 08/01/21 22:00 08/01/21 22:16 08/01/21 23:20 Temperature Pulse Rate 60 70 66 Respiratory Rate 28 H 28 H Blood Pressure 102/49 L 101/58 L Pulse Oximetry 97 08/02/21 00:00 08/02/21 00:10 08/02/21 00:11 Temperature 37.6 C H Pulse Rate 68 72 72 Respiratory Rate 28 H 28 H Blood Pressure 101/59 L 101/59 L Pulse Oximetry 94 08/02/21 02:00 08/02/21 02:10 08/02/21 02:11 Temperature Pulse Rate 64 64 64 Respiratory Rate 28 H 28 H 28 H Blood Pressure 97/47 L 97/47 L Pulse Oximetry 97 08/02/21 03:12 08/02/21 03:15 08/02/21 03:39 Temperature Pulse Rate 63 64 64 Respiratory Rate 28 H 28 H Blood Pressure Pulse Oximetry 97 08/02/21 03:40 08/02/21 03:41 08/02/21 04:00 Temperature 37.6 C H Pulse Rate 64 64 63 Respiratory Rate 28 H 28 H 28 H Blood Pressure 85/40 L 116/54 L Pulse Oximetry 97 08/02/21 04:42 08/02/21 06:00 08/02/21 08:00 Temperature 37.7 C H Pulse Rate 62 74 66 Respiratory Rate
[2021-08-02 13:58] LABS: Cortisol 30 Minute 8.16 ug/dL
[2021-08-02 14:39] LABS: Cortisol 60 Minute 9.75 ug/dL
[2021-08-02 16:37] LABS: Glucose Point of Care 143 mg/dl (65-105)
[2021-08-02] MEDS: NOREPINEPHRINE 8 MG/D5W 250 ML 8 MG/250 ML BAG 7.5 MG IV CONT (19:28)
[2021-08-02] MEDS: MIDAZOLAM 100MG/NS 100ML(*CRX) 100 MG/100 ML BAG IV CONT (19:29)
[2021-08-02] MEDS: ROCURONIUM BROMIDE 50 MG/5 ML VIAL 100 MG IV PUSH (20:25)
--- NOTE | 2021-08-02 20:30 | P.PCNBED_ITS ---
Procedures Intubation Intubation Date: 08/02/21 Intubation Time: 20:00 Sedative: other (Patient was on propofol) Paralytic: rocuronium Mg given: 30 Laryngoscope: fiber optic video scope Assist device used: Bougie ET tube size: 7.5 Tube secured depth (cm): 23 Tube secured location: lips Tube placement confirmation: visualized tube passing through cords, equal breath sounds bilaterally, no breath sounds over epigastrium and confirmation by capnometry Patient tolerated procedure: well Intubation complications: hypoxia Additional comments: The patient's cuff had a phone. The patient's ET tube was exchanged over a bougie with placement confirmed with fiberoptic scope. End- tidal CO2 detector demonstrated color change. Equal breath sounds. Chest x-ray reviewed ET tube in good position. Post intubation the patient had persistent hypoxia. Subsequently the patient was given an additional dose of rocuronium and Nimbex was ordered.
--- NOTE | 2021-08-02 20:36 | P.PNCROSS_ITS ---
Event Note Event Note Event Note: 08/02/2021 at 8:00 p.m. Nursing staff called as the patient had loaner cuff 182. I exchanged the patient's ET tube. However post exchange the patient sinus saturations were staying in the mid 70s in the patient was not rebounding as expected. Chest x- ray did confirm appropriate placement of ET tube. Patient was pulling good tidal volumes. Patient was already on a PEEP of 12 and had been maintaining her oxygen saturations prior to re-intubation. Subsequently the patient was placed on Nimbex infusion. At which time her oxygen saturations rebounded. 30 minute spent critical care activities. Due to a high probability of clinically significant, life threatening deter ioration, the patient required my highest level of preparedness to intervene emergently and I personally spent this critical care time directly and personally managing the patient. This critical care time included obtaining a history; examining the patient; pulse oximetry; ordering and review of studies; arranging urgent treatment with development of a management plan; evaluation of patient's response to treatment; frequent reassessment; and discussions with other providers. It was exclusive of separately billable procedures and treating other patients and teaching time. Please see Assessment and Plan section and the rest of the note for further information on patient assessment and treatment.
[2021-08-02] MEDS: CISATRACURIUM BESYLATE 200 MG in DEXTROSE 5% 80 ML 9 ML IV CONT (20:48)
[2021-08-02] MEDS: ROCURONIUM BROMIDE 50 MG/5 ML VIAL 30 MG IV PUSH (20:53)
[2021-08-02] MEDS: SOTALOL HCL 80 MG TABLET PO (21:23)
[2021-08-02 22:01] LABS: Glucose Point of Care 142 mg/dl (65-105)
[2021-08-02] MEDS: FENTANYL 2,500MCG/NS250ML(*CRX 2,500 MCG/250 ML BAG 10 MCG IV CONT (22:07)
[2021-08-03] VITALS (37 sets, daily range): BP systolic 106–139; BP diastolic 44–89; PULSE 54–119; RESP 22–35; TEMP 35.8–36.7; O2SAT 91–99
[2021-08-03] MEDS: PROPOFOL IV EMULSION 100 ML 17.66 MG IV CONT ×4 (00:04→15:33)
[2021-08-03] MEDS: ALBUTEROL SULFATE NEB 2.5 MG/0.5 ML INH 5 MG INHALATION ×4 (01:05→20:08)
[2021-08-03] MEDS: IPRATROPIUM BR 0.02% INH SOLN 0.5 MG/2.5 ML VIAL INHALATION ×4 (01:05→20:08)
[2021-08-03 02:06] LABS: Glucose Point of Care 148 mg/dl (65-105)
[2021-08-03] MEDS: CISATRACURIUM BESYLATE 200 MG in DEXTROSE 5% 80 ML 12 ML IV CONT (03:42)
[2021-08-03 04:12] LABS: Basophils Percent Auto 0.2 % (0.2-1.2); Eosinophils Absolute Auto 0.3 K/mm3 (0-0.3); Eosinophils Percent Auto 2.2 % (0-4.4); Hematocrit 25.8 % (37.0-47.0); Hemoglobin 7.8 g/dL (12.0-15.0); Immature Granulocyte Absolute 0.28 K/mm3 (0.00-0.031); Immature Granulocyte Percent A 2.2 % (0-0.5); Lymphocytes Absolute Auto 0.67 K/mm3 (0.9-3.2); Lymphocytes Percent Auto 5.4 % (18.3-44.2); Mean Corpuscular HGB Conc 30.2 g/dl (32-36); Mean Corpuscular Hemoglobin 29.4 pg (26-34); Mean Corpuscular Volume 97.4 fl (80-100); Mean Platelet Volume 10.6 fl (7.4-10.4); Monocytes Absolute Auto 0.7 K/mm3 (0.1-0.6); Monocytes Percent Auto 5.8 % (2.6-8.5); Neutrophils Absolute Auto 10.5 K/mm3 (1.3-6.7); Neutrophils Percent Auto 84.2 % (45.5-73.1); Nucleated Red Blood Cells Perc 0.2 % (0.0-0.2); Platelet Count Result 362 k/mm3 (150-375); Red Blood Count 2.65 M/mm3 (4.2-5.4); Red Cell Distribution Width 15.8 % (11.5-14.5); White Blood Count 12.5 K/mm3 (4.5-10.0)
[2021-08-03 04:30] LABS: Alanine Aminotransferase 69 U/L (4-35); Albumin Level 3.5 g/dL (3.5-5.1); Alkaline Phosphatase 129 U/L (38-126); Anion Gap 4 mmol/L (8-16); Aspartate Amino Transferase 78 U/L (14-36); Bilirubin,Total 0.5 mg/dL (0.2-1.3); Blood Urea Nitrogen 65 mg/dL (7-17); Calcium 10.5 mg/dL (8.4-10.2); Carbon Dioxide 36 mmol/L (22-30); Chloride 96 mmol/L (98-107); Estimated CRCL calculation 60 ml/min; Estimated Glomerular Filt Rate 56; Glucose 154 mg/dL (65-110); Phosphorus 4.3 mg/dL (2.5-4.5); Potassium 3.5 mmol/L (3.4-5.0); Sodium 136 mmol/L (137-145)
[2021-08-03 04:50] LABS: Glucose Point of Care 140 mg/dl (65-105)
[2021-08-03 07:01] LABS: Base Excess ABG 5.1 mEq/l (+/-2.0)
[2021-08-03 07:02] LABS: Carboxyhemoglobin 0.3 % THb (0-2.0); Methemoglobin ABG 0.1 %THb (0-1.5); Oxygen Content ABG 11.4 %vol (16.0-22.0); PO2 FiO2 Ratio Arterial Blood 1.02 %; Reduced Hemoglobin 4.2 %THb (0-5.0); Total Hemoglobin 8.4 g/dL (12.0-18.0)
[2021-08-03 07:03] LABS: Arterial Blood Gas Ventilator rate 24 /MIN; Device VENTILATOR; Fractional Inspired Oxygen 85 %; Modified Allen's Test Pass; Site Drawn LEFT RADIAL
[2021-08-03 07:04] LABS: Arterial Blood Gas PEEP 14 cmH2O; Arterial Blood Gas Tidal Volume 420 ml; Arterial Blood Gas Vent Mode CMV
[2021-08-03 07:29] LABS: Glucose Point of Care 153 mg/dl (65-105)
[2021-08-03] MEDS: BUDESONIDE RESPULE NEB 0.5 MG/2 ML AMP INHALATION ×2 (07:30→20:08)
[2021-08-03] MEDS: CEFEPIME 2 GM in DEXTROSE 5% IN WATER 50 ML IVPB ×2 (08:51→20:23)
[2021-08-03] MEDS: MINERAL OIL/WHITE PETROLATUM OINTMENT 1 APPLIC EACH EYE ×2 (08:55→20:25)
[2021-08-03] MEDS: PANTOPRAZOLE SODIUM IV 40 MG VIAL IV PUSH (08:55)
[2021-08-03] MEDS: polyethylene glycoL 3350 17 GM POWD.PACK PO (08:55)
[2021-08-03] MEDS: APIXABAN 5 MG TABLET PO ×2 (08:55→20:25)
--- NOTE | 2021-08-03 11:33 | PCFNICU ---
ICU Rounding Note: Pt current nutrition is Nepro at 45 ml/hr over 22 hours. Last recorded weight is 106.4 kg-stable Bowel Motility:+Bm reported 07/31 Labs Reviewed:Hgb 7.8,Hct 25.8,Na 136, BUN 65, GFR 56, Glu 154 Meds Noted:Fentanyl, Versed, Nimbex, Lantus, Propofol 30 mics =466 kcals, Miralax, Protonix, Novolog. Skin: buttock-maceration Additional Notes: Patient remains on mechanical vent and tube feedings of Nepro at 45 ml/hr. Tube feedings rate changed to 35 ml/hr today due to propofol at 30 mics. Current caloric intake 1852 kcals/62 gms protein/560 ml water. 30 ml free water flush. Agree with diet orders. Following daily in ICU rounds. Will reassess every Tuesday and Tuesday.
[2021-08-03 11:48] LABS: Glucose Point of Care 122 mg/dl (65-105)
--- NOTE | 2021-08-03 12:24 | WPDINTPN ---
Progress Note: A&P Assessment and Plan (1) Acute respiratory failure with hypoxia: Code(s): J96.01 - Acute respiratory failure with hypoxia Status: Acute Assessment and Plan: Patient presented the ED on 07/20/2021 late evening, was hypoxic and was placed on BiPAP. She was on 100% FiO2 antibiotic, and failed as she was hypoxic with low O2 sats. 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 Patient likely de-recruited and was placed on 85% FiO2 and the PEEP was increased to 14. She was also started on Nimbex infusion as she was dyssynchronous and hypoxic. Patient was then placed in prone position after which her oxygen saturations improved. -chest x-ray this morning shows worsening bilateral lung disease. -continue bronchodilators -continue Pulmicort -sedated with fentanyl, Versed and propofol infusion. Patient had been off Nimbex what was restarted overnight due to ventilator dyssynchrony. -discussed with Nephrology, continue diuresis with Bumex 1 mg IV q.12 hours (2) Pneumonia due to COVID-19 virus: Code(s): U07.1 - COVID-19; J12.82 - Pneumonia due to coronavirus disease 2019 Status: Acute Assessment and Plan: Patient was COVID positive on 07/16/2021 this was 4 days prior to admission according the patient's medical records. -completed dexamethasone -not a candidate for remdesivir due to acute kidney injury and elevated creatinine -CRP 29.2, Received tocilizumab on 07/22/2021 -continue airborne, droplet, contact isolation/precautions (3) Diabetes mellitus with hyperglycemia: Qualifiers: Diabetes mellitus type: type 2 Diabetes mellitus fci insulin use: without fci use Qualified Code(s): E11.65 - Type 2 diabetes mellitus with hyperglycemia Code(s): E11.65 - Type 2 diabetes mellitus with hyperglycemia Status: Acute Assessment and Plan: Patient hyperglycemic which could be related to stress response and or steroids -continue sliding scale insulin, Accu-Cheks - off insulin infusion since 07/26, continue Lantus to 20 mg SQ q.12 hours. Now that she is off steroids (4) Acute renal failure: Qualifiers: Acute renal failure type: unspecified Qualified Code(s): N17.9 - Acute kidney failure, unspecified Code(s): N17.9 - Acute kidney failure, unspecified Status: Acute Assessment and Plan: Acute kidney injury, could be related to hypoxia, COVID-19, hypotension, AFib, also has a history of diabetes and hypertension which could be contributing to that also. (last creatinine was on 12/08/2020 was 1.4). Patient was admitted with a creatinine of 3.7, -Patient did receive 2 L of IV fluid bolus on07/22 for hypotension. -will continue to monitor urine output, obtain urine lytes -renal ultrasound showed normal kidney size, no hydronephrosis. 3.9 cm left kidney mass suspicious for renal cell carcinoma, abdominal CT without and with contrast is recommended after improvement in kidney function -continue to monitor renal function, electrolytes and urine output -creatinine stable - appreciate Nephrology evaluation recommendation (5) HTN (hypertension): Code(s): I10 - Essential (primary) hypertension Status: Acute Assessment and Plan: Blood pressure are borderline, patient was on Levophed briefly on admission to the ICU -currently off Levophed - continue to maintain adequate mean arterial pressures for end-organ perfusion (6) Afib: Code(s): I48.91 - Unspecified atrial fibrillation Status: Acute Assessment and Plan: Patient was in AFib RVR, requiring amiodarone infusion, heparin infusion. -cardiology switched to sotalol on 07/31/2021: -patient in sinus rhythm this morning -discuss with cardiology regarding heparin infusion, cardiology will switch to apixaban 5 mg p.o. q.12 hours, will discontinue heparin drip - (7) DVT
[2021-08-03] MEDS: INSULIN GLARGINE (*BKC) 100 UNITS/ML 20 UNITS SUB-Q ×2 (13:26→20:22)
[2021-08-03] MEDS: CISATRACURIUM BESYLATE 200 MG in DEXTROSE 5% 80 ML 13.5 ML IV CONT ×2 (13:28→19:02)
[2021-08-03] MEDS: MIDAZOLAM 100MG/NS 100ML(*CRX) 100 MG/100 ML BAG IV CONT (15:32)
--- NOTE | 2021-08-03 15:50 | P.PNNP_ITS ---
Progress Note: A&P Assessment and Plan (1) Acute renal failure: Qualifiers: Acute renal failure type: unspecified Qualified Code(s): N17.9 - Acute kidney failure, unspecified Code(s): N17.9 - Acute kidney failure, unspecified Status: Acute Assessment and Plan: * Acute kidney injury * evaluation to date reveals: * renal ultrasound with normal kidney sizes but a 3.9ccm left kidney mass suspicious for renal cell carcinoma * urine electrolytes that are non-prerenal * mildly elevated CPK but not high enough to affect kidney function * Most likely due to COVID-19 and prior hypotension. * peak/plateau of creatinine at 3.2mg/dl * creatinine is stable at 1.0. * continue diuretics. * Cortrosyn stimulation test was suboptimal. Her last dose of dexamethasone was on 07/30. It could still be suppressed by that medication. Will repeat the cortisol level in a couple of days. Her blood pressure is doing okay. (2) Acute respiratory failure with hypoxia: Code(s): J96.01 - Acute respiratory failure with hypoxia Status: Acute Assessment and Plan: * due to #3 * known history of COPD and ongoing smoking history also likely contributing * continue inhalers * continue ventilator support (3) Pneumonia due to COVID-19 virus: Code(s): U07.1 - COVID-19; J12.82 - Pneumonia due to coronavirus disease 2019 Status: Acute Assessment and Plan: * known positivity 4 days prior to admission * currently off dexamethasone . Last dose on 07/30. * s/p tocilizumab on 07/22/2021 (4) Urinary tract infection: Code(s): N39.0 - Urinary tract infection, site not specified Status: Acute Assessment and Plan: * urine culture with E.coli * on cefepime (5) Diabetes: Code(s): E11.9 - Type 2 diabetes mellitus without complications Status: Acute Assessment and Plan: * On Accu-Cheks and sliding-scale insulin Subjective Date/time seen: 08/03/21 15:50 Interval history: Divya is in the ICU on the ventilator, on sedatives.. On no pressors. FiO2 is again down a little bit to 85%. Exam Narrative: General: Elderly female intubated/sedated/paralyzed Heart: Irregular rhythm no rub or gallop Lungs: coarse Abdomen: soft, nontender, nondistended, positive bowel sounds Extremities: no edema Skin: No rash or subcu nodules Objective Data Vital Signs Vital Signs: Vital Signs - 24 hr 08/02/21 16:00 08/02/21 18:00 08/02/21 19:28 Temperature 36.6 C Pulse Rate 59 L 59 L 57 L Respiratory Rate 24 H 24 H Blood Pressure 115/46 L 115/46 L 113/49 L Pulse Oximetry 95 95 08/02/21 19:29 08/02/21 19:54 08/02/21 20:00 Temperature Pulse Rate 60 68 78 Respiratory Rate 24 H Blood Pressure Pulse Oximetry 96 08/02/21 20:13 08/02/21 20:14 08/02/21 20:26 Temperature Pulse Rate 75 77 82 Respiratory Rate 24 H 24 H 24 H Blood Pressure 150/50 H Pulse Oximetry 81 L 76 L 08/02/21 20:48 08/02/21 21:10 08/02/21 21:16 Temperature Pulse Rate 82 78 76 Respiratory Rate 24 H 24 H 24 H Blood Pressure 152/68 H 156/56 H Pulse Oximetry 91 08/02/21 21:23 08/02/21 21:27
--- NOTE | 2021-08-03 15:50 | PM.PNNEP ---
Progress Note: A&P Assessment and Plan (1) Acute renal failure: Qualifiers: Acute renal failure type: unspecified Qualified Code(s): N17.9 - Acute kidney failure, unspecified Code(s): N17.9 - Acute kidney failure, unspecified Status: Acute Assessment and Plan: Acute kidney injury evaluation to date reveals: renal ultrasound with normal kidney sizes but a 3.9ccm left kidney mass suspicious for renal cell carcinoma urine electrolytes that are non-prerenal mildly elevated CPK but not high enough to affect kidney function Most likely due to COVID-19 and prior hypotension. peak/plateau of creatinine at 3.2mg/dl creatinine is stable at 1.0. continue diuretics. Cortrosyn stimulation test was suboptimal. Her last dose of dexamethasone was on 07/30. It could still be suppressed by that medication. Will repeat the cortisol level in a couple of days. Her blood pressure is doing okay. (2) Acute respiratory failure with hypoxia: Code(s): J96.01 - Acute respiratory failure with hypoxia Status: Acute Assessment and Plan: due to #3 known history of COPD and ongoing smoking history also likely contributing continue inhalers continue ventilator support (3) Pneumonia due to COVID-19 virus: Code(s): U07.1 - COVID-19; J12.82 - Pneumonia due to coronavirus disease 2019 Status: Acute Assessment and Plan: known positivity 4 days prior to admission currently off dexamethasone . Last dose on 07/30. s/p tocilizumab on 07/22/2021 (4) Urinary tract infection: Code(s): N39.0 - Urinary tract infection, site not specified Status: Acute Assessment and Plan: urine culture with E.coli on cefepime (5) Diabetes: Code(s): E11.9 - Type 2 diabetes mellitus without complications Status: Acute Assessment and Plan: On Accu-Cheks and sliding-scale insulin Subjective Date/time seen: 08/03/21 15:50 Interval history: Divya is in the ICU on the ventilator, on sedatives.. On no pressors. FiO2 is again down a little bit to 85%. Exam Narrative: General: Elderly female intubated/sedated/paralyzed Heart: Irregular rhythm no rub or gallop Lungs: coarse Abdomen: soft, nontender, nondistended, positive bowel sounds Extremities: no edema Skin: No rash or subcu nodules Objective Data Vital Signs Vital Signs: Vital Signs - 24 hr 08/02/21 16:00 08/02/21 18:00 08/02/21 19:28 Temperature 36.6 C Pulse Rate 59 L 59 L 57 L Respiratory Rate 24 H 24 H Blood Pressure 115/46 L 115/46 L 113/49 L Pulse Oximetry 95 95 08/02/21 19:29 08/02/21 19:54 08/02/21 20:00 Temperature Pulse Rate 60 68 78 Respiratory Rate 24 H Blood Pressure Pulse Oximetry 96 08/02/21 20:13 08/02/21 20:14 08/02/21 20:26 Temperature Pulse Rate 75 77 82 Respiratory Rate 24 H 24 H 24 H Blood Pressure 150/50 H Pulse Oximetry 81 L 76 L 08/02/21 20:48 08/02/21 21:10 08/02/21 21:16 Temperature Pulse Rate 82 78 76 Respiratory Rate 24 H 24 H 24 H Blood Pressure 152/68 H 156/56 H Pulse Oximetry 91 08/02/21 21:23 08/02/21 21:27 08/02/21 22:00 Temperature 36.9 C Pulse Rate 75 82 73 Respiratory Rate 24 H 24 H Blood Pressure 156/56 H 150/59 H Pulse Oximetry 94 95 08/02/21 22:06 08/02/21 22:07 08/02/21 23:52 Temperature Pulse Rate 75 75 68 Respiratory Rate 24 H 24 H 24 H Blood Pressure 150/59 H 120/55 L Pulse Oximetry 08/02/21 23:53 08/03/21 00:00 08/03/21 00:04 Temperature 36.5 C Pulse Rate 68 66 68 Respiratory Rate 24 H 24 H 24 H Blood Pressure 120/55 L 127/89 127/89 Pulse Oximetry 97 08/03/21 01:02 08/03/21 02:00 08/03/21 02:09 Temperature Pulse Rate 70 60 60 Respiratory Rate 24 H 24 H Blood Pressure 108/44 L 108/44 L Pulse Oximetry 95 96 08/03/21 02:10 08/03/21 02:11 08/03/21 03:42 Temperature Pulse Rate 60 60 59 L Respiratory
[2021-08-03 17:59] LABS: Glucose Point of Care 115 mg/dl (65-105)
[2021-08-03 20:40] LABS: Glucose Point of Care 145 mg/dl (65-105)
[2021-08-03] MEDS: FENTANYL 2,500MCG/NS250ML(*CRX 2,500 MCG/250 ML BAG 10 MCG IV CONT (23:06)
[2021-08-04] VITALS (43 sets, daily range): BP systolic 104–158; BP diastolic 55–76; PULSE 60–83; RESP 22–24; TEMP 36.3–37; O2SAT 87–97
[2021-08-04 01:00] LABS: Glucose Point of Care 156 mg/dl (65-105)
[2021-08-04] MEDS: IPRATROPIUM BR 0.02% INH SOLN 0.5 MG/2.5 ML VIAL INHALATION ×2 (01:58→08:31)
[2021-08-04] MEDS: ALBUTEROL SULFATE NEB 2.5 MG/0.5 ML INH 5 MG INHALATION ×2 (01:58→08:30)
[2021-08-04] MEDS: PROPOFOL IV EMULSION 100 ML 17.66 MG IV CONT ×4 (03:28→18:12)
[2021-08-04] MEDS: CISATRACURIUM BESYLATE 200 MG in DEXTROSE 5% 80 ML 13.5 ML IV CONT (03:29)
[2021-08-04 03:56] LABS: Glucose Point of Care 133 mg/dl (65-105)
[2021-08-04 04:34] LABS: Basophils Percent Auto 0.3 % (0.2-1.2); Eosinophils Absolute Auto 0.4 K/mm3 (0-0.3); Eosinophils Percent Auto 3.1 % (0-4.4); Hematocrit 27.1 % (37.0-47.0); Hemoglobin 8.2 g/dL (12.0-15.0); Immature Granulocyte Absolute 0.22 K/mm3 (0.00-0.031); Immature Granulocyte Percent A 1.9 % (0-0.5); Lymphocytes Absolute Auto 0.81 K/mm3 (0.9-3.2); Lymphocytes Percent Auto 6.9 % (18.3-44.2); Mean Corpuscular HGB Conc 30.3 g/dl (32-36); Mean Corpuscular Volume 95.8 fl (80-100); Mean Platelet Volume 10.2 fl (7.4-10.4); Monocytes Absolute Auto 0.7 K/mm3 (0.1-0.6); Neutrophils Absolute Auto 9.6 K/mm3 (1.3-6.7); Neutrophils Percent Auto 81.8 % (45.5-73.1); Nucleated Red Blood Cells Perc 0.2 % (0.0-0.2); Platelet Count Result 413 k/mm3 (150-375); Red Blood Count 2.83 M/mm3 (4.2-5.4); Red Cell Distribution Width 15.9 % (11.5-14.5); White Blood Count 11.7 K/mm3 (4.5-10.0)
[2021-08-04 04:47] LABS: Alanine Aminotransferase 61 U/L (4-35); Albumin Level 3.4 g/dL (3.5-5.1); Alkaline Phosphatase 124 U/L (38-126); Anion Gap 5 mmol/L (8-16); Aspartate Amino Transferase 53 U/L (14-36); Bilirubin,Total 0.5 mg/dL (0.2-1.3); Blood Urea Nitrogen 56 mg/dL (7-17); Calcium 10.7 mg/dL (8.4-10.2); Carbon Dioxide 34 mmol/L (22-30); Chloride 96 mmol/L (98-107); Estimated CRCL calculation 69 ml/min; Estimated Glomerular Filt Rate > 60; Glucose 133 mg/dL (65-110); Phosphorus 4.1 mg/dL (2.5-4.5); Potassium 3.7 mmol/L (3.4-5.0); Sodium 135 mmol/L (137-145)
--- NOTE | 2021-08-04 06:29 | P.PNNP_ITS ---
Progress Note: A&P Assessment and Plan (1) Acute renal failure: Qualifiers: Acute renal failure type: unspecified Qualified Code(s): N17.9 - Acute kidney failure, unspecified Code(s): N17.9 - Acute kidney failure, unspecified Status: Acute Assessment and Plan: * Acute kidney injury * evaluation to date reveals: * renal ultrasound with normal kidney sizes but a 3.9ccm left kidney mass suspicious for renal cell carcinoma * urine electrolytes that are non-prerenal * mildly elevated CPK but not high enough to affect kidney function * Most likely due to COVID-19 and prior hypotension. * peak/plateau of creatinine at 3.2mg/dl * creatinine is doing well. * continue diuretics. * Repeat cortisol level tomorrow. (2) Acute respiratory failure with hypoxia: Code(s): J96.01 - Acute respiratory failure with hypoxia Status: Acute Assessment and Plan: * due to #3 * known history of COPD and ongoing smoking history also likely contributing * continue inhalers * continue ventilator support * FiO2 improved (3) Pneumonia due to COVID-19 virus: Code(s): U07.1 - COVID-19; J12.82 - Pneumonia due to coronavirus disease 2018 Status: Acute Assessment and Plan: * known positivity 4 days prior to admission * currently off dexamethasone . Last dose on 07/30. * s/p tocilizumab on 07/22/2021 (4) Urinary tract infection: Code(s): N39.0 - Urinary tract infection, site not specified Status: Acute Assessment and Plan: * urine culture with E.coli * on cefepime (5) Diabetes: Code(s): E11.9 - Type 2 diabetes mellitus without complications Status: Acute Assessment and Plan: * On Accu-Cheks and sliding-scale insulin Subjective Date/time seen: 08/04/21 06:29 Interval history: Divya is in the ICU on the ventilator, on sedatives. In prone position currently. FiO2 is again down again to 65%. Exam Narrative: General: Elderly female intubated/sedated/paralyzed Heart: Irregular rhythm no rub or gallop Lungs: coarse Abdomen: soft, nontender, nondistended, positive bowel sounds Extremities: no edema Skin: No rash or subcu nodules Objective Data Vital Signs Vital Signs: Vital Signs - 24 hr 08/03/21 07:31 08/03/21 07:32 08/03/21 08:00 Temperature 36.1 C L Pulse Rate 59 L 62 62 Respiratory Rate 24 H 24 H Blood Pressure 120/49 L Pulse Oximetry 97 98 08/03/21 10:00 08/03/21 10:04 08/03/21 11:10 Temperature Pulse Rate 56 L 67 62 Respiratory Rate 22 H 24 H Blood Pressure 139/56 L Pulse Oximetry 93 97 08/03/21 12:00 08/03/21 13:45 08/03/21 13:51 Temperature 36.2 C L Pulse Rate 59 L 57 L 60 Respiratory Rate 24 H 24 H Blood Pressure 111/51 L Pulse Oximetry 96 94 08/03/21 14:00 08/03/21 15:32 08/03/21 15:33 Temperature Pulse Rate 58 L 75 75 Respiratory Rate 24 H 24 H 24 H Blood Pressure 106/49 L Pulse Oximetry 94 08/03/21 16:00 08/03/21 17:05 08/03/21 18:00 Temperature 36.7 C 36.6 C Pulse Rate 83 61 66 Respiratory Rate 35 H 24 H Blood Pressure 137/57 L 108/51 L Puls
--- NOTE | 2021-08-04 06:29 | PM.PNNEP ---
Progress Note: A&P Assessment and Plan (1) Acute renal failure: Qualifiers: Acute renal failure type: unspecified Qualified Code(s): N17.9 - Acute kidney failure, unspecified Code(s): N17.9 - Acute kidney failure, unspecified Status: Acute Assessment and Plan: Acute kidney injury evaluation to date reveals: renal ultrasound with normal kidney sizes but a 3.9ccm left kidney mass suspicious for renal cell carcinoma urine electrolytes that are non-prerenal mildly elevated CPK but not high enough to affect kidney function Most likely due to COVID-19 and prior hypotension. peak/plateau of creatinine at 3.2mg/dl creatinine is doing well. continue diuretics. Repeat cortisol level tomorrow. (2) Acute respiratory failure with hypoxia: Code(s): J96.01 - Acute respiratory failure with hypoxia Status: Acute Assessment and Plan: due to #3 known history of COPD and ongoing smoking history also likely contributing continue inhalers continue ventilator support FiO2 improved (3) Pneumonia due to COVID-19 virus: Code(s): U07.1 - COVID-19; J12.82 - Pneumonia due to coronavirus disease 2018 Status: Acute Assessment and Plan: known positivity 4 days prior to admission currently off dexamethasone . Last dose on 07/30. s/p tocilizumab on 07/22/2021 (4) Urinary tract infection: Code(s): N39.0 - Urinary tract infection, site not specified Status: Acute Assessment and Plan: urine culture with E.coli on cefepime (5) Diabetes: Code(s): E11.9 - Type 2 diabetes mellitus without complications Status: Acute Assessment and Plan: On Accu-Cheks and sliding-scale insulin Subjective Date/time seen: 08/04/21 06:29 Interval history: Divya is in the ICU on the ventilator, on sedatives. In prone position currently. FiO2 is again down again to 65%. Exam Narrative: General: Elderly female intubated/sedated/paralyzed Heart: Irregular rhythm no rub or gallop Lungs: coarse Abdomen: soft, nontender, nondistended, positive bowel sounds Extremities: no edema Skin: No rash or subcu nodules Objective Data Vital Signs Vital Signs: Vital Signs - 24 hr 08/03/21 07:31 08/03/21 07:32 08/03/21 08:00 Temperature 36.1 C L Pulse Rate 59 L 62 62 Respiratory Rate 24 H 24 H Blood Pressure 120/49 L Pulse Oximetry 97 98 08/03/21 10:00 08/03/21 10:04 08/03/21 11:10 Temperature Pulse Rate 56 L 67 62 Respiratory Rate 22 H 24 H Blood Pressure 139/56 L Pulse Oximetry 93 97 08/03/21 12:00 08/03/21 13:45 08/03/21 13:51 Temperature 36.2 C L Pulse Rate 59 L 57 L 60 Respiratory Rate 24 H 24 H Blood Pressure 111/51 L Pulse Oximetry 96 94 08/03/21 14:00 08/03/21 15:32 08/03/21 15:33 Temperature Pulse Rate 58 L 75 75 Respiratory Rate 24 H 24 H 24 H Blood Pressure 106/49 L Pulse Oximetry 94 08/03/21 16:00 08/03/21 17:05 08/03/21 18:00 Temperature 36.7 C 36.6 C Pulse Rate 83 61 66 Respiratory Rate 35 H 24 H Blood Pressure 137/57 L 108/51 L Pulse Oximetry 91 94 96 08/03/21 19:02 08/03/21 20:00 08/03/21 22:00 Temperature 36.2 C L Pulse Rate 63 63 62 Respiratory Rate 24 H 24 H 24 H Blood Pressure 119/54 L 115/55 L 114/57 L Pulse Oximetry 95 95 08/03/21 23:06 08/03/21 23:10 08/04/21 00:00 Temperature 36.3 C L Pulse Rate 62 66 60 Respiratory Rate 24 H 24 H Blood Pressure 115/56 L Pulse Oximetry 95 93 08/04/21 02:00 08/04/21 02:27 08/04/21 03:07 Temperature Pulse Rate 62 63 64 Respiratory Rate 24 H 24 H 24 H Blood Pressure 125/60 125/58 L Pulse Oximetry 92 08/04/21 03:09 08/04/21 03:10 08/04/21 03:28 Temperature Pulse Rate 64 66 65 Respiratory Rate 24 H 24 H Blood Pressure Pulse Oximetry 97 08/04/21 03:29 08/04/21 04:00 08/04/21 04:44 Temperature 36.5 C Pulse Rate 63 63 65 Respiratory Rate
[2021-08-04 06:56] LABS: Alveolar/Arterial O2 Gradient 318.7 mmHg; Base Excess ABG 6.6 mEq/l (+/-2.0); Carboxyhemoglobin 0.3 % THb (0-2.0); Fractional Inspired Oxygen 65 %; HCO3 ABG 32.6 mEq/l (22.0-26.0); Methemoglobin ABG 0.2 %THb (0-1.5); Oxygen Content ABG 14.5 %vol (16.0-22.0); Oxygen Saturation ABG 96.3 % (95.0-100.0); Oxyhemoglobin 94.6 % THb (90.0-100.0); PCO2 ABG 53.9 mmHg (35.0-45.0); PO2 ABG 86.1 mmHg (80.0-100.0); PO2 FiO2 Ratio Arterial Blood 1.32 %; Reduced Hemoglobin 4.9 %THb (0-5.0); Total Hemoglobin 10.8 g/dL (12.0-18.0); pH ABG 7.399 (7.350-7.450)
[2021-08-04 06:57] LABS: Device VENTILATOR; Modified Allen's Test Unable to perform; Site Drawn RIGHT RADIAL
[2021-08-04 06:58] LABS: Arterial Blood Gas PEEP 14 cmH2O; Arterial Blood Gas Tidal Volume 420 ml; Arterial Blood Gas Vent Mode CMV; Arterial Blood Gas Ventilator rate 24 /MIN
[2021-08-04 07:33] LABS: Glucose Point of Care 145 mg/dl (65-105)
[2021-08-04] MEDS: CEFEPIME 2 GM in DEXTROSE 5% IN WATER 50 ML IVPB (08:15)
[2021-08-04] MEDS: MINERAL OIL/WHITE PETROLATUM OINTMENT 1 APPLIC EACH EYE ×2 (08:17→20:21)
[2021-08-04] MEDS: SOTALOL HCL 80 MG TABLET PO ×2 (08:18→20:22)
[2021-08-04] MEDS: APIXABAN 5 MG TABLET PO ×2 (08:18→20:21)
[2021-08-04] MEDS: PANTOPRAZOLE SODIUM IV 40 MG VIAL IV PUSH (08:18)
[2021-08-04] MEDS: polyethylene glycoL 3350 17 GM POWD.PACK PO (08:18)
[2021-08-04] MEDS: BUDESONIDE RESPULE NEB 0.5 MG/2 ML AMP INHALATION (08:30)
[2021-08-04] MEDS: INSULIN GLARGINE (*BKC) 100 UNITS/ML 20 UNITS SUB-Q ×2 (08:53→20:21)
[2021-08-04] MEDS: MIDAZOLAM 100MG/NS 100ML(*CRX) 100 MG/100 ML BAG IV CONT (09:51)
[2021-08-04] MEDS: CISATRACURIUM BESYLATE 200 MG in DEXTROSE 5% 80 ML 12 ML IV CONT ×2 (09:53→18:11)
--- NOTE | 2021-08-04 11:22 | PCNFU ---
Nutrition Follow-Up Complete: Inadequate Oral Intake as related to mechanical ventilation as evidenced by NPO. goal: Meet estimated nutritional needs Patient is progressing towards goal. We will continue current goal. Pt current nutrition is Nepro at 35 ml/hr. Nutrition recommendation: goal rate at 45 ml/hr Last recorded weight is 94.6 kg-down from 106 kg on admit. Bowel Motility:Last BM reported 07/31 Labs Reviewed:Hgb 8.2,Hct 27.1,Na 135, Alb 3.4,BUN 56, Glu 133 Meds Noted:Lantus, Protonix, NovoLog, Versed, Fentanyl, Nimbex, Betapace, Propofol 30 apzr=781 kcals. Skin:Buttock-maceration Additional Notes: Patient remains on mechanical vent and tube feedings of Nepro at 35 ml/hr over 22 hours. Current tube feeding providing 1386 kcals/62 gms protein/660 ml water. Propofol providing an [id number] kcals. Free water flush 30 ml q 4 hours. Agree with diet orders. Will continue to monitor propofol infusion adjusting tube feeding rate as needed. Monitoring in ICU rounds. Reassessing every Tuesday and Tuesday.
[2021-08-04 12:09] LABS: Glucose Point of Care 129 mg/dl (65-105)
--- NOTE | 2021-08-04 12:12 | WPDINTPN ---
Progress Note: A&P Assessment and Plan (1) Acute respiratory failure with hypoxia: Code(s): J96.01 - Acute respiratory failure with hypoxia Status: Acute Assessment and Plan: Patient presented the ED on 07/20/2021 late evening, was hypoxic and was placed on BiPAP. She was on 100% FiO2 antibiotic, and failed as she was hypoxic with low O2 sats. 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 Patient likely de-recruited and was placed on 85% FiO2 and the PEEP was increased to 14. She was also started on Nimbex infusion as she was dyssynchronous and hypoxic. Patient was then placed in prone position after which her oxygen saturations improved. -chest x-ray this morning shows worsening bilateral lung disease. -currently on 14 of PEEP and 85% FiO2 as she was desaturating after she was placed in supine position -continue bronchodilators -continue Pulmicort -sedated with fentanyl, Versed and propofol infusion. Patient had been off Nimbex what was restarted on 08/02/21 due to ventilator dyssynchrony. -discussed with Nephrology, continue diuresis with Bumex 1 mg IV q.12 hours -Will restart bumex daily since blood pressure much improved (2) Pneumonia due to COVID-19 virus: Code(s): U07.1 - COVID-19; J12.82 - Pneumonia due to coronavirus disease 2019 Status: Acute Assessment and Plan: Patient was COVID positive on 07/16/2021 this was 4 days prior to admission according the patient's medical records. -completed dexamethasone -not a candidate for remdesivir due to acute kidney injury and elevated creatinine -CRP 29.2, Received tocilizumab on 07/22/2021 -continue airborne, droplet, contact isolation/precautions (3) Diabetes mellitus with hyperglycemia: Qualifiers: Diabetes mellitus type: type 2 Diabetes mellitus assistant terminal manager insulin use: without mcfp use Qualified Code(s): E11.65 - Type 2 diabetes mellitus with hyperglycemia Code(s): E11.65 - Type 2 diabetes mellitus with hyperglycemia Status: Acute Assessment and Plan: Patient hyperglycemic which could be related to stress response and or steroids -continue sliding scale insulin, Accu-Cheks - off insulin infusion since 07/26, continue Lantus to 20 mg SQ q.12 hours. Now that she is off steroids (4) Acute renal failure: Qualifiers: Acute renal failure type: unspecified Qualified Code(s): N17.9 - Acute kidney failure, unspecified Code(s): N17.9 - Acute kidney failure, unspecified Status: Acute Assessment and Plan: Acute kidney injury, could be related to hypoxia, COVID-19, hypotension, AFib, also has a history of diabetes and hypertension which could be contributing to that also. (last creatinine was on 12/08/2020 was 1.4). Patient was admitted with a creatinine of 3.7, -Patient did receive 2 L of IV fluid bolus on07/22 for hypotension. -will continue to monitor urine output, obtain urine lytes -renal ultrasound showed normal kidney size, no hydronephrosis. 3.9 cm left kidney mass suspicious for renal cell carcinoma, abdominal CT without and with contrast is recommended after improvement in kidney function -continue to monitor renal function, electrolytes and urine output -creatinine stable - appreciate Nephrology evaluation recommendation (5) HTN (hypertension): Code(s): I10 - Essential (primary) hypertension Status: Acute Assessment and Plan: Blood pressure are borderline, patient was on Levophed briefly on admission to the ICU -currently off Levophed - continue to maintain adequate mean arterial pressures for end-organ perfusion (6) Afib: Code(s): I48.91 - Unspecified atrial fibrillation Status: Acute Assessment and Plan: Patient was in AFib RVR, requiring amiodarone infusion, heparin infusion. -cardiology switched to sotalol on 07/31/2021: -patient in sinus rhyt
[2021-08-04] MEDS: EPOPROSTENOL SODIUM 0.5 MG VIAL 1 MG INHALATION ×2 (15:10→21:07)
[2021-08-04 17:23] LABS: Glucose Point of Care 130 mg/dl (65-105)
--- NOTE | 2021-08-04 17:52 | PM.IMPN ---
Progress Note: A&P Assessment and Plan (1) Acute respiratory failure with hypoxia: Code(s): J96.01 - Acute respiratory failure with hypoxia Status: Acute Assessment and Plan: Patient presented the ED on 07/20/2021 late evening, was hypoxic and was placed on BiPAP. She was on 100% FiO2 antibiotic, and failed as she was hypoxic with low O2 sats. 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 Patient likely de-recruited and was placed on 85% FiO2 and the PEEP was increased to 14. She was also started on Nimbex infusion as she was dyssynchronous and hypoxic. Patient was then placed in prone position after which her oxygen saturations improved. -chest x-ray this morning shows worsening bilateral lung disease. -currently on 14 of PEEP and 85% FiO2 as she was desaturating after she was placed in supine position -continue bronchodilators -continue Pulmicort -sedated with fentanyl, Versed and propofol infusion. Patient had been off Nimbex what was restarted on 08/02/21 due to ventilator dyssynchrony. -discussed with Nephrology, continue diuresis with Bumex 1 mg IV q.12 hours -Will restart bumex daily since blood pressure much improved 08/04/2021 interval history Patient with COVID-19 remains intubated completed 10 days course of dexamethasone, did not receive remdesivir because of the chronic kidney disease, currently sedated with Versed, propofol, and Nimbex was restarted on 08/02/2021 patient seen by international guest coordinator and project archivist appreciate (2) Pneumonia due to COVID-19 virus: Code(s): U07.1 - COVID-19; J12.82 - Pneumonia due to coronavirus disease 2019 Status: Acute Assessment and Plan: Patient was COVID positive on 07/16/2021 this was 4 days prior to admission according the patient's medical records. -completed dexamethasone -not a candidate for remdesivir due to acute kidney injury and elevated creatinine -CRP 29.2, Received tocilizumab on 07/22/2021 -continue airborne, droplet, contact isolation/precautions (3) Diabetes mellitus with hyperglycemia: Qualifiers: Diabetes mellitus type: type 2 Diabetes mellitus extermination supervisor insulin use: without extermination supervisor use Qualified Code(s): E11.65 - Type 2 diabetes mellitus with hyperglycemia Code(s): E11.65 - Type 2 diabetes mellitus with hyperglycemia Status: Acute Assessment and Plan: Patient hyperglycemic which could be related to stress response and or steroids -continue sliding scale insulin, Accu-Cheks - off insulin infusion since 07/26, continue Lantus to 20 mg SQ q.12 hours. Now that she is off steroids (4) Acute renal failure: Qualifiers: Acute renal failure type: unspecified Qualified Code(s): N17.9 - Acute kidney failure, unspecified Code(s): N17.9 - Acute kidney failure, unspecified Status: Acute Assessment and Plan: Acute kidney injury, could be related to hypoxia, COVID-19, hypotension, AFib, also has a history of diabetes and hypertension which could be contributing to that also. (last creatinine was on 12/08/2020 was 1.4). Patient was admitted with a creatinine of 3.7, -Patient did receive 2 L of IV fluid bolus on07/22 for hypotension. -will continue to monitor urine output, obtain urine lytes -renal ultrasound showed normal kidney size, no hydronephrosis. 3.9 cm left kidney mass suspicious for renal cell carcinoma, abdominal CT without and with contrast is recommended after improvement in kidney function -continue to monitor renal function, electrolytes and urine output -creatinine stable - appreciate Nephrology evaluation recommendation (5) HTN (hypertension): Code(s): I10 - Essential (primary) hypertension Status: Acute Assessment and Plan: Blood pressure are borderline, patient was on Levophed briefly on admission to the ICU -currently off Levophed - continue to maintain dariel
[2021-08-04] MEDS: BUMETANIDE INJ 1 MG/4 ML VIAL IV PUSH (20:21)
[2021-08-04 20:39] LABS: Glucose Point of Care 155 mg/dl (65-105)
[2021-08-05] VITALS (31 sets, daily range): BP systolic 105–160; BP diastolic 52–65; PULSE 59–85; RESP 22–26; TEMP 36.2–36.9; O2SAT 92–98
[2021-08-05 00:03] LABS: Glucose Point of Care 120 mg/dl (65-105)
[2021-08-05] MEDS: PROPOFOL IV EMULSION 100 ML 17.66 MG IV CONT ×4 (00:20→21:43)
[2021-08-05] MEDS: FENTANYL 2,500MCG/NS250ML(*CRX 2,500 MCG/250 ML BAG 10 MCG IV CONT (02:04)
[2021-08-05] MEDS: EPOPROSTENOL SODIUM 0.5 MG VIAL 1 MG INHALATION ×4 (03:12→19:28)
[2021-08-05] MEDS: CISATRACURIUM BESYLATE 200 MG in DEXTROSE 5% 80 ML 12 ML IV CONT ×3 (03:59→20:39)
[2021-08-05 05:29] LABS: Basophils Absolute Auto 0.1 K/mm3 (0.0-0.1); Basophils Percent Auto 0.4 % (0.2-1.2); Eosinophils Absolute Auto 0.4 K/mm3 (0-0.3); Eosinophils Percent Auto 2.7 % (0-4.4); Hematocrit 28.8 % (37.0-47.0); Hemoglobin 8.6 g/dL (12.0-15.0); Immature Granulocyte Absolute 0.18 K/mm3 (0.00-0.031); Immature Granulocyte Percent A 1.2 % (0-0.5); Lymphocytes Absolute Auto 1.08 K/mm3 (0.9-3.2); Lymphocytes Percent Auto 7.2 % (18.3-44.2); Mean Corpuscular HGB Conc 29.9 g/dl (32-36); Mean Corpuscular Hemoglobin 28.9 pg (26-34); Mean Corpuscular Volume 96.6 fl (80-100); Mean Platelet Volume 10.3 fl (7.4-10.4); Monocytes Percent Auto 6.5 % (2.6-8.5); Neutrophils Absolute Auto 12.3 K/mm3 (1.3-6.7); Nucleated Red Blood Cells Perc 0.1 % (0.0-0.2); Platelet Count Result 434 k/mm3 (150-375); Red Blood Count 2.98 M/mm3 (4.2-5.4); Red Cell Distribution Width 16.2 % (11.5-14.5)
[2021-08-05 05:38] LABS: Glucose Point of Care 123 mg/dl (65-105)
[2021-08-05 05:51] LABS: Alanine Aminotransferase 67 U/L (4-35); Albumin Level 3.4 g/dL (3.5-5.1); Alkaline Phosphatase 138 U/L (38-126); Anion Gap 3 mmol/L (8-16); Aspartate Amino Transferase 59 U/L (14-36); Bilirubin,Total 0.4 mg/dL (0.2-1.3); Blood Urea Nitrogen 63 mg/dL (7-17); Carbon Dioxide 36 mmol/L (22-30); Chloride 96 mmol/L (98-107); Estimated CRCL calculation 65 ml/min; Estimated Glomerular Filt Rate > 60; Glucose 128 mg/dL (65-110); Magnesium 2.1 mg/dL (1.6-2.3); Phosphorus 4.7 mg/dL (2.5-4.5); Potassium 3.7 mmol/L (3.4-5.0); Sodium 135 mmol/L (137-145)
[2021-08-05 06:14] LABS: Alveolar/Arterial O2 Gradient 527.1 mmHg; Base Excess ABG 7.7 mEq/l (+/-2.0); Carboxyhemoglobin 0.3 % THb (0-2.0); Device VENTILATOR; Fractional Inspired Oxygen 100 %; HCO3 ABG 33.6 mEq/l (22.0-26.0); Methemoglobin ABG 0.3 %THb (0-1.5); Modified Allen's Test Pass; Oxygen Content ABG 19.4 %vol (16.0-22.0); Oxygen Saturation ABG 98.7 % (95.0-100.0); Oxyhemoglobin 97.5 % THb (90.0-100.0); PCO2 ABG 51.9 mmHg (35.0-45.0); PO2 FiO2 Ratio Arterial Blood 1.34 %; Reduced Hemoglobin 1.9 %THb (0-5.0); Site Drawn RIGHT RADIAL; pH ABG 7.429 (7.350-7.450)
[2021-08-05 06:15] LABS: Arterial Blood Gas PEEP 14 cmH2O; Arterial Blood Gas Tidal Volume 420 ml; Arterial Blood Gas Vent Mode CMV; Arterial Blood Gas Ventilator rate 24 /MIN
[2021-08-05] MEDS: MIDAZOLAM 100MG/NS 100ML(*CRX) 100 MG/100 ML BAG IV CONT (06:26)
[2021-08-05 08:06] LABS: Glucose Point of Care 136 mg/dl (65-105)
[2021-08-05] MEDS: APIXABAN 5 MG TABLET PO ×2 (08:50→20:40)
[2021-08-05] MEDS: INSULIN GLARGINE (*BKC) 100 UNITS/ML 20 UNITS SUB-Q ×2 (08:50→20:52)
[2021-08-05] MEDS: polyethylene glycoL 3350 17 GM POWD.PACK PO (08:50)
[2021-08-05] MEDS: MINERAL OIL/WHITE PETROLATUM OINTMENT 1 APPLIC EACH EYE ×2 (08:50→20:40)
[2021-08-05] MEDS: PANTOPRAZOLE SODIUM IV 40 MG VIAL IV PUSH (08:50)
[2021-08-05] MEDS: BUMETANIDE INJ 1 MG/4 ML VIAL IV PUSH ×2 (09:09→20:41)
--- NOTE | 2021-08-05 09:19 | ECG_ITS ---
Measurements Intervals [place] Rate: 65 P: [place]: 0 QRS: 54 QRSD: 96 T: 33 QT: 325 QTc: 338 Interpretive Statements SINUS OR ECTOPIC ATRIAL RHYTHM BASELINE ARTIFACT- II, III, AVL, AVF, V4-V6 BORDERLINE ECG Electronically Signed On 08-05-2021 20:05:34 BUHR MILL OPERATOR by Jase Bailey D.O.
--- NOTE | 2021-08-05 09:38 | WPDINTPN ---
Progress Note: A&P Assessment and Plan (1) Acute respiratory failure with hypoxia: Code(s): J96.01 - Acute respiratory failure with hypoxia Status: Acute Assessment and Plan: Patient presented the ED on 07/20/2021 late evening, was hypoxic and was placed on BiPAP. She was on 100% FiO2 antibiotic, and failed as she was hypoxic with low O2 sats. 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 Patient likely de-recruited and was placed on 85% FiO2 and the PEEP was increased to 14. She was also started on Nimbex infusion as she was dyssynchronous and hypoxic. Patient was then placed in prone position after which her oxygen saturations improved. 08/04/2021: When patient was placed in prone position she desaturated in the 70s to 80s, was placed on 100% FiO2, peep of 14. -Despite which she was hypoxic, was started on Flolan (08/04/2021. ) -ABGs this morning much improved, will start weaning FiO2. - -continue bronchodilators -continue Pulmicort -sedated with fentanyl, Versed and propofol infusion. Nimbex restarted on 08/02/21 due to ventilator dyssynchrony. -discussed with Nephrology, continue diuresis with Bumex 1 mg IV q.12 hours -Will restart bumex since blood pressure much improved (2) Pneumonia due to COVID-19 virus: Code(s): U07.1 - COVID-19; J12.82 - Pneumonia due to coronavirus disease 2019 Status: Acute Assessment and Plan: Patient was COVID positive on 07/16/2021 this was 4 days prior to admission according the patient's medical records. -completed dexamethasone -not a candidate for remdesivir due to acute kidney injury and elevated creatinine -CRP 29.2, Received tocilizumab on 07/22/2021 -continue airborne, droplet, contact isolation/precautions (3) Diabetes mellitus with hyperglycemia: Qualifiers: Diabetes mellitus long term care administrator insulin use: without snf use Diabetes mellitus type: type 2 Qualified Code(s): E11.65 - Type 2 diabetes mellitus with hyperglycemia Code(s): E11.65 - Type 2 diabetes mellitus with hyperglycemia Status: Acute Assessment and Plan: Patient hyperglycemic which could be related to stress response and or steroids -continue sliding scale insulin, Accu-Cheks - off insulin infusion since 07/26, continue Lantus to 20 mg SQ q.12 hours. Now that she is off steroids (4) Acute renal failure: Qualifiers: Acute renal failure type: unspecified Qualified Code(s): N17.9 - Acute kidney failure, unspecified Code(s): N17.9 - Acute kidney failure, unspecified Status: Acute Assessment and Plan: Acute kidney injury, could be related to hypoxia, COVID-19, hypotension, AFib, also has a history of diabetes and hypertension which could be contributing to that also. (last creatinine was on 12/08/2020 was 1.4). Patient was admitted with a creatinine of 3.7, -Patient did receive 2 L of IV fluid bolus on07/22 for hypotension. -will continue to monitor urine output, obtain urine lytes -renal ultrasound showed normal kidney size, no hydronephrosis. 3.9 cm left kidney mass suspicious for renal cell carcinoma, abdominal CT without and with contrast is recommended after improvement in kidney function -continue to monitor renal function, electrolytes and urine output -creatinine stable - appreciate Nephrology evaluation recommendation (5) Afib: Code(s): I48.91 - Unspecified atrial fibrillation Status: Acute Assessment and Plan: Patient was in AFib RVR, requiring amiodarone infusion, heparin infusion. -cardiology switched to sotalol on 07/31/2021: -patient in sinus rhythm this morning -discuss with cardiology regarding heparin infusion, cardiology will switch to apixaban 5 mg p.o. q.12 hours, will discontinue heparin drip - (6) DVT prophylaxis: Code(s): Z29.9 - Encounter for prophylactic measures, unspecified St
[2021-08-05] MEDS: SOTALOL HCL 80 MG TABLET PO ×2 (09:45→20:41)
[2021-08-05] MEDS: PAMIDRONATE DISODIUM 30 MG in DEXTROSE 5% IN WATER 500 ML 125 MG IVPB (09:46)
--- NOTE | 2021-08-05 11:17 | PCFNICU ---
ICU Rounding Note: Pt current nutrition is Nepro at 35 ml/hr over 22 hours. Nutrition recommendation: Vital AF 1.2 at 50 ml/hr over 22 hours. Last recorded weight is 100.7 kg-stable Bowel Motility:Last BM reported 07/31 Labs Reviewed:PO4 4.7, Ca 11.0, Na 135, BUN 63, Glu 128,Hgb 8.6,Hct 28.8 Meds Noted:Lantus, Protonix, Novolog, Eliquis, Versed, Fentanyl, Bumex, Flolan, Propofol 30 kpak=659 kcals. Skin: Buttock-maceration Additional Notes: Patient remains on mechanical vent. Tube feeding change today to Vital AF 1.2 due to increase calcium. Goal rate of Vital AF 1.2 at 50 ml/hr will provide 1320 kcals/83 gms protein/892 ml water, with an additional 466 kcals from propofol. Will continue to monitor propofol titration for tube feeding rate changes. Following daily in ICU rounds. Will monitor every Tuesday and Tuesday.
[2021-08-05 11:47] LABS: Glucose Point of Care 152 mg/dl (65-105)
--- NOTE | 2021-08-05 14:39 | PM.IMPN ---
Progress Note: A&P Assessment and Plan (1) Acute respiratory failure with hypoxia: Code(s): J96.01 - Acute respiratory failure with hypoxia Status: Acute Assessment and Plan: Patient presented the ED on 07/20/2021 late evening, was hypoxic and was placed on BiPAP. She was on 100% FiO2 antibiotic, and failed as she was hypoxic with low O2 sats. 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 on 07/22/2021 legislative assistant On 08/02/2021: There was a cuff leak in the ETT so it was switched over tube exchanger. Patient likely de-recruited and was placed on 85% FiO2 and the PEEP was increased to 14. She was also started on Nimbex infusion as she was dyssynchronous and hypoxic. Patient was then placed in prone position after which her oxygen saturations improved. 08/04/2021: When patient was placed in prone position she desaturated in the 70s to 80s, was placed on 100% FiO2, peep of 14. -Despite which she was hypoxic, was started on Flolan (08/04/2021. ) -ABGs this morning much improved, will start weaning FiO2. - -continue bronchodilators -continue Pulmicort -sedated with fentanyl, Versed and propofol infusion. Nimbex restarted on 08/02/21 due to ventilator dyssynchrony. -discussed with Nephrology, continue diuresis with Bumex 1 mg IV q.12 hours -Will restart bumex since blood pressure much improved 08/04/2021 interval history Patient with COVID-19 remains intubated completed 10 days course of dexamethasone, did not receive remdesivir because of the chronic kidney disease, currently sedated with Versed, propofol, and Nimbex was restarted on 08/02/2021 patient seen by aquacultural worker supervisor and spray operator appreciate 08/05/2021 interval history Patient with COVID-19 remains intubated completed 10 days course of dexamethasone, did not receive remdesivir because of the chronic kidney disease, currently sedated with Versed, propofol, and Nimbex was restarted on 08/02/2021, today patient is desaturating ventilator settings were adjusted and placed on Fio2, patient seen by aquacultural worker supervisor and spray operator appreciate (2) Pneumonia due to COVID-19 virus: Code(s): U07.1 - COVID-19; J12.82 - Pneumonia due to coronavirus disease 2019 Status: Acute Assessment and Plan: Patient was COVID positive on 07/16/2021 this was 4 days prior to admission according the patient's medical records. -completed dexamethasone -not a candidate for remdesivir due to acute kidney injury and elevated creatinine -CRP 29.2, Received tocilizumab on 07/22/2021 -continue airborne, droplet, contact isolation/precautions (3) Diabetes mellitus with hyperglycemia: Qualifiers: Diabetes mellitus type: type 2 Diabetes mellitus fdc insulin use: without terminal supervisor use Qualified Code(s): E11.65 - Type 2 diabetes mellitus with hyperglycemia Code(s): E11.65 - Type 2 diabetes mellitus with hyperglycemia Status: Acute Assessment and Plan: Patient hyperglycemic which could be related to stress response and or steroids -continue sliding scale insulin, Accu-Cheks - off insulin infusion since 07/26, continue Lantus to 20 mg SQ q.12 hours. Now that she is off steroids (4) Acute renal failure: Qualifiers: Acute renal failure type: unspecified Qualified Code(s): N17.9 - Acute kidney failure, unspecified Code(s): N17.9 - Acute kidney failure, unspecified Status: Acute Assessment and Plan: Acute kidney injury, could be related to hypoxia, COVID-19, hypotension, AFib, also has a history of diabetes and hypertension which could be contributing to that also. (last creatinine was on 12/08/2020 was 1.4). Patient was admitted with a creatinine of 3.7, -Patient did receive 2 L of IV fluid bolus on07/22 for hypotension. -will continue to monitor urine output, obtain urine lytes -renal ultrasound showed normal kidney size, no hydronephrosis. 3.9 cm left kidney mass suspicious for renal cell carcinoma, abdominal CT without and with contrast
[2021-08-05 15:54] LABS: Glucose Point of Care 175 mg/dl (65-105)
--- NOTE | 2021-08-05 17:23 | P.PNNP_ITS ---
Progress Note: A&P Assessment and Plan (1) Acute renal failure: Qualifiers: Acute renal failure type: unspecified Qualified Code(s): N17.9 - Acute kidney failure, unspecified Code(s): N17.9 - Acute kidney failure, unspecified Status: Acute Assessment and Plan: * Acute kidney injury * evaluation to date reveals: * renal ultrasound with normal kidney sizes but a 3.9ccm left kidney mass suspicious for renal cell carcinoma * urine electrolytes that are non-prerenal * mildly elevated CPK but not high enough to affect kidney function * Most likely due to COVID-19 and prior hypotension. * peak/plateau of creatinine at 3.2mg/dl * creatinine is doing well. It is now down to normal. * continue diuretics To help with oxygenation.. * Repeat cortisol level Up to 13.2. I do not think she is adrenally insufficient. * Calcium level is high. I agree with pamidronate. This takes a few days to kick in. (2) Acute respiratory failure with hypoxia: Code(s): J96.01 - Acute respiratory failure with hypoxia Status: Acute Assessment and Plan: * due to #3 * known history of COPD and ongoing smoking history also likely contributing * continue inhalers * continue ventilator support * FiO2 improved (3) Pneumonia due to COVID-19 virus: Code(s): U07.1 - COVID-19; J12.82 - Pneumonia due to coronavirus disease 2018 Status: Acute Assessment and Plan: * known positivity 4 days prior to admission * currently off dexamethasone . Last dose on 07/30. * s/p tocilizumab on 07/22/2021 (4) Urinary tract infection: Code(s): N39.0 - Urinary tract infection, site not specified Status: Acute Assessment and Plan: * urine culture with E.coli * on cefepime (5) Diabetes: Code(s): E11.9 - Type 2 diabetes mellitus without complications Status: Acute Assessment and Plan: * On Accu-Cheks and sliding-scale insulin Subjective Date/time seen: 08/05/21 17:23 Interval history: Divya is in the ICU on the ventilator, on sedatives. FiO2 is Back up to 100%. Exam Narrative: General: Elderly female intubated/sedated/paralyzed Heart: Irregular rhythm no rub or gallop Lungs: coarse Abdomen: soft, nontender, nondistended, positive bowel sounds Extremities: no edema Skin: No rash or subcu nodules Objective Data Vital Signs Vital Signs: Vital Signs - 24 hr 08/04/21 18:00 08/04/21 18:06 08/04/21 18:11 Temperature 36.7 C Pulse Rate 67 69 69 Respiratory Rate 24 H 24 H 24 H Blood Pressure 114/55 L 114/55 L Pulse Oximetry 95 08/04/21 18:12 08/04/21 19:25 08/04/21 19:30 Temperature Pulse Rate 69 68 68 Respiratory Rate 24 H 24 H Blood Pressure Pulse Oximetry 95 95 08/04/21 20:00 08/04/21 20:22 08/04/21 21:14 Temperature 37.0 C Pulse Rate 65 65 66 Respiratory Rate 24 H 24 H Blood Pressure 111/57 L Pulse Oximetry 96 96 08/04/21 21:18 08/04/21 22:00 08/04/21 23:08 Temperature Pulse Rate 66 62 61 Respiratory Rate 24 H 24 H Blood Pressure 112/58 L Pulse Oximetry 96 94 95 08/04/21 23:09 08/05/21 00:00 08/05/21 00:20 Temperat
--- NOTE | 2021-08-05 17:23 | PM.PNNEP ---
Progress Note: A&P Assessment and Plan (1) Acute renal failure: Qualifiers: Acute renal failure type: unspecified Qualified Code(s): N17.9 - Acute kidney failure, unspecified Code(s): N17.9 - Acute kidney failure, unspecified Status: Acute Assessment and Plan: Acute kidney injury evaluation to date reveals: renal ultrasound with normal kidney sizes but a 3.9ccm left kidney mass suspicious for renal cell carcinoma urine electrolytes that are non-prerenal mildly elevated CPK but not high enough to affect kidney function Most likely due to COVID-19 and prior hypotension. peak/plateau of creatinine at 3.2mg/dl creatinine is doing well. It is now down to normal. continue diuretics To help with oxygenation.. Repeat cortisol level Up to 13.2. I do not think she is adrenally insufficient. Calcium level is high. I agree with pamidronate. This takes a few days to kick in. (2) Acute respiratory failure with hypoxia: Code(s): J96.01 - Acute respiratory failure with hypoxia Status: Acute Assessment and Plan: due to #3 known history of COPD and ongoing smoking history also likely contributing continue inhalers continue ventilator support FiO2 improved (3) Pneumonia due to COVID-19 virus: Code(s): U07.1 - COVID-19; J12.82 - Pneumonia due to coronavirus disease 2018 Status: Acute Assessment and Plan: known positivity 4 days prior to admission currently off dexamethasone . Last dose on 07/30. s/p tocilizumab on 07/22/2021 (4) Urinary tract infection: Code(s): N39.0 - Urinary tract infection, site not specified Status: Acute Assessment and Plan: urine culture with E.coli on cefepime (5) Diabetes: Code(s): E11.9 - Type 2 diabetes mellitus without complications Status: Acute Assessment and Plan: On Accu-Cheks and sliding-scale insulin Subjective Date/time seen: 08/05/21 17:23 Interval history: Divya is in the ICU on the ventilator, on sedatives. FiO2 is Back up to 100%. Exam Narrative: General: Elderly female intubated/sedated/paralyzed Heart: Irregular rhythm no rub or gallop Lungs: coarse Abdomen: soft, nontender, nondistended, positive bowel sounds Extremities: no edema Skin: No rash or subcu nodules Objective Data Vital Signs Vital Signs: Vital Signs - 24 hr 08/04/21 18:00 08/04/21 18:06 08/04/21 18:11 Temperature 36.7 C Pulse Rate 67 69 69 Respiratory Rate 24 H 24 H 24 H Blood Pressure 114/55 L 114/55 L Pulse Oximetry 95 08/04/21 18:12 08/04/21 19:25 08/04/21 19:30 Temperature Pulse Rate 69 68 68 Respiratory Rate 24 H 24 H Blood Pressure Pulse Oximetry 95 95 08/04/21 20:00 08/04/21 20:22 08/04/21 21:14 Temperature 37.0 C Pulse Rate 65 65 66 Respiratory Rate 24 H 24 H Blood Pressure 111/57 L Pulse Oximetry 96 96 08/04/21 21:18 08/04/21 22:00 08/04/21 23:08 Temperature Pulse Rate 66 62 61 Respiratory Rate 24 H 24 H Blood Pressure 112/58 L Pulse Oximetry 96 94 95 08/04/21 23:09 08/05/21 00:00 08/05/21 00:20 Temperature 36.6 C Pulse Rate 61 61 60 Respiratory Rate 24 H 24 H Blood Pressure 111/56 L Pulse Oximetry 95 97 08/05/21 01:15 08/05/21 02:00 08/05/21 02:04 Temperature 36.7 C Pulse Rate 60 61 61 Respiratory Rate 24 H 24 H 24 H Blood Pressure 108/53 L Pulse Oximetry 95 97 08/05/21 03:14 08/05/21 03:18 08/05/21 03:59 Temperature Pulse Rate 59 L 59 L 61 Respiratory Rate 24 H 24 H Blood Pressure 105/52 L Pulse Oximetry 96 96 08/05/21 04:00 08/05/21 05:30 08/05/21 05:55 Temperature 36.8 C Pulse Rate 60 66 62 Respiratory Rate 24 H 24 H 24 H Blood Pressure 109/56 L Pulse Oximetry 96 96 08/05/21 06:00 08/05/21 06:26 08/05/21 08:00 Temperature 36.8 C Pulse Rate 64 66 62 Respiratory Rate 24 H 24 H 24 H Blood Pressure 114/63 120/53 L
[2021-08-05 20:57] LABS: Glucose Point of Care 162 mg/dl (65-105)
[2021-08-05 23:16] LABS: Glucose Point of Care 136 mg/dl (65-105)
[2021-08-06] VITALS (35 sets, daily range): BP systolic 98–141; BP diastolic 45–62; PULSE 61–84; RESP 24; TEMP 36.5–37.1; O2SAT 88–100
[2021-08-06] MEDS: MIDAZOLAM 100MG/NS 100ML(*CRX) 100 MG/100 ML BAG IV CONT ×2 (01:51→18:10)
[2021-08-06] MEDS: FENTANYL 2,500MCG/NS250ML(*CRX 2,500 MCG/250 ML BAG 10 MCG IV CONT ×2 (01:51→18:10)
[2021-08-06] MEDS: PROPOFOL IV EMULSION 100 ML 17.66 MG IV CONT ×5 (02:24→21:27)
[2021-08-06 04:43] LABS: Basophils Percent Auto 0.3 % (0.2-1.2); Eosinophils Absolute Auto 0.4 K/mm3 (0-0.3); Eosinophils Percent Auto 2.4 % (0-4.4); Hematocrit 27.2 % (37.0-47.0); Hemoglobin 8.3 g/dL (12.0-15.0); Immature Granulocyte Absolute 0.18 K/mm3 (0.00-0.031); Immature Granulocyte Percent A 1.1 % (0-0.5); Lymphocytes Absolute Auto 1.02 K/mm3 (0.9-3.2); Lymphocytes Percent Auto 6.5 % (18.3-44.2); Mean Corpuscular HGB Conc 30.5 g/dl (32-36); Mean Corpuscular Hemoglobin 29.2 pg (26-34); Mean Corpuscular Volume 95.8 fl (80-100); Mean Platelet Volume 9.9 fl (7.4-10.4); Monocytes Absolute Auto 0.9 K/mm3 (0.1-0.6); Monocytes Percent Auto 5.9 % (2.6-8.5); Neutrophils Absolute Auto 13.1 K/mm3 (1.3-6.7); Neutrophils Percent Auto 83.8 % (45.5-73.1); Platelet Count Result 450 k/mm3 (150-375); Red Blood Count 2.84 M/mm3 (4.2-5.4); Red Cell Distribution Width 16.2 % (11.5-14.5); White Blood Count 15.7 K/mm3 (4.5-10.0)
[2021-08-06 05:07] LABS: Alveolar/Arterial O2 Gradient 395.3 mmHg; Carboxyhemoglobin 0.3 % THb (0-2.0); Fractional Inspired Oxygen 75 %; HCO3 ABG 30.8 mEq/l (22.0-26.0); Methemoglobin ABG 0.1 %THb (0-1.5); Oxygen Content ABG 13.7 %vol (16.0-22.0); Oxygen Saturation ABG 97.1 % (95.0-100.0); Oxyhemoglobin 95.7 % THb (90.0-100.0); PCO2 ABG 46.1 mmHg (35.0-45.0); PO2 ABG 90.5 mmHg (80.0-100.0); PO2 FiO2 Ratio Arterial Blood 1.21 %; Reduced Hemoglobin 3.9 %THb (0-5.0); Total Hemoglobin 10.1 g/dL (12.0-18.0); pH ABG 7.443 (7.350-7.450)
[2021-08-06 05:11] LABS: Arterial Blood Gas Vent Mode CMV; Arterial Blood Gas Ventilator rate 24 /MIN; Device VENTILATOR; Modified Allen's Test Unable to perform; Site Drawn LEFT RADIAL
[2021-08-06 05:12] LABS: Arterial Blood Gas PEEP 14 cmH2O; Arterial Blood Gas Tidal Volume 420 ml
[2021-08-06] MEDS: CISATRACURIUM BESYLATE 200 MG in DEXTROSE 5% 80 ML 12 ML IV CONT ×2 (05:29→15:45)
[2021-08-06 05:31] LABS: Alanine Aminotransferase 47 U/L (4-35); Albumin Level 3.1 g/dL (3.5-5.1); Alkaline Phosphatase 124 U/L (38-126); Anion Gap 6 mmol/L (8-16); Aspartate Amino Transferase 34 U/L (14-36); Bilirubin,Total 0.4 mg/dL (0.2-1.3); Blood Urea Nitrogen 75 mg/dL (7-17); Calcium 10.6 mg/dL (8.4-10.2); Carbon Dioxide 32 mmol/L (22-30); Chloride 95 mmol/L (98-107); Estimated CRCL calculation 51 ml/min; Estimated Glomerular Filt Rate 45; Glucose 167 mg/dL (65-110); Phosphorus 4.9 mg/dL (2.5-4.5); Potassium 3.8 mmol/L (3.4-5.0); Sodium 133 mmol/L (137-145)
[2021-08-06] MEDS: NEOMYCIN/POLYMYXIN/BACITRACIN OINTMENT 15 GM TUBE 1 APPLIC TOPICAL (07:59)
[2021-08-06] MEDS: INSULIN GLARGINE (*BKC) 100 UNITS/ML 20 UNITS SUB-Q ×2 (07:59→21:25)
[2021-08-06] MEDS: polyethylene glycoL 3350 17 GM POWD.PACK PO (07:59)
[2021-08-06] MEDS: PANTOPRAZOLE SODIUM IV 40 MG VIAL IV PUSH (07:59)
[2021-08-06] MEDS: MINERAL OIL/WHITE PETROLATUM OINTMENT 1 APPLIC EACH EYE ×2 (08:00→21:25)
[2021-08-06] MEDS: SOTALOL HCL 80 MG TABLET PO ×2 (08:00→21:27)
[2021-08-06] MEDS: APIXABAN 5 MG TABLET PO ×2 (08:00→21:26)
[2021-08-06 08:17] LABS: Glucose Point of Care 116 mg/dl (65-105)
[2021-08-06] MEDS: EPOPROSTENOL SODIUM 0.5 MG VIAL 1 MG INHALATION ×3 (08:21→20:04)
[2021-08-06] MEDS: BUMETANIDE INJ 1 MG/4 ML VIAL IV PUSH ×2 (09:03→21:26)
--- NOTE | 2021-08-06 10:55 | PCFNICU ---
ICU Rounding Note: Pt current nutrition is Vital AF 1.2 at 50 ml/hr over 22 hours. Last recorded weight is 115.6 kg, up from 106 kg on admit. Bowel Motility:Hypoactive bowel sounds, miralax started. Labs Reviewed:Hgb 8.3,Hct 27.2,Na 133, Alb 3.1,GFR 45, BUN 75, Cr 1.2,Ca 10.6,PO4 4.9 Meds Noted:Fentanyl, Versed, Eliquis, Protonix, NovoLog, Lantus, Nimbex, Bumex, Flolan, Miralax, Propofol 30 rsgd=926 kcals. Skin: buttock-maceration Additional Notes: Patient remains on mechanical vent and tube feedings of Vital AF 1.2 at 50 ml/hr and tolerating. Propofol providing an additional 466 kcals. Agree with diet orders. Following daily in ICU rounds. Will monitor every Tuesday and Tuesday..
[2021-08-06 12:07] LABS: Glucose Point of Care 151 mg/dl (65-105)
--- NOTE | 2021-08-06 12:38 | PDONCCN ---
HPI - Date of Consult Date/Time: 08/06/21 12:38 Requesting Physician: Dee Dee Hathaway DO Primary Care Provider: Bo Sesay, PA - Consult Narrative Reason for consult: Normocytic anemia Narrative: Divya Mooney is a 66 year old female with history of COPD, obesity chronic atrial fibrillation and diabetes came into the ER with increasing shortness of breath after being diagnosed with COVID infection 4 days prior to the admission on July 21. She has COVID vaccination that but did not receive the booster. Currently she is intubated and sedated. Patient has a history of anemia and was taking iron at home. Her hemoglobin was 10.5 on admission now dropped to 8.3. White blood cell count was 11.7 now has increased to 15.7. There is no evidence of bleeding. During the hospital stay she developed renal insufficiency and her creatinine went up to 3.7 now has improved down to 1.2 today. Patient has completed course of dexamethasone for COVID 19 positive pneumonia. She also received tocilizumab on July 22. Patient was on Eliquis for her atrial fibrillation. Review of Systems - Review of Systems All systems reviewed & are unremarkable except as noted in HPI and bel - Neurologic Denies confusion, Denies headache(s), Denies weakness PMFSH Medical History: Medical History (Last Reviewed 07/28/21 @ 11:10 by Rc Bee MD) Afib [place] Anxiety Bipolar disorder COPD (chronic obstructive pulmonary disease) Depression Diabetes Dizziness Emphysema of lung History of pneumonia HTN (hypertension) Hx of drug dependence Kidney stones Osteoporosis Pneumonia Seizures Vision abnormalities Surgical History: Surgical History (Last Reviewed 07/28/21 @ 11:10 by Rc Bee MD) History of laparoscopic cholecystectomy Onset Date: 03/2017 History of tubal ligation Status post open reduction with internal fixation of fracture Left shoulder Family History: Family History (Last Reviewed 07/28/21 @ 11:10 by Rc Bee MD) Father Depression Sibling Depression Hypertension Family history of elevated blood lipids Other Arthritis Diabetes mellitus Heart disease Malignant neoplasm - Social History Social History: Social History (Last Reviewed 07/28/21 @ 11:10 by Rc Bee MD) Gender Identity: Gender identity (if verbalized by the patient): Female Alcohol Use: Alcohol intake: never Alcohol use details: Occasional Substance Use: Substance use: never Others: Spiritual care concerns: No Smoking Status: Smoking status: Current every day smoker Smoking Pack-years: Smoking cigarettes per day: 3 Years smoked: 30 Smoking pack-years: 4.50 Meds Home Medications Medication Instructions Recorded Confirmed Type acetaminophen 500 mg tablet 500 mg PO Q6H PRN 05/23/20 07/21/21 History albuterol sulfate 90 mcg/actuation 1 inh INHALATION BID 05/23/20 07/21/21 History aerosol inhaler amlodipine 10 mg tablet 10 mg PO DAILY 05/23/20 07/21/21 History ammonium lactate 12 % topical cream 1 applic TOPICAL DAILY 05/23/20 History apixaban 5 mg tablet 5 mg PO BID 05/23/20 07/21/21 History aripiprazole 30 mg tablet 30 mg PO DAILY 05/23/20 07/21/21 History aspirin 81 mg tablet,delayed 81 mg PO DAILY 05/23/20 History release budesonide-formoterol HFA 160 2 puff INHALATION Q12H 05/23/20 07/21/21 History mcg-4.5 mcg/actuation aerosol inhaler bupropion HCl 200 mg tablet,12 hr 200 mg PO BID 05/23/20 07/21/21 History sustained-release carvedilol 6.25 mg tablet 6.25 mg PO Q12H 05/23/20 07/21/21 History cholestyramine-aspartame 4 gram PO 05/23/20 History oral powder for susp in a packet cyclobenzaprine 10 mg tablet 10 mg PO HS PRN 05/23/20 07/21/21 History dicyclomine 10 mg capsule 10 mg PO QID 05/23/20 07/21/21 History duloxetine 30 mg capsule,delayed 60 mg PO DAILY 05/23/20 07/21/21 History rele
--- NOTE | 2021-08-06 14:07 | P.PNNP_ITS ---
Progress Note: A&P Assessment and Plan (1) Acute renal failure: Qualifiers: Acute renal failure type: unspecified Qualified Code(s): N17.9 - Acute kidney failure, unspecified Code(s): N17.9 - Acute kidney failure, unspecified Status: Acute Assessment and Plan: * Acute kidney injury * evaluation to date reveals: * renal ultrasound with normal kidney sizes but a 3.9ccm left kidney mass suspicious for renal cell carcinoma * urine electrolytes that are non-prerenal * mildly elevated CPK but not high enough to affect kidney function * Most likely due to COVID-19 and prior hypotension. * peak/plateau of creatinine at 3.2mg/dl * the creatinine andrea today to 1.2. * Urine output is a bit low at 525. * She is on no pressors. * Will continue diuretics for now. If the creatinine rises more consider backing off on the diuretics. * Bicarbonate level is a little high. Will start on acetazolamide. * Calcium level high. * most likely due to bedrest and bony Calcium mobilization. * This is a little bit better with the pamidronate. (2) Acute respiratory failure with hypoxia: Code(s): J96.01 - Acute respiratory failure with hypoxia Status: Acute Assessment and Plan: * due to #3 * known history of COPD and ongoing smoking history also likely contributing * continue inhalers * continue ventilator support * FiO2 improved (3) Pneumonia due to COVID-19 virus: Code(s): U07.1 - COVID-19; J12.82 - Pneumonia due to coronavirus disease 2018 Status: Acute Assessment and Plan: * known positivity 4 days prior to admission * currently off dexamethasone . Last dose on 07/30. * s/p tocilizumab on 07/22/2021 (4) Urinary tract infection: Code(s): N39.0 - Urinary tract infection, site not specified Status: Acute Assessment and Plan: * urine culture with E.coli * on cefepime (5) Diabetes: Code(s): E11.9 - Type 2 diabetes mellitus without complications Status: Acute Assessment and Plan: * On Accu-Cheks and sliding-scale insulin Subjective Date/time seen: 08/06/21 14:07 Interval history: Divya is in the ICU on the ventilator, on sedatives. She is in the prone position. FiO2 is at 75%. Exam Narrative: General: Elderly female intubated/sedated/paralyzed Heart: Irregular rhythm no rub or gallop Lungs: coarse Abdomen: soft, nontender, nondistended, positive bowel sounds Extremities: no edema Skin: No rash or subcu nodules Objective Data Vital Signs Vital Signs: Vital Signs - 24 hr 08/05/21 16:00 08/05/21 17:10 08/05/21 17:14 Temperature 36.6 C Pulse Rate 69 67 70 Respiratory Rate 24 H 24 H Blood Pressure 160/63 H Pulse Oximetry 98 98 08/05/21 17:15 08/05/21 18:00 08/05/21 20:00 Temperature 36.8 C 36.9 C Pulse Rate 69 69 66 Respiratory Rate 24 H 24 H 24 H Blood Pressure 127/58 L 126/58 L Pulse Oximetry 97 96 98 08/05/21 22:00 08/06/21 00:00 08/06/21 00:21 Temperature 37.1 C Pulse Rate 67 64 67 Respiratory Rate 24 H 24 H 24 H Blood Pressure 121/59 L 114/51 L Pulse Oximetry 97 98 97 08/06/21 01:51 08/06/21 02:00 08/06/21 02:24 Temperature Pulse Rate 65 64 6
--- NOTE | 2021-08-06 14:07 | PM.PNNEP ---
Progress Note: A&P Assessment and Plan (1) Acute renal failure: Qualifiers: Acute renal failure type: unspecified Qualified Code(s): N17.9 - Acute kidney failure, unspecified Code(s): N17.9 - Acute kidney failure, unspecified Status: Acute Assessment and Plan: Acute kidney injury evaluation to date reveals: renal ultrasound with normal kidney sizes but a 3.9ccm left kidney mass suspicious for renal cell carcinoma urine electrolytes that are non-prerenal mildly elevated CPK but not high enough to affect kidney function Most likely due to COVID-19 and prior hypotension. peak/plateau of creatinine at 3.2mg/dl the creatinine andrea today to 1.2. Urine output is a bit low at 525. She is on no pressors. Will continue diuretics for now. If the creatinine rises more consider backing off on the diuretics. Bicarbonate level is a little high. Will start on acetazolamide. Calcium level high. most likely due to bedrest and bony Calcium mobilization. This is a little bit better with the pamidronate. (2) Acute respiratory failure with hypoxia: Code(s): J96.01 - Acute respiratory failure with hypoxia Status: Acute Assessment and Plan: due to #3 known history of COPD and ongoing smoking history also likely contributing continue inhalers continue ventilator support FiO2 improved (3) Pneumonia due to COVID-19 virus: Code(s): U07.1 - COVID-19; J12.82 - Pneumonia due to coronavirus disease 2019 Status: Acute Assessment and Plan: known positivity 4 days prior to admission currently off dexamethasone . Last dose on 07/30. s/p tocilizumab on 07/22/2021 (4) Urinary tract infection: Code(s): N39.0 - Urinary tract infection, site not specified Status: Acute Assessment and Plan: urine culture with E.coli on cefepime (5) Diabetes: Code(s): E11.9 - Type 2 diabetes mellitus without complications Status: Acute Assessment and Plan: On Accu-Cheks and sliding-scale insulin Subjective Date/time seen: 08/06/21 14:07 Interval history: Divya is in the ICU on the ventilator, on sedatives. She is in the prone position. FiO2 is at 75%. Exam Narrative: General: Elderly female intubated/sedated/paralyzed Heart: Irregular rhythm no rub or gallop Lungs: coarse Abdomen: soft, nontender, nondistended, positive bowel sounds Extremities: no edema Skin: No rash or subcu nodules Objective Data Vital Signs Vital Signs: Vital Signs - 24 hr 08/05/21 16:00 08/05/21 17:10 08/05/21 17:14 Temperature 36.6 C Pulse Rate 69 67 70 Respiratory Rate 24 H 24 H Blood Pressure 160/63 H Pulse Oximetry 98 98 08/05/21 17:15 08/05/21 18:00 08/05/21 20:00 Temperature 36.8 C 36.9 C Pulse Rate 69 69 66 Respiratory Rate 24 H 24 H 24 H Blood Pressure 127/58 L 126/58 L Pulse Oximetry 97 96 98 08/05/21 22:00 08/06/21 00:00 08/06/21 00:21 Temperature 37.1 C Pulse Rate 67 64 67 Respiratory Rate 24 H 24 H 24 H Blood Pressure 121/59 L 114/51 L Pulse Oximetry 97 98 97 08/06/21 01:51 08/06/21 02:00 08/06/21 02:24 Temperature Pulse Rate 65 64 65 Respiratory Rate 24 H 24 H 24 H Blood Pressure 111/51 L Pulse Oximetry 94 95 08/06/21 04:00 08/06/21 04:30 08/06/21 04:59 Temperature 37.0 C Pulse Rate 64 66 64 Respiratory Rate 24 H 24 H 24 H Blood Pressure 114/51 L 117/59 L Pulse Oximetry 93 95 08/06/21 05:29 08/06/21 05:45 08/06/21 06:00 Temperature 37.1 C Pulse Rate 64 66 63 Respiratory Rate 24 H 24 H 24 H Blood Pressure 117/59 L 114/57 L Pulse Oximetry 95 97 08/06/21 08:00 08/06/21 08:33 08/06/21 08:37 Temperature 37.1 C Pulse Rate 66 68 67 Respiratory Rate 24 H 24 H Blood Pressure 141/61 H Pulse Oximetry 94 92 94 08/06/21 10:00 08/06/21 10:47 08/06/21 11:34 Temperature 37.0 C Pulse Rate 61 62 72 Respiratory Rate 2
[2021-08-06 14:17] LABS: Iron 37 ug/dL (37-170)
[2021-08-06 14:27] LABS: Percent Iron Saturation 13 % (20-50)
[2021-08-06 14:41] LABS: Folic Acid 7.7 ng/mL (2.76->20)
--- NOTE | 2021-08-06 15:51 | PHAR ---
08/06/21 called for [facility]
--- NOTE | 2021-08-06 16:04 | WPDINTPN ---
Progress Note: A&P Assessment and Plan (1) Acute respiratory failure with hypoxia: Code(s): J96.01 - Acute respiratory failure with hypoxia Status: Acute Assessment and Plan: Patient presented the ED on 07/20/2021 late evening, was hypoxic and was placed on BiPAP. She was on 100% FiO2 antibiotic, and failed as she was hypoxic with low O2 sats. 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 on 07/22/2021 On 08/02/2021: There was a cuff leak in the ETT so it was switched over tube exchanger. Patient likely de-recruited and was placed on 85% FiO2 and the PEEP was increased to 14. She was also started on Nimbex infusion as she was dyssynchronous and hypoxic. Patient was then placed in prone position after which her oxygen saturations improved. 08/04/2021: When patient was placed in prone position she desaturated in the 70s to 80s, was placed on 100% FiO2, peep of 14. -Despite which she was hypoxic, was started on Flolan (08/04/2021) -ABGs reviewed -continue daily prone ventilation -continue bronchodilators and Pulmicort -sedated with fentanyl, Versed and propofol infusion. Nimbex restarted on 08/02/21 due to ventilator dyssynchrony. -patient was diuresed. -patient has been on a ventilator for more than 2 weeks now and would be a candidate for tracheostomy but currently too hypoxic for the procedure (2) Pneumonia due to COVID-19 virus: Code(s): U07.1 - COVID-19; J12.82 - Pneumonia due to coronavirus disease 2019 Status: Acute Assessment and Plan: Patient was COVID positive on 07/16/2021 this was 4 days prior to admission according the patient's medical records. -completed dexamethasone -not a candidate for remdesivir due to acute kidney injury and elevated creatinine -CRP 29.2, Received tocilizumab on 07/22/2021 -continue airborne, droplet, contact isolation/precautions (3) Diabetes mellitus with hyperglycemia: Qualifiers: Diabetes mellitus alf insulin use: without alf use Diabetes mellitus type: type 2 Qualified Code(s): E11.65 - Type 2 diabetes mellitus with hyperglycemia Code(s): E11.65 - Type 2 diabetes mellitus with hyperglycemia Status: Acute Assessment and Plan: Patient hyperglycemic which could be related to stress response and or steroids -continue sliding scale insulin, Accu-Cheks - off insulin infusion since 07/26, continue Lantus to 20 mg SQ q.12 hours. Now that she is off steroids (4) Acute renal failure: Qualifiers: Acute renal failure type: unspecified Qualified Code(s): N17.9 - Acute kidney failure, unspecified Code(s): N17.9 - Acute kidney failure, unspecified Status: Acute Assessment and Plan: Acute kidney injury, could be related to hypoxia, COVID-19, hypotension, AFib, also has a history of diabetes and hypertension which could be contributing to that also. (last creatinine was on 12/08/2020 was 1.4). Patient was admitted with a creatinine of 3.7, -Patient did receive 2 L of IV fluid bolus on07/22 for hypotension. -will continue to monitor urine output, obtain urine lytes -renal ultrasound showed normal kidney size, no hydronephrosis. 3.9 cm left kidney mass suspicious for renal cell carcinoma, abdominal CT without and with contrast is recommended after improvement in kidney function -continue to monitor renal function, electrolytes and urine output -creatinine 1.2 today. Continue cautious diuresis - appreciate Nephrology evaluation recommendation (5) Afib: Code(s): I48.91 - Unspecified atrial fibrillation Status: Acute Assessment and Plan: Patient was in AFib RVR, requiring amiodarone infusion, heparin infusion. -cardiology switched to sotalol on 07/31/2021: -patient in sinus rhythm this morning - cardiology switched to apixaban 5 mg p.o. q.12 hours, patient off of heparin drip (6) DVT prophylaxis: Code(s): Z29.9 - Encounter for prophylactic measures, unspecified Status: Acute Ass
[2021-08-06 16:31] LABS: Glucose Point of Care 185 mg/dl (65-105)
[2021-08-06] MEDS: acetaZOLAMIDE TAB 250 MG TABLET 500 MG PO (17:34)
[2021-08-06 21:47] LABS: Glucose Point of Care 161 mg/dl (65-105)
[2021-08-07] VITALS (43 sets, daily range): BP systolic 86–126; BP diastolic 41–55; PULSE 61–70; RESP 24; TEMP 36.2–36.8; O2SAT 93–100
[2021-08-07 00:58] LABS: Glucose Point of Care 177 mg/dl (65-105)
[2021-08-07] MEDS: CISATRACURIUM BESYLATE 200 MG in DEXTROSE 5% 80 ML 12 ML IV CONT ×3 (01:07→14:40)
[2021-08-07] MEDS: EPOPROSTENOL SODIUM 0.5 MG VIAL 1 MG INHALATION ×2 (02:01→07:59)
[2021-08-07] MEDS: PROPOFOL IV EMULSION 100 ML 17.66 MG IV CONT ×2 (03:20→08:25)
[2021-08-07 05:24] LABS: Hemoglobin 8.4 g/dL (12.0-15.0); Mean Corpuscular Hemoglobin 28.7 pg (26-34); Mean Platelet Volume 10.5 fl (7.4-10.4); Platelet Count Result 433 k/mm3 (150-375); Red Blood Count 2.93 M/mm3 (4.2-5.4); Red Cell Distribution Width 16.2 % (11.5-14.5); White Blood Count 18.9 K/mm3 (4.5-10.0)
[2021-08-07 05:44] LABS: Alanine Aminotransferase 41 U/L (4-35); Albumin Level 3.3 g/dL (3.5-5.1); Alkaline Phosphatase 134 U/L (38-126); Anion Gap 7 mmol/L (8-16); Aspartate Amino Transferase 29 U/L (14-36); Bilirubin,Total 0.3 mg/dL (0.2-1.3); Blood Urea Nitrogen 85 mg/dL (7-17); Carbon Dioxide 31 mmol/L (22-30); Chloride 94 mmol/L (98-107); Estimated CRCL calculation 40 ml/min; Estimated Glomerular Filt Rate 30; Glucose 144 mg/dL (65-110); Potassium 3.6 mmol/L (3.4-5.0); Sodium 132 mmol/L (137-145)
[2021-08-07 07:09] LABS: Alveolar/Arterial O2 Gradient 373.7 mmHg; Base Excess ABG 1.9 mEq/l (+/-2.0); Carboxyhemoglobin 0.3 % THb (0-2.0); Fractional Inspired Oxygen 75 %; HCO3 ABG 29.6 mEq/l (22.0-26.0); Methemoglobin ABG 0.1 %THb (0-1.5); Oxygen Content ABG 11.7 %vol (16.0-22.0); Oxygen Saturation ABG 95.4 % (95.0-100.0); Oxyhemoglobin 95.1 % THb (90.0-100.0); PO2 ABG 90.1 mmHg (80.0-100.0); Reduced Hemoglobin 4.5 %THb (0-5.0); Total Hemoglobin 8.6 g/dL (12.0-18.0)
[2021-08-07 07:14] LABS: Arterial Blood Gas Tidal Volume 420 ml; Arterial Blood Gas Vent Mode CMV; Arterial Blood Gas Ventilator rate 24 /MIN; Device VENTILATOR; Modified Allen's Test Pass; Site Drawn RIGHT RADIAL
[2021-08-07 07:15] LABS: Arterial Blood Gas PEEP 14 cmH2O
[2021-08-07 07:17] LABS: PCO2 ABG 66.8 mmHg (35.0-45.0); pH ABG 7.265 (7.350-7.450)
[2021-08-07 08:08] LABS: Glucose Point of Care 162 mg/dl (65-105)
[2021-08-07] MEDS: INSULIN GLARGINE (*BKC) 100 UNITS/ML 20 UNITS SUB-Q ×2 (08:25→23:34)
[2021-08-07] MEDS: BUMETANIDE INJ 1 MG/4 ML VIAL IV PUSH (08:25)
[2021-08-07] MEDS: SOTALOL HCL 80 MG TABLET PO (08:26)
[2021-08-07] MEDS: acetaZOLAMIDE TAB 250 MG TABLET 500 MG PO (08:26)
[2021-08-07] MEDS: APIXABAN 5 MG TABLET PO ×2 (08:26→23:36)
[2021-08-07] MEDS: MINERAL OIL/WHITE PETROLATUM OINTMENT 1 APPLIC EACH EYE ×2 (08:26→23:36)
[2021-08-07] MEDS: PANTOPRAZOLE SODIUM IV 40 MG VIAL IV PUSH (08:27)
[2021-08-07] MEDS: NEOMYCIN/POLYMYXIN/BACITRACIN OINTMENT 15 GM TUBE 1 APPLIC TOPICAL (08:27)
[2021-08-07 09:51] LABS: Albumin Level 3.1 g/dL (3.5-5.1); Anion Gap 10 mmol/L (8-16); Blood Urea Nitrogen 84 mg/dL (7-17); Calcium 10.2 mg/dL (8.4-10.2); Carbon Dioxide 30 mmol/L (22-30); Chloride 93 mmol/L (98-107); Estimated CRCL calculation 38 ml/min; Estimated Glomerular Filt Rate 28; Glucose 147 mg/dL (65-110); Phosphorus 7.3 mg/dL (2.5-4.5); Potassium 3.7 mmol/L (3.4-5.0); Sodium 133 mmol/L (137-145)
[2021-08-07 10:02] LABS: Parathyroid Intact 14.4 pg/mL (7.5-53.5)
--- NOTE | 2021-08-07 10:19 | P.PNNP_ITS ---
Progress Note: A&P Assessment and Plan (1) Acute renal failure: Qualifiers: Acute renal failure type: unspecified Qualified Code(s): N17.9 - Acute kidney failure, unspecified Code(s): N17.9 - Acute kidney failure, unspecified Status: Acute Assessment and Plan: * Acute kidney injury * evaluation to date reveals: * renal ultrasound with normal kidney sizes but a 3.9ccm left kidney mass suspicious for renal cell carcinoma * urine electrolytes that are non-prerenal * mildly elevated CPK but not high enough to affect kidney function * Most likely due to COVID-19 and prior hypotension. * peak/plateau of creatinine at 3.2mg/dl * the creatinine andrea again and is now up to 1.7 * Urine output is still a bit low at only 500cc. * White cell count is higher. * Blood pressure is lower. She is now on pressors. * I agree with stopping the diuretics * Bicarbonate level is a little high. She is still on on acetazolamide. * Calcium level is back down to normal. * With the rising creatinine, low blood pressure, The patient seems like she is becoming septic. I ordered urine and blood cultures again. I talk with about the possibility of antibiotics and I will let him decide that. I agree that the patient is not running a temperature. Another possibility would be that of adrenal insufficiency because she was on dexamethasone before. He is going to put her back on stress dose steroids (2) Acute respiratory failure with hypoxia: Code(s): J96.01 - Acute respiratory failure with hypoxia Status: Acute Assessment and Plan: * due to #3 * known history of COPD and ongoing smoking history also likely contributing * continue nebulizers * continue ventilator support * FiO2 is still high at 75%. (3) Pneumonia due to COVID-19 virus: Code(s): U07.1 - COVID-19; J12.82 - Pneumonia due to coronavirus disease 2019 Status: Acute Assessment and Plan: * known positivity 4 days prior to admission * currently off dexamethasone . Last dose on 07/30. * s/p tocilizumab on 07/22/2021 (4) Urinary tract infection: Code(s): N39.0 - Urinary tract infection, site not specified Status: Acute Assessment and Plan: * Finished a course of cefepime (5) Diabetes: Code(s): E11.9 - Type 2 diabetes mellitus without complications Status: Acute Assessment and Plan: * On Accu-Cheks and sliding-scale insulin Subjective Date/time seen: 08/07/21 10:19 Interval history: Divya is in the ICU on the ventilator, on sedatives. She is in the prone position. She has gotten sicker. Exam Narrative: General: Elderly female intubated/sedated/paralyzed Heart: Irregular rhythm no rub or gallop Lungs: coarse Abdomen: soft, nontender, nondistended, positive bowel sounds Extremities: Trace edema Skin: No rash Objective Data Vital Signs Vital Signs: Vital Signs - 24 hr 08/06/21 10:47 08/06/21 11:34 08/06/21 11:36 Temperature Pulse Rate 62 72 72 Respiratory Rate 24 H 24 H Blood Pressure Pulse Oximetry 98 99 99 08/06/21 12:00 08/06/21 14:00 08/06/21 14:17 Temperature 37.1 C 36.8 C Pulse Rate 84 68 68 Respiratory Rate 24 H 24 H Blood Pressure 111/54 L 111/55 L Pulse Oximetry 88 L 97 95 08/06/21 14:18 08/06/21
--- NOTE | 2021-08-07 10:19 | PM.PNNEP ---
Progress Note: A&P Assessment and Plan (1) Acute renal failure: Qualifiers: Acute renal failure type: unspecified Qualified Code(s): N17.9 - Acute kidney failure, unspecified Code(s): N17.9 - Acute kidney failure, unspecified Status: Acute Assessment and Plan: Acute kidney injury evaluation to date reveals: renal ultrasound with normal kidney sizes but a 3.9ccm left kidney mass suspicious for renal cell carcinoma urine electrolytes that are non-prerenal mildly elevated CPK but not high enough to affect kidney function Most likely due to COVID-19 and prior hypotension. peak/plateau of creatinine at 3.2mg/dl the creatinine andrea again and is now up to 1.7 Urine output is still a bit low at only 500cc. White cell count is higher. Blood pressure is lower. She is now on pressors. I agree with stopping the diuretics Bicarbonate level is a little high. She is still on on acetazolamide. Calcium level is back down to normal. With the rising creatinine, low blood pressure, The patient seems like she is becoming septic. I ordered urine and blood cultures again. I talk with about the possibility of antibiotics and I will let him decide that. I agree that the patient is not running a temperature. Another possibility would be that of adrenal insufficiency because she was on dexamethasone before. He is going to put her back on stress dose steroids (2) Acute respiratory failure with hypoxia: Code(s): J96.01 - Acute respiratory failure with hypoxia Status: Acute Assessment and Plan: due to #3 known history of COPD and ongoing smoking history also likely contributing continue nebulizers continue ventilator support FiO2 is still high at 75%. (3) Pneumonia due to COVID-19 virus: Code(s): U07.1 - COVID-19; J12.82 - Pneumonia due to coronavirus disease 2019 Status: Acute Assessment and Plan: known positivity 4 days prior to admission currently off dexamethasone . Last dose on 07/30. s/p tocilizumab on 07/22/2021 (4) Urinary tract infection: Code(s): N39.0 - Urinary tract infection, site not specified Status: Acute Assessment and Plan: Finished a course of cefepime (5) Diabetes: Code(s): E11.9 - Type 2 diabetes mellitus without complications Status: Acute Assessment and Plan: On Accu-Cheks and sliding-scale insulin Subjective Date/time seen: 08/07/21 10:19 Interval history: Divya is in the ICU on the ventilator, on sedatives. She is in the prone position. She has gotten sicker. Exam Narrative: General: Elderly female intubated/sedated/paralyzed Heart: Irregular rhythm no rub or gallop Lungs: coarse Abdomen: soft, nontender, nondistended, positive bowel sounds Extremities: Trace edema Skin: No rash Objective Data Vital Signs Vital Signs: Vital Signs - 24 hr 08/06/21 10:47 08/06/21 11:34 08/06/21 11:36 Temperature Pulse Rate 62 72 72 Respiratory Rate 24 H 24 H Blood Pressure Pulse Oximetry 98 99 99 08/06/21 12:00 08/06/21 14:00 08/06/21 14:17 Temperature 37.1 C 36.8 C Pulse Rate 84 68 68 Respiratory Rate 24 H 24 H Blood Pressure 111/54 L 111/55 L Pulse Oximetry 88 L 97 95 08/06/21 14:18 08/06/21 16:00 08/06/21 18:00 Temperature 36.6 C 36.5 C Pulse Rate 68 65 66 Respiratory Rate 24 H 24 H 24 H Blood Pressure 101/45 L 98/46 L Pulse Oximetry 95 98 100 08/06/21 18:10 08/06/21 18:24 08/06/21 20:00 Temperature 36.6 C Pulse Rate 66 66 67 Respiratory Rate 24 H 24 H 24 H Blood Pressure 105/45 L Pulse Oximetry 99 100 08/06/21 20:04 08/06/21 20:07 08/06/21 21:27 Temperature Pulse Rate 67 67 68 Respiratory Rate 24 H 24 H Blood Pressure Pulse Oximetry 100 100 08/06/21 21:28 08/06/21 21:31 08/06/21 21:32 Temperature Pulse Rate 68 68 68 Respiratory Rate 24 H 24 H 24 H Blood Pressure 1
[2021-08-07 10:34] LABS: Creatine Kinase 89 U/L (30-135)
--- NOTE | 2021-08-07 11:03 | WPDINTPN ---
Progress Note: A&P Assessment and Plan (1) Acute respiratory failure with hypoxia: Code(s): J96.01 - Acute respiratory failure with hypoxia Status: Acute Assessment and Plan: Patient presented the ED on 07/20/2021 late evening, was hypoxic and was placed on BiPAP. She was on 100% FiO2 antibiotic, and failed as she was hypoxic with low O2 sats. 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 on 07/22/2021 On 08/02/2021: There was a cuff leak in the ETT so it was switched over tube exchanger. Patient likely de-recruited and was placed on 85% FiO2 and the PEEP was increased to 14. She was also started on Nimbex infusion as she was dyssynchronous and hypoxic. Patient was then placed in prone position after which her oxygen saturations improved. 08/04/2021: When patient was placed in prone position she desaturated in the 70s to 80s, was placed on 100% FiO2, peep of 14. -Despite which she was hypoxic, was started on Flolan (08/04/2021) -ABGs reviewed. Increase vent rate to 30 -continue daily prone ventilation -continue bronchodilators and Pulmicort -sedated with fentanyl, Versed and propofol infusion. Nimbex restarted on 08/02/21 due to ventilator dyssynchrony. -hold diuresis due to worsening renal function -will start weaning down Flolan as patient's blood pressure is low. -patient has been on a ventilator for more than 2 weeks now and would be a candidate for tracheostomy but currently too hypoxic for the procedure (2) Pneumonia due to COVID-19 virus: Code(s): U07.1 - COVID-19; J12.82 - Pneumonia due to coronavirus disease 2019 Status: Acute Assessment and Plan: Patient was COVID positive on 07/16/2021 this was 4 days prior to admission according the patient's medical records. -completed dexamethasone -not a candidate for remdesivir due to acute kidney injury and elevated creatinine -CRP 29.2, Received tocilizumab on 07/22/2021 -continue airborne, droplet, contact isolation/precautions (3) Diabetes mellitus with hyperglycemia: Qualifiers: Diabetes mellitus manager long term care insulin use: without manager long term care use Diabetes mellitus type: type 2 Qualified Code(s): E11.65 - Type 2 diabetes mellitus with hyperglycemia Code(s): E11.65 - Type 2 diabetes mellitus with hyperglycemia Status: Acute Assessment and Plan: Patient hyperglycemic which could be related to stress response and or steroids -continue sliding scale insulin, Accu-Cheks - off insulin infusion since 07/26, continue Lantus to 20 mg SQ q.12 hours. Now that she is off steroids (4) Acute renal failure: Qualifiers: Acute renal failure type: unspecified Qualified Code(s): N17.9 - Acute kidney failure, unspecified Code(s): N17.9 - Acute kidney failure, unspecified Status: Acute Assessment and Plan: Acute kidney injury, could be related to hypoxia, COVID-19, hypotension, AFib, also has a history of diabetes and hypertension which could be contributing to that also. (last creatinine was on 12/08/2020 was 1.4). Patient was admitted with a creatinine of 3.7, -Patient did receive 2 L of IV fluid bolus on07/22 for hypotension. -will continue to monitor urine output, obtain urine lytes -renal ultrasound showed normal kidney size, no hydronephrosis. 3.9 cm left kidney mass suspicious for renal cell carcinoma, abdominal CT without and with contrast is recommended after improvement in kidney function -continue to monitor renal function, electrolytes and urine output -creatinine elevated -will hold diuresis -start Levophed to maintain map of 65 - appreciate Nephrology evaluation recommendation (5) Afib: Code(s): I48.91 - Unspecified atrial fibrillation Status: Acute Assessment and Plan: Patient was in AFib RVR, requiring amiodarone infusion, heparin infusion. -cardiology switched to sotalol on 07/31/2021: -patient in sinus rhythm this morning - cardiology switched to apixaban 5 mg p.o. q.12 hours, patient
[2021-08-07 11:39] LABS: Glucose Point of Care 130 mg/dl (65-105)
[2021-08-07 11:39] LABS: Creatinine Urine 74.1 mg/dL; Total Protein Urine Random 28 mg/dL; Ur Ttl Prot Creatinine Ratio 0.38 mg/mg (0-0.20)
[2021-08-07 11:41] LABS: Add Urine Microscopic? YES; Appearance Urine Cloudy (Clear); Bacteria Urine Trace /hpf; Bilirubin Urine Negative (Negative); Blood Urine 2+ (Negative); Budding Yeast Urine Present /hpf; Color Urine Yellow (Yellow); Glucose Urine UA Negative (Negative); Ketones Urine Negative (Negative); Leukocyte Esterase Ur 1+ LEU/UL (Negative); Mucus Urine Rare /lpf; Nitrate Urine Negative (Negative); Protein Urine Negative (Negative); RBC Urine 51-75 /hpf (0-2); Specific Grav Ur 1.016 (1.001-1.035); Urobilinogen Urine Negative mg/dL (<2.0); WBC Urine 16-20 /hpf
[2021-08-07 11:46] LABS: Sodium Urine Random 17 meq/L
--- NOTE | 2021-08-07 11:48 | PCNFU ---
Nutrition Follow-Up Complete: Inadequate Oral Intake as related to mechanical ventilation as evidenced by NPO. Goal: Meet estimated nutritional needs Patient will continue with current goal. Pt current nutrition is Vital AF 1.2 at 50 ml/hr over 22 hours. Last recorded weight is 118.8 kg, up from 106 kg on admit. Bowel Motility:+Bm reported 08/07 Labs Reviewed:GFR 30, BUN 85, Cr 1.7,Glu 144, Alb 3.3,Hct 29.0,Hgb 8.4 Meds Noted:Fentanyl, Versed, Lantus, NovoLog, Eliquis, Protonix, Betapace, Nimbex, Propofol 30 hife=544 kcals. Skin:buttock-maceration Additional Notes: Patient remains on mechanical vent and tube feedings of Vital AF 1.2 at 50 ml/hr over 22 hours. Tube feeding is providing 1320 kcals/83 gms protein/892 ml water with an additional 466 kcal from propofol. Meeting 100% of caloric/protein needs. Free water flush 30 ml q 4 hours. Agree with diet orders. Will follow in ICU rounds and reassess every Tuesday and Tuesday.
[2021-08-07] MEDS: HYDROCORTISONE SODIUM SUCCINATE 100 MG/2 ML VIAL IV PUSH ×2 (12:12→23:37)
[2021-08-07] MEDS: EPOPROSTENOL SODIUM 0.5 MG VIAL INHALATION ×2 (12:25→18:45)
--- NOTE | 2021-08-07 12:26 | PM.PNCARD ---
Progress Note: A&P Additional Plan 66-year-old lady with: Coronavirus pneumonia has been ventilator dependent for 17 days now. She developed atrial fibrillation and has been in sinus rhythm after sotalol treatment was started last weekend. I will try reducing the dosage to 40 mg q.12 hours because of the hypotension and requiring some pressor support. No other cardiac issues that appear to be active. We will continue follow her peripherally uHber Sarabia MD [facility] Subjective Date/time seen: 08/07/21 12:26 Interval history: Follow-up visit in this 66-year-old woman with: Onset of atrial fibrillation with RVR during this hospitalization caused by the respiratory distress of COVID pneumonia. She has persisting in atrial fibrillation despite intravenous amiodarone that was started several days ago and metoprolol being given down the gastric tube. Patient remains in the ICU on ventilator support in prone position. Chest x-ray continues to show severe COVID pneumonia Date of service 08/01/2021: Patient remains intubated sedated in the ICU. Following initiation of treatment with sotalol yesterday she has converted to sinus rhythm. Date of service 08/02/2021: Remains intubated sedated in the ICU. Has been in sinus rhythm since sotalol was initiated. Anticoagulated with apixaban. Date of service 08/07/2021: Clinically unchanged patient remains sedated intubated in the ICU. The requiring some Levophed for pressor support because of hypotension. Exam Narrative: Intubated sedated. Appears stated age Const: General: comfortable; No in distress Other: Intubated sedated white female in the prone position HENMT: General nose exam: Normal nares present Eyes: Sclera: sclerae normal Neck: Neck: supple and no JVD Chest: Other: No chest deformity Resp: Auscultation: diminished lung sounds Other: Coarse rhonchi throughout both lung vidal Cardio: Rate: regular rate Rhythm: regular rhythm GI: Auscultation: normal bowel sounds Skin: General skin exam: normal color Neuro: General: other (Intubated sedated on ventilator) Cognition (Neuro): abnormal cognition Extrem: General: no edema Other: No significant edema adequate distal perfusion Psych: Mental Status: other (Cannot be assessed) Objective Data Vital Signs Vital Signs: Vital Signs - 24 hr 08/06/21 14:00 08/06/21 14:17 08/06/21 14:18 Temperature 36.8 C Pulse Rate 68 68 68 Respiratory Rate 24 H 24 H Blood Pressure 111/55 L Pulse Oximetry 97 95 95 08/06/21 16:00 08/06/21 18:00 08/06/21 18:10 Temperature 36.6 C 36.5 C Pulse Rate 65 66 66 Respiratory Rate 24 H 24 H 24 H Blood Pressure 101/45 L 98/46 L Pulse Oximetry 98 100 08/06/21 18:24 08/06/21 20:00 08/06/21 20:04 Temperature 36.6 C Pulse Rate 66 67 67 Respiratory Rate 24 H 24 H 24 H Blood Pressure 105/45 L Pulse Oximetry 99 100 100 08/06/21 20:07 08/06/21 21:27 08/06/21 21:28 Temperature Pulse Rate 67 68 68 Respiratory Rate 24 H 24 H Blood Pressure 106/47 L Pulse Oximetry 100 08/06/21 21:31 08/06/21 21:32 08/06/21 22:00 Temperature 36.5 C Pulse Rate 68 68 68 Respiratory Rate 24 H 24 H 24 H Blood Pressure 104/46 L Pulse Oximetry 99 08/06/21 22:15 08/07/21 00:00 08/07/21 00:06 Temperature 36.5 C Pulse Rate 68 67 65 Respiratory Rate 24 H 24 H 24 H Blood Pressure 98/43 L 95/41 L Pulse Oximetry 100 100 08/07/21 00:13 08/07/21 00:16 08/07/21 01:07 Temperature Pulse Rate 67 66 65 Respiratory Rate 24 H 24 H Blood Pressure 95/41 L Pulse Oximetry 99 100 08/07/21 02:00 08/07/21 02:01 08/07/21 02:02 Temperature 36.6 C Pulse Rate 67 67 67 Respiratory Rate 24 H 24 H Blood Pressure 98/45 L Pulse Oximetry 100 100 99 08/07/21 03:07 08/07/21 03:20 08/07/21 03:58 Temperature Pulse Rate 68 68 67 Respiratory Rate 24 H 24 H 24 H Blood Pressure Pulse Oximetry 98 08/07/21 04:00 08/07/21 05:57 08/07/21
[2021-08-07 12:38] LABS: Lactic Acid Reflex 0.8 mmol/L (0.7-2.1)
[2021-08-07 12:42] LABS: CRP 8.1 mg/dL (<1.0)
[2021-08-07] MEDS: MIDAZOLAM 100MG/NS 100ML(*CRX) 100 MG/100 ML BAG IV CONT (14:39)
[2021-08-07] MEDS: FENTANYL 2,500MCG/NS250ML(*CRX 2,500 MCG/250 ML BAG 10 MCG IV CONT (14:40)
[2021-08-07] MEDS: PROPOFOL IV EMULSION 100 ML 21.38 MG IV CONT ×2 (14:41→19:47)
[2021-08-07 16:56] LABS: Glucose Point of Care 168 mg/dl (65-105)
[2021-08-07] MEDS: SOTALOL HCL 40 MG TABLET PO (23:36)
[2021-08-07] MEDS: CISATRACURIUM BESYLATE 200 MG in DEXTROSE 5% 80 ML 13.5 ML IV CONT (23:37)
[2021-08-08] VITALS (58 sets, daily range): BP systolic 83–149; BP diastolic 40–70; PULSE 54–78; RESP 21–24; TEMP 36–36.7; O2SAT 92–99
[2021-08-08] MEDS: EPOPROSTENOL SODIUM 0.5 MG VIAL INHALATION ×2 (01:11→07:15)
[2021-08-08] MEDS: PROPOFOL IV EMULSION 100 ML 21.38 MG IV CONT ×5 (01:57→21:37)
[2021-08-08 02:24] LABS: Glucose Point of Care 174 mg/dl (65-105)
[2021-08-08 04:20] LABS: Alveolar/Arterial O2 Gradient 352.6 mmHg; Carboxyhemoglobin 0.2 % THb (0-2.0); Fractional Inspired Oxygen 80 %; HCO3 ABG 25.8 mEq/l (22.0-26.0); Methemoglobin ABG 0.2 %THb (0-1.5); Oxygen Content ABG 13.7 %vol (16.0-22.0); Oxyhemoglobin 97.8 % THb (90.0-100.0); PCO2 ABG 47.4 mmHg (35.0-45.0); Reduced Hemoglobin 1.8 %THb (0-5.0); Total Hemoglobin 9.7 g/dL (12.0-18.0); pH ABG 7.354 (7.350-7.450)
[2021-08-08 04:24] LABS: Arterial Blood Gas Ventilator rate 24 /MIN; Device VENTILATOR; Modified Allen's Test Pass; Site Drawn RIGHT RADIAL
[2021-08-08 04:25] LABS: Arterial Blood Gas PEEP 14 cmH2O; Arterial Blood Gas Vent Mode CMV
[2021-08-08 04:26] LABS: Arterial Blood Gas Tidal Volume 420 ml
[2021-08-08 05:42] LABS: Hematocrit 24.7 % (37.0-47.0); Hemoglobin 7.4 g/dL (12.0-15.0); Mean Corpuscular Hemoglobin 29.2 pg (26-34); Mean Corpuscular Volume 97.6 fl (80-100); Mean Platelet Volume 10.5 fl (7.4-10.4); Platelet Count Result 387 k/mm3 (150-375); Red Blood Count 2.53 M/mm3 (4.2-5.4); Red Cell Distribution Width 15.7 % (11.5-14.5); White Blood Count 15.9 K/mm3 (4.5-10.0)
[2021-08-08] MEDS: HYDROCORTISONE SODIUM SUCCINATE 100 MG/2 ML VIAL IV PUSH ×3 (05:48→21:43)
[2021-08-08] MEDS: CISATRACURIUM BESYLATE 200 MG in DEXTROSE 5% 80 ML 15 ML IV CONT ×2 (05:51→13:03)
[2021-08-08 05:52] LABS: Alanine Aminotransferase 33 U/L (4-35); Albumin Level 2.9 g/dL (3.5-5.1); Alkaline Phosphatase 124 U/L (38-126); Anion Gap 8 mmol/L (8-16); Aspartate Amino Transferase 23 U/L (14-36); Bilirubin,Total 0.3 mg/dL (0.2-1.3); Blood Urea Nitrogen 82 mg/dL (7-17); Calcium 9.8 mg/dL (8.4-10.2); Carbon Dioxide 29 mmol/L (22-30); Chloride 96 mmol/L (98-107); Estimated CRCL calculation 52 ml/min; Estimated Glomerular Filt Rate 41; Glucose 229 mg/dL (65-110); Magnesium 2.2 mg/dL (1.6-2.3); Phosphorus 5.9 mg/dL (2.5-4.5); Potassium 3.5 mmol/L (3.4-5.0); Sodium 133 mmol/L (137-145)
[2021-08-08 06:10] LABS: Glucose Point of Care 190 mg/dl (65-105)
[2021-08-08] MEDS: INSULIN ASPART (*BKC) 100 UNITS/ML SUB-Q ×3 (07:45→21:32)
[2021-08-08] MEDS: INSULIN GLARGINE (*BKC) 100 UNITS/ML 20 UNITS SUB-Q (07:45)
[2021-08-08] MEDS: MINERAL OIL/WHITE PETROLATUM OINTMENT 1 APPLIC EACH EYE ×2 (07:46→21:43)
[2021-08-08] MEDS: NEOMYCIN/POLYMYXIN/BACITRACIN OINTMENT 15 GM TUBE 1 APPLIC TOPICAL (07:48)
[2021-08-08] MEDS: SOTALOL HCL 40 MG TABLET PO ×2 (08:01→21:43)
[2021-08-08] MEDS: APIXABAN 5 MG TABLET PO ×2 (08:01→21:44)
[2021-08-08] MEDS: PANTOPRAZOLE SODIUM IV 40 MG VIAL IV PUSH (08:02)
[2021-08-08 08:28] LABS: Glucose Point of Care 217 mg/dl (65-105)
--- NOTE | 2021-08-08 09:06 | PM.PNNEP ---
Progress Note: A&P Assessment and Plan (1) Acute renal failure: Qualifiers: Acute renal failure type: unspecified Qualified Code(s): N17.9 - Acute kidney failure, unspecified Code(s): N17.9 - Acute kidney failure, unspecified Status: Acute Assessment and Plan: evaluation to date reveals: renal ultrasound with normal kidney sizes but a 3.9ccm left kidney mass suspicious for renal cell carcinoma urine electrolytes that are non-prerenal mildly elevated CPK but not high enough to affect kidney function most likely due to COVID-19 and prior/previous hypotension along with hypoxia and atrial fibrillation may have some degree of renal insufficiency at baseline given her history of diabetes and hypertension admitted with creatinine of 3.7mg/dl but then trended down to 2.8mg/dl peak/plateau of creatinine at 3.2mg/dl from 2.8mg/dl creatinine transiently andrea again up to 1.8 (on 08/07/21) but improved with efforts to stabilize hemodynamics urine output has picked up/increased as well continue to follow repeat labs and UOP not opposed to PRN IV diuretics in an effort to promote dry lung strategy (2) Acute respiratory failure with hypoxia: Code(s): J96.01 - Acute respiratory failure with hypoxia Status: Acute Assessment and Plan: due to #3 known history of COPD and ongoing smoking history also likely contributing continue nebulizers continue ventilator support (3) Pneumonia due to COVID-19 virus: Code(s): U07.1 - COVID-19; J12.82 - Pneumonia due to coronavirus disease 2019 Status: Acute Assessment and Plan: known positivity 4 days prior to admission completed course of dexamethasone s/p tocilizumab on 07/22/2021 PRN IV diuretics (4) Urinary tract infection: Code(s): N39.0 - Urinary tract infection, site not specified Status: Acute Assessment and Plan: finished a course of cefepime (5) Diabetes: Code(s): E11.9 - Type 2 diabetes mellitus without complications Status: Acute Assessment and Plan: follow Accu-Cheks suspect increased fluctuations with stress dose steroids continue glycemic control Will continue to follow. Subjective Date/time seen: 08/08/21 09:06 Chart reviewed since last seen - assuming care from Dr. Mitchell; remains intubated/sedated/paralyzed and on full ventilator support; remains hemodynamically stable (but has been on/off levophed and currently on stress dose steroids; urine output noted and responsive to diuretics; no other acute events overnight or earlier this AM. Exam Narrative: General: elderly female intubated/sedated/paralyzed Heart: irregular rhythm, normal S1 and S2; no rub Lungs: coarse breath sounds throughout Abdomen: soft, nontender, nondistended, positive bowel sounds Extremities: trace edema present Skin: warm and dry Objective Data Vital Signs Vital Signs: Vital Signs Temp Pulse Resp BP Pulse Ox 08/08/21 08:01 62 08/08/21 08:00 36.4 C L 62 24 H 123/57 L 95 08/08/21 07:55 65 24 H 95 08/08/21 07:51 63 24 H 95 08/08/21 07:17 62 96 08/08/21 07:16 62 24 H 96 08/08/21 06:00 36.4 C 65 24 H 120/59 L 96 08/08/21 05:55 62 24 H 97 08/08/21 05:54 62 24 H 08/08/21 05:51 63 24 H 104/43 L 08/08/21 05:00 36.5 C 63 24 H 120/59 L 97 08/08/21 04:00 63 08/08/21 03:32 61 24 H 97 08/08/21 02:00 36.6 C 65 24 H 104/40 L 95 08/08/21 01:58 66 24 H 106/50 L 08/08/21 01:57 67 24 H 08/08/21 01:11 63 24 H 97 08/08/21 00:28 67 24 H 08/08/21 00:08 63 24 H 109/48 L 08/08/21 00:00 36.7 C 64 24 H 109/68 97 08/07/21 23:37 62 24 H 86/45 L 08/07/21 23:36 62 08/07/21 23:00 62 24 H 86/45 L 97 08/07/21 22:57 61 96 08/07/21 22:50 61 24 H 96 08/07/21 22:00 36.7 C 63 24 H 91/44 L 96 08/07/21 20:45 63 24 H 9
--- NOTE | 2021-08-08 09:06 | P.PNNP_ITS ---
Progress Note: A&P Assessment and Plan (1) Acute renal failure: Qualifiers: Acute renal failure type: unspecified Qualified Code(s): N17.9 - Acute kidney failure, unspecified Code(s): N17.9 - Acute kidney failure, unspecified Status: Acute Assessment and Plan: * evaluation to date reveals: * renal ultrasound with normal kidney sizes but a 3.9ccm left kidney mass suspicious for renal cell carcinoma * urine electrolytes that are non-prerenal * mildly elevated CPK but not high enough to affect kidney function * most likely due to COVID-19 and prior/previous hypotension along with hypoxia and atrial fibrillation * may have some degree of renal insufficiency at baseline given her history of diabetes and hypertension * admitted with creatinine of 3.7mg/dl but then trended down to 2.8mg/dl * peak/plateau of creatinine at 3.2mg/dl from 2.8mg/dl * creatinine transiently andrea again up to 1.8 (on 08/07/21) but improved with efforts to stabilize hemodynamics * urine output has picked up/increased as well * continue to follow repeat labs and UOP * not opposed to PRN IV diuretics in an effort to promote dry lung strategy (2) Acute respiratory failure with hypoxia: Code(s): J96.01 - Acute respiratory failure with hypoxia Status: Acute Assessment and Plan: * due to #3 * known history of COPD and ongoing smoking history also likely contributing * continue nebulizers * continue ventilator support (3) Pneumonia due to COVID-19 virus: Code(s): U07.1 - COVID-19; J12.82 - Pneumonia due to coronavirus disease 2018 Status: Acute Assessment and Plan: * known positivity 4 days prior to admission * completed course of dexamethasone * s/p tocilizumab on 07/22/2021 * PRN IV diuretics (4) Urinary tract infection: Code(s): N39.0 - Urinary tract infection, site not specified Status: Acute Assessment and Plan: * finished a course of cefepime (5) Diabetes: Code(s): E11.9 - Type 2 diabetes mellitus without complications Status: Acute Assessment and Plan: * follow Accu-Cheks * suspect increased fluctuations with stress dose steroids * continue glycemic control Will continue to follow. Subjective Date/time seen: 08/08/21 09:06 Chart reviewed since last seen - assuming care from Dr. Mitchell; remains intubated/sedated/paralyzed and on full ventilator support; remains hemodynamically stable (but has been on/off levophed and currently on stress dose steroids; urine output noted and responsive to diuretics; no other acute events overnight or earlier this AM. Exam Narrative: General: elderly female intubated/sedated/paralyzed Heart: irregular rhythm, normal S1 and S2; no rub Lungs: coarse breath sounds throughout Abdomen: soft, nontender, nondistended, positive bowel sounds Extremities: trace edema present Skin: warm and dry Objective Data Vital Signs Vital Signs: Vital Signs Temp Pulse Resp BP Pulse Ox 08/08/21 08:01 62 08/08/21 08:00 36.4 C L 62 24 H 123/57 L 95 08/08/21 07:55 65 24 H 95 08/08/21 07:51 63 24 H 95 08/08/21 07:17 62 96 08/08/21 07:16 62 24 H 96 08/08/21 06:00 36.4 C 65 24 H 120/59 L 96 08/08/21 05:55 62 24 H 97 08/08/21 05:54 62 24 H 08/08/21 05:51 63 24 H 104/43 L
[2021-08-08] MEDS: MIDAZOLAM 100MG/NS 100ML(*CRX) 100 MG/100 ML BAG IV CONT (10:41)
[2021-08-08] MEDS: FENTANYL 2,500MCG/NS250ML(*CRX 2,500 MCG/250 ML BAG 10 MCG IV CONT (10:43)
--- NOTE | 2021-08-08 12:05 | WPDINTPN ---
Progress Note: A&P Assessment and Plan (1) Acute respiratory failure with hypoxia: Code(s): J96.01 - Acute respiratory failure with hypoxia Status: Acute Assessment and Plan: Patient presented the ED on 07/20/2021 late evening, was hypoxic and was placed on BiPAP. She was on 100% FiO2 antibiotic, and failed as she was hypoxic with low O2 sats. 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 on 07/22/2021 On 08/02/2021: There was a cuff leak in the ETT so it was switched over tube exchanger. Patient likely de-recruited and was placed on 85% FiO2 and the PEEP was increased to 14. She was also started on Nimbex infusion as she was dyssynchronous and hypoxic. Patient was then placed in prone position after which her oxygen saturations improved. 08/04/2021: When patient was placed in prone position she desaturated in the 70s to 80s, was placed on 100% FiO2, peep of 14. -Despite which she was hypoxic, was started on Flolan (08/04/2021) -ABGs reviewed. Permissive hypercapnia -continue daily prone ventilation -continue bronchodilators and Pulmicort -sedated with fentanyl, Versed and propofol infusion. Nimbex restarted on 08/02/21 due to ventilator dyssynchrony. -she has been getting diuretics off and on depending on her renal function. Will give another dose today -I decreased Flolan dose to half yesterday but will continue at current dosage at this time -patient has been on a ventilator for more than 2 weeks now and would be a candidate for tracheostomy but currently too hypoxic for the procedure (2) Pneumonia due to COVID-19 virus: Code(s): U07.1 - COVID-19; J12.82 - Pneumonia due to coronavirus disease 2019 Status: Acute Assessment and Plan: Patient was COVID positive on 07/16/2021 this was 4 days prior to admission according the patient's medical records. 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 mellitus senior care insulin use: without ferry terminal supervisor use Qualified Code(s): E11.65 - Type 2 diabetes mellitus with hyperglycemia Code(s): E11.65 - Type 2 diabetes mellitus with hyperglycemia Status: Acute Assessment and Plan: Patient hyperglycemic which could be related to stress response and or steroids -continue sliding scale insulin, Accu-Cheks - off insulin infusion since 07/26, increase Lantus dose (4) Acute renal failure: Qualifiers: Acute renal failure type: unspecified Qualified Code(s): N17.9 - Acute kidney failure, unspecified Code(s): N17.9 - Acute kidney failure, unspecified Status: Acute Assessment and Plan: Acute kidney injury, could be related to hypoxia, COVID-19, hypotension, AFib, also has a history of diabetes and hypertension which could be contributing to that also. (last creatinine was on 12/08/2020 was 1.4). Patient was admitted with a creatinine of 3.7, -Patient did receive 2 L of IV fluid bolus on07/22 for hypotension. -will continue to monitor urine output, obtain urine lytes -renal ultrasound showed normal kidney size, no hydronephrosis. 3.9 cm left kidney mass suspicious for renal cell carcinoma, abdominal CT without and with contrast is recommended after improvement in kidney function -continue to monitor renal function, electrolytes and urine output -creatinine elevated but appears to be stable -Lasix IV for volume overload -if needed will use Levophed to maintain map of 65 - appreciate Nephrology evaluation recommendation (5) Afib: Code(s): I48.91 - Unspecified atrial fibrillation Status: Acute Assessment and Plan: Patient was in AFib RVR, requiring amiodarone infusion, heparin infusion. -cardiology switched to sotalol on 07/31/2021: -patient in sinus rhythm this
[2021-08-08 12:23] LABS: Glucose Point of Care 172 mg/dl (65-105)
[2021-08-08] MEDS: FUROSEMIDE INJ 40 MG/4 ML VIAL IV PUSH (13:05)
[2021-08-08] MEDS: NOREPINEPHRINE 8 MG/D5W 250 ML 8 MG/250 ML BAG 9.38 MG IV CONT (13:53)
[2021-08-08 16:15] LABS: Glucose Point of Care 220 mg/dl (65-105)
[2021-08-08] MEDS: INSULIN GLARGINE (*BKC) 100 UNITS/ML 25 UNITS SUB-Q (21:33)
[2021-08-08] MEDS: CISATRACURIUM BESYLATE 200 MG in DEXTROSE 5% 80 ML 13.5 ML IV CONT (21:39)
[2021-08-08 23:58] LABS: Glucose Point of Care 225 mg/dl (65-105)
[2021-08-09] VITALS (47 sets, daily range): BP systolic 103–149; BP diastolic 46–67; PULSE 51–84; RESP 24; TEMP 35.9–37.3; O2SAT 85–100
[2021-08-09 00:24] LABS: Glucose Point of Care 166 mg/dl (65-105)
[2021-08-09] MEDS: EPOPROSTENOL SODIUM 0.5 MG VIAL INHALATION ×4 (02:07→20:34)
[2021-08-09] MEDS: PROPOFOL IV EMULSION 100 ML 21.38 MG IV CONT ×4 (03:32→20:26)
[2021-08-09] MEDS: CISATRACURIUM BESYLATE 200 MG in DEXTROSE 5% 80 ML 13.5 ML IV CONT ×2 (03:33→13:59)
[2021-08-09 05:10] LABS: Hematocrit 24.5 % (37.0-47.0); Hemoglobin 7.5 g/dL (12.0-15.0); Mean Corpuscular HGB Conc 30.6 g/dl (32-36); Mean Corpuscular Hemoglobin 29.1 pg (26-34); Mean Platelet Volume 9.6 fl (7.4-10.4); Platelet Count Result 407 k/mm3 (150-375); Red Blood Count 2.58 M/mm3 (4.2-5.4); Red Cell Distribution Width 15.9 % (11.5-14.5)
[2021-08-09 05:30] LABS: Alanine Aminotransferase 43 U/L (4-35); Alkaline Phosphatase 139 U/L (38-126); Anion Gap 6 mmol/L (8-16); Aspartate Amino Transferase 29 U/L (14-36); Bilirubin,Total 0.2 mg/dL (0.2-1.3); Blood Urea Nitrogen 78 mg/dL (7-17); Calcium 9.9 mg/dL (8.4-10.2); Carbon Dioxide 33 mmol/L (22-30); Chloride 96 mmol/L (98-107); Estimated CRCL calculation 60 ml/min; Estimated Glomerular Filt Rate 50; Glucose 155 mg/dL (65-110); Magnesium 2.3 mg/dL (1.6-2.3); Potassium 3.2 mmol/L (3.4-5.0); Sodium 135 mmol/L (137-145)
[2021-08-09] MEDS: MIDAZOLAM 100MG/NS 100ML(*CRX) 100 MG/100 ML BAG IV CONT (06:22)
[2021-08-09] MEDS: HYDROCORTISONE SODIUM SUCCINATE 100 MG/2 ML VIAL IV PUSH ×3 (06:24→21:22)
[2021-08-09 06:49] LABS: Glucose Point of Care 155 mg/dl (65-105)
[2021-08-09 07:14] LABS: Base Excess ABG 4.4 mEq/l (+/-2.0); Oxygen Content ABG 11.9 %vol (16.0-22.0); Total Hemoglobin 8.4 g/dL (12.0-18.0)
[2021-08-09 07:15] LABS: Carboxyhemoglobin 0.3 % THb (0-2.0); Device VENTILATOR; Fractional Inspired Oxygen 70 %; Methemoglobin ABG 0.2 %THb (0-1.5); Modified Allen's Test Pass; PO2 FiO2 Ratio Arterial Blood 1.89 %; Reduced Hemoglobin 2.2 %THb (0-5.0); Site Drawn RIGHT RADIAL
[2021-08-09 07:16] LABS: Arterial Blood Gas Vent Mode CMV; Arterial Blood Gas Ventilator rate 24 /MIN
[2021-08-09 07:17] LABS: Arterial Blood Gas PEEP 14 cmH2O; Arterial Blood Gas Tidal Volume 420 ml
--- NOTE | 2021-08-09 07:37 | PM.IMPN ---
Progress Note: A&P Assessment and Plan (1) Acute respiratory failure with hypoxia: Code(s): J96.01 - Acute respiratory failure with hypoxia Status: Acute Assessment and Plan: Patient presented the ED on 07/20/2021 late evening, was hypoxic and was immediately started on noninvasive ventilation with BiPAP. She was on 100% FiO2 antibiotic, and failed as she was hypoxic with low O2 sats. 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 on 07/22/2021 On 08/02/2021: There was a cuff leak in the ETT so it was switched over tube exchanger. Patient likely de-recruited and was placed on 85% FiO2 and the PEEP was increased to 14. She was also started on Nimbex infusion as she was dyssynchronous and hypoxic. Patient was then placed in prone position after which her oxygen saturations improved. 08/04/2021: When patient was placed in prone position she desaturated in the 70s to 80s, was placed on 100% FiO2, peep of 14. -Despite which she was hypoxic, was started on Flolan (08/04/2021) -ABGs reviewed. Permissive hypercapnia -continue daily prone ventilation -continue bronchodilators and Pulmicort -sedated with fentanyl, Versed and propofol infusion. Nimbex restarted on 08/02/21 due to ventilator dyssynchrony. -she has been getting diuretics off and on depending on her renal function. Will give another dose today - Flolan dose was decreased to half on 08/07 but will continue at current dosage at this time -patient has been on a ventilator for more than 2 weeks now and would be a candidate for tracheostomy but currently too hypoxic for the procedure (2) Pneumonia due to COVID-19 virus: Code(s): U07.1 - COVID-19; J12.82 - Pneumonia due to coronavirus disease 2019 Status: Acute Assessment and Plan: Patient was COVID positive on 07/16/2021 this was 4 days prior to admission according the patient's medical records. 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 mellitus prison insulin use: without technician terminal and repeater use Qualified Code(s): E11.65 - Type 2 diabetes mellitus with hyperglycemia Code(s): E11.65 - Type 2 diabetes mellitus with hyperglycemia Status: Acute Assessment and Plan: Patient hyperglycemic which could be related to stress response and or steroids -continue sliding scale insulin, Accu-Cheks - off insulin infusion since 07/26, increase Lantus dose. Accu-Chek in the 155-166 range today. (4) Acute renal failure: Qualifiers: Acute renal failure type: unspecified Qualified Code(s): N17.9 - Acute kidney failure, unspecified Code(s): N17.9 - Acute kidney failure, unspecified Status: Acute Assessment and Plan: Recovering acute kidney injury, could be related to hypoxia, COVID-19, hypotension, AFib, also has a history of diabetes and hypertension which could be contributing to that also. (last creatinine was on 12/08/2020 was 1.4). Patient was admitted with a creatinine of 3.7, -Patient did receive 2 L of IV fluid bolus on07/22 for hypotension. -will continue to monitor urine output, obtain urine lytes -renal ultrasound showed normal kidney size, no hydronephrosis. 3.9 cm left kidney mass suspicious for renal cell carcinoma, abdominal CT without and with contrast is recommended after improvement in kidney function -continue to monitor renal function, electrolytes and urine output -creatinine has improved down to 1.1 today. We will revisit starting the patient on remdesivir. -Lasix IV for volume overload -if needed will use Levophed to maintain map of 65 -hypokalemia was supplemented. - appreciate Nephrology evaluation recommendation (5) Afib: Code(s): I48.91 - Unspecified atrial fibrillation Status: Acute
[2021-08-09 08:07] LABS: Glucose Point of Care 164 mg/dl (65-105)
[2021-08-09] MEDS: SOTALOL HCL 40 MG TABLET PO ×2 (08:22→21:22)
[2021-08-09] MEDS: INSULIN GLARGINE (*BKC) 100 UNITS/ML 25 UNITS SUB-Q ×2 (08:22→21:22)
[2021-08-09] MEDS: MINERAL OIL/WHITE PETROLATUM OINTMENT 1 APPLIC EACH EYE ×2 (08:23→21:21)
[2021-08-09] MEDS: PANTOPRAZOLE SODIUM IV 40 MG VIAL IV PUSH (08:23)
[2021-08-09] MEDS: APIXABAN 5 MG TABLET PO ×2 (08:23→21:21)
[2021-08-09] MEDS: NEOMYCIN/POLYMYXIN/BACITRACIN OINTMENT 15 GM TUBE 1 APPLIC TOPICAL (08:24)
[2021-08-09] MEDS: polyethylene glycoL 3350 17 GM POWD.PACK PO (08:24)
[2021-08-09] MEDS: POTASSIUM CHLORIDE 20 MEQ PACKET (FOR LIQUID) 40 MEQ FEED TUBE ×2 (09:52→13:59)
[2021-08-09] MEDS: FENTANYL 2,500MCG/NS250ML(*CRX 2,500 MCG/250 ML BAG 10 MCG IV CONT (10:17)
--- NOTE | 2021-08-09 11:08 | PM.PNNEP ---
Progress Note: A&P Assessment and Plan (1) Acute renal failure: Qualifiers: Acute renal failure type: unspecified Qualified Code(s): N17.9 - Acute kidney failure, unspecified Code(s): N17.9 - Acute kidney failure, unspecified Status: Acute Assessment and Plan: evaluation to date reveals: renal ultrasound with normal kidney sizes but a 3.9ccm left kidney mass suspicious for renal cell carcinoma urine electrolytes that are non-prerenal mildly elevated CPK but not high enough to affect kidney function most likely due to COVID-19 and prior/previous hypotension along with hypoxia and atrial fibrillation may have some degree of renal insufficiency at baseline given her history of diabetes and hypertension admitted with creatinine of 3.7mg/dl but then trended down to 2.8mg/dl peak/plateau of creatinine at 3.2mg/dl from 2.8mg/dl creatinine transiently andrea again up to 1.8 (on 08/07/21) but improved with efforts to stabilize hemodynamics urine output has picked up/increased as well continue to follow repeat labs and UOP not opposed to PRN IV diuretics in an effort to promote dry lung strategy (2) Acute respiratory failure with hypoxia: Code(s): J96.01 - Acute respiratory failure with hypoxia Status: Acute Assessment and Plan: due to #3 known history of COPD and ongoing smoking history also likely contributing continue nebulizers continue ventilator support (3) Pneumonia due to COVID-19 virus: Code(s): U07.1 - COVID-19; J12.82 - Pneumonia due to coronavirus disease 2019 Status: Acute Assessment and Plan: known positivity 4 days prior to admission completed course of dexamethasone s/p tocilizumab on 07/22/2021 PRN IV diuretics (4) Shock: Code(s): R57.9 - Shock, unspecified Status: Acute Assessment and Plan: on/off use of levophed noted due to infection versus sedation? stress dose steroids started wean vasopressor therapy as tolerated (5) Urinary tract infection: Code(s): N39.0 - Urinary tract infection, site not specified Status: Acute Assessment and Plan: finished a course of cefepime (6) Diabetes: Code(s): E11.9 - Type 2 diabetes mellitus without complications Status: Acute Assessment and Plan: follow Accu-Cheks suspect increased fluctuations with stress dose steroids continue glycemic control Will continue to follow. Subjective Date/time seen: 08/09/21 11:08 On low dose levophed to maintain blood pressure/MAP; remains intubated/sedated/paralyzed with ongoing ventilatory support; continues on prone positiong as tolerated as well; continues to make reasonably urine output albeit with the use of IV diuretics; no apparent distress noted. Exam Narrative: General: elderly female intubated/sedated/paralyzed Heart: irregular rhythm, normal S1 and S2; no rub Lungs: coarse breath sounds throughout Abdomen: soft, nontender, nondistended, positive bowel sounds Extremities: trace edema present Skin: warm and intact Objective Data Vital Signs Vital Signs: Vital Signs Temp Pulse Resp BP Pulse Ox 08/09/21 11:04 56 L 24 H 08/09/21 10:00 36.7 C 57 L 24 H 120/54 L 97 08/09/2207:36 59 L 93 08/09/21 08:35 57 L 24 H 93 08/09/21 08:00 36.7 C 56 L 24 H 108/54 L 97 08/09/21 07:59 54 L 08/09/21 07:55 55 L 24 H 149/62 H 08/09/21 07:25 55 L 24 H 08/09/21 06:06 58 L 24 H 98 08/09/21 06:00 36.6 C 57 L 24 H 122/54 L 97 08/09/21 05:50 55 L 149/62 H 08/09/21 05:19 92 24 H 08/09/21 04:20 58 L 24 H 98 08/09/21 04:00 36.4 C 59 L 24 H 96/46 L 90 08/09/21 02:44 67 24 H 08/09/21 02:43 67 24 H 08/09/21 02:35 63 96 08/09/21 02:34 60 24 H 95 08/09/21 02:00 36.8 C 60 24 H 99/46 L 92 08/09/21 01:39 59 L 102/48 L 08/09/21 00:38 59 L 24 H 93
--- NOTE | 2021-08-09 11:08 | P.PNNP_ITS ---
Progress Note: A&P Assessment and Plan (1) Acute renal failure: Qualifiers: Acute renal failure type: unspecified Qualified Code(s): N17.9 - Acute kidney failure, unspecified Code(s): N17.9 - Acute kidney failure, unspecified Status: Acute Assessment and Plan: * evaluation to date reveals: * renal ultrasound with normal kidney sizes but a 3.9ccm left kidney mass suspicious for renal cell carcinoma * urine electrolytes that are non-prerenal * mildly elevated CPK but not high enough to affect kidney function * most likely due to COVID-19 and prior/previous hypotension along with hypoxia and atrial fibrillation * may have some degree of renal insufficiency at baseline given her history of diabetes and hypertension * admitted with creatinine of 3.7mg/dl but then trended down to 2.8mg/dl * peak/plateau of creatinine at 3.2mg/dl from 2.8mg/dl * creatinine transiently andrea again up to 1.8 (on 08/07/21) but improved with efforts to stabilize hemodynamics * urine output has picked up/increased as well * continue to follow repeat labs and UOP * not opposed to PRN IV diuretics in an effort to promote dry lung strategy (2) Acute respiratory failure with hypoxia: Code(s): J96.01 - Acute respiratory failure with hypoxia Status: Acute Assessment and Plan: * due to #3 * known history of COPD and ongoing smoking history also likely contributing * continue nebulizers * continue ventilator support (3) Pneumonia due to COVID-19 virus: Code(s): U07.1 - COVID-19; J12.82 - Pneumonia due to coronavirus disease 2019 Status: Acute Assessment and Plan: * known positivity 4 days prior to admission * completed course of dexamethasone * s/p tocilizumab on 07/22/2021 * PRN IV diuretics (4) Shock: Code(s): R57.9 - Shock, unspecified Status: Acute Assessment and Plan: * on/off use of levophed noted * due to infection versus sedation? * stress dose steroids started * wean vasopressor therapy as tolerated (5) Urinary tract infection: Code(s): N39.0 - Urinary tract infection, site not specified Status: Acute Assessment and Plan: * finished a course of cefepime (6) Diabetes: Code(s): E11.9 - Type 2 diabetes mellitus without complications Status: Acute Assessment and Plan: * follow Accu-Cheks * suspect increased fluctuations with stress dose steroids * continue glycemic control Will continue to follow. Subjective Date/time seen: 08/09/21 11:08 On low dose levophed to maintain blood pressure/MAP; remains intubated/sedated/paralyzed with ongoing ventilatory support; continues on prone positiong as tolerated as well; continues to make reasonably urine output albeit with the use of IV diuretics; no apparent distress noted. Exam Narrative: General: elderly female intubated/sedated/paralyzed Heart: irregular rhythm, normal S1 and S2; no rub Lungs: coarse breath sounds throughout Abdomen: soft, nontender, nondistended, positive bowel sounds Extremities: trace edema present Skin: warm and intact Objective Data Vital Signs Vital Signs: Vital Signs Temp Pulse Resp BP Pulse Ox 08/09/21 11:04 56 L 24 H 08/09/21 10:00 36.7 C 57 L 24 H 120/54 L 97 08/09/2207:36 59 L 93 08/09/21 08:35 57 L 24 H 93 08/09/21 08:00 36.7 C 56 L 24 H 108/54 L 97 08/09/21 07:59
--- NOTE | 2021-08-09 12:00 | WPDINTPN ---
Progress Note: A&P Assessment and Plan (1) Acute respiratory failure with hypoxia: Code(s): J96.01 - Acute respiratory failure with hypoxia Status: Acute Assessment and Plan: Patient presented the ED on 07/20/2021 late evening, was hypoxic and was placed on BiPAP. She was on 100% FiO2 antibiotic, and failed as she was hypoxic with low O2 sats. 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 on 07/22/2021 On 08/02/2021: There was a cuff leak in the ETT so it was switched over tube exchanger. Patient likely de-recruited and was placed on 85% FiO2 and the PEEP was increased to 14. She was also started on Nimbex infusion as she was dyssynchronous and hypoxic. Patient was then placed in prone position after which her oxygen saturations improved. 08/04/2021: When patient was placed in prone position she desaturated in the 70s to 80s, was placed on 100% FiO2, peep of 14. -Despite which she was hypoxic, was started on Flolan (08/04/2021) -ABGs reviewed. Permissive hypercapnia -continue daily prone ventilation -continue bronchodilators and Pulmicort -sedated with fentanyl, Versed infusion. Nimbex restarted on 08/02/21 due to ventilator dyssynchrony. -she has been getting diuretics off and on depending on her renal function. -continue Flolan inhaled at current dosage at this time -patient has been on a ventilator for more than 2 weeks now and would be a candidate for tracheostomy but currently too hypoxic and unstable for the procedure (2) Pneumonia due to COVID-19 virus: Code(s): U07.1 - COVID-19; J12.82 - Pneumonia due to coronavirus disease 2019 Status: Acute Assessment and Plan: Patient was COVID positive on 07/16/2021 this was 4 days prior to admission according the patient's medical records. -completed dexamethasone -she was not a candidate for remdesivir due to acute kidney injury and elevated creatinine -Received tocilizumab on 07/22/2021 -continue airborne, droplet, contact isolation/precautions (3) Diabetes mellitus with hyperglycemia: Qualifiers: Diabetes mellitus terminal operator insulin use: without terminal operator use Diabetes mellitus type: type 2 Qualified Code(s): E11.65 - Type 2 diabetes mellitus with hyperglycemia Code(s): E11.65 - Type 2 diabetes mellitus with hyperglycemia Status: Acute Assessment and Plan: Patient hyperglycemic which could be related to stress response and or steroids -continue sliding scale insulin, Accu-Cheks and Lantus - off insulin infusion since 07/26 (4) Acute renal failure: Qualifiers: Acute renal failure type: unspecified Qualified Code(s): N17.9 - Acute kidney failure, unspecified Code(s): N17.9 - Acute kidney failure, unspecified Status: Acute Assessment and Plan: Acute kidney injury, could be related to hypoxia, COVID-19, hypotension, AFib, also has a history of diabetes and hypertension which could be contributing to that also. (last creatinine was on 12/08/2020 was 1.4). Patient was admitted with a creatinine of 3.7, -Patient did receive IV fluids initially for hypertension -will continue to monitor urine output, obtain urine lytes -renal ultrasound showed normal kidney size, no hydronephrosis. 3.9 cm left kidney mass suspicious for renal cell carcinoma, abdominal CT without and with contrast is recommended after improvement in kidney function -continue to monitor renal function, electrolytes and urine output -creatinine marginally improved but elevated -Lasix IV for volume overload -if needed will use Levophed to maintain map of 65 - appreciate Nephrology evaluation recommendation (5) Afib: Code(s): I48.91 - Unspecified atrial fibrillation Status: Acute Assessment and Plan: Patient was in AFib RVR, requiring amiodarone infusion, heparin infusion. -cardiology switched to sotalol on 07/31/2021: -patient in sinus rhythm this morning - cardiology switched to apixaban 5 mg p.o. q.12 hours, patient off of hepa
[2021-08-09 12:31] LABS: Glucose Point of Care 184 mg/dl (65-105)
[2021-08-09] MEDS: FUROSEMIDE INJ 40 MG/4 ML VIAL IV PUSH (12:59)
--- NOTE | 2021-08-09 15:22 | WPDPROCEDUR ---
Procedures Intubation Intubation Date: 08/09/21 Intubation Time: 15:00 Consent: Patient was already intubated and high peak pressures with malfunctioning of current ETT. Do was emergently changed A pre-procedural Time-Out was completed immediately before starting the procedure and confirmed: Patient Identification, Site, Procedure, Patient Position and the Availability of Requisite Equipment: Yes Sedative: other Paralytic: other Assist device used: Bougie ET tube size: 8 Tube secured depth (cm): 26 Tube secured location: lips Tube placement confirmation: equal breath sounds bilaterally, no breath sounds over epigastrium and confirmation by capnometry Patient tolerated procedure: well Intubation complications: none and other Additional comments: See event note
--- NOTE | 2021-08-09 15:24 | PM.EVENT ---
Event Note Event Note Event Note: I was called by RT as patient was having high peak pressures on the ventilator. She tried to advanced a rescue catheterization to see if patient had any secretions in the ET tube causing high pressures but was unable to advance rescue catheterization. I tried to push suction catheter through the ET tube and was unable to. I tried to advance a bougie through the endotracheal tube but was only possible when ETT was fully extended and in not in normal position. We suspected the ET tube had malfunction due to likely kinking inside the pharynx and hence patient was having high pressures and was not getting volumes. Was maintaining her saturation at that time. I emergently exchanged the ET tube over a bougie without any significant complications or difficulty.. Patient was bagged, ETT was confirmed with capnometer tree and secured. The ET tube when withdrawn had a kink in the middle but no significant secretions or occlusion and the lumen. The cuff was intact. I repeated a chest x-ray and noticed the patient has a pneumothorax on the right which was likely the cause of her high pressures and kinking ETT was likely incidental finding while trying to fix the peak pressure. I have consulted General surgery for chest tube placement on right. Dr. Lott has been notified and is on his way to place a chest tube on the right side. Additional critical care time except separately billed procedures 25 minutes
[2021-08-09 16:17] LABS: Glucose Point of Care 165 mg/dl (65-105)
--- NOTE | 2021-08-09 16:45 | PM.CNGS ---
Assessment and Plan Assessment and plan (1) Pneumothorax, right: Code(s): J93.9 - Pneumothorax, unspecified Status: Acute Assessment and Plan: will place right chest tube emergently (2) Acute respiratory failure with hypoxia: Code(s): J96.01 - Acute respiratory failure with hypoxia Status: Acute Assessment and Plan: cont mgmt per intensive care team (3) Pneumonia due to COVID-19 virus: Code(s): U07.1 - COVID-19; J12.82 - Pneumonia due to coronavirus disease 2019 Status: Acute Assessment and Plan: see above History of Present Illness Consult details Consult date: 08/09/21 Reason for consult: chest tube Requesting physician: Artis Pond MD Narrative: The patient is a 66-year-old female currently intubated in the intensive care unit with COVID pneumonia and acute respiratory failure. I was consulted this afternoon emergently to see the patient regarding new right-sided pneumothorax. The patient was noted to have high peak airway pressures today and a tube exchange was done this afternoon. After the endotracheal tube exchange it was noted that the patient continued to have high peak airway pressures. Subsequent chest x-ray was significant for a new right-sided pneumothorax. The patient is intubated and sedated and thus the history is taken via the chart. Review of Systems Review of Systems: ROS unobtainable: Yes unobtainable due to endotracheal tube PMFSH Past Medical History Medical History Afib [place] Anxiety Bipolar disorder COPD (chronic obstructive pulmonary disease) Depression Diabetes Dizziness Emphysema of lung History of pneumonia HTN (hypertension) Hx of drug dependence Kidney stones Osteoporosis Pneumonia Seizures Vision abnormalities Surgical History Surgical History History of laparoscopic cholecystectomy (03/2017) History of tubal ligation Status post open reduction with internal fixation of fracture Left shoulder Family History Family History Father Depression Sibling Depression Hypertension Family history of elevated blood lipids Other Arthritis Diabetes mellitus Heart disease Malignant neoplasm Social History Social History Social History: Patient has smoked between 2-3 packs of cigarettes a day for 35 years. She has cut down her tobacco use in recent years. Years smoked: 30 Smoking status: Current every day smoker Alcohol intake: never Alcohol use details: Occasional Substance use: never Gender identity (if verbalized by the patient): Female Spiritual care concerns: No Meds Home Medications and Allergies Home Medications Medication Instructions Recorded Confirmed Type acetaminophen 500 mg tablet 500 mg PO Q6H PRN 05/23/20 07/21/21 History albuterol sulfate 90 mcg/actuation 1 inh INHALATION BID 05/23/20 07/21/21 History aerosol inhaler amlodipine 10 mg tablet 10 mg PO DAILY 05/23/20 07/21/21 History ammonium lactate 12 % topical cream 1 applic TOPICAL DAILY 05/23/20 History apixaban 5 mg tablet 5 mg PO BID 05/23/20 07/21/21 History aripiprazole 30 mg tablet 30 mg PO DAILY 05/23/20 07/21/21 History aspirin 81 mg tablet,delayed 81 mg PO DAILY 05/23/20 History release budesonide-formoterol HFA 160 2 puff INHALATION Q12H 05/23/20 07/21/21 History mcg-4.5 mcg/actuation aerosol inhaler bupropion HCl 200 mg tablet,12 hr 200 mg PO BID 05/23/20 07/21/21 History sustained-release carvedilol 6.25 mg tablet 6.25 mg PO Q12H 05/23/20 07/21/21 History cholestyramine-aspartame 4 gram PO 05/23/20 History oral powder for susp in a packet cyclobenzaprine 10 mg tablet 10 mg PO HS PRN 05/23/20 07/21/21 History dicyclomine 10 mg capsule 10 mg PO QID 05/23/20 07/21/21 Hist
--- NOTE | 2021-08-09 16:50 | P.OP_ITS ---
Procedure Note - Detailed Date of Procedure 08/09/21 Pre-op Diagnosis right-sided pneumothorax, acute respiratory failure, COVID pneumonia Post-op Diagnosis same Procedure Performed placement of 20 Maldivian right-sided chest tube Surgeon Jolly Lott MD Anesthesia general Indications 66-year-old female with acute respiratory failure, COVID pneumonia currently intubated now with newly developed right-sided pneumothorax Findings large gush of air upon entering the pleural space Description of Procedure Patient was placed in the supine position and consent was obtained. The right chest was then prepped and draped. A time-out was done to verify the patient's identity, as well as the procedure being performed. I then made an incision with a 15 blade scalpel at the level the nipple and anterior axillary. This incision was carried down to the chest cavity. I then used a Vaishali clamp to gain access into the chest at the 4th intercostal space. Immediately upon getting into the chest a large allen of air was evacuated. I then placed a 28 Maldivian chest tube directing this posterior and superior. I then sutured the chest tube in place. Vaseline gauze and sterile dressing were applied and the chest tube was connected to the atrium device. The patient tolerated the procedure well. Implants 20 Maldivian right-sided chest tube Estimated Blood Loss 5 Drains No Packing No Pathology none sent Complications No immediate complications Condition critical Disposition ICU
[2021-08-09] MEDS: CISATRACURIUM BESYLATE 200 MG in DEXTROSE 5% 80 ML 24 ML IV CONT (20:25)
[2021-08-09 20:39] LABS: Glucose Point of Care 178 mg/dl (65-105)
[2021-08-10] VITALS (45 sets, daily range): BP systolic 96–149; BP diastolic 46–62; PULSE 51–92; RESP 24; TEMP 36.4–36.9; O2SAT 89–99
[2021-08-10 00:35] LABS: Glucose Point of Care 195 mg/dl (65-105)
[2021-08-10] MEDS: CISATRACURIUM BESYLATE 200 MG in DEXTROSE 5% 80 ML 24 ML IV CONT ×5 (01:39→21:05)
[2021-08-10] MEDS: EPOPROSTENOL SODIUM 0.5 MG VIAL INHALATION ×4 (02:35→20:13)
[2021-08-10] MEDS: MIDAZOLAM 100MG/NS 100ML(*CRX) 100 MG/100 ML BAG IV CONT ×2 (02:43→11:00)
[2021-08-10] MEDS: PROPOFOL IV EMULSION 100 ML 21.38 MG IV CONT ×4 (02:44→20:06)
[2021-08-10 04:46] LABS: Mean Corpuscular Hemoglobin 28.5 pg (26-34); Mean Platelet Volume 10.3 fl (7.4-10.4); Platelet Count Result 361 k/mm3 (150-375); Red Blood Count 2.42 M/mm3 (4.2-5.4)
[2021-08-10 04:53] LABS: Hemoglobin 6.9 g/dL (12.0-15.0)
[2021-08-10 05:02] LABS: Glucose Point of Care 188 mg/dl (65-105)
[2021-08-10 05:06] LABS: Alanine Aminotransferase 47 U/L (4-35); Albumin Level 2.9 g/dL (3.5-5.1); Alkaline Phosphatase 158 U/L (38-126); Anion Gap 6 mmol/L (8-16); Aspartate Amino Transferase 36 U/L (14-36); Bilirubin,Total 0.1 mg/dL (0.2-1.3); Blood Urea Nitrogen 77 mg/dL (7-17); Calcium 9.5 mg/dL (8.4-10.2); Carbon Dioxide 33 mmol/L (22-30); Chloride 99 mmol/L (98-107); Estimated CRCL calculation 65 ml/min; Estimated Glomerular Filt Rate 56; Glucose 219 mg/dL (65-110); Magnesium 2.3 mg/dL (1.6-2.3); Potassium 3.9 mmol/L (3.4-5.0); Sodium 138 mmol/L (137-145)
[2021-08-10] MEDS: HYDROCORTISONE SODIUM SUCCINATE 100 MG/2 ML VIAL IV PUSH ×3 (05:18→21:06)
[2021-08-10 06:55] LABS: Alveolar/Arterial O2 Gradient 553.2 mmHg; Base Excess ABG 2.7 mEq/l (+/-2.0); Carboxyhemoglobin 0.3 % THb (0-2.0); Fractional Inspired Oxygen 100 %; HCO3 ABG 28.9 mEq/l (22.0-26.0); Methemoglobin ABG 0.2 %THb (0-1.5); Oxygen Content ABG 15.1 %vol (16.0-22.0); Oxygen Saturation ABG 97.7 % (95.0-100.0); Oxyhemoglobin 96.5 % THb (90.0-100.0); PCO2 ABG 52.2 mmHg (35.0-45.0); PO2 ABG 107.6 mmHg (80.0-100.0); PO2 FiO2 Ratio Arterial Blood 1.08 %; pH ABG 7.361 (7.350-7.450)
[2021-08-10 06:57] LABS: Device VENTILATOR; Modified Allen's Test Unable to perform; Site Drawn LEFT RADIAL
[2021-08-10 06:58] LABS: Arterial Blood Gas PEEP 14 cmH2O; Arterial Blood Gas Tidal Volume 420 ml; Arterial Blood Gas Vent Mode CMV; Arterial Blood Gas Ventilator rate 24 /MIN
[2021-08-10] MEDS: INSULIN GLARGINE (*BKC) 100 UNITS/ML 25 UNITS SUB-Q (07:56)
[2021-08-10] MEDS: INSULIN ASPART (*BKC) 100 UNITS/ML SUB-Q ×2 (07:57→20:43)
[2021-08-10] MEDS: polyethylene glycoL 3350 17 GM POWD.PACK PO (07:57)
[2021-08-10] MEDS: PANTOPRAZOLE SODIUM IV 40 MG VIAL IV PUSH ×2 (07:58→20:08)
[2021-08-10] MEDS: MINERAL OIL/WHITE PETROLATUM OINTMENT 1 APPLIC EACH EYE ×2 (07:58→20:08)
[2021-08-10] MEDS: NEOMYCIN/POLYMYXIN/BACITRACIN OINTMENT 15 GM TUBE 1 APPLIC TOPICAL (07:58)
[2021-08-10] MEDS: APIXABAN 5 MG TABLET PO ×2 (07:59→20:07)
[2021-08-10] MEDS: SOTALOL HCL 40 MG TABLET PO ×2 (07:59→20:08)
[2021-08-10 08:22] LABS: Glucose Point of Care 210 mg/dl (65-105)
[2021-08-10] MEDS: FUROSEMIDE INJ 40 MG/4 ML VIAL IV PUSH ×2 (09:02→15:33)
[2021-08-10] MEDS: FENTANYL 2,500MCG/NS250ML(*CRX 2,500 MCG/250 ML BAG 10 MCG IV CONT (11:04)
--- NOTE | 2021-08-10 11:08 | PCFNICU ---
ICU Rounding Note: Pt current nutrition is Vital AF 1.2 at 50 ml/hr over 22 hours. Last recorded weight is 115.8 kg, up from 106 kg on admit. Bowel Motility:+BM reported 08/10 Labs Reviewed:Glu 219, GFR 56, BUN 77, Alb 2.9,Hct 23.0,Hgb 6.9 Meds Noted:Lantus, Protonix, Novolog, Eliquis, Bumex, Nimbex, Flolan, Miralax,Propofol 30 ginf=063 kcals, Fentanyl, Versed. Skin: Maceration-buttock Additional Notes: Patient remains on mechanical vent and tube feeding of Vital AF 1.2 at 50 ml/hr. Nursing is reporting patient is tolerating tube feedings. Right Pneumothorax reported 08/09. Agree with diet orders. Following daily in ICU rounds. Will monitor every Tuesday and Tuesday.
--- NOTE | 2021-08-10 11:57 | PM.PNNEP ---
Progress Note: A&P Assessment and Plan (1) Acute renal failure: Qualifiers: Acute renal failure type: unspecified Qualified Code(s): N17.9 - Acute kidney failure, unspecified Code(s): N17.9 - Acute kidney failure, unspecified Status: Acute Assessment and Plan: resolving evaluation to date reveals: renal ultrasound with normal kidney sizes but a 3.9ccm left kidney mass suspicious for renal cell carcinoma urine electrolytes that are non-prerenal mildly elevated CPK but not high enough to affect kidney function most likely due to COVID-19 and prior/previous hypotension along with hypoxia and atrial fibrillation may have some degree of renal insufficiency at baseline given her history of diabetes and hypertension admitted with creatinine of 3.7mg/dl but then trended down to 2.8mg/dl peak/plateau of creatinine at 3.2mg/dl from 2.8mg/dl creatinine transiently andrea again up to 1.8 (on 08/07/21) but improved with efforts to stabilize hemodynamics urine output doing fairly well also not opposed to IV diuretics in an effort to promote dry lung strategy follow trend of renal function and UOP (2) Acute respiratory failure with hypoxia: Code(s): J96.01 - Acute respiratory failure with hypoxia Status: Acute Assessment and Plan: due to #3 known history of COPD and ongoing smoking history also likely contributing now complicated right pneumothorax s/p chest tube placement continue nebulizers continue ventilator support (3) Pneumonia due to COVID-19 virus: Code(s): U07.1 - COVID-19; J12.82 - Pneumonia due to coronavirus disease 2019 Status: Acute Assessment and Plan: known positivity 4 days prior to admission completed course of dexamethasone s/p tocilizumab on 07/22/2021 IV diuretics (4) Shock: Code(s): R57.9 - Shock, unspecified Status: Acute Assessment and Plan: on/off use of levophed noted due to infection versus sedation? stress dose steroids given low cortisol vasopressor therapy PRN (5) Anemia: Code(s): D64.9 - Anemia, unspecified Status: Acute Assessment and Plan: noted low H/H by AM labs PRBC transfusion per protocol follow trend of H/H since on anticoagulation (6) Afib: Code(s): I48.91 - Unspecified atrial fibrillation Status: Acute Assessment and Plan: on sotalol on anticoagulation Cardiology following from a distance (7) Pneumothorax, right: Code(s): J93.9 - Pneumothorax, unspecified Status: Acute Assessment and Plan: chest tube placed by Surgery follow CXRs - no air leak noted (8) Diabetes: Code(s): E11.9 - Type 2 diabetes mellitus without complications Status: Acute Assessment and Plan: follow Accu-Cheks suspect increased fluctuations with stress dose steroids continue glycemic control Will continue to follow. Subjective Date/time seen: 08/10/21 11:57 Respiratory status appears to have worsened in the last 24 hours; increased oxygenation requirement noted (on 100% FiO2); remains on intubated/sedated/paralyzed with ongoing ventilator support but it does not appears she has been making much progress (has been on ventilator for almost 3 weeks); ET Tube exchanged yesterday due to kinking and chest tube placed by Surgery due to pneumothorax; renal function slowly improving in spite of these new issues/events. Exam Narrative: General: elderly female intubated/sedated/paralyzed Heart: irregular rhythm, normal S1 and S2; no rub Lungs: coarse breath sounds throughout Abdomen: soft, nontender, nondistended, positive bowel sounds Extremities: trace edema present Skin: no rash Objective Data Vital Signs Vital Signs: Vital Signs Temp Pulse Resp BP Pulse Ox 08/10/21 11:43 56 L 110/50 L 08/10/21 11:25 62 24 H 95 08/10/21 11:04 56 L 24 H 08/10/21 10:00 36
--- NOTE | 2021-08-10 11:57 | P.PNNP_ITS ---
Progress Note: A&P Assessment and Plan (1) Acute renal failure: Qualifiers: Acute renal failure type: unspecified Qualified Code(s): N17.9 - Acute kidney failure, unspecified Code(s): N17.9 - Acute kidney failure, unspecified Status: Acute Assessment and Plan: * resolving * evaluation to date reveals: * renal ultrasound with normal kidney sizes but a 3.9ccm left kidney mass suspicious for renal cell carcinoma * urine electrolytes that are non-prerenal * mildly elevated CPK but not high enough to affect kidney function * most likely due to COVID-19 and prior/previous hypotension along with hypoxia and atrial fibrillation * may have some degree of renal insufficiency at baseline given her history of diabetes and hypertension * admitted with creatinine of 3.7mg/dl but then trended down to 2.8mg/dl * peak/plateau of creatinine at 3.2mg/dl from 2.8mg/dl * creatinine transiently andrea again up to 1.8 (on 08/07/21) but improved with efforts to stabilize hemodynamics * urine output doing fairly well also * not opposed to IV diuretics in an effort to promote dry lung strategy * follow trend of renal function and UOP (2) Acute respiratory failure with hypoxia: Code(s): J96.01 - Acute respiratory failure with hypoxia Status: Acute Assessment and Plan: * due to #3 * known history of COPD and ongoing smoking history also likely contributing * now complicated right pneumothorax s/p chest tube placement * continue nebulizers * continue ventilator support (3) Pneumonia due to COVID-19 virus: Code(s): U07.1 - COVID-19; J12.82 - Pneumonia due to coronavirus disease 2018 Status: Acute Assessment and Plan: * known positivity 4 days prior to admission * completed course of dexamethasone * s/p tocilizumab on 07/22/2021 * IV diuretics (4) Shock: Code(s): R57.9 - Shock, unspecified Status: Acute Assessment and Plan: * on/off use of levophed noted * due to infection versus sedation? * stress dose steroids given low cortisol * vasopressor therapy PRN (5) Anemia: Code(s): D64.9 - Anemia, unspecified Status: Acute Assessment and Plan: * noted low H/H by AM labs * PRBC transfusion per protocol * follow trend of H/H since on anticoagulation (6) Afib: Code(s): I48.91 - Unspecified atrial fibrillation Status: Acute Assessment and Plan: * on sotalol * on anticoagulation * Cardiology following from a distance (7) Pneumothorax, right: Code(s): J93.9 - Pneumothorax, unspecified Status: Acute Assessment and Plan: * chest tube placed by Surgery * follow CXRs - no air leak noted (8) Diabetes: Code(s): E11.9 - Type 2 diabetes mellitus without complications Status: Acute Assessment and Plan: * follow Accu-Cheks * suspect increased fluctuations with stress dose steroids * continue glycemic control Will continue to follow. Subjective Date/time seen: 08/10/21 11:57 Respiratory status appears to have worsened in the last 24 hours; increased oxygenation requirement noted (on 100% FiO2); remains on intubated/sedated/paralyzed with ongoing ventilator support but it does not appears she has been making much progress (has been on ventilator for almost 3 weeks); ET Tube exchanged yesterday due to kinking and chest tube placed by Surgery due to pneumothorax; renal function slowly improving in spite of these new issues/events. Exam
--- NOTE | 2021-08-10 12:41 | WPDINTPN ---
Progress Note: A&P Assessment and Plan (1) Acute respiratory failure with hypoxia: Code(s): J96.01 - Acute respiratory failure with hypoxia Status: Acute Assessment and Plan: Patient presented the ED on 07/20/2021 late evening, was hypoxic and was placed on BiPAP. She was on 100% FiO2 antibiotic, and failed as she was hypoxic with low O2 sats. 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 on 07/22/2021 On 08/02/2021: There was a cuff leak in the ETT so it was switched over tube exchanger. Patient likely de-recruited and was placed on 85% FiO2 and the PEEP was increased to 14. She was also started on Nimbex infusion as she was dyssynchronous and hypoxic. Patient was then placed in prone position after which her oxygen saturations improved. 08/04/2021: When patient was placed in prone position she desaturated in the 70s to 80s, was placed on 100% FiO2, peep of 14. And was started on inhaled Flolan (08/04/2021) which will be continued 08/09-She developed high pressures on the ventilator. ET tube was exchanged as we were unable to pass suction and rescue catheter through ETT and it appeared that ET tube was kinked in her pharynx. Patient also had a right pneumothorax chest x-ray and a chest tube was placed by general surgery. -ABGs reviewed. Permissive hypercapnia -continue daily prone ventilation -continue bronchodilators and Pulmicort -sedated with fentanyl, Versed infusion. Nimbex restarted on 08/02/21 due to ventilator dyssynchrony. -chest x-ray is worse and with increased oxygen requirement likely secondary to pulmonary edema - Will resume Lasix -continue Flolan inhaled at current dosage at this time -patient has been on a ventilator for more than 2 weeks now and would be a candidate for tracheostomy but currently too hypoxic and unstable for the procedure (2) Pneumonia due to COVID-19 virus: Code(s): U07.1 - COVID-19; J12.82 - Pneumonia due to coronavirus disease 2019 Status: Acute Assessment and Plan: Patient was COVID positive on 07/16/2021 this was 4 days prior to admission according the patient's medical records. 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 mellitus long term care phlebotomist insulin use: without penitentiary use Qualified Code(s): E11.65 - Type 2 diabetes mellitus with hyperglycemia Code(s): E11.65 - Type 2 diabetes mellitus with hyperglycemia Status: Acute Assessment and Plan: Patient hyperglycemic which could be related to stress response and or steroids -continue sliding scale insulin, Accu-Cheks and Lantus - off insulin infusion since 07/26 (4) Acute renal failure: Qualifiers: Acute renal failure type: unspecified Qualified Code(s): N17.9 - Acute kidney failure, unspecified Code(s): N17.9 - Acute kidney failure, unspecified Status: Acute Assessment and Plan: Acute kidney injury, could be related to hypoxia, COVID-19, hypotension, AFib, also has a history of diabetes and hypertension which could be contributing to that also. (last creatinine was on 12/08/2020 was 1.4). Patient was admitted with a creatinine of 3.7, -Patient did receive IV fluids initially for hypertension -will continue to monitor urine output, obtain urine lytes -renal ultrasound showed normal kidney size, no hydronephrosis. 3.9 cm left kidney mass suspicious for renal cell carcinoma, abdominal CT without and with contrast is recommended after improvement in kidney function -continue to monitor renal function, electrolytes and urine output -creatinine marginally improved but elevated -patient overall volume overloaded and will resume Lasix IV for volume overload -if needed will use Levophed to maintain map of 65 - appreciate Ne
[2021-08-10 12:46] LABS: Glucose Point of Care 195 mg/dl (65-105)
--- NOTE | 2021-08-10 14:15 | PM.PNCARD ---
Progress Note: A&P Assessment and Plan (1) Afib: Code(s): I48.91 - Unspecified atrial fibrillation Status: Acute Assessment and Plan: New diagnosis in the setting of infection with COVID pneumonia In sinus rhythm now on sotalol, recently decreased to 40mg b.i.d due to hypotension. A/C with apixaban, monitor H&H We will continue to follow peripherally (2) Acute renal failure: Qualifiers: Acute renal failure type: unspecified Qualified Code(s): N17.9 - Acute kidney failure, unspecified Code(s): N17.9 - Acute kidney failure, unspecified Status: Acute Assessment and Plan: Improved. Nephrology is following. (3) Pneumonia due to COVID-19 virus: Code(s): U07.1 - COVID-19; J12.82 - Pneumonia due to coronavirus disease 2019 Status: Acute Assessment and Plan: Per ICU (4) HTN (hypertension): Code(s): I10 - Essential (primary) hypertension Status: Acute Assessment and Plan: stable Subjective Date/time seen: 08/10/21 14:15 Unfortunately this patient remains intubated and is requiring 100% FiO2, saturating in the mid-high80's on this in the prone position. She has been mechanically ventilated now for 20 days with no meaningful improvement. Prognosis is poor. Review of Systems Review of Systems: ROS unobtainable: Yes unobtainable due to medical condition Constitutional: Constitutional: Reports chills, Denies excessive sweating and Denies headache(s) Eyes: Eyes: Denies blurry vision ENT: Denies headache(s), Denies lip swelling and Denies epistaxis Cardiovascular: Cardiovascular: Denies chest pain and Reports dyspnea Respiratory: Respiratory: Reports dyspnea Gastrointestinal: Gastrointestinal: Denies diarrhea Genitourinary: Genitourinary: Denies hematuria Musculoskeletal: Musculoskeletal: Reports myalgias Integumentary/Breasts: Skin/Breast: Denies erythema Neurologic: Denies headache(s) Endocrine: Endocrine: Denies excessive sweating Hematologic/Lymphatic: Hematologic/Lymphatic: Denies easy bleeding Allergic/Immunologic: Allergic/Immunologic: Denies lip swelling Exam Const: General: comfortable; No in distress Other: Intubated sedated white female in the prone position HENMT: General nose exam: Normal nares present Eyes: Sclera: sclerae normal Neck: Neck: supple and no JVD Resp: Other: Mechanically ventilated Cardio: Rate: regular rate Rhythm: regular rhythm GI: Auscultation: normal bowel sounds Skin: General skin exam: normal color Neuro: General: No patient oriented x3 and other (Intubated sedated on ventilator) Cognition (Neuro): abnormal cognition Extrem: General: no edema Other: No significant edema adequate distal perfusion Psych: Mental Status: other (Cannot be assessed) Objective Data Vital Signs Vital Signs: Vital Signs - 24 hr 08/09/21 14:31 08/09/21 14:33 08/09/21 15:15 Temperature Pulse Rate 60 59 L 61 Respiratory Rate 24 H 24 H Blood Pressure 118/54 L Pulse Oximetry 97 95 08/09/21 16:00 08/09/21 16:50 08/09/21 18:00 Temperature 37.2 C 37.1 C Pulse Rate 59 L 61 65 Respiratory Rate 24 H 24 H 24 H Blood Pressure 149/66 H 122/51 L Pulse Oximetry 97 94 92 08/09/21 18:20 08/09/21 20:00 08/09/21 20:25 Temperature 36.8 C Pulse Rate 64 60 61 Respiratory Rate 24 H 24 H 24 H Blood Pressure 109/50 L 109/49 L Pulse Oximetry 92 98 08/09/21 20:26 08/09/21 20:34 08/09/21 20:35 Temperature Pulse Rate 59 L 60 61 Respiratory Rate 24 H 24 H Blood Pressure Pulse Oximetry 98 100 08/09/21 21:18 08/09/21 21:22 08/09/21 22:00 Temperature Pulse Rate 67 64 51 L Respiratory Rate 24 H Blood Pressure 127/56 L 103/49 L Pulse Oximetry 91 08/09/21 22:15 08/10/21 00:00 08/10/21 00:21 Temperature 36.9 C Pulse Rate 58 L 60 57 L Respiratory Rate 24 H 24 H Blood Pressure 101/49 L Pulse Oximetry 95 90 93 08/10/21 00:38 08/10/21
[2021-08-10] MEDS: SODIUM CHLORIDE 0.9% IV 250 ML 30 ML IV CONT (14:26)
[2021-08-10 16:11] LABS: Glucose Point of Care 172 mg/dl (65-105)
[2021-08-10] MEDS: INSULIN GLARGINE (*BKC) 100 UNITS/ML 35 UNITS SUB-Q (20:07)
[2021-08-10 20:51] LABS: Glucose Point of Care 239 mg/dl (65-105)
[2021-08-11] VITALS (52 sets, daily range): BP systolic 112–146; BP diastolic 47–71; PULSE 53–69; RESP 24–95; TEMP 36.6–37; O2SAT 24–98
[2021-08-11] MEDS: INSULIN ASPART (*BKC) 100 UNITS/ML SUB-Q ×3 (00:18→20:34)
[2021-08-11 00:23] LABS: Glucose Point of Care 240 mg/dl (65-105)
[2021-08-11] MEDS: CISATRACURIUM BESYLATE 200 MG in DEXTROSE 5% 80 ML 24 ML IV CONT ×6 (01:10→20:35)
[2021-08-11] MEDS: PROPOFOL IV EMULSION 100 ML 21.38 MG IV CONT ×5 (01:11→21:15)
[2021-08-11] MEDS: EPOPROSTENOL SODIUM 0.5 MG VIAL INHALATION ×4 (02:15→19:56)
[2021-08-11 03:46] LABS: Glucose Point of Care 203 mg/dl (65-105)
[2021-08-11 04:40] LABS: Alveolar/Arterial O2 Gradient 498.2 mmHg; Base Excess ABG 3.9 mEq/l (+/-2.0); Carboxyhemoglobin 0.3 % THb (0-2.0); Fractional Inspired Oxygen 90 %; HCO3 ABG 29.3 mEq/l (22.0-26.0); Methemoglobin ABG 0.2 %THb (0-1.5); Modified Allen's Test Pass; Oxygen Content ABG 14.4 %vol (16.0-22.0); Oxygen Saturation ABG 97.2 % (95.0-100.0); Oxyhemoglobin 95.8 % THb (90.0-100.0); PCO2 ABG 47.9 mmHg (35.0-45.0); PO2 ABG 94.4 mmHg (80.0-100.0); PO2 FiO2 Ratio Arterial Blood 1.05 %; Reduced Hemoglobin 3.7 %THb (0-5.0); Site Drawn LEFT RADIAL; Total Hemoglobin 10.6 g/dL (12.0-18.0); pH ABG 7.404 (7.350-7.450)
[2021-08-11 04:41] LABS: Arterial Blood Gas PEEP 16 cmH2O; Arterial Blood Gas Tidal Volume 420 ml; Arterial Blood Gas Vent Mode CMV; Arterial Blood Gas Ventilator rate 24 /MIN; Device VENTILATOR
[2021-08-11] MEDS: HYDROCORTISONE SODIUM SUCCINATE 100 MG/2 ML VIAL IV PUSH ×3 (05:27→21:16)
[2021-08-11 05:46] LABS: Hemoglobin 7.9 g/dL (12.0-15.0); Mean Corpuscular HGB Conc 30.4 g/dl (32-36); Mean Corpuscular Hemoglobin 28.9 pg (26-34); Mean Corpuscular Volume 95.2 fl (80-100); Mean Platelet Volume 10.2 fl (7.4-10.4); Platelet Count Result 345 k/mm3 (150-375); Red Blood Count 2.73 M/mm3 (4.2-5.4); Red Cell Distribution Width 16.1 % (11.5-14.5); White Blood Count 8.6 K/mm3 (4.5-10.0)
[2021-08-11 06:01] LABS: Alanine Aminotransferase 52 U/L (4-35); Albumin Level 2.8 g/dL (3.5-5.1); Alkaline Phosphatase 151 U/L (38-126); Anion Gap 7 mmol/L (8-16); Aspartate Amino Transferase 31 U/L (14-36); Bilirubin,Total 0.2 mg/dL (0.2-1.3); Blood Urea Nitrogen 73 mg/dL (7-17); Calcium 8.9 mg/dL (8.4-10.2); Carbon Dioxide 33 mmol/L (22-30); Chloride 98 mmol/L (98-107); Estimated CRCL calculation 72 ml/min; Estimated Glomerular Filt Rate > 60; Glucose 195 mg/dL (65-110); Magnesium 2.3 mg/dL (1.6-2.3); Potassium 3.3 mmol/L (3.4-5.0); Sodium 138 mmol/L (137-145)
[2021-08-11] MEDS: MIDAZOLAM 100MG/NS 100ML(*CRX) 100 MG/100 ML BAG IV CONT (06:44)
[2021-08-11 07:36] LABS: Glucose Point of Care 191 mg/dl (65-105)
[2021-08-11] MEDS: INSULIN GLARGINE (*BKC) 100 UNITS/ML 35 UNITS SUB-Q ×2 (07:45→21:14)
[2021-08-11] MEDS: polyethylene glycoL 3350 17 GM POWD.PACK PO (07:46)
[2021-08-11] MEDS: MINERAL OIL/WHITE PETROLATUM OINTMENT 1 APPLIC EACH EYE ×2 (07:46→20:38)
[2021-08-11] MEDS: NEOMYCIN/POLYMYXIN/BACITRACIN OINTMENT 15 GM TUBE 1 APPLIC TOPICAL (07:46)
[2021-08-11] MEDS: PANTOPRAZOLE SODIUM IV 40 MG VIAL IV PUSH ×2 (07:46→20:38)
[2021-08-11] MEDS: SOTALOL HCL 40 MG TABLET PO ×2 (07:47→20:38)
[2021-08-11] MEDS: APIXABAN 5 MG TABLET PO ×2 (07:47→22:00)
[2021-08-11] MEDS: POTASSIUM CHLORIDE 20 MEQ PACKET (FOR LIQUID) 40 MEQ FEED TUBE (08:36)
[2021-08-11] MEDS: FUROSEMIDE INJ 40 MG/4 ML VIAL IV PUSH ×2 (08:36→16:06)
[2021-08-11] MEDS: FENTANYL 2,500MCG/NS250ML(*CRX 2,500 MCG/250 ML BAG 10 MCG IV CONT (10:48)
--- NOTE | 2021-08-11 11:12 | P.PNNP_ITS ---
Progress Note: A&P Assessment and Plan (1) Acute renal failure: Qualifiers: Acute renal failure type: unspecified Qualified Code(s): N17.9 - Acute kidney failure, unspecified Code(s): N17.9 - Acute kidney failure, unspecified Status: Acute Assessment and Plan: * resolving (if not resolved) * evaluation to date reveals: * renal ultrasound with normal kidney sizes but a 3.9ccm left kidney mass suspicious for renal cell carcinoma * urine electrolytes that are non-prerenal * mildly elevated CPK but not high enough to affect kidney function * most likely due to COVID-19 and prior/previous hypotension along with hypoxia and atrial fibrillation * may have some degree of renal insufficiency at baseline given her history of diabetes and hypertension * admitted with creatinine of 3.7mg/dl but then trended down to 2.8mg/dl * peak/plateau of creatinine at 3.2mg/dl from 2.8mg/dl * creatinine transiently andrea again up to 1.8 (on 08/07/21) but improved with efforts to stabilize hemodynamics * urine output doing fairly well also * not opposed to IV diuretics in an effort to promote dry lung strategy * follow trend of renal function and UOP (2) Acute respiratory failure with hypoxia: Code(s): J96.01 - Acute respiratory failure with hypoxia Status: Acute Assessment and Plan: * due to #3 * known history of COPD and ongoing smoking history also likely contributing * now complicated right pneumothorax s/p chest tube placement * continue nebulizers * continue ventilator support (3) Pneumonia due to COVID-19 virus: Code(s): U07.1 - COVID-19; J12.82 - Pneumonia due to coronavirus disease 2018 Status: Acute Assessment and Plan: * known positivity 4 days prior to admission * completed course of dexamethasone * s/p tocilizumab on 07/22/2021 * IV diuretics (4) Shock: Code(s): R57.9 - Shock, unspecified Status: Acute Assessment and Plan: * on/off use of levophed noted * due to infection versus sedation? * stress dose steroids given low cortisol * vasopressor therapy PRN (5) Anemia: Code(s): D64.9 - Anemia, unspecified Status: Acute Assessment and Plan: * due to acute illness * PRBC transfusion per protocol * follow trend of H/H since on anticoagulation (6) Afib: Code(s): I48.91 - Unspecified atrial fibrillation Status: Acute Assessment and Plan: * on sotalol * on anticoagulation * Cardiology following from a distance (7) Pneumothorax, right: Code(s): J93.9 - Pneumothorax, unspecified Status: Acute Assessment and Plan: * chest tube placed by Surgery * follow CXRs - no air leak noted (8) Diabetes: Code(s): E11.9 - Type 2 diabetes mellitus without complications Status: Acute Assessment and Plan: * follow Accu-Cheks * suspect increased fluctuations with stress dose steroids * continue glycemic control Since renal function appears relatively stable - will continue to follow intermittently. Subjective Date/time seen: 08/11/21 11:12 Ongoing issues with hypoxia and inability to tolerate supine positioning leading to prone positioning; remains on full ventilator support and currently intubated/sedated/paralyzed; continues to make reasonable urine output and responsive to diuretic therapy; no other issues/events overnight. Exam Narrative: General: elderly female intubated/sedated/paralyzed
--- NOTE | 2021-08-11 11:12 | PM.PNNEP ---
Progress Note: A&P Assessment and Plan (1) Acute renal failure: Qualifiers: Acute renal failure type: unspecified Qualified Code(s): N17.9 - Acute kidney failure, unspecified Code(s): N17.9 - Acute kidney failure, unspecified Status: Acute Assessment and Plan: resolving (if not resolved) evaluation to date reveals: renal ultrasound with normal kidney sizes but a 3.9ccm left kidney mass suspicious for renal cell carcinoma urine electrolytes that are non-prerenal mildly elevated CPK but not high enough to affect kidney function most likely due to COVID-19 and prior/previous hypotension along with hypoxia and atrial fibrillation may have some degree of renal insufficiency at baseline given her history of diabetes and hypertension admitted with creatinine of 3.7mg/dl but then trended down to 2.8mg/dl peak/plateau of creatinine at 3.2mg/dl from 2.8mg/dl creatinine transiently andrea again up to 1.8 (on 08/07/21) but improved with efforts to stabilize hemodynamics urine output doing fairly well also not opposed to IV diuretics in an effort to promote dry lung strategy follow trend of renal function and UOP (2) Acute respiratory failure with hypoxia: Code(s): J96.01 - Acute respiratory failure with hypoxia Status: Acute Assessment and Plan: due to #3 known history of COPD and ongoing smoking history also likely contributing now complicated right pneumothorax s/p chest tube placement continue nebulizers continue ventilator support (3) Pneumonia due to COVID-19 virus: Code(s): U07.1 - COVID-19; J12.82 - Pneumonia due to coronavirus disease 2019 Status: Acute Assessment and Plan: known positivity 4 days prior to admission completed course of dexamethasone s/p tocilizumab on 07/22/2021 IV diuretics (4) Shock: Code(s): R57.9 - Shock, unspecified Status: Acute Assessment and Plan: on/off use of levophed noted due to infection versus sedation? stress dose steroids given low cortisol vasopressor therapy PRN (5) Anemia: Code(s): D64.9 - Anemia, unspecified Status: Acute Assessment and Plan: due to acute illness PRBC transfusion per protocol follow trend of H/H since on anticoagulation (6) Afib: Code(s): I48.91 - Unspecified atrial fibrillation Status: Acute Assessment and Plan: on sotalol on anticoagulation Cardiology following from a distance (7) Pneumothorax, right: Code(s): J93.9 - Pneumothorax, unspecified Status: Acute Assessment and Plan: chest tube placed by Surgery follow CXRs - no air leak noted (8) Diabetes: Code(s): E11.9 - Type 2 diabetes mellitus without complications Status: Acute Assessment and Plan: follow Accu-Cheks suspect increased fluctuations with stress dose steroids continue glycemic control Since renal function appears relatively stable - will continue to follow intermittently. Subjective Date/time seen: 08/11/21 11:12 Ongoing issues with hypoxia and inability to tolerate supine positioning leading to prone positioning; remains on full ventilator support and currently intubated/sedated/paralyzed; continues to make reasonable urine output and responsive to diuretic therapy; no other issues/events overnight. Exam Narrative: General: elderly female intubated/sedated/paralyzed Heart: irregular rhythm, normal S1 and S2; no rub Lungs: coarse breath sounds throughout Abdomen: soft, nontender, nondistended, positive bowel sounds Extremities: trace edema present Skin: no rash Objective Data Vital Signs Vital Signs: Vital Signs 08/11/21 05:26 08/11/21 05:57 08/11/21 06:06 Temperature 36.8 C Pulse Rate 61 63 59 L Respiratory Rate 24 H 24 H 24 H Blood Pressure 138/57 L 138/58 L Pulse Oximetry 97 96 08/11/21 06:43 08/11/21 06:44 08/11/21 06:52 Elizabeth
--- NOTE | 2021-08-11 11:58 | PCNFU ---
Nutrition Follow-Up Complete: Inadequate Oral Intake as related to mechanical ventilation as evidenced by NPO. goal: Meet estimated nutritional needs We will continue current goal. Pt current nutrition is Vital AF 1.2 at 50 ml/hr over 22 hours. Last recorded weight is 116.1 kg, up from 106 kg on admit. Bowel Motility:+BM reported 08/11. Labs Reviewed: Glu 195, BUN 73, K 3.3,Hct 26.0,Hgb 7.9 Meds Noted:Fentanyl,Versed, Nimbex, Flolan,Eliquis, NovoLog, Protonix,Lantus, Propofol 30 dbgr=206 kcals, Betapace, Miralax Skin: maceration-buttock Additional Notes: Patient remains on mechanica vent and tube feedings of Vital AF 1.2 at 50 ml/hr and tolerating per nursing. Current tube feeding is providing 1320 kcals/83 gms protein/892 ml water. Free water flush 30 ml q 4 hours with an additional 466 kcals from Propofol. Meeting 97% of caloric needs. Agree with diet orders at this time. Will monitor in ICU rounds and reassessing every Tuesday and Tuesday.
[2021-08-11 12:16] LABS: Glucose Point of Care 188 mg/dl (65-105)
--- NOTE | 2021-08-11 14:08 | PM.PNGS ---
Progress Note: A&P Assessment and Plan (1) Pneumothorax, right: Code(s): J93.9 - Pneumothorax, unspecified Status: Acute Assessment and Plan: Right chest tube with unchanged position and residual small right pneumothorax on chest x-ray this morning. Continue chest tube to wall suction. Monitor with serial chest x-rays daily. Will plan to keep chest tube in place while on positive pressure ventilation. (2) Acute respiratory failure with hypoxia: Code(s): J96.01 - Acute respiratory failure with hypoxia Status: Acute Assessment and Plan: Continue management per [employer] Supervisor. (3) Pneumonia due to COVID-19 virus: Code(s): U07.1 - COVID-19; J12.82 - Pneumonia due to coronavirus disease 2019 Status: Acute Additional Plan I have discussed the patient's case and plan of care with Dr. Lott. Subjective Subjective Date/Time Seen: 08/11/21 11:28 Post Op day: 1 (right-sided chest tube placement) Interval history: Patient seen and examined in the ICU intubated in the prone position. Subjective hx limited d/t her being sedated/intubated. No acute issues overnight or today with the chest tube per nursing. Review of Systems Review of Systems: ROS unobtainable: Yes unobtainable due to endotracheal tube Exam Const: General: ill appearing acutely and patient obtunded Limitations: physical limitations Chest: Other: right-sided chest tube in place with dressing clean, dry, and intact, no air leak noted Resp: Effort & Inspection: abnormal respiratory pattern (on mechanical ventilator) Auscultation: diminished lung sounds (but coarse lung sounds) Urinary Catheter: Urinary Catheter: patent and draining Psych: Insight: Limited insight present (Psych) Judgement: Limited judgement present (Psych) Objective Data Vital Signs Vital Signs: Vital Signs - 24 hr 08/10/21 14:53 08/10/21 16:00 08/10/21 16:58 Temperature 98.0 F 98.0 F Pulse Rate 54 L 55 L 62 Respiratory Rate 24 H 24 H Blood Pressure 125/54 L 126/54 L Pulse Oximetry 89 L 97 96 08/10/21 17:00 08/10/21 18:00 08/10/21 19:11 Temperature 98.4 F Pulse Rate 62 55 L 62 Respiratory Rate 24 H 24 H 24 H Blood Pressure 121/53 L Pulse Oximetry 96 97 97 01/10/22 20:00 08/10/21 20:06 08/10/21 20:07 Temperature 98.5 F Pulse Rate 60 57 L 56 L Respiratory Rate 24 H 24 H 24 H Blood Pressure 139/57 L Pulse Oximetry 97 99 08/10/21 20:08 08/10/21 21:05 08/10/21 21:16 Temperature Pulse Rate 51 L 59 L 56 L Respiratory Rate 24 H Blood Pressure 123/53 L Pulse Oximetry 96 08/10/21 22:00 08/10/21 22:23 08/11/21 00:00 Temperature 98.4 F 98.5 F Pulse Rate 54 L 56 L 55 L Respiratory Rate 24 H 24 H 24 H Blood Pressure 117/53 L 123/54 L Pulse Oximetry 97 97 97 08/11/21 00:39 08/11/21 01:10 08/11/21 01:11 Temperature Pulse Rate 55 L 55 L 55 L Respiratory Rate 24 H 24 H 24 H Blood Pressure 119/52 L Pulse Oximetry 96 08/11/21 02:00 08/11/21 02:28 08/11/21 04:00 Temperature 98.6 F 98.3 F Pulse Rate 53 L 55 L 55 L Respiratory Rate 24 H 24 H 24 H Blood Pressure 112/53 L 118/50 L Pulse Oximetry 97 98 94 08/11/21 04:12 08/11/21 05:26 08/11/21 05:57 Temperature 98.3 F Pulse Rate 54 L 61 63 Respiratory Rate 24 H 24 H 24 H Blood Pressure 138/57 L 138/58 L Pulse Oximetry 93 97 08/11/21 06:06 08/11/21 06:43 08/11/21 06:44 Temperature Pulse Rate 59 L 61 62 Respiratory Rate 24 H 24 H 24 H Blood Pressure Pulse Oximetry 96 08/11/21 06:52 08/11/21 07:43 08/11/21 07:47 Temperature Pulse Rate 64 60 60 Respiratory Rate 24 H 24 H Blood Pressure Pulse Oximetry 95 08/11/21 07:55 08/11/21 07:58 08/11/21 07:59 Temperature Pulse Rate 62 59 L 58 L Respiratory Rate 24 H 24 H 24 H Blood Pressure 136/59 L Pulse Oximetry 96 08/11/21 08:00 08/11/21 08:36 08/11/21 09:58 Temperature 98 F Pulse Rate 58 L 58 L 58 L Respiratory Rate 24 H 24 H Kimberley
--- NOTE | 2021-08-11 14:42 | WPDINTPN ---
Progress Note: A&P Assessment and Plan (1) Acute respiratory failure with hypoxia: Code(s): J96.01 - Acute respiratory failure with hypoxia Status: Acute Assessment and Plan: Patient presented the ED on 07/20/2021 late evening, was hypoxic and was placed on BiPAP. She was on 100% FiO2 antibiotic, and failed as she was hypoxic with low O2 sats. 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 on 07/22/2021 On 08/02/2021: There was a cuff leak in the ETT so it was switched over tube exchanger. Patient likely de-recruited and was placed on 85% FiO2 and the PEEP was increased to 14. She was also started on Nimbex infusion as she was dyssynchronous and hypoxic. Patient was then placed in prone position after which her oxygen saturations improved. 08/04/2021: When patient was placed in prone position she desaturated in the 70s to 80s, was placed on 100% FiO2, peep of 14. And was started on inhaled Flolan (08/04/2021) which will be continued 08/09-She developed high pressures on the ventilator. ET tube was exchanged as we were unable to pass suction and rescue catheter through ETT and it appeared that ET tube was kinked in her pharynx. Patient also had a right pneumothorax chest x-ray and a chest tube was placed by general surgery. She remains in prone position and is unable to tolerate supine this time she is on 80% FiO2 and 16 of PEEP. Will wean FiO2 possible -ABGs reviewed. Permissive hypercapnia -sedated with fentanyl, Versed infusion. Nimbex restarted on 08/02/21 due to ventilator dyssynchrony. -chest x-ray reviewed - advance ET tube by 2 cm -continue Lasix -continue Flolan inhaled at current dosage at this time (2) Pneumonia due to COVID-19 virus: Code(s): U07.1 - COVID-19; J12.82 - Pneumonia due to coronavirus disease 2019 Status: Acute Assessment and Plan: Patient was COVID positive on 07/16/2021 this was 4 days prior to admission according the patient's medical records. 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 mellitus penitentiary insulin use: without termite control representative use Qualified Code(s): E11.65 - Type 2 diabetes mellitus with hyperglycemia Code(s): E11.65 - Type 2 diabetes mellitus with hyperglycemia Status: Acute Assessment and Plan: Patient hyperglycemic which could be related to stress response and or steroids -continue sliding scale insulin, Accu-Cheks and Lantus - off insulin infusion since 07/26 (4) Acute renal failure: Qualifiers: Acute renal failure type: unspecified Qualified Code(s): N17.9 - Acute kidney failure, unspecified Code(s): N17.9 - Acute kidney failure, unspecified Status: Acute Assessment and Plan: Acute kidney injury, could be related to hypoxia, COVID-19, hypotension, AFib, also has a history of diabetes and hypertension which could be contributing to that also. (last creatinine was on 12/08/2020 was 1.4). Patient was admitted with a creatinine of 3.7, -Patient did receive IV fluids initially for hypertension -will continue to monitor urine output, obtain urine lytes -renal ultrasound showed normal kidney size, no hydronephrosis. 3.9 cm left kidney mass suspicious for renal cell carcinoma, abdominal CT without and with contrast is recommended after improvement in kidney function -continue to monitor renal function, electrolytes and urine output -creatinine improved over last few days -patient overall volume overloaded and will continue Lasix IV for volume overload -if needed will use Levophed to maintain map of 65 - appreciate Nephrology evaluation recommendation (5) Afib: Code(s): I48.91 - Unspecified atrial fibrillation Status: Acute Assessment and Plan: P
[2021-08-11 16:19] LABS: Glucose Point of Care 183 mg/dl (65-105)
[2021-08-11 21:12] LABS: Glucose Point of Care 207 mg/dl (65-105)
[2021-08-12] VITALS (49 sets, daily range): BP systolic 121–167; BP diastolic 48–71; PULSE 56–79; RESP 24–224; TEMP 36.8–37.1; O2SAT 92–99
[2021-08-12 00:25] LABS: Glucose Point of Care 174 mg/dl (65-105)
[2021-08-12] MEDS: MIDAZOLAM 100MG/NS 100ML(*CRX) 100 MG/100 ML BAG IV CONT (00:53)
[2021-08-12] MEDS: EPOPROSTENOL SODIUM 0.5 MG VIAL INHALATION ×4 (01:56→20:20)
[2021-08-12] MEDS: CISATRACURIUM BESYLATE 200 MG in DEXTROSE 5% 80 ML 24 ML IV CONT ×6 (02:10→20:59)
[2021-08-12] MEDS: PROPOFOL IV EMULSION 100 ML 21.38 MG IV CONT ×5 (03:25→20:53)
[2021-08-12 04:28] LABS: Glucose Point of Care 156 mg/dl (65-105)
[2021-08-12 04:49] LABS: Alveolar/Arterial O2 Gradient 488.5 mmHg; Base Excess ABG 6.5 mEq/l (+/-2.0); Carboxyhemoglobin 0.3 % THb (0-2.0); Fractional Inspired Oxygen 85 %; HCO3 ABG 31.3 mEq/l (22.0-26.0); Methemoglobin ABG 0.3 %THb (0-1.5); Oxygen Content ABG 10.2 %vol (16.0-22.0); Oxygen Saturation ABG 94.1 % (95.0-100.0); Oxyhemoglobin 91.9 % THb (90.0-100.0); PCO2 ABG 47.3 mmHg (35.0-45.0); PO2 ABG 68.5 mmHg (80.0-100.0); PO2 FiO2 Ratio Arterial Blood 0.81 %; Reduced Hemoglobin 7.5 %THb (0-5.0); pH ABG 7.439 (7.350-7.450)
[2021-08-12 04:50] LABS: Modified Allen's Test Pass; Site Drawn RIGHT RADIAL; Total Hemoglobin 7.8 g/dL (12.0-18.0)
[2021-08-12 04:51] LABS: Arterial Blood Gas Ventilator rate 24 /MIN; Device VENTILATOR
[2021-08-12 04:52] LABS: Arterial Blood Gas PEEP 16 cmH2O; Arterial Blood Gas Tidal Volume 420 ml; Arterial Blood Gas Vent Mode CMV
[2021-08-12 05:24] LABS: Hematocrit 26.3 % (37.0-47.0); Hemoglobin 7.9 g/dL (12.0-15.0); Mean Corpuscular Hemoglobin 28.7 pg (26-34); Mean Corpuscular Volume 95.6 fl (80-100); Mean Platelet Volume 9.9 fl (7.4-10.4); Platelet Count Result 322 k/mm3 (150-375); Red Blood Count 2.75 M/mm3 (4.2-5.4); Red Cell Distribution Width 15.9 % (11.5-14.5); White Blood Count 8.4 K/mm3 (4.5-10.0)
[2021-08-12] MEDS: HYDROCORTISONE SODIUM SUCCINATE 100 MG/2 ML VIAL IV PUSH ×3 (05:28→21:01)
[2021-08-12 05:37] LABS: Alanine Aminotransferase 51 U/L (4-35); Albumin Level 2.7 g/dL (3.5-5.1); Alkaline Phosphatase 142 U/L (38-126); Anion Gap 8 mmol/L (8-16); Aspartate Amino Transferase 28 U/L (14-36); Bilirubin,Total 0.2 mg/dL (0.2-1.3); Blood Urea Nitrogen 67 mg/dL (7-17); Calcium 8.4 mg/dL (8.4-10.2); Carbon Dioxide 33 mmol/L (22-30); Chloride 100 mmol/L (98-107); Estimated CRCL calculation 72 ml/min; Estimated Glomerular Filt Rate > 60; Glucose 161 mg/dL (65-110); Magnesium 2.3 mg/dL (1.6-2.3); Potassium 3.6 mmol/L (3.4-5.0); Sodium 141 mmol/L (137-145)
[2021-08-12 07:43] LABS: Glucose Point of Care 151 mg/dl (65-105)
[2021-08-12] MEDS: APIXABAN 5 MG TABLET PO ×2 (08:08→21:00)
[2021-08-12] MEDS: PANTOPRAZOLE SODIUM IV 40 MG VIAL IV PUSH ×2 (08:09→21:00)
[2021-08-12] MEDS: FUROSEMIDE INJ 40 MG/4 ML VIAL IV PUSH (08:09)
[2021-08-12] MEDS: NEOMYCIN/POLYMYXIN/BACITRACIN OINTMENT 15 GM TUBE 1 APPLIC TOPICAL (08:10)
[2021-08-12] MEDS: MINERAL OIL/WHITE PETROLATUM OINTMENT 1 APPLIC EACH EYE ×2 (08:10→21:03)
[2021-08-12] MEDS: INSULIN GLARGINE (*BKC) 100 UNITS/ML 35 UNITS SUB-Q ×2 (08:10→20:58)
[2021-08-12] MEDS: FENTANYL 2,500MCG/NS250ML(*CRX 2,500 MCG/250 ML BAG 10 MCG IV CONT (08:28)
[2021-08-12] MEDS: SOTALOL HCL 40 MG TABLET PO (08:29)
--- NOTE | 2021-08-12 11:19 | WPDINTPN ---
Progress Note: A&P Assessment and Plan (1) Acute respiratory failure with hypoxia: Code(s): J96.01 - Acute respiratory failure with hypoxia Status: Acute Assessment and Plan: Patient presented the ED on 07/20/2021 late evening, was hypoxic and was placed on BiPAP. She was on 100% FiO2 antibiotic, and failed as she was hypoxic with low O2 sats. 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 on 07/22/2021 On 08/02/2021: There was a cuff leak in the ETT so it was switched over tube exchanger. Patient likely de-recruited and was placed on 85% FiO2 and the PEEP was increased to 14. She was also started on Nimbex infusion as she was dyssynchronous and hypoxic. Patient was then placed in prone position after which her oxygen saturations improved. 08/04/2021: When patient was placed in prone position she desaturated in the 70s to 80s, was placed on 100% FiO2, peep of 14. And was started on inhaled Flolan (08/04/2021) which will be continued 08/09-She developed high pressures on the ventilator. ET tube was exchanged as we were unable to pass suction and rescue catheter through ETT and it appeared that ET tube was kinked in her pharynx. Patient also had a right pneumothorax chest x-ray and a chest tube was placed by general surgery. She remains in prone position and is unable to tolerate supine over last few days. She is on 80-85% FiO2 and 16 of PEEP. Will wean FiO2 possible -I will try to see if patient tolerates supine position for few hours today -ABGs reviewed. Permissive hypercapnia -sedated with fentanyl, Versed infusion. Nimbex restarted on 08/02/21 due to ventilator dyssynchrony. -chest x-ray pending for today -continue Lasix -continue Flolan inhaled at current dosage at this time (2) Pneumonia due to COVID-19 virus: Code(s): U07.1 - COVID-19; J12.82 - Pneumonia due to coronavirus disease 2019 Status: Acute Assessment and Plan: Patient was COVID positive on 07/16/2021 this was 4 days prior to admission according the patient's medical records. 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 insulin use: without dedicated intermodal truck driver use Qualified Code(s): E11.65 - Type 2 diabetes mellitus with hyperglycemia Code(s): E11.65 - Type 2 diabetes mellitus with hyperglycemia Status: Acute Assessment and Plan: Patient hyperglycemic which could be related to stress response and or steroids -continue sliding scale insulin, Accu-Cheks and Lantus - off insulin infusion since 07/26 (4) Acute renal failure: Qualifiers: Acute renal failure type: unspecified Qualified Code(s): N17.9 - Acute kidney failure, unspecified Code(s): N17.9 - Acute kidney failure, unspecified Status: Acute Assessment and Plan: Acute kidney injury, could be related to hypoxia, COVID-19, hypotension, AFib, also has a history of diabetes and hypertension which could be contributing to that also. (last creatinine was on 12/08/2020 was 1.4). Patient was admitted with a creatinine of 3.7, -Patient did receive IV fluids initially for hypertension -will continue to monitor urine output, obtain urine lytes -renal ultrasound showed normal kidney size, no hydronephrosis. 3.9 cm left kidney mass suspicious for renal cell carcinoma, abdominal CT without and with contrast is recommended after improvement in kidney function -continue to monitor renal function, electrolytes and urine output -creatinine improved over last few days and is now in normal range -patient overall volume overloaded and will continue Lasix IV for volume overload -if needed will use Levophed to maintain map of 65 - appreciate Nephrology evaluation recommendation (5) Afib: C
[2021-08-12 11:54] LABS: Glucose Point of Care 163 mg/dl (65-105)
--- NOTE | 2021-08-12 13:24 | PCFNICU ---
ICU Rounding Note: Pt current nutrition is Vital AF 1.2 at 50 ml/hr over 22 hours. Last recorded weight is 117.4 kg, up from 106 kg on admit. Bowel Motility:Fecal containment catheter. Labs Reviewed: Glu 161, BUN 67, Alb 2.7,Hct 26.3,Hgb 7.9 Meds Noted:Fentanyl,Versed, Nimbex, Flolan,Eliquis, NovoLog, Protonix,Lantus, Propofol 30 dagp=831 kcals, Betapace Skin: maceration-buttocks. Additional Notes: Patient remains on mechanical vent and tube feedings of Vital AF 1.2 at 50 ml/hr over 22 hours. Propofol is providing an additional 466 kcals. Meeting 97% of caloric needs and 100% of protein needs. Will continue to monitor propofol titration for any tube feeding rate adjustments. Following daily in ICU rounds. Will monitor every Tuesday and Tuesday..
[2021-08-12 15:50] LABS: Glucose Point of Care 129 mg/dl (65-105)
[2021-08-12] MEDS: SOTALOL HCL 20 MG TABLET PO (21:00)
[2021-08-12 22:55] LABS: Glucose Point of Care 134 mg/dl (65-105)
[2021-08-13] VITALS (52 sets, daily range): BP systolic 117–154; BP diastolic 56–70; PULSE 8–78; RESP 24; TEMP 36.8–37.3; O2SAT 88–99
[2021-08-13] MEDS: PROPOFOL IV EMULSION 100 ML 21.38 MG IV CONT ×5 (01:02→23:36)
[2021-08-13] MEDS: CISATRACURIUM BESYLATE 200 MG in DEXTROSE 5% 80 ML 24 ML IV CONT ×3 (01:05→19:46)
[2021-08-13 01:18] LABS: Glucose Point of Care 116 mg/dl (65-105)
[2021-08-13] MEDS: EPOPROSTENOL SODIUM 0.5 MG VIAL INHALATION ×4 (02:30→20:05)
[2021-08-13 05:10] LABS: Hematocrit 27.9 % (37.0-47.0); Hemoglobin 8.2 g/dL (12.0-15.0); Mean Corpuscular HGB Conc 29.4 g/dl (32-36); Mean Corpuscular Hemoglobin 28.5 pg (26-34); Mean Corpuscular Volume 96.9 fl (80-100); Mean Platelet Volume 9.9 fl (7.4-10.4); Platelet Count Result 330 k/mm3 (150-375); Red Blood Count 2.88 M/mm3 (4.2-5.4); Red Cell Distribution Width 15.6 % (11.5-14.5); White Blood Count 8.8 K/mm3 (4.5-10.0)
[2021-08-13 05:20] LABS: Anion Gap 3 mmol/L (8-16); Blood Urea Nitrogen 62 mg/dL (7-17); Calcium 8.2 mg/dL (8.4-10.2); Carbon Dioxide 36 mmol/L (22-30); Chloride 102 mmol/L (98-107); Estimated CRCL calculation 81 ml/min; Estimated Glomerular Filt Rate > 60; Glucose 107 mg/dL (65-110); Potassium 3.7 mmol/L (3.4-5.0); Sodium 141 mmol/L (137-145)
[2021-08-13 05:24] LABS: Magnesium 2.3 mg/dL (1.6-2.3)
[2021-08-13 06:10] LABS: Alveolar/Arterial O2 Gradient 327.4 mmHg; Base Excess ABG 8.5 mEq/l (+/-2.0); Carboxyhemoglobin 0.2 % THb (0-2.0); Fractional Inspired Oxygen 65 %; HCO3 ABG 33.9 mEq/l (22.0-26.0); Methemoglobin ABG 0.3 %THb (0-1.5); Oxygen Content ABG 13.1 %vol (16.0-22.0); Oxyhemoglobin 94.2 % THb (90.0-100.0); PCO2 ABG 51.4 mmHg (35.0-45.0); PO2 ABG 80.2 mmHg (80.0-100.0); PO2 FiO2 Ratio Arterial Blood 1.23 %; Reduced Hemoglobin 5.3 %THb (0-5.0); Total Hemoglobin 9.8 g/dL (12.0-18.0); pH ABG 7.437 (7.350-7.450)
[2021-08-13 06:11] LABS: Device VENTILATOR; Modified Allen's Test Unable to perform; Site Drawn RIGHT RADIAL
[2021-08-13 06:12] LABS: Arterial Blood Gas PEEP 16 cmH2O; Arterial Blood Gas Tidal Volume 420 ml; Arterial Blood Gas Vent Mode CMV; Arterial Blood Gas Ventilator rate 24 /MIN
[2021-08-13] MEDS: HYDROCORTISONE SODIUM SUCCINATE 100 MG/2 ML VIAL IV PUSH ×3 (06:15→20:46)
[2021-08-13 07:36] LABS: Glucose Point of Care 89 mg/dl (65-105)
[2021-08-13] MEDS: APIXABAN 5 MG TABLET PO ×2 (08:16→20:46)
[2021-08-13] MEDS: FUROSEMIDE INJ 40 MG/4 ML VIAL IV PUSH (08:16)
[2021-08-13] MEDS: INSULIN GLARGINE (*BKC) 100 UNITS/ML 35 UNITS SUB-Q ×2 (08:16→20:34)
[2021-08-13] MEDS: NEOMYCIN/POLYMYXIN/BACITRACIN OINTMENT 15 GM TUBE 1 APPLIC TOPICAL (08:22)
[2021-08-13] MEDS: PANTOPRAZOLE SODIUM IV 40 MG VIAL IV PUSH ×2 (08:22→20:33)
[2021-08-13] MEDS: MINERAL OIL/WHITE PETROLATUM OINTMENT 1 APPLIC EACH EYE ×2 (08:22→20:34)
[2021-08-13] MEDS: SOTALOL HCL 20 MG TABLET PO ×2 (08:23→20:34)
[2021-08-13] MEDS: FENTANYL 2,500MCG/NS250ML(*CRX 2,500 MCG/250 ML BAG 10 MCG IV CONT (08:36)
[2021-08-13] MEDS: CISATRACURIUM BESYLATE 200 MG in DEXTROSE 5% 80 ML 27 ML IV CONT ×2 (11:33→15:34)
--- NOTE | 2021-08-13 12:03 | WPDINTPN ---
Progress Note: A&P Assessment and Plan (1) Acute respiratory failure with hypoxia: Code(s): J96.01 - Acute respiratory failure with hypoxia Status: Acute Assessment and Plan: Patient presented the ED on 07/20/2021 late evening, was hypoxic and was placed on BiPAP. She was on 100% FiO2 antibiotic, and failed as she was hypoxic with low O2 sats. 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 on 07/22/2021 On 08/02/2021: There was a cuff leak in the ETT so it was switched over tube exchanger. Patient likely de-recruited and was placed on 85% FiO2 and the PEEP was increased to 14. She was also started on Nimbex infusion as she was dyssynchronous and hypoxic. Patient was then placed in prone position after which her oxygen saturations improved. 08/04/2021: When patient was placed in prone position she desaturated in the 70s to 80s, was placed on 100% FiO2, peep of 14. And was started on inhaled Flolan (08/04/2021) which will be continued 08/09-She developed high pressures on the ventilator. ET tube was exchanged as we were unable to pass suction and rescue catheter through ETT and it appeared that ET tube was kinked in her pharynx. Patient also had a right pneumothorax chest x-ray and a chest tube was placed by general surgery. Currently She is on 65% FiO2 and 16 of PEEP. Will wean FiO2 possible -continue daily prone ventilation -ABGs reviewed. Permissive hypercapnia -sedated with fentanyl, Versed infusion. Nimbex restarted on 08/02/21 due to ventilator dyssynchrony. -chest x-ray pending for today -continue diuresis. Will give a dose of Lasix now and Diamox later today. -continue Flolan inhaled at current dosage at this time (2) Pneumonia due to COVID-19 virus: Code(s): U07.1 - COVID-19; J12.82 - Pneumonia due to coronavirus disease 2019 Status: Acute Assessment and Plan: Patient was COVID positive on 07/16/2021 this was 4 days prior to admission according the patient's medical records. 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 mellitus care home insulin use: without care home use Qualified Code(s): E11.65 - Type 2 diabetes mellitus with hyperglycemia Code(s): E11.65 - Type 2 diabetes mellitus with hyperglycemia Status: Acute Assessment and Plan: Patient hyperglycemic which could be related to stress response and or steroids -continue sliding scale insulin, Accu-Cheks and Lantus - off insulin infusion since 07/26 (4) Acute renal failure: Qualifiers: Acute renal failure type: unspecified Qualified Code(s): N17.9 - Acute kidney failure, unspecified Code(s): N17.9 - Acute kidney failure, unspecified Status: Acute Assessment and Plan: Acute kidney injury, could be related to hypoxia, COVID-19, hypotension, AFib, also has a history of diabetes and hypertension which could be contributing to that also. (last creatinine was on 12/08/2020 was 1.4). Patient was admitted with a creatinine of 3.7, -renal ultrasound showed normal kidney size, no hydronephrosis. 3.9 cm left kidney mass suspicious for renal cell carcinoma, abdominal CT without and with contrast is recommended after improvement in kidney function -continue to monitor renal function, electrolytes and urine output -creatinine improved over last few days and is now in normal range -patient overall volume overloaded and will continue Lasix IV for volume overload -nephrology following (5) Afib: Code(s): I48.91 - Unspecified atrial fibrillation Status: Acute Assessment and Plan: Patient was in AFib RVR, requiring amiodarone infusion, heparin infusion. -cardiology switched to sotalol on 07/31/2021: -patient in sinus rhythm sarah robles
[2021-08-13 12:05] LABS: Glucose Point of Care 134 mg/dl (65-105)
--- NOTE | 2021-08-13 13:03 | PCFNICU ---
ICU Rounding Note: Pt current nutrition is Vital AF 1.2 at 50 mls per hour over 22 hours per day. Last recorded weight is 117.4 kg, up from 106 kg. on admit. Bowel Motility: + BM 08/12/2021 Labs Reviewed: Hgb 8.2, Hct 27.9, BUN 62 Meds Noted: Eliquis, Albuterol, Lasix, Glucagon, Glucose, Novolog, Lantus, Atrovent Neb, Miralax, Propofol, Levophed, Protonix, Betapace Skin: maceration-buttocks Additional Notes: Patient remains on mechanical ventilation and tube feedings of vital AF 1.2 at 50 mls per hour over 22 hours per day providing 1,320 calories, 83 grams of protein and 892 mls of water with a 30 ml water flush q4. Propofol is providing an additional 466 calories. Will continue to monitor propofol titration for any tube feeding rate adjustments. Following daily in ICU rounds. Will monitor every Tuesday and Tuesday.
[2021-08-13] MEDS: MIDAZOLAM 100MG/NS 100ML(*CRX) 100 MG/100 ML BAG IV CONT (13:56)
[2021-08-13 16:06] LABS: Glucose Point of Care 130 mg/dl (65-105)
[2021-08-13] MEDS: acetaZOLAMIDE SODIUM FOR INJ 500 MG VIAL 250 MG IV PUSH (17:08)
[2021-08-13 23:23] LABS: Glucose Point of Care 153 mg/dl (65-105)
[2021-08-14] VITALS (49 sets, daily range): BP systolic 102–167; BP diastolic 52–83; PULSE 55–74; RESP 24; TEMP 36.6–37.1; O2SAT 91–100
[2021-08-14] MEDS: CISATRACURIUM BESYLATE 200 MG in DEXTROSE 5% 80 ML 24 ML IV CONT ×5 (00:24→22:08)
[2021-08-14 01:02] LABS: Glucose Point of Care 131 mg/dl (65-105)
[2021-08-14] MEDS: EPOPROSTENOL SODIUM 0.5 MG VIAL INHALATION ×4 (02:09→19:43)
[2021-08-14 04:33] LABS: Alveolar/Arterial O2 Gradient 364.3 mmHg; Base Excess ABG 8.2 mEq/l (+/-2.0); Carboxyhemoglobin 0.2 % THb (0-2.0); Fractional Inspired Oxygen 80 %; HCO3 ABG 33.8 mEq/l (22.0-26.0); Methemoglobin ABG 0.3 %THb (0-1.5); Oxygen Content ABG 13.9 %vol (16.0-22.0); Oxygen Saturation ABG 98.9 % (95.0-100.0); Oxyhemoglobin 97.8 % THb (90.0-100.0); PO2 ABG 150.5 mmHg (80.0-100.0); PO2 FiO2 Ratio Arterial Blood 1.88 %; Reduced Hemoglobin 1.7 %THb (0-5.0); Total Hemoglobin 9.9 g/dL (12.0-18.0); pH ABG 7.423 (7.350-7.450)
[2021-08-14 04:39] LABS: Arterial Blood Gas PEEP 16 cmH2O; Arterial Blood Gas Vent Mode CMV; Arterial Blood Gas Ventilator rate 24 /MIN; Device VENTILATOR; Modified Allen's Test Unable to perform; Site Drawn RIGHT RADIAL
[2021-08-14 04:40] LABS: Arterial Blood Gas Tidal Volume 420 ml
[2021-08-14] MEDS: PROPOFOL IV EMULSION 100 ML 21.38 MG IV CONT ×4 (05:04→18:37)
[2021-08-14] MEDS: HYDROCORTISONE SODIUM SUCCINATE 100 MG/2 ML VIAL IV PUSH ×3 (05:05→21:15)
[2021-08-14 05:17] LABS: Hematocrit 30.1 % (37.0-47.0); Hemoglobin 8.8 g/dL (12.0-15.0); Mean Corpuscular HGB Conc 29.2 g/dl (32-36); Mean Corpuscular Hemoglobin 28.3 pg (26-34); Mean Corpuscular Volume 96.8 fl (80-100); Mean Platelet Volume 10.2 fl (7.4-10.4); Platelet Count Result 288 k/mm3 (150-375); Red Blood Count 3.11 M/mm3 (4.2-5.4); Red Cell Distribution Width 15.7 % (11.5-14.5); White Blood Count 9.6 K/mm3 (4.5-10.0)
[2021-08-14 05:29] LABS: Alanine Aminotransferase 80 U/L (4-35); Albumin Level 2.7 g/dL (3.5-5.1); Alkaline Phosphatase 136 U/L (38-126); Anion Gap 3 mmol/L (8-16); Aspartate Amino Transferase 54 U/L (14-36); Bilirubin,Total 0.3 mg/dL (0.2-1.3); Blood Urea Nitrogen 58 mg/dL (7-17); Calcium 7.8 mg/dL (8.4-10.2); Carbon Dioxide 35 mmol/L (22-30); Chloride 102 mmol/L (98-107); Estimated CRCL calculation 81 ml/min; Estimated Glomerular Filt Rate > 60; Glucose 147 mg/dL (65-110); Magnesium 2.4 mg/dL (1.6-2.3); Potassium 3.5 mmol/L (3.4-5.0); Sodium 140 mmol/L (137-145)
[2021-08-14] MEDS: PANTOPRAZOLE SODIUM IV 40 MG VIAL IV PUSH ×2 (08:13→21:15)
[2021-08-14] MEDS: FUROSEMIDE INJ 40 MG/4 ML VIAL IV PUSH (08:13)
[2021-08-14] MEDS: SOTALOL HCL 20 MG TABLET PO ×2 (08:13→21:15)
[2021-08-14] MEDS: APIXABAN 5 MG TABLET PO ×2 (08:13→21:14)
[2021-08-14] MEDS: MINERAL OIL/WHITE PETROLATUM OINTMENT 1 APPLIC EACH EYE ×2 (08:14→21:15)
[2021-08-14] MEDS: NEOMYCIN/POLYMYXIN/BACITRACIN OINTMENT 15 GM TUBE 1 APPLIC TOPICAL (08:14)
[2021-08-14] MEDS: INSULIN GLARGINE (*BKC) 100 UNITS/ML 35 UNITS SUB-Q ×2 (08:14→21:14)
[2021-08-14 08:36] LABS: Glucose Point of Care 144 mg/dl (65-105)
[2021-08-14] MEDS: cefTRIAXone 2 GM in SODIUM CHLORIDE 0.9% IV 100 ML 200 ML IVPB (09:10)
[2021-08-14] MEDS: MIDAZOLAM 100MG/NS 100ML(*CRX) 100 MG/100 ML BAG IV CONT (09:16)
[2021-08-14] MEDS: FENTANYL 2,500MCG/NS250ML(*CRX 2,500 MCG/250 ML BAG 10 MCG IV CONT (09:19)
--- NOTE | 2021-08-14 09:42 | WPDINTPN ---
Progress Note: A&P Assessment and Plan (1) Acute respiratory failure with hypoxia: Code(s): J96.01 - Acute respiratory failure with hypoxia Status: Acute Assessment and Plan: Patient presented the ED on 07/20/2021 late evening, was hypoxic and was placed on BiPAP. She was on 100% FiO2 antibiotic, and failed as she was hypoxic with low O2 sats. 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 on 07/22/2021 On 08/02/2021: There was a cuff leak in the ETT so it was switched over tube exchanger. Patient likely de-recruited and was placed on 85% FiO2 and the PEEP was increased to 14. She was also started on Nimbex infusion as she was dyssynchronous and hypoxic. Patient was then placed in prone position after which her oxygen saturations improved. 08/04/2021: When patient was placed in prone position she desaturated in the 70s to 80s, was placed on 100% FiO2, peep of 14. And was started on inhaled Flolan (08/04/2021) which will be continued 08/09-She developed high pressures on the ventilator. ET tube was exchanged as we were unable to pass suction and rescue catheter through ETT and it appeared that ET tube was kinked in her pharynx. Patient also had a right pneumothorax chest x-ray and a chest tube was placed by general surgery. Currently She is on 70% FiO2 and 16 of PEEP. Will wean FiO2 possible -continue daily prone ventilation -ABGs reviewed. Permissive hypercapnia -sedated with fentanyl, Versed infusion. Nimbex restarted on 08/02/21 due to ventilator dyssynchrony. -most recent chest x-ray showed small right hydropneumothorax and bilateral air opacities -continue diuresis. -continue Flolan inhaled at current dosage at this time (2) Pneumonia due to COVID-19 virus: Code(s): U07.1 - COVID-19; J12.82 - Pneumonia due to coronavirus disease 2019 Status: Acute Assessment and Plan: Patient was COVID positive on 07/16/2021 this was 4 days prior to admission according the patient's medical records. 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 mellitus half-way insulin use: without half-way use Qualified Code(s): E11.65 - Type 2 diabetes mellitus with hyperglycemia Code(s): E11.65 - Type 2 diabetes mellitus with hyperglycemia Status: Acute Assessment and Plan: Patient hyperglycemic which could be related to stress response and or steroids -continue sliding scale insulin, Accu-Cheks and Lantus - off insulin infusion since 07/26 (4) Acute renal failure: Qualifiers: Acute renal failure type: unspecified Qualified Code(s): N17.9 - Acute kidney failure, unspecified Code(s): N17.9 - Acute kidney failure, unspecified Status: Acute Assessment and Plan: Acute kidney injury, could be related to hypoxia, COVID-19, hypotension, AFib, also has a history of diabetes and hypertension which could be contributing to that also. (last creatinine was on 12/08/2020 was 1.4). Patient was admitted with a creatinine of 3.7, -renal ultrasound showed normal kidney size, no hydronephrosis. 3.9 cm left kidney mass suspicious for renal cell carcinoma, abdominal CT without and with contrast is recommended after improvement in kidney function -continue to monitor renal function, electrolytes and urine output -creatinine improved over last few days and is now in normal range -patient overall volume overloaded and will continue diuretics -nephrology following (5) Afib: Code(s): I48.91 - Unspecified atrial fibrillation Status: Acute Assessment and Plan: Patient was in AFib RVR, requiring amiodarone infusion, heparin infusion. -cardiology switched to sotalol on 07/31/2021: -patient in sinus rhythm this morning - cardiolo
[2021-08-14] MEDS: POTASSIUM CHLORIDE 20 MEQ PACKET (FOR LIQUID) 40 MEQ FEED TUBE (11:00)
--- NOTE | 2021-08-14 11:22 | PCNFU ---
Nutrition Follow-Up Complete: Inadequate Oral Intake as related to mechanical ventilation as evidenced by NPO. Goal: Meet estimated nutritional needs Pt. is progressing towards goal. No new goal at this time. Pt current nutrition is Vital AF 1.2 at 50 mls per hour over 22 hours per day. Last recorded weight is 117.4 kg. Bowel Motility: + BM 08/14/2021 Labs Reviewed: Hgb 8.8, Hct 30.1, Alb 2.7, BUN 58, Glu 147 Meds Noted: Miralax, Protonix, Propofol, Betapace, Levophed, Atrovent neb, Lantus, Novolog, Lasix, Glucose, Glucagon, Fentanyl, Albuterol, Budesonide, Eliquis Skin: Maceration to buttocks. Additional Notes: Pt. remains on mechanical ventilation. Current feeding is Vital AF 1.2 at 50 mls per hour over 22 hours per day providing 1320 calories, 83 grams of protein and 892 mls of water with a 30 ml water flush q4. Pt. is tolerating current feeding per nursing. Propofol remains at 30 mics providing an additional 466 calories. Pt. is meeting 97% of caloric needs. Agree with diet orders at this time. Will monitor every Tuesday and Tuesday.
[2021-08-14 11:51] LABS: Glucose Point of Care 149 mg/dl (65-105)
[2021-08-14 16:28] LABS: Glucose Point of Care 140 mg/dl (65-105)
[2021-08-14 21:03] LABS: Glucose Point of Care 142 mg/dl (65-105)
[2021-08-15] VITALS (45 sets, daily range): BP systolic 119–163; BP diastolic 57–93; PULSE 54–78; RESP 24; TEMP 36.5–36.9; O2SAT 91–100
[2021-08-15 00:02] LABS: Glucose Point of Care 144 mg/dl (65-105)
[2021-08-15] MEDS: PROPOFOL IV EMULSION 100 ML 21.38 MG IV CONT ×5 (00:04→21:48)
[2021-08-15] MEDS: CISATRACURIUM BESYLATE 200 MG in DEXTROSE 5% 80 ML 24 ML IV CONT ×3 (02:08→20:23)
[2021-08-15 05:21] LABS: Alveolar/Arterial O2 Gradient 350.3 mmHg; Base Excess ABG 4.9 mEq/l (+/-2.0); Carboxyhemoglobin 0.3 % THb (0-2.0); Fractional Inspired Oxygen 80 %; HCO3 ABG 26.1 mEq/l (22.0-26.0); Methemoglobin ABG 0.1 %THb (0-1.5); Oxygen Content ABG 13.7 %vol (16.0-22.0); Oxygen Saturation ABG 99.5 % (95.0-100.0); Oxyhemoglobin 98.3 % THb (90.0-100.0); PCO2 ABG 26.8 mmHg (35.0-45.0); Reduced Hemoglobin 1.3 %THb (0-5.0); Total Hemoglobin 9.6 g/dL (12.0-18.0)
[2021-08-15 05:25] LABS: Device VENTILATOR; Modified Allen's Test Pass; Site Drawn LEFT RADIAL; pH ABG 7.606 (7.350-7.450)
[2021-08-15 05:26] LABS: Arterial Blood Gas PEEP 8 cmH2O; Arterial Blood Gas Tidal Volume 400 ml; Arterial Blood Gas Vent Mode CMV; Arterial Blood Gas Ventilator rate 30 /MIN
[2021-08-15 05:35] LABS: Hematocrit 28.7 % (37.0-47.0); Hemoglobin 8.6 g/dL (12.0-15.0); Mean Corpuscular Hemoglobin 28.5 pg (26-34); Mean Platelet Volume 9.8 fl (7.4-10.4); Platelet Count Result 328 k/mm3 (150-375); Red Blood Count 3.02 M/mm3 (4.2-5.4); Red Cell Distribution Width 15.7 % (11.5-14.5); White Blood Count 8.7 K/mm3 (4.5-10.0)
[2021-08-15 05:50] LABS: Alanine Aminotransferase 137 U/L (4-35); Albumin Level 2.8 g/dL (3.5-5.1); Alkaline Phosphatase 151 U/L (38-126); Anion Gap 5 mmol/L (8-16); Aspartate Amino Transferase 72 U/L (14-36); Bilirubin,Total 0.2 mg/dL (0.2-1.3); Blood Urea Nitrogen 58 mg/dL (7-17); Calcium 7.9 mg/dL (8.4-10.2); Carbon Dioxide 33 mmol/L (22-30); Chloride 103 mmol/L (98-107); Estimated CRCL calculation 91 ml/min; Estimated Glomerular Filt Rate > 60; Glucose 149 mg/dL (65-110); Magnesium 2.4 mg/dL (1.6-2.3); Potassium 3.5 mmol/L (3.4-5.0); Sodium 141 mmol/L (137-145)
[2021-08-15] MEDS: MIDAZOLAM 100MG/NS 100ML(*CRX) 100 MG/100 ML BAG IV CONT (05:50)
[2021-08-15] MEDS: HYDROCORTISONE SODIUM SUCCINATE 100 MG/2 ML VIAL IV PUSH ×3 (05:54→20:22)
[2021-08-15] MEDS: FUROSEMIDE INJ 40 MG/4 ML VIAL IV PUSH (07:46)
[2021-08-15] MEDS: NEOMYCIN/POLYMYXIN/BACITRACIN OINTMENT 15 GM TUBE 1 APPLIC TOPICAL (07:46)
[2021-08-15] MEDS: APIXABAN 5 MG TABLET PO ×2 (07:46→20:21)
[2021-08-15] MEDS: INSULIN GLARGINE (*BKC) 100 UNITS/ML 35 UNITS SUB-Q ×2 (07:46→20:20)
[2021-08-15] MEDS: MINERAL OIL/WHITE PETROLATUM OINTMENT 1 APPLIC EACH EYE ×2 (07:46→20:22)
[2021-08-15] MEDS: cefTRIAXone 2 GM in SODIUM CHLORIDE 0.9% IV 100 ML 200 ML IVPB (07:46)
[2021-08-15] MEDS: SOTALOL HCL 20 MG TABLET PO ×2 (07:47→20:22)
[2021-08-15] MEDS: PANTOPRAZOLE SODIUM IV 40 MG VIAL IV PUSH ×2 (07:47→20:22)
[2021-08-15] MEDS: polyethylene glycoL 3350 17 GM POWD.PACK PO (07:47)
[2021-08-15] MEDS: EPOPROSTENOL SODIUM 0.5 MG VIAL INHALATION ×3 (08:05→19:46)
--- NOTE | 2021-08-15 09:33 | WPDINTPN ---
Progress Note: A&P Assessment and Plan (1) Acute respiratory failure with hypoxia: Code(s): J96.01 - Acute respiratory failure with hypoxia Status: Acute Assessment and Plan: Patient presented the ED on 07/20/2021 late evening, was hypoxic and was placed on BiPAP. She was on 100% FiO2 antibiotic, and failed as she was hypoxic with low O2 sats. 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 on 07/22/2021 On 08/02/2021: There was a cuff leak in the ETT so it was switched over tube exchanger. Patient likely de-recruited and was placed on 85% FiO2 and the PEEP was increased to 14. She was also started on Nimbex infusion as she was dyssynchronous and hypoxic. Patient was then placed in prone position after which her oxygen saturations improved. 08/04/2021: When patient was placed in prone position she desaturated in the 70s to 80s, was placed on 100% FiO2, peep of 14. And was started on inhaled Flolan (08/04/2021) which will be continued 08/09-She developed high pressures on the ventilator. ET tube was exchanged as we were unable to pass suction and rescue catheter through ETT and it appeared that ET tube was kinked in her pharynx. Patient also had a right pneumothorax chest x-ray and a chest tube was placed by general surgery. Currently She is on 70% FiO2 and 16 of PEEP. Will wean FiO2 possible -continue daily prone ventilation -ABGs reviewed. Permissive hypercapnia. Will decrease rate to 24 and repeat ABG -sedated with fentanyl, Versed infusion. Nimbex restarted on 08/02/21 due to ventilator dyssynchrony. -CxR pending for today and most recent chest x-ray showed small right hydropneumothorax and bilateral air opacities -continue diuresis. -continue Flolan inhaled at current dosage at this time (2) Pneumonia due to COVID-19 virus: Code(s): U07.1 - COVID-19; J12.82 - Pneumonia due to coronavirus disease 2019 Status: Acute Assessment and Plan: Patient was COVID positive on 07/16/2021 this was 4 days prior to admission according the patient's medical records. 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 mellitus fdc insulin use: without fdc use Qualified Code(s): E11.65 - Type 2 diabetes mellitus with hyperglycemia Code(s): E11.65 - Type 2 diabetes mellitus with hyperglycemia Status: Acute Assessment and Plan: Patient hyperglycemic which could be related to stress response and or steroids -continue sliding scale insulin, Accu-Cheks and Lantus - off insulin infusion since 07/26 (4) Acute renal failure: Qualifiers: Acute renal failure type: unspecified Qualified Code(s): N17.9 - Acute kidney failure, unspecified Code(s): N17.9 - Acute kidney failure, unspecified Status: Acute Assessment and Plan: Acute kidney injury, could be related to hypoxia, COVID-19, hypotension, AFib, also has a history of diabetes and hypertension which could be contributing to that also. (last creatinine was on 12/08/2020 was 1.4). Patient was admitted with a creatinine of 3.7, -renal ultrasound showed normal kidney size, no hydronephrosis. 3.9 cm left kidney mass suspicious for renal cell carcinoma, abdominal CT without and with contrast is recommended after improvement in kidney function -continue to monitor renal function, electrolytes and urine output -creatinine improved over last few days and is now in normal range -patient overall volume overloaded and will continue diuretics -nephrology following (5) Afib: Code(s): I48.91 - Unspecified atrial fibrillation Status: Acute Assessment and Plan: Patient was in AFib RVR, requiring amiodarone infusion, heparin infusion. -cardiology switched to sotalol
[2021-08-15 09:40] LABS: Alveolar/Arterial O2 Gradient 361.9 mmHg; Base Excess ABG 6.6 mEq/l (+/-2.0); Fractional Inspired Oxygen 70 %; HCO3 ABG 34.1 mEq/l (22.0-26.0); Oxygen Saturation ABG 91.6 % (95.0-100.0); PO2 ABG 67.2 mmHg (80.0-100.0); PO2 FiO2 Ratio Arterial Blood 0.96 %; pH ABG 7.337 (7.350-7.450)
[2021-08-15 09:42] LABS: Device VENTILATOR; Modified Allen's Test Pass; PCO2 ABG 65.1 mmHg (35.0-45.0); Site Drawn LEFT RADIAL
[2021-08-15 09:43] LABS: Arterial Blood Gas PEEP 16 cmH2O; Arterial Blood Gas Tidal Volume 360 ml; Arterial Blood Gas Vent Mode CMV; Arterial Blood Gas Ventilator rate 24 /MIN
[2021-08-15] MEDS: FENTANYL 2,500MCG/NS250ML(*CRX 2,500 MCG/250 ML BAG 10 MCG IV CONT (10:19)
[2021-08-15 12:34] LABS: Glucose Point of Care 149 mg/dl (65-105)
[2021-08-15 16:28] LABS: Glucose Point of Care 156 mg/dl (65-105)
[2021-08-15 21:10] LABS: Glucose Point of Care 178 mg/dl (65-105)
[2021-08-16] VITALS (30 sets, daily range): BP systolic 137–158; BP diastolic 47–71; PULSE 69–82; RESP 24; TEMP 36.8–37.1; O2SAT 90–97
[2021-08-16] MEDS: CISATRACURIUM BESYLATE 200 MG in DEXTROSE 5% 80 ML 24 ML IV CONT ×2 (00:02→05:33)
[2021-08-16] MEDS: MIDAZOLAM 100MG/NS 100ML(*CRX) 100 MG/100 ML BAG IV CONT (00:03)
[2021-08-16] MEDS: INSULIN ASPART (*BKC) 100 UNITS/ML SUB-Q (00:09)
[2021-08-16 00:19] LABS: Glucose Point of Care 215 mg/dl (65-105)
[2021-08-16] MEDS: EPOPROSTENOL SODIUM 0.5 MG VIAL INHALATION ×3 (01:47→13:28)
[2021-08-16] MEDS: PROPOFOL IV EMULSION 100 ML 21.38 MG IV CONT ×3 (03:16→14:15)
[2021-08-16] MEDS: HYDROCORTISONE SODIUM SUCCINATE 100 MG/2 ML VIAL IV PUSH ×2 (04:05→14:16)
[2021-08-16 04:45] LABS: Hematocrit 31.8 % (37.0-47.0); Hemoglobin 9.4 g/dL (12.0-15.0); Mean Corpuscular HGB Conc 29.6 g/dl (32-36); Mean Corpuscular Hemoglobin 28.6 pg (26-34); Mean Corpuscular Volume 96.7 fl (80-100); Mean Platelet Volume 9.8 fl (7.4-10.4); Platelet Count Result 403 k/mm3 (150-375); Red Blood Count 3.29 M/mm3 (4.2-5.4); Red Cell Distribution Width 15.5 % (11.5-14.5); White Blood Count 10.5 K/mm3 (4.5-10.0)
[2021-08-16 05:03] LABS: Alanine Aminotransferase 116 U/L (4-35); Albumin Level 2.8 g/dL (3.5-5.1); Alkaline Phosphatase 163 U/L (38-126); Anion Gap 5 mmol/L (8-16); Aspartate Amino Transferase 44 U/L (14-36); Bilirubin,Total 0.3 mg/dL (0.2-1.3); Blood Urea Nitrogen 50 mg/dL (7-17); Calcium 7.8 mg/dL (8.4-10.2); Carbon Dioxide 34 mmol/L (22-30); Chloride 102 mmol/L (98-107); Estimated CRCL calculation 106 ml/min; Estimated Glomerular Filt Rate > 60; Glucose 181 mg/dL (65-110); Magnesium 2.4 mg/dL (1.6-2.3); Potassium 3.8 mmol/L (3.4-5.0); Sodium 141 mmol/L (137-145)
[2021-08-16 05:50] LABS: Base Excess ABG 7.4 mEq/l (+/-2.0); HCO3 ABG 33.9 mEq/l (22.0-26.0); PCO2 ABG 58.2 mmHg (35.0-45.0); PO2 ABG 103.6 mmHg (80.0-100.0); pH ABG 7.383 (7.350-7.450)
[2021-08-16 05:51] LABS: Alveolar/Arterial O2 Gradient 260.2 mmHg; Oxygen Saturation ABG 97.5 % (95.0-100.0); Total Hemoglobin 10.4 g/dL (12.0-18.0)
[2021-08-16 05:52] LABS: Carboxyhemoglobin 0.3 % THb (0-2.0); Device VENTILATOR; Methemoglobin ABG 0.4 %THb (0-1.5); Modified Allen's Test Unable to perform; Oxygen Content ABG 14.3 %vol (16.0-22.0); Oxyhemoglobin 96.4 % THb (90.0-100.0); PO2 FiO2 Ratio Arterial Blood 1.73 %; Reduced Hemoglobin 2.9 %THb (0-5.0); Site Drawn LEFT RADIAL
[2021-08-16 05:53] LABS: Arterial Blood Gas Vent Mode CMV; Arterial Blood Gas Ventilator rate 24 /MIN
[2021-08-16 05:54] LABS: Arterial Blood Gas PEEP 16 cmH2O; Arterial Blood Gas Tidal Volume 360 ml
[2021-08-16] MEDS: INSULIN GLARGINE (*BKC) 100 UNITS/ML 35 UNITS SUB-Q (08:23)
[2021-08-16] MEDS: cefTRIAXone 2 GM in SODIUM CHLORIDE 0.9% IV 100 ML 200 ML IVPB (08:23)
[2021-08-16] MEDS: PANTOPRAZOLE SODIUM IV 40 MG VIAL IV PUSH (08:24)
[2021-08-16] MEDS: SOTALOL HCL 20 MG TABLET PO (08:24)
[2021-08-16] MEDS: MINERAL OIL/WHITE PETROLATUM OINTMENT 1 APPLIC EACH EYE (08:24)
[2021-08-16] MEDS: APIXABAN 5 MG TABLET PO (08:24)
[2021-08-16] MEDS: FUROSEMIDE INJ 40 MG/4 ML VIAL IV PUSH (08:24)
[2021-08-16] MEDS: NEOMYCIN/POLYMYXIN/BACITRACIN OINTMENT 15 GM TUBE 1 APPLIC TOPICAL (08:24)
[2021-08-16] MEDS: polyethylene glycoL 3350 17 GM POWD.PACK PO (08:25)
[2021-08-16 08:26] LABS: Triglycerides 146 mg/dL (<150)
[2021-08-16] MEDS: CISATRACURIUM BESYLATE 200 MG in DEXTROSE 5% 80 ML 21 ML IV CONT (09:52)
[2021-08-16] MEDS: FENTANYL 2,500MCG/NS250ML(*CRX 2,500 MCG/250 ML BAG 10 MCG IV CONT (11:12)
--- NOTE | 2021-08-16 11:19 | P.PNINT_ITS ---
Progress Note: A&P Assessment and Plan (1) Acute respiratory failure with hypoxia: Code(s): J96.01 - Acute respiratory failure with hypoxia Status: Acute Assessment and Plan: Patient presented the ED on 07/20/2021 late evening, was hypoxic and was placed on BiPAP. She was on 100% FiO2 antibiotic, and failed as she was hypoxic with low O2 sats. 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 on 07/22/2021 On 08/02/2021: There was a cuff leak in the ETT so it was switched over tube exchanger. Patient likely de-recruited and was placed on 85% FiO2 and the PEEP was increased to 14. She was also started on Nimbex infusion as she was dyssynchronous and hypoxic. Patient was then placed in prone position after which her oxygen saturations improved. 08/04/2021: When patient was placed in prone position she desaturated in the 70s to 80s, was placed on 100% FiO2, peep of 14. And was started on inhaled Flolan (08/04/2021) which will be continued 08/09-She developed high pressures on the ventilator. ET tube was exchanged as we were unable to pass suction and rescue catheter through ETT and it appeared that ET tube was kinked in her pharynx. Patient also had a right pneumothorax chest x-ray and a chest tube was placed by general surgery. Currently She is on 65% FiO2 and 16 of PEEP. Will wean FiO2 possible -continue daily prone ventilation -ABGs reviewed. Permissive hypercapnia. -sedated with fentanyl, Versed infusion. Nimbex restarted on 08/02/21 due to ventilator dyssynchrony. -CxR pending for today and most recent chest x-ray showed small right hydropneumothorax and bilateral air opacities -continue diuresis. -continue Flolan inhaled at current dosage at this time (2) Pneumonia due to COVID-19 virus: Code(s): U07.1 - COVID-19; J12.82 - Pneumonia due to coronavirus disease 2019 Status: Acute Assessment and Plan: Patient was COVID positive on 07/16/2021 this was 4 days prior to admission according the patient's medical records. 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 insulin use: without termite treater helper use Qualified Code(s): E11.65 - Type 2 diabetes mellitus with hyperglycemia Code(s): E11.65 - Type 2 diabetes mellitus with hyperglycemia Status: Acute Assessment and Plan: Patient hyperglycemic which could be related to stress response and or steroids -continue sliding scale insulin, Accu-Cheks and Lantus - off insulin infusion since 07/26 (4) Acute renal failure: Qualifiers: Acute renal failure type: unspecified Qualified Code(s): N17.9 - Acute kidney failure, unspecified Code(s): N17.9 - Acute kidney failure, unspecified Status: Acute Assessment and Plan: Acute kidney injury, could be related to hypoxia, COVID-19, hypotension, AFib, also has a history of diabetes and hypertension which could be contributing to that also. (last creatinine was on 12/08/2020 was 1.4). Patient was admitted w ith a creatinine of 3.7, -renal ultrasound showed normal kidney size, no hydronephrosis. 3.9 cm left kidney mass suspicious for renal cell carcinoma, abdominal CT without and with contrast is recommended after improvement in kidney function -continue to monitor renal function, electrolytes and urine output -creatinine improved over last few days and is now in normal range -patient overall volume overloaded and will continue diuretics
[2021-08-16 13:09] LABS: Glucose Point of Care 146 mg/dl (65-105)
[2021-08-16] MEDS: CISATRACURIUM BESYLATE 200 MG in DEXTROSE 5% 80 ML 18 ML IV CONT (15:14)
--- NOTE | 2021-08-19 12:01 | P.DN_ITS ---
Discharge Summary Date and Time Date of : 08/16/21 Time of : 18:15 Provider Pronounced By: Faustino KOTHARI Probable Cause of Probable Cause of : COVID-19 pneumonia, acute respiratory failure with hypoxia, sepsis, shock, right pneumothorax Summary Hospital Course: Patient was admitted on 07/21/2021 with chief complaint of shortness of breath as she was tested positive for COVID 4 days prior to presentation. During the hospitalization her hypoxia continued to worsen and she was intubated and placed on mechanical ventilation on 07/22. Patient also had acute kidney injury precluding use of remdesivir and she was treated with dexamethasone. Nephrology was consulted for acute kidney injury. Patient went into AFib with RVR and Cardiology was consulted on 07/28. Patient continued to require high support on the ventilator. With time her renal function improved. Her ET tube was exchanged on 08/02 due to cuff leak and then again on 08/09 due to obstruction. She also developed a right pneumothorax and had a chest tube placed by general surgery on 08/09. She also developed sepsis and shock requiring antibiotics and vasopressors. She also received blood transfusion despite prolonged mechanical ventilation and aggressive therapy patient' respiratory failure did not improve and she continued to require high FiO2 and PEEP on ventilator. Patient's family specially her daughter was continuously kept updated of patient's status. Later in the course also spoke to patient's son in [place]. The whole family came to visit patient. By this time patient had been on mechanical ventilation for 4 weeks with no meaningful improved. In light of patient's critical illness with no meaningful improvement and poor prognosis the family decided to discontinue medical therapy and mechanical ventilation. Patient was palliatively extubated in presence of the family at bedside and patient was placed on comfort measures. She soon and was pronounced Additional Data Confirmation of as documented by pronouncing clinician: Pupillary Reflex, Palpable Pulses, Response to Stimuli, Heart Tones and Breath Sounds Name of Provider Notified: Dr. Amador Time Provider Notified: 18:20 Provider Requests Autopsy: No Family Requests Autopsy: No Dental Hygiene Professor Notified: Yes Date [facility] Notified of : 08/16/21 Time [facility] Notified of : 18:26
--- NOTE | 2021-09-08 13:32 | PM.IMPN ---
Progress Note: A&P Assessment and Plan (1) Acute respiratory failure with hypoxia: Code(s): J96.01 - Acute respiratory failure with hypoxia Status: Acute Assessment and Plan: Patient presented the ED on 07/20/2021 late evening, was hypoxic and was placed on BiPAP. She was on 100% FiO2 antibiotic, and failed as she was hypoxic with low O2 sats. 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 on 07/22/2021 On 08/02/2021: There was a cuff leak in the ETT so it was switched over tube exchanger. Patient likely de-recruited and was placed on 85% FiO2 and the PEEP was increased to 14. She was also started on Nimbex infusion as she was dyssynchronous and hypoxic. Patient was then placed in prone position after which her oxygen saturations improved. 08/04/2021: When patient was placed in prone position she desaturated in the 70s to 80s, was placed on 100% FiO2, peep of 14. And was started on inhaled Flolan (08/04/2021) which will be continued 08/09-She developed high pressures on the ventilator. ET tube was exchanged as we were unable to pass suction and rescue catheter through ETT and it appeared that ET tube was kinked in her pharynx. Patient also had a right pneumothorax chest x-ray and a chest tube was placed by general surgery. Currently She is on 65% FiO2 and 16 of PEEP. Will wean FiO2 possible -continue daily prone ventilation -ABGs reviewed. Permissive hypercapnia. -sedated with fentanyl, Versed infusion. Nimbex restarted on 08/02/21 due to ventilator dyssynchrony. -CxR pending for today and most recent chest x-ray showed small right hydropneumothorax and bilateral air opacities -continue diuresis. -continue Flolan inhaled at current dosage at this time (2) Pneumonia due to COVID-19 virus: Code(s): U07.1 - COVID-19; J12.82 - Pneumonia due to coronavirus disease 2019 Status: Acute Assessment and Plan: Patient was COVID positive on 07/16/2021 this was 4 days prior to admission according the patient's medical records. 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 leaf cutter long insulin use: without filler leaf cutter long use Qualified Code(s): E11.65 - Type 2 diabetes mellitus with hyperglycemia Code(s): E11.65 - Type 2 diabetes mellitus with hyperglycemia Status: Acute Assessment and Plan: Patient hyperglycemic which could be related to stress response and or steroids -continue sliding scale insulin, Accu-Cheks and Lantus - off insulin infusion since 07/26 (4) Acute renal failure: Qualifiers: Acute renal failure type: unspecified Qualified Code(s): N17.9 - Acute kidney failure, unspecified Code(s): N17.9 - Acute kidney failure, unspecified Status: Acute Assessment and Plan: Acute kidney injury, could be related to hypoxia, COVID-19, hypotension, AFib, also has a history of diabetes and hypertension which could be contributing to that also. (last creatinine was on 12/08/2020 was 1.4). Patient was admitted with a creatinine of 3.7, -renal ultrasound showed normal kidney size, no hydronephrosis. 3.9 cm left kidney mass suspicious for renal cell carcinoma, abdominal CT without and with contrast is recommended after improvement in kidney function -continue to monitor renal function, electrolytes and urine output -creatinine improved over last few days and is now in normal range -patient overall volume overloaded and will continue diuretics -nephrology following (5) Afib: Code(s): I48.91 - Unspecified atrial fibrillation Status: Acute Assessment and Plan: Patient was in AFib RVR, requiring amiodarone infusion, heparin infusion. -cardiology switched to sotalol on 07/31/2021: -patient in sinus rhyt
== END 2021-08-16 18:15 | disposition expired | DRG 207 ==
LOC: ANHED 07-21 04:43 → ANHICU 07-21 05:58 → ANHIMU 07-21 19:04 → ANHICU 07-22 08:37
PROVIDERS: Emergency Medicine; Internal Medicine; Internal Medicine Hematology & Oncology; Internal Medicine Nephrology; Admitting Provider Internal Medicine; Emergency Provider Emergency Medicine; PCP Physician Assistant; Visit Provider Internal Medicine
DX: U07.1 COVID-19 (principal); J12.82 Pneumonia due to coronavirus disease 2019; J96.01 Acute respiratory failure with hypoxia; A41.89 Other specified sepsis; R65.21 Severe sepsis with septic shock; N17.0 Acute kidney failure with tubular necrosis; N39.0 Urinary tract infection, site not specified; I48.20 Chronic atrial fibrillation, unspecified; Z68.41 Body mass index [BMI] 40.0-44.9, adult; J44.1 Chronic obstructive pulmonary disease with (acute) exacerbation; T85.698A Other mechanical complication of other specified internal prosthetic devices, implants and grafts, initial encounter; J93.9 Pneumothorax, unspecified; J95.89 Other postprocedural complications and disorders of respiratory system, not elsewhere classified; B96.20 Unspecified Escherichia coli [E. coli] as the cause of diseases classified elsewhere; R57.1 Hypovolemic shock; I10 Essential (primary) hypertension; E11.65 Type 2 diabetes mellitus with hyperglycemia; G89.29 Other chronic pain; D64.9 Anemia, unspecified; R56.9 Unspecified convulsions; F31.9 Bipolar disorder, unspecified; E83.52 Hypercalcemia; M81.0 Age-related osteoporosis without current pathological fracture; F17.210 Nicotine dependence, cigarettes, uncomplicated; E66.9 Obesity, unspecified; Z90.49 Acquired absence of other specified parts of digestive tract
CPT/HCPCS: 36415; 36430; 36556; 36600; 51702; 71045; 76775; 80048; 80053; 80069; 81001; 82375; 82533; 82550; 82570; 82607; 82728; 82746; 82805; 82948; 83036; 83050; 83540; 83550; 83605; 83615; 83735; 83970; 84100; 84133; 84145; 84156; 84300; 84443; 84478; 84484; 85025; 85027; 85380; 85610; 85730; 85999; 86140; 86850; 86900; 86901; 86920; 87040; 87070; 87077; 87086; 87088; 87186; 87205; 93005; 93306; 94002; 94003; 94640; 96374; 99291; A9270; C1729; C1751; C9113; J0282; J0692; J0696; J0834; J1100; J1120; J1200; J1630; J1644; J1720; J1815; J1940; J2060; J2250; J2430; J2704; J3010; J7050; J7060; J7120; P9016; P9047; Q0249